=== PATIENT | female | born 1945 | race Caucasian/White ===

== ENCOUNTER 2017-07-21 20:58 | Emergency (ER) | payer MEDICARE, OTHER ==
[~2017-07-21] VITALS: Ht 172.7 cm; Wt 149.7 kg
[~2017-07-21 20:58] MED LIST: BACTRIM DS TAB1 EACH PO; BETAMETHASONE D15 G2 TOP; BUPROPION HCL150 M2 PO; CARBIDOPA-LEVO1 EACH PO; KEFLEX500 MG PO; LISINOPRIL5 MG PO; LOVASTATIN40 MG PO; METFORMIN HCL500 MG PO; NORCO 5-325 TA1 EACH PO; OXYBUTYNIN CHLOR5 MG PO; POTASSIUM CHLO20 ME1 PO
[2017-07-21] MEDS ORDERED: CLEOCIN HCL300 MG PO (21:19)
[2017-07-21] MEDS ORDERED: NORCO 5-325 TA1 EACH PO (23:01)
[2017-07-21] MEDS ORDERED: BACTRIM DS TAB1 EACH PO (23:01)
== END 2017-07-21 23:15 | disposition home or self-care (01) ==
LOC: ED 20:58
DX: L03.115 Cellulitis of right lower limb (principal); E11.9 Type 2 diabetes mellitus without complications; I10 Essential (primary) hypertension; J45.909 Unspecified asthma, uncomplicated; F17.200 Nicotine dependence, unspecified, uncomplicated; Z87.442 Personal history of urinary calculi; Z88.7 Allergy status to serum and vaccine; Z88.5 Allergy status to narcotic agent; Z79.84 Long term (current) use of oral hypoglycemic drugs; Z79.899 Other long term (current) drug therapy
CPT/HCPCS: 99282

== ENCOUNTER 2017-11-26 20:29 | Inpatient (IN) | payer MEDICARE, OTHER ==
[~2017-11-26] VITALS: Ht 172.7 cm; Wt 197.8 kg
--- NOTE | ~2017-11-26 | EKG ---
[facility] [address] [facility] [place], [place] [address] Draft EK completed, results pending confirmation PATIENT NAME: JUDYSAMANTHA SILVERMAN Electrocardiogram DATE OF : 43 PHYSICIAN: PRELIMINARY REPORT #: [id number] REPORT IS CONFIDENTIAL AND NOT TO BE RELEASED WITHOUT AUTHORIZATION
[~2017-11-26 20:29] MED LIST changes: +CLEOCIN HCL300 MG PO
--- NOTE | 2017-11-27 01:15 | NUR ---
ADMIT TO CCU 0030 PER STRETCHER FROM THE ED. PT IS ALERT AND ORIENTED. IS UNABLE TO HELP WITH MOVING FROM STRETCHER TO BED SO AIR LIFT USED. PT IS WEAK AND TACHYPNEAC. FOUND TO BE INC OF URINE AND STOOL. CLEANSED AND THEN POSITIONED UP IN BED. RR REAMINS 30'S 0N 02 4LNC..
--- NOTE | 2017-11-27 02:29 | NUR ---
IS RESTING. RR 28. HAD BEEN ASKING FOR WARM BLANKETS. ON ARRIVAL TO CCU TEMP PER MOORE WAS 100.5 BUT ELEVATED TO 100.7 WITHIN 30MIN. GIVEN 400MG MOTRIN PO AT 0110. WAS ABLE TO TAKE PO MEDS WELL. CONT TO MONITOR VS AND URINE OUTPUT.
--- NOTE | 2017-11-27 03:00 | NUR ---
LE 0115 LEGS ARE VERY EDEMATOUS. HAS CRUST LIKE SKIN IN SEVERAL AREAS ON BOTH LOWER LEGS AND FEET. LEFT LEG IS LARGER AND REDDER WITH SCATTERED OPEN ULCERATIONS. REDNESS GOES UP TO THIGH. HAS STRONG ODOR.
--- NOTE | 2017-11-27 03:23 | NUR ---
PT RESTING. DR MOREIRA CALLED RE URINE OUTPUT ORDERS RECIEVED FOR 500ML LR BOLUS AND WILL INC FLUIDS TO 250ML/HR.
--- NOTE | 2017-11-27 04:50 | NUR ---
PT SLEEPY, WILL AWAKEN BUT UNABLE TO STAY AWAKE AT THIS TIME. IS DIAPHORETIC NOW THAT TEMP IS DEC. EXTRA BLANKETS REMOVED.
--- NOTE | 2017-11-27 05:26 | NUR ---
DR MOREIRA CALLED AT 0505 RE DEC URINE OUTPUT BP'S AND LAB WORK. ORDER FOR 1L LR OVER 1 HR RECIEVED. LABS DRAWN PER SL AND NOSE SWAB DONE.
--- NOTE | 2017-11-27 07:10 | NUR ---
URINE OUTPUT BETTER SINCE LAST BOLUS. REPORT GIVEN TO DAY SHIFT.
--- NOTE | 2017-11-27 08:18 | NUR ---
PT SLEEPING WITH HOB ELEVATED, AWAKENS TO VOICE, DENIES C/O AT THIS TIME. VITAL SIGNS TAKEN AND URINE OUTPUT MEASURED. 110 MLS FOR THIS HOUR. ASSESSMENT COMPLETED, PT FALLS ASLEEP EASILY. SALINE LOCK X2 FLUSHED WITH 10 MLS NORMAL SALINE EACH, IVF LR RUNNING IN LEFT AC AT 250 MLS/HR. ACCU CHECK WNL, NO INSULIN REQUIRED AT THIS TIME.
--- NOTE | 2017-11-27 10:18 | NUR ---
PT ATE APPROX 25% OF BREAKFAST. LOWER EXTREMITIES CLEANED WITH SURGICAL SCRUB AND SHAVING CREAM, HAIR CLEANED WITH HEATED SHOWER CAP. HOB DINA. FAMILIA Colbert IN TO TALK WITH PT ABOUT NEEDS WHEN DISCHARGED.
--- NOTE | 2017-11-27 12:58 | NUR ---
PT EATING LUNCH - OCC COUGH. LOWER EXTREMITIES ELEVATED WITH SLING LIFT. BACK OF LEGS CLEANED WITH SURGICAL SCRUB BRUSH AND SHAVING CREAM. PT STATES FEELING BETTER. ASSESSMENT COMPLETED, PT WITH EXP WHEEZES BILAT. HOB ELEVATED AND LOWER EXTREMITIES ELEVATED ON PILLOWS. VITAL SIGNS COMPLETED.
--- NOTE | 2017-11-27 14:23 | NUR ---
CHECKED WITH ZARI TANNER REGARDING PT. FLORES REQUESTED I NOT VISIT PT IF SHE IS ASLEEP. PT ASLEEP, WILL FOLLOW UP AGAIN
--- NOTE | 2017-11-27 14:30 | NUR ---
I/O'S COMPLETED. HILL ROM HERE WITH [facility] BED. PT TRANSFERRED TO NEW BED WITH THE HELP OF THE CEILING LIFT. HOB ELEVATED. PT MIGUEL WELL. FRIENDS/FAMILY IN TO VISIT. P.T. IN TO WORK WITH PT.
[2017-11-27] MEDS ORDERED: REQUIP0.5 MG PO (15:48)
[2017-11-27] MEDS ORDERED: NORCO 5-325 TA1 EACH PO (15:49)
[2017-11-27] MEDS ORDERED: AMBIEN5 MG PO (15:50)
[2017-11-27] MEDS ORDERED: DICLOFENAC SODI75 MG PO (15:50)
[2017-11-27] MEDS ORDERED: ADIPEX-P37.5 M1 PO (15:51)
--- NOTE | 2017-11-27 16:26 | NUR ---
Medications reconciled using pharmacy fill records and patient interview. Patient appears to be reliable historian
--- NOTE | 2017-11-27 17:23 | NUR ---
DR. MOREIRA NOTIFIED OF DECREASE URINE OUTPUT. WILL WATCH HOURLY OUTPUT - NEED 55 MLS/HR. PT SLEEPING AT THIS TIME WITH SATS 93% ON 2L PER NC.
--- NOTE | 2017-11-27 18:14 | NUR ---
PT ATE 100% OF DINNER, PT VISITING WITH FRIEND IN ROOM.
--- NOTE | 2017-11-27 19:01 | NUR ---
URINE OUTPUT [address] MOREIRA NOTIFIED AND IVF INCREASED TO 200 MLS/HR.
--- NOTE | 2017-11-27 20:09 | NUR ---
IN TO SEE PT. PT STATES SHE IS VERY TIRED BUT OTHER OLMSTEAD COMFORTABLE. DENIES PAIN. DR MOREIRA CALLED RE URINE OUTPUT. WILL CONT TO MONITOR. WILL ENCOURAGE COUGH AND DEEP BREATHING.
--- NOTE | 2017-11-27 20:34 | EKG ---
[facility] [address] [facility] [place] [address] Signed Sinus rhythm with premature atrial complexes Otherwise normal ECG When compared with ECG of 26-NOV-2017 21:49, (Unconfirmed) premature atrial complexes are now present Confirmed by KIRIT MOREIRA MD ([id number]) on 11/27/2017 8:34:26 PM Electronically Signed By: KIRIT MOREIRA MD 11/27/17 2034 PATIENT NAME: SAMANTHA KIM HERRERA Electrocardiogram DATE OF : 43 PHYSICIAN: KIRIT MOREIRA MD REPORT #: [id number] REPORT IS CONFIDENTIAL AND NOT TO BE RELEASED WITHOUT AUTHORIZATION
--- NOTE | 2017-11-27 21:20 | NUR ---
USED OVERHEAD LIFT TO REPOSITION PT UP IN BED. NO OTHER C/O
--- NOTE | 2017-11-28 02:32 | NUR ---
LE 11/27/17 2340 AWAKENS EASILY, ASSESSMENT DONE. IS SLEEPING OFF AND ON. CONT TO MONITOR URINE OUTPUT.
--- NOTE | 2017-11-28 02:43 | NUR ---
CONT TO SLEEP OFF AND ON. NO CHANGE.
--- NOTE | 2017-11-28 03:41 | NUR ---
PT C/O BEING COLD AND REQUESTING BLANKETS. TEMP 99.9 PER MOORE TEMP PROBE. PT ALSO STATE ACHES ALL OVER FROM BEING IN BED. GIVEN 400MG MOTIN PO. EXPLAINED MOTRIN WAS AN NSAID, ANTI-INFLAMATORY THAT RELIEVED PAIN AND REDUCED FEVERS. SIDE EFFECT OF POSS KIDNEY INJURY AND INC BLEEDING. PT ALSO GIVEN BLANKETS. WILL CONT TO WATCH TEMP AN URINE OUTPUT. ALSO DISCUSSED POSS WAYS TO PREVENT CELLULITIS IN THE FUTURE. PT HAS TRIED COMPRESSION DEVICES IN THE PAST. ALSO DISCUSSED IMPORTANCE OF CLEANING LEGS AND THE CREVASSES ON THEM AND MAY NEED ASSISTANCE WHEN HOME.
--- NOTE | 2017-11-28 05:15 | NUR ---
SLEEPING, HAS THROWN COVERS OFF.
--- NOTE | 2017-11-28 06:23 | NUR ---
SLEEPING AT THIS TIME.
--- NOTE | 2017-11-28 07:45 | NUR ---
UPON INITIAL ASSESSMENT, PATIENT LAYING AWAKE IN BED, READY FOR BREAKFAST. PT STATES SHE HER BACK IS BOTHERING HER AND SHE WOULD LIKE TO GET OUT OF BED. DISCUSSED PLAN FOR THE DAY AND ORDERED BREAKFAST. CALL LIGHT WITHIN REACH, NO FURTHER REQUESTS AT THIS TIME.
--- NOTE | 2017-11-28 10:01 | NUR ---
MOORE CARE AND PARITAL BED BATH DONE, PT UP TO CHAIR, CALL LIGHT WITHIN REACH. RESPIRATORY THERAPY IN ROOM WITH PT. PT HAS NO FURTHER NEEDS AT THIS TIME.
--- NOTE | 2017-11-28 11:00 | NUR ---
PT RESTING IN CHAIR WATCHING TELEVISION. ELEVATED FOOT OF RECLINER AND PLACED PILLOWS UNDERNEATH LEGS. CALL LIGHT WITHIN REACH, NO FURTHER REQUESTS AT THIS TIME.
--- NOTE | 2017-11-28 11:00 | NUR ---
DR MOREIRA INTO SEE PT AT THIS TIME.
--- NOTE | 2017-11-28 12:24 | NUR ---
PT REPOSITIONED IN CHAIR FOR LUNCH. PT EATING AND WATCHING TELEVISION. NO FURTHER REQUESTS AT THIS TIME.
--- NOTE | 2017-11-28 12:35 | NUR ---
PT SITTISNG UP IN CHAIR-MUCH MORE ALERT AND ORIENTED TODAY. SHE ADMITTED THAT YESTERDAY WAS A "ROUGH" DAY. SHE MENTIONED SHE WAS EXPECTING A VISITOR. PT DID REQUEST A VISIT FROM FR RODRIGUEZ TODAY IF POSSIBLE. I LEFT A MSG FOR HIM TO STOP. PT THANKED ME FOR STOPPING, WILL CONTINUE TO FOLLOW NEEDED
--- NOTE | 2017-11-28 13:15 | NUR ---
IN PT ROOM. PT USED IS. STATES SHE WILL CALL WHEN READY TO LIE DOWN. NO FURTHER NEEDS AT THIS TIME.
--- NOTE | 2017-11-28 15:24 | NUR ---
SCRUBBED LOWER EXTREMITIES WITH HEPA CLEANSE, WELL TOLERATED. MOVED PT FROM CHAIR TO BED. CALL LIGHT WITHIN REACH, PT VISITING WITH FRIEND. NO FURTHER NEEDS AT THIS TIME.
--- NOTE | 2017-11-28 16:26 | NUR ---
PT RESPIRATORY RATE INCREASED TO 28-32. INCREASED SOB WITH EXERTION. DR MOREIRA NOTIFIED.
--- NOTE | 2017-11-28 18:31 | NUR ---
PT REQUESTED REMOVAL OF BLANKETS, STATES SHE IS FEELING LESS ACHY THAN BEFORE IBUPROFEN. RESTING IN BED WATCHING TELEVISION. CALL LIGHT WITHIN REACH.
--- NOTE | 2017-11-28 18:37 | NUR ---
PT HAS BEEN COOPERATIVE WITH HOSPITAL ROUTINE ALL DAY. SHE HAS ENJOYED WORKING WITH THE LADLE LINER AND HAS HAD MANY VISITORS THOUGHOUT THE DAY. WHEN PT WAS MOVED FROM BED TO CHAIR THE CEILING LIFT USED FOR SAFTEY OF PATIENT AND STAFF DUE TO PT'S SIZE AND UNABLE TO STAND AT THIS TIME. PT DID WORK WITH PT TODAY, BUT ONLY IN THE CHAIR. WHEN PT WAS WEIGHT WAS OBTAINED THE BED WAS ZEROED, BUT STILL RECEIVED A INCREASE IN WEIGHT. UNSURE HOW THE INTINALY WEIGTH WAS OBTAINED. THIS IT INFRASTRUCTURE PROJECT MANAGER AGREES WITH ALL OF THE STUDENTS CHARTING AND ASSESSMENTS.
--- NOTE | 2017-11-28 19:30 | NUR ---
PT SHIFT REPORT RECIVED FROM DAY SHIFT RN. ALL QUESTIONS ANSWERED. PT RESTING IN BED AT THIS TIME. WILL CONTINUE TO CLOSELY MONITOR.
--- NOTE | 2017-11-28 20:15 | NUR ---
PT SHIFT ASSESSMENT COMPLETED. PT IS VERY TALKATIVE AND OPEN TO EDUCATION. PT BREATH SOUNDS ARE COARSE AND WHEEZY. PT IS ON 2L NC WITH SPO2 93-95%. PT RR 24-30. ACTIVE BOWEL TONES. PT LEGS ARE SWOLLEN AND REDDENED AREAS NOTED. PT URINARY OUTPUT IS MAINTANING AT THIS TIME. WILL CONTINUE TO DO HOURLY URINE.
--- NOTE | 2017-11-28 22:00 | NUR ---
PT RESTING IN BED. PT HAS A VISITOR IN THE ROOM AT THIS TIME. WILL CONTINUE TO CLOSELY MONITOR.
--- NOTE | 2017-11-29 00:20 | NUR ---
PT RESTING WELL AT THIS TIME. MOORE CONTINUESS TO HAVE GOOD URINE OUTPUT PRESENT. PT BREATH SOUNDS REMAIN COARSE WITH OCCASIONAL COASE COUGH. WILL CONTINUE TO CLOSELY MONITOR. PT DENIES ANY NEEDS AT THIS TIME.
--- NOTE | 2017-11-29 02:00 | NUR ---
IN O CHECK UINAY OUTPUT. PT AWAKE AND IS REPORTING SHE IS UNCOMFOTABLE. WITH OTHER RN ASSIST. REPOSITIONED PT IN BED. PT TOLERATED WELL. GAVE PT PRN IBUPROFEN FOR GENERALIZED PAIN/DISCOMFORT. TURNED ON WHITE NOISE MACHINE AT BEDSIDE TO HELP WITH NOISE THE BED MAKES. WILL CONTINUE TO CLOSELY MONITOR.
--- NOTE | 2017-11-29 03:51 | NUR ---
PT RESTING WELL SINCE REPOSITIONING AND PLACING WHITE NOISE MACHINE IN ROOM. WILL CONTINUE TO ENCOURAGE REST AT THIS TIME. WILL CONTINUE TO CLOSELY MONITOR.
--- NOTE | 2017-11-29 06:44 | NUR ---
PT CALLED TO BE READJUSTED IN BED. PT WANTS TO SIT ON THE EDGE OF THE BED. PT DENIES WANTING TO GET UP TO THE CHAIR AT THIS TIME. SAT PATIENT UP IN CHAIR MODE IN BED. PATIENT IS MORE SATISFIED WITH THIS POSITION. WILL CONTINUE TO CLOSELY MONITOR.
--- NOTE | 2017-11-29 08:43 | NUR ---
STATES NOT VERY COMFORTABLE IN HER BED, ALWAYS THINKING ABOUT WHERE IT WILL INFLATE NEXT.
--- NOTE | 2017-11-29 09:32 | NUR ---
PT AWAKE THIS A.M. HOB ELEVATED AND PT EATING DIABETIC DIET, STATES GENERALIZED DISCOMFORT 01/04. MOTRIN GIVEN WITH A.M. MEDS.
--- NOTE | 2017-11-29 09:58 | NUR ---
ASSESSMENT COMPLETED, RESTING AFTER MOTRIN GIVEN. P.T. HERE AND WORKING WITH PT.
--- NOTE | 2017-11-29 10:27 | NUR ---
PT STOOD WITH P.T. USING GAIT BELT AND RN X2 ASSISTING. PT URING WALKER AND AMBULATED TO CHAIR. NOW RESTING IN CHAIR WITH LOWER EXTREMITIES ELEVATED.
--- NOTE | 2017-11-29 12:47 | NUR ---
PT SITTING IN CHAIR, ALERT AND ORIENTED. SHE DID SEEM SOMEWHAT MORE STRESSED TODAY THAN YESTERDAY. SHE MENTIONED THAT FR RODRIGUEZ CAME IN YESTERDAY, AND IS PLANNING ON VISITING TODAY FOLLOWING MASS. SHE SUGGESTED THAT THE MASS TIME BE POSTED AND THE CHANNEL ON TV FOR MASS BE PUBLISHED WELL. I WILL MENTION TO DANIEL Colbert HAD GOOD VISIT WITH PT, CLOSED WITH PRAYER. WILL FOLLOW NEEDED
--- NOTE | 2017-11-29 13:28 | NUR ---
ASSESSMENT COMPLETED, PT RESTING IN BERI CHAIR, VISITING WITH FRIENDS IN ROOM.
--- NOTE | 2017-11-29 14:06 | NUR ---
PT RETURNED TO BED WITH CEILING LIFT AND RN X2. PT RESTING WITH HOB DINA. Violet FARR IN TO PLACE MIDLINE IVS.
--- NOTE | 2017-11-29 14:56 | NUR ---
20 SHANEL MIDLINE IV INSERTED IN RIGHT UPPER ARM BY TRAVIS FARR RN. VANCOMYCIN STARTED - PT MIGUEL WELL AND DR. MOREIRA NOTIFIED.
--- NOTE | 2017-11-29 15:11 | NUR ---
MIDLINE INSERTION NOTE: ASKED BY DR. MOREIRA TO EVALUATE PATIENT FOR POTENTIAL MIDLINE PLACEMENT. PATIENT IS IN NEED OF CONTINUED IV ANTIBIOTIC THERAPY AND ALL PERIPHERAL LINES DISCONTINUED. AFTER REVIEWING THE CHART AND INTERVIEWING THE PATIENT, NO ABSOLUTE CONTRAINDICATIONS WERE IDENTIFIED. PATIENT'S RIGHT ARM WAS EVALUTED FIRST USING THE SITE RITE U/S MACHINE. PT'S BASILIC, BRACHIAL AND CEPHALIC VEINS WERE IDENTIFIED. THE BASILIC WAS ATTEMPTED AND ACCESSED AFTER THE SECOND TRY IT WAS A DEEP VEIN TO ACCESS. THE GUIDEWIRE, INTRODUCER, AND MIDLINE CATHETER ALL ADVANCED WITHOUT DIFFICULTY. A 4 FR PICC CATHETER WAS USED BUT TRIMMED DOWN TO 20 CM AFTER MEASURING TO THE AXILLA ON PATIENT'S ARM. PATIENT TOLERATED PROCEDURE WELL. CDC RECOMMENDED GUIDELINES FOR STERILE TECHNIQUE FOR PREP AND PROCEDURE WERE FOLLOWED. BLOOD EASIILY ASPIRATES BACK AND LINE FLUSHES WELL. DRESSING INTACT. REPORT GIVEN TO ZARI TANNER. PATIENT ENCOURAGED TO ASK QUESTIONS ABOUT HER MIDLINE CATHETER.
--- NOTE | 2017-11-29 16:20 | NUR ---
LUISA HAMEED HERE AND REPORT GIVEN.
--- NOTE | 2017-11-29 16:48 | NUR ---
moved over to room 110 from ccu. nurse to nurse report was given in room. patient was requesting that she have a regular ms bed. looked into wt limit and patient does not fit the wt requirements for regular bed. patient was c/o bed and stating that her current bed is uncomfortable. requesting more tylenol when available. assessment complete, rt in room to give breathing treatment.
--- NOTE | 2017-11-29 16:54 | NUR ---
PATIENT SITTING UP IN BED. RT IN ROOM FOR TREATMENT. CALL LIGHT WITHIN REACH. NO OTHER NEEDS AT THIS TIME.
--- NOTE | 2017-11-29 17:41 | NUR ---
THIS RN ASKED TO GIVEN 1700 MEDICATIONS. TO ROOM. PT REPORTS INPROVING PAIN, NOW 12/05, THAT IS "BETTER WITH THE DISTRACTION OF MY VISITIORS." MEDICATION GIVEN (SEE MAR). BEDRAILS UP. CALL LIGHT WITHIN REACH. BELONGINGS WITHIN REACH. PT VISTING WITH FRIENDS. NO ADDITIONAL REQUESTS OR COMPLAINTS AT THIS TIME.
--- NOTE | 2017-11-29 18:07 | NUR ---
DINNER BROUGHT TO ROOM. PATIENT HAS FRIENDS IN ROOM. CREATIVE ARTS THERAPIST CAME TO SEE PATIENT.
--- NOTE | 2017-11-29 18:12 | NUR ---
PATIENT TRANSFER THIS EVENING FROM CCU. PATIENT ADMITTED FOR CELLULITIES. CURRENTLY ON VANCO AND ROCEPHIN. ADA DIET. BS HAVE BEEN WELL CONTROLLED. DAILY CLEANING AND APPLYING OF CREAM TO LOWER EXTREMITIES. REDNESS ON L LOWER LEG IS IMPROVING. LEG REMAINS WARM TO TOUCH. REQUESTING TYLENOL FOR PAIN. DOES NOT LIKE OUR BEDS.
--- NOTE | 2017-11-29 20:05 | NUR ---
Charge nurse rounding note:, Pt awake, in bariatric bed, no c/o apin or discomfort, watching tv
--- NOTE | 2017-11-29 20:07 | NUR ---
RECIEVED BEDSIDE REPORT FROM DAY SHIFT RN. PT IS A/O IN BED. NOB ELEVATED. LE ELEVATED ON PILLOW. PT REPORTS 5/10 PAIN. REPORTS THIS TOLLERABLE. MOORE DRAINING YELLOW URINE. PT IS ON 2.5L O2 NC. PT SL IN RIGHT UPPER ARM. REPOSITIONED PILLOW UNDER HEAD. CALL LIGHT WITHIN REACH. REPORTS NO OTHER NEEDS AT THIS TIME.
--- NOTE | 2017-11-29 20:40 | NUR ---
CBG 158 AT THIS TIME. PT SITTING UP IN BED, GIVEN ICE WATER, COLD ICE PACK FOR LEG, PT C/O HEAT IN LEFT LEG. CALL LIGHT IN REACH. NO ADDL REQUESTS AT THIS TIME.
--- NOTE | 2017-11-29 21:00 | NUR ---
PT IN BED. FRESH ICE WATER. EMPTY MOORE. VITALS AND I AND O DONE.
--- NOTE | 2017-11-29 22:00 | NUR ---
EVENING ASSESSMENT COMPLETED. PT REPORTS PAIN /10. TYLENOL GIVEN. HEART RATE NORMAL. LUNGS SOUNDS WHEEZY THROUOUT. EDEMA IN BILAT LE. LEFT LEG WEEPING. CREAM APPLIED. CHUCKS PLACED UNDER LEGS. LEGS ELEVATED ON PILLOWS. URINE YELLOW. CALL LIGHT WITHIN REACH. REPORTS NO OTHER NEEDS AT THIS TIME.
--- NOTE | 2017-11-29 22:41 | NUR ---
PT HAS BEEN COMPLAINING OF LOWER BACK PAINN. MD MOREIRA WAS CALLED AND NORCO 1 TAB PRN Q 8HRS ORDER WAS RECEIVED.
--- NOTE | 2017-11-29 23:00 | NUR ---
PT IS SLEEPING IN BED. WILL CHECK BACK ON LATER
--- NOTE | 2017-11-30 00:12 | NUR ---
PT APPEARS TO BE SLEEPING. RR WNL. HOB ELEVATED. LEGS ELEVATED. CALL LIGHT WITHIN REACH. PT VISIBLE FROM NURSING STATION.
--- NOTE | 2017-11-30 01:00 | NUR ---
PT SLEEPING IN BED. EMPTY MOORE AND I AND O DONE. PT IS DOING WELL. HELPED PT GET COMFY IN BED.
--- NOTE | 2017-11-30 02:20 | NUR ---
PT AWAKEN TO SOUND. REQUESTED SONATA. PT BACK TO SLEEP. REPORTS NO OTHER NEEDS AT THIS TIME. CALL LIGHT WITHIN REACH.
--- NOTE | 2017-11-30 02:39 | NUR ---
PT REORTED ITCHING, BENADRYL 25MG IV GIVEN.
--- NOTE | 2017-11-30 03:14 | NUR ---
PT SLEEPING IN BED WILL CHECK BACK ON LATER
--- NOTE | 2017-11-30 04:39 | NUR ---
PT APPEARS TO BE SLEEPING. RR EQUAL. CALL LIGHT WITHIN REACH. O2 NC IN PLACE. HOB ELEVATED. BILAT LE ELEVATED.
--- NOTE | 2017-11-30 06:41 | NUR ---
PT SLEPT MOST OF THE NIGHT. VANCO HUNG AT 0630. TROUGH AT 1430. PT ON 2.5L NC. MOORE IN PLACE. STRICT I/O. ADA DIET. BS 158. 1 UNIT INSULIN GIVEN. WHEEPING EDEMA BILAT LE. VANICREAM Q SHIFT. SL MIDLINE IN R UPPER ARM. CHAIR FROM HOME TO ARRIVE TODAY. FACILITIES NEEDS TO APPROVE.
--- NOTE | 2017-11-30 07:00 | NUR ---
BEDSIDE HANDOFF REPORT RECEIVED FROM SCREEN EXAMINER RN. PT RESTING IN BED. VANCO INFUSING. PT ON 2L NC. PT REQUESTING TO HAVE BED PLACED IN CHAIR POSITION, ASSISTED. PT DENIES OTHER NEEDS AT THIS TIME.
--- NOTE | 2017-11-30 08:03 | NUR ---
PT ASSISTED WITH CNAS X2 AND RNS X2 AND DAYRON LIFT UP TO CHAIR. ORAL CARE PERFORMED FACIAL CARE PERFORMED BY PT. MOORE CATHETER EMPTIED OF 850ML AND SECURED ON SIDE OF CHAIR. PIV CONTINUES TO RUN. BLOOD SUGAR TAKEN (108). PT STATES SHE IS COMFORTABLE "ENOUGH FOR NOW." BED LINENS CHANGED. PT'S NURSE NOTIFIED OF STATUS. CALL LIGTH WITHIN REACH. PT STATES SHE HAS NO ADDITIONAL REQUESTS OR COMPLAINTS AT THIS TIME.
--- NOTE | 2017-11-30 08:45 | NUR ---
PT SITTING IN CHAIR. PT PAIN IMPROVING, RATING PAIN 4/10. PT ON 2L NC, DENIES SOB. PT TOLERATING ADA DIET, NO SS INSULIN REQUIRED. PT WITH EDEMA AND REDNESS TO BLE, LEFT LEG MORE SWOLLEN THAN RIGHT, VANICREAM APPLIED TO LEGS, LEGS ELEVATED. PT WITH MOORE CATH DRAINING YELLOR URINE. VANCO INFUSING TO RIGHT MIDLINE. BOWEL TONES ACTIVE, DISCUSSED STOOL SOFTENER OR LAXATIVE WITH PT, PT DECLINING AT THIS TIME. PT DENIES OTHER NEEDS.
--- NOTE | 2017-11-30 08:54 | NUR ---
PATIENT UP IN CHAIR. CHANGED LINENS.
--- NOTE | 2017-11-30 08:55 | NUR ---
TALKED WITH PT THIS AM REGARDING DR MOREIRA CONCERN THAT HE VOICED TO ME ABOUT THE PT GOING HOME SHE LIVES ALONE, SO HE ASKED ME TO TALK WITH THE PT ABOUT HER DISCHARGE. IN TALKING TO THE PT SHE STATED THAT SHE IS PERFECTLY FINE TO GO HOME SHE HAS FRIENDS THERE THAT WILL HELP HER AND ALL THE RIGHT EQUIPMENT AT HOME TO CARE FOR HERSELF. SHE SAYS THERE IS NO WAY SHE WILL GO TO A FACILITY OR ALF OR REHAB OR ANYWHERE BUT HOME. PT WAS VERY ADAMANT ABOUT THIS.
--- NOTE | 2017-11-30 11:45 | NUR ---
PT REPOSITIONED IN CHAIR. LEGS ELEVATED ON PILLOWS. LUNCH TRAY SET UP. DISCUSSED PLAN FOR BED BATH AT 1430. PT DENIES OTHER NEEDS AT THIS TIME.
--- NOTE | 2017-11-30 13:50 | NUR ---
PT HAS BEEN TRANSFERRED TO M/S FROM CCU. SHE STATED SHE FEELS BETTER THAN THE DAY BEFORE. PT MENTIONED THAT DR MOREIRA APPROVED HER LIFT CHAIR TO BE BROUGHT FROM HOME. SHE IS PLEASED AND HAS MADE ARRANGEMENTS FOR THIS TO HAPPEN THIS AFTERNOON. GOOD VISIT, FR RODRIGUEZ IN TO CARE FOR PT. WILL CONTINUE TO FOLLOW NEEDED
--- NOTE | 2017-11-30 15:00 | NUR ---
BILATERAL LOWER LEGS CLEANSED WITH HEBICLEANSE AND SURGICAL SPONGE. RINSED WELL WITH WARM WATER AND WASH CLOTHS. DRIED WITH CLEAN TOWELS. VANICREAM APPLIED. PERICARE PERFORMED PER PROTOCOL. PT RESTING IN CHAIR, LEGS ELEVATED ON PILLOWS. PT DENIES OTHER NEEDS AT THIS TIME.
--- NOTE | 2017-11-30 16:15 | NUR ---
IV VANCO INFUSING, VANCO TROUGH 17.2. PT SITTING IN CHAIR. PT DENIES OTHER NEEDS AT THIS TIME.
--- NOTE | 2017-11-30 16:45 | NUR ---
PT TRANSFERED TO CHAIR FROM HOME. CHAIR CHECKED BY FACILITIES DEPARTMENT TO ENSURE IT WAS IN GOOD WORKING CONDITION. STEP DAUGHTER AT BEDSIDE, GIVEN UPDATE ON PT CONDITION.
--- NOTE | 2017-11-30 17:01 | NUR ---
I AND TWO NURSES HOYERED PATIENT FROM OUR CHAIR TO HER CHAIR.
--- NOTE | 2017-11-30 17:31 | NUR ---
PT REQUESTING PAIN MEDICATION. PT RATIGN PAIN 4-01/04. PT GIVEN 1 TAB NORCO. PT DENIES OTHER NEEDS AT THIS TIME.
--- NOTE | 2017-11-30 17:53 | NUR ---
PT STA IN CHAIR FOR ENTIRE SHIFT, UNCOMFORTABLE IN HOSPITAL CHAIR, CHAIR FROM HOME DELIVERED, CHECKED BY FACILITIES, PT TRANSFERED WITH DAYRON LIFT. PT ON 2L NC, LUNG SOUNDS CLEAR. PT TOLERATING ADA DIET, ACCUCHECKS DISCONTINUED. PT PAIN WELL CONTROLLED WITH PRN NORCO. IV VANCO, TROUGH TODAY 17.2. MIDLINE HEP LOCKED, FLUSHING BUT MALHOTRA SNOT DRAW BACK BLOOD. PT 3PA DAYRON LIFT. MOORE CATH IN PLACE, IV LASIX GIVEN TODAY. LOWER LEGS WASHED AND VANICREAM APPLIED.
--- NOTE | 2017-11-30 18:32 | NUR ---
INFORMTAION FOLDER GIVEN TO PT. PT ACCEPTS FOLDER AND STATES SHE WOULD LIKE TO REVIEW INFORMATION TOMORROW WHEN HER STEP DAUGHTER COMES "ARROUND 9." PT RESTING IN CHAIR FROM HOME. O2 READJUSTED NC IS NOT SET PROPERLY IN NOSTRILS. CALL LIGHT WITHIN REACH.
--- NOTE | 2017-11-30 18:56 | NUR ---
CHECKED ON PATIENT ASKED HER IF SHE NEEDED ANYTHING AND SHE SAID NO. HER FAMILY IS VISTING HER.
--- NOTE | 2017-11-30 19:00 | NUR ---
SHIFT REPORT RECEIVED. PATIENT RESTING IN HER RECLINER. SHE REPORTS FEELING COMFORTABLE AND DENIES ANY NEEDS. CALL LIGHT IN REACH.
--- NOTE | 2017-11-30 20:35 | NUR ---
HELPED RN ALISE GET PT COMFORTABLE IN HER CHAIR. FIXED HER BLANKETS. BEDSIDE TABLE AND CALL LIGHT WITHIN REACH.
--- NOTE | 2017-11-30 20:45 | NUR ---
PATIENT REPORTS FEELING UNCOMFORTABLE IN THE CHIAR AND REQUEST THAT THE DAYRON SHEET BE REMOVED. DISCUSSED THE IMPORTANCE OF THE SHEET WITH THE PATIENT. POLITICAL THEORY PROFESSOR ASSISTED IN TURNING PATIENT IN THE CHAIR TO SMOOTH OUT DRAW SHEET AND DAYRON SHEET. PATIENT REPORTS THAT IS MORE COMFORTABLE. PATIENT ALSO REPORTING DISCOMFORT IN HER BLADDER THAT COMES AND GOES. FLUSHED CATHETER, WHICH IS DRAINING WELL. APPEARS WELL POSITIONED. FRESH ICE WATER PROVIDED. PATIENT DENIES ANY OTHER NEEDS.
--- NOTE | 2017-11-30 21:00 | NUR ---
PATIENT IS AAOX4. PAIN RATED 5/10, PATIENT STATES THAT IS ABOUT NORMAL FOR HER. PATIENT IS ON 3L NC, THIS IS BOTHERING HER AND SHE APPEARS SOB BUT SHE DENIES THAT. ASSISTED PATIENT IN SITTING FORWARD IN CHAIR. PURSED LIP BREATHING. SWITCHED TO OXI-MASK FOR COMFORT. CRACKLES HEARD IN LUNG BASES BILATERALLY. ENCOURAGE COUGH AND DEEP BREATH. RT CONTACTED FOR PRN NEB. PATIENT ABLE TO RELAX AFTER NEB TREATMENT. CREAM APPLIED TO LEGS PER ORDER, PATIENT DENIES ANY PAIN FROM THE KNEE DOWN. SKIN IS FLAKING OFF AND SKIN IS NONBLANCHABLE, THICK AND HARD. LEFT THIGH IS RED AND TENDER TO TOUCH, OUTLINE MARKED BY PREVIOUS SHIFT. MOORE IS DRAINING LARGE AMOUNTS OF YELLOW URINE WITH SOME SEDIMENT AND OCCATIONAL BLOOD CLOTS. MIDLINE IN RIGHT ARM WAS HEPARIN LOCKED. FLUSHED WITH 10ML NS, UNABLE TO PULL BACK BLOOD. FLUSHES EASILY. SITE HAS SOME DRIED BLOOD UNDER DRESSING. PATIENT IS RESTING IN HER CHIAR WATCHING TV, DENIES ANY NEEDS.
--- NOTE | 2017-11-30 21:12 | NUR ---
VITALS AND I&OS DONE AND CHARTED. BEDSIDE TABLE AND CALL LIGHT WITHIN REACH. PER PT REQUEST I TURNED UP HER HEAT AND GOT HER A WARM BLANKET.
--- NOTE | 2017-11-30 22:00 | NUR ---
PATIENT REQUESTED HER ASSISTENT/FRIEND BRING IN HER MEDICATIONS FROM HOME. PATIENT STATES SHE DOESN'T LIKE THE IDEA OF THEM BEING THERE WHEN NO ONE IS THERE. THE MEDS AND SOME PERSONAL ITEMS WERE BROUGHT TO THE NURSE'S STATION. MEDS PLACED IN PATIENT'S KITS LIST TO BE VERIFIED BY PHARMACY TOMORROW. PERSONAL ITEMS PLACED IN PATIENT'S ROOM.
--- NOTE | 2017-11-30 23:10 | NUR ---
IV VANCO ADMINISTERED PER ORDER. PATIENT CONTINUES TO REPORT DISCOMFORT WITH THE MOORE, STATES HER BLADDER IS SPASMING OCCATIONALLY. ATTEMPTED TO REPOSITION AND FLUSH THE CATHETER. APPEARS TO BE DRAINING WELL. PATIENT IS READY FOR BED. PM CARE PROVIDED. LIGHTS TURNED OFF. CALL LIGHT IN REACH.
--- NOTE | 2017-12-01 00:45 | NUR ---
PATIENT'S MOORE LEAKED AND SATURATED THE PATIENT'S CHUCKS AND DAYRON SLING. PATIENT STILL FEELS THAT SHE CANNOT ATTEMPT STANDING AT THIS TIME. BED IN ROOM IS NOT BARIATRIC. DISCUSSED NEED FOR APPROPRIATE SIZED BED WITH PATIENT. SHE STATED "I'M NOT GOING INTO THAT BED, IT'S SO UNCOMFORTABLE". DISCUSSED USING BARIATRIC BED WITH CONTRACTOR BUYER AND VOLUNTEER PATIENT REPRESENTATIVE, WHICH ARE BOTH IN AGREEMENT. REPLACED BED IN ROOM WITH BARIATRIC BED. HOYERED PATIENT ONTO BED, 3PA. ABLE TO ROLL PATIENT TO REMOVE SOILED LINEN AND PROVIDE GOKUL CARE. PATIENT AGREES TO STAY IN THE BED FOR THE NIGHT IN ATTEMPT THAT THE MOORE WILL DRAIN BETTER. POSITIONED PATIENT FOR COMFORT. SHE REPORTS CRAMPING IN HER LEFT LEG, REPOSITIONED AND APPLIED WARM BLANKET. PATIENT THINKS SHE NEEDS MORE POTASSIUM. PATIENT ON 3L NC, PURSED LIP LABORED BREATHING.
--- NOTE | 2017-12-01 02:41 | NUR ---
PATIENT APPEARS TO BE SLEEPING. RR 18. CALL LIGHT IN REACH.
--- NOTE | 2017-12-01 03:30 | NUR ---
PATIENT CONTINUES TO REPORT CRAMPING PAIN IN HER FEET. NORCO DID NOT PROVIDE ANY RELIEF. REPOSITIONING HAS NOT HELPED. PRN TYLENOL PROVIDED. PATIENT RATES PAIN 8/10 AND APPEARS UNCOMFORTABLE.
--- NOTE | 2017-12-01 04:02 | NUR ---
PATIENT CONTINUES TO BE RESTLESS AND IS UNABLE TO GET COMFORTABLE. HER LEFT LEG IS VERY PAINFUL AND PATIENT APPEARS ANXIOUS. I SPOKE WITH DR. MOREIRA. ONE TIME DOSE OF NORCO WAS ADDED TO PATIENT'S ORDERS. VERIFIED USING READ BACK METHOD.
--- NOTE | 2017-12-01 04:15 | NUR ---
PATIENT CONTINUES TO BE UNCOMFORTABLE. SHE IS REQUESTING TO SIT UP ON THE EDGE OF THE BED. DUE TO HER WEAKNESS AND STATUS A DAYRON LIFT, THIS IS UNSAFE. TRANSFERED PATIENT WITH DAYRON LIFT INTO RECLINER. PATIENT WAS ABLE TO RELAX SOME AND LEFT MORE CONTENT. ELEVATED HER FEET WITH CHAIR AND TWO PILLOWS. ONE TIME NORCO PROVIDED. PATIENT HAS BEEN REMOVING HER NC AND HAVING LABORED BREATHING. EDUCATED PATIENT AND ENCOURAGED HER TO LEAVE NC IN PLACE. NO OTHER NEEDS AT THIS TIME. CALL LIGHT IN REACH.
--- NOTE | 2017-12-01 05:00 | NUR ---
PATIENT APPEARS TO BE SLEEPING. RR 18. 2L NC IN PLACE. CALL LIGHT IN REACH.
--- NOTE | 2017-12-01 05:28 | NUR ---
PATIENT WAS UNABLE TO SLEEP MUCH LAST NIGHT DUE TO CRAMPING/PAIN IN BOTH FEET. THE MOORE WAS NOT DRAINING PROPERLY WHILE PATIENT WAS IN THE RECLINER, TRANSFERED TO BED AND PATIENT TOELRATED THAT FOR A FEW HOURS. 2-3L NC, PATIENT REMOVES FREQUENTLY WHEN EXPERIENCING SOB. PRN NEBS. IV ABX. MIDLINE IN RIGHT ARM. LOWER EXTREMITIES ELEVATED TOLERATED, CREAM APPLIED PER ORDERS. DAILY SCRUB & CLEANING. DAYRON LIFT W/2-3 PA. PRN NORCO FOR PAIN.
--- NOTE | 2017-12-01 06:52 | NUR ---
SPOKE TO RAMO HAMEED ABOUT CONDITION OF PATIENT'S MIDLINE, NOT DRAWING BLOOD. HE STATES THAT IT MAY BE UP AGAINST A VALVE AND IF IT IS FLUSHING WELL THEN IT DOES NOT REQUIRE THE [place] PROTOCOL. IF PATIENT IS HAVING FREQUENT LAB DRAWS THEN THE PROTOCOL WOULD BE APPROPRIATE. HE ALSO RECOMMENDS USING A TOURNIQUET IN THE AXILLARY FOR BLOOD DRAWS.
--- NOTE | 2017-12-01 06:52 | NUR ---
VITALS AND I&OS DONE AND CHARTED. BEDSIDE TABLE AND CALL LIGHT WITHIN REACH. PT NEEDS NOTHING ELSE AT THIS TIME.
--- NOTE | 2017-12-01 07:20 | NUR ---
REPORT REECEIVED FROM ALISE. PATIENT RESTING IN CHAIR, APPEARS TO BE SLEEPING. NO DISTRESS NOTED.
--- NOTE | 2017-12-01 07:30 | NUR ---
PATEINT IN CHAIR, LEGS ELEVATED. EATING BREAKFAST. CALL LIGHT IN REACH. NO NEEDS ATT
--- NOTE | 2017-12-01 08:50 | NUR ---
CARE CONFERENCE ATTENDEES: PATIENT, STEP DAUGHTER JOHNNY STAFF: DR MOREIRA, MYSELF CASE MANAGEMENT, [facility], [facility], SAVANNAH CHATMAN, PERI HAMEED. DR MOREIRA DISCUSSED PT PROGRESS AND THE CONCERNS HE HAS FOR HER SHE IS PLANNING TO RETURN TO HER HOME WHERE SHE LIVES ALONE. HE SAYS IT IS TAKING MORE CARE HERE THAN WHAT SHE SAYS SHE IS DOING AT HOME. PT STATES SHE USES A WALKER AND IS ABLE TO GET UP FROM HER CHAIR IT IS A LIFT CHAIR AND USES HER WALKER TO GO TO THE BATHROOM. STATES SHE SLEEPING IN HER CHAIR AND SHE HAS BEEN MANAGING FINE BEFORE SHE CAME INTO THE HOSPITAL. DR MOREIRA TALKED WITH HER ABOUT GOING TO A SNF, PT ADAMANTLY REFUSES TO DO THIS. SO HE TOLD HER SHE COULD BE MADE INTO A TRANSITIONAL SWING BED PT, THIS GIVING HER UP TO 20 + DAYS TO GET STRONG ENOUGH TO CARE FOR HERSELF AT HOME. PT STEP DAUGHTER AGREES AND WELL THE PT. DENIED FURTHER QUESTIONS AT THIS TIME. INFORMED THEM THAT WE ARE AVAIL IF NECESSARY.
--- NOTE | 2017-12-01 09:05 | NUR ---
MULTIDISCIPLINARY TEAM IN ROOM FOR CARE CONFERENCE [facility] PATIENT AND PATIENT FAMILY.
--- NOTE | 2017-12-01 09:51 | NUR ---
PT FAMILY ARRIVED "FOR EDUCATION." THIS RN TO ROOM TO REVIEW PAMPHLETS AND DIAGNOSIS WITH PT AND FAMILY. CELLULITIS, DIABETES, FOOT CARE, AND SEPSIS PAMPHETS GIVEN AND REVIEWED WITH PT AND FAMILY. PT AND FAMILY ACTIVELY ENGAGED WITH INSTRUCTION, ASKING QUESTIONS, AND VERBALIZING UNDERSTANDING. PT AND FAMILY STATE THE FOOT CARE AND SPESIS PAMPHELTES WERE PARTICULARILY HELPFUL. PT STATE THEIR QUESTIONS HAVE BEEN ANSWSERED AND THEY HAVE NO FURTHER QUESTIONS. CALL LIGHT WITHIN REACH.
--- NOTE | 2017-12-01 10:49 | NUR ---
PHYSICAL THERAPIST TANYA IS IN ROOM WITH PATIENT FOR EXERCISE.
--- NOTE | 2017-12-01 11:13 | NUR ---
PATIENT SITTING IN CHAIR. VITALS AND I/OS DONE. FRESH ICE WATER GIVEN. CALL LIGHT IN REACH.
--- NOTE | 2017-12-01 11:43 | NUR ---
PT IN CHAIR, WATCHING MASS. QUICKLY VISITED, EXTENDED A BLESSING. WILL FOLLOW A NEEDED
== END 2017-12-01 12:37 | disposition swing bed (61) | DRG 871 ==
LOC: ED 20:29 → CCU 23:46 → MS 11-29 16:45
PROVIDERS: ADMIT Internal Medicine
PROC: 05H533Z Insertion of Infusion Device into Right Subclavian Vein, Percutaneous Approach (ICD-10-PCS; principal; 2017-11-29 14:30)
DX: A41.02 Sepsis due to Methicillin resistant Staphylococcus aureus (principal); J96.01 Acute respiratory failure with hypoxia; L03.116 Cellulitis of left lower limb; E66.2 Morbid (severe) obesity with alveolar hypoventilation; Z68.43 Body mass index [BMI] 50.0-59.9, adult; E78.5 Hyperlipidemia, unspecified; F32.9 Major depressive disorder, single episode, unspecified; G25.81 Restless legs syndrome; I89.0 Lymphedema, not elsewhere classified; E11.9 Type 2 diabetes mellitus without complications; I10 Essential (primary) hypertension; F17.210 Nicotine dependence, cigarettes, uncomplicated; B95.62 Methicillin resistant Staphylococcus aureus infection as the cause of diseases classified elsewhere; Z79.84 Long term (current) use of oral hypoglycemic drugs
CPT/HCPCS: 36415; 36569; 71045; 71260; 80053; 80069; 80202; 82803; 83605; 83735; 83880; 84484; 85025; 85379; 85610; 85651; 85730; 86060; 87040; 93005; 93010; 94640; 94667; 94668; 97110; 97161; 97163; 97165; 97530; 99406; C1751; G8978; G8979; J0696; J1650; J3370; J3475; J7030; J7040; J7060; J7120; Q9967

== ENCOUNTER 2017-12-01 12:37 | Inpatient (IN) | payer MEDICARE, OTHER ==
[~2017-12-01] VITALS: Ht 172.7 cm; Wt 197.8 kg
[~2017-12-01 12:37] MED LIST changes: +ADIPEX-P37.5 M1 PO; +AMBIEN5 MG PO; +DICLOFENAC SODI75 MG PO; +REQUIP0.5 MG PO
--- NOTE | 2017-12-01 13:20 | NUR ---
PATIENT STATUS HAS CHANGED TO SWING BED. PATIENT WAS INFORMED BY DR MOREIRA AND DIRECTOR PLANS CONNIE ABOUT THE SWING BED PROGRAM. PATIENT WALKED WITH PHYSICAL THERAPIST TWICE TO DAY AND WAS ABLE TO STAND FOR A VERY SHORT PERIOD OF TIME (LESS THAN 5 SEC THE FIRST TIME AND LEST THAT 1MINUTE THE SECOND TIME). PATIENT WILLING TI PARTICIPATE IN THERAPY.
--- NOTE | 2017-12-01 14:55 | NUR ---
PATIENT LEGS WERE CLEANED WITH CHLOHEXIDINE SPONGE AND WATER. LEGS WERE SCRUBED AND DRIED, AND EMOLLIENT CREAM APPLIED. PATIENT TOLERATED IT WELL. GUAZE WAS APPLIED IN THE BETWEEN THE SKIN FOLDS.
--- NOTE | 2017-12-01 15:30 | NUR ---
PATIENT SITTING IN CHAIR. CALL LIGHT IN REACH, FRESH ICE WATER GIVEN. NO OTHER NEEDS
--- NOTE | 2017-12-01 17:15 | NUR ---
PATIENT WAS ADJUSTED TO THE CHAIR WITH DAYRON. PATIENT TOLERATED WELL. SITTING UP IN THE CHAIR AT THIS TIME EATING DINNER. NO COMPLAINTS OF PAIN AT THIS TIME
--- NOTE | 2017-12-01 18:01 | NUR ---
PATIENT SITTING UP IN CHAIR, VISITOR IN ROOM. VITALS AND I/OS DONE. RN TY IN ROOM TO INCREASE O2. PATIENT WAS DOWN TO 79 ON RM AIR. CALL LIGHT IN REACH.
--- NOTE | 2017-12-01 18:40 | NUR ---
PATIENT IS ADMITTED TO SWING BED TODAY. RESTING IN CHAIR ALL DAY. LOWER EXTREMITIES WERE CLEANED TODAY DRIED AND EMOLLIENT CREAM APPLIED. PATIENT HAD 2 MAG RIDERS TODAY, IV LASIX ONCE. PATIENT IS 2L OF 02 VIA PA. PAIN CONTROL WITH TYLENOL AND NORCO PRN.HAD PHYSICAL THERAPY TWICE AND WAS ABLE TO STAND UP TWICE.
--- NOTE | 2017-12-01 19:00 | NUR ---
SHIFT REPORT RECEIEVD. PATIENT RESTING IN RECLINER. REPORTS HAVING A BETTER DAY THAN SHE HAD PREVIOUSLY. DENIES ANY NEEDS AT THIS TIME.
--- NOTE | 2017-12-01 20:05 | NUR ---
VITALS AND I&OS DONE AND CHARTED. GAVE HER A SODA PER HER REQUEST. ASKED HER RN ALISE IF IT WAS OK. SHE SAID IT WAS FINE. BEDSIDE TABLE AND CALL LIGHT IN REACH. SHE NEEDS NOTHING ELSE AT THIS TIME.
--- NOTE | 2017-12-01 21:30 | NUR ---
EVENING MEDS GIVEN PER ORDER. PATIENT IS [id number]. REPORTS PAIN 6/10 IN HER FEET BILATERALLY. DENIES PRN PAIN MEDS AT THIS TIME. TOLERATING 1L NC, LUNGS ARE CLEAR IN UPPER LOBES WITH CRACKLES IN THE BASES. ENCOURAGED COUGH AND DEEP BREATHING. ABD IS ROUND, NONTENDER, AND BOWEL SOUNDS ARE ACTIVE. PATIENT HAS NOT HAD BM SINCE ADMISSION 5 DAYS AGO; EDUCATED PATIENT ON BOWEL CARE AND SHE AGREES TO HAVE MILK OF MAG WITH EVENING MEDS. PATIENT'S URINE OUTPUT IS QS, DILUTE YELLOW WITHOUT SEDIMENT. MOROE CARE PROVIDED. REDNESS ON LEFT LEG APPEARS LESS THAN IT WAS. LOTION APPLIED TO BOTH LOWER LEGS, DAY SHIFT PLACED GAUZE IN SKIN FOLDS TO ABSORB DRAINAGE. GAUZE APPEARS CLEAN, LEFT IN PLACE FOR NOW. MIDLINE IV IN RIGHT ARM IS SL; RETURNS BLOOD AND FLUSHES WELL.
--- NOTE | 2017-12-01 22:50 | NUR ---
IV VANCO STARTED PER ORDER. PATIENT APPEARED TO BE SLEEPING WHEN RN ENTERED THE ROOM. SHE AWOKE AFTER SEVERAL MINS AND REQUESTED SOME APPLE CIDER VINEGAR TO DRINK. NO OTHER NEEDS AT THIS TIME.
--- NOTE | 2017-12-02 01:14 | NUR ---
PATIENT APPEARS TO BE SLEEPING. RR 24. 2L NC.
--- NOTE | 2017-12-02 02:15 | NUR ---
PATIENT REQUESTED PRN PAIN MEDS, WHICH WERE PROVIDED BY THE PAVING RAMMER.
--- NOTE | 2017-12-02 04:00 | NUR ---
PATIENT APPEARS TO BE SLEEPING. RR 18. 1L NC.
--- NOTE | 2017-12-02 05:54 | NUR ---
PATIENT REPORTING PAIN. PRN TYLENOL PROVIDED BY RN TRAUMA.
--- NOTE | 2017-12-02 06:00 | NUR ---
I&OS DONE AND CHARTED. VITALS DID NOT HAVE TO BE DONE THIS AM DUE TO THE FACT THAT SHE IS A SWING BED. PT NEEDS NOTHING ELSE AT THIS TIME. EMPTIED GARBAGES AND CLEANED UP HER ROOM. BEDSIDE TABLE AND CALL LIGHT WITHIN REACH.
--- NOTE | 2017-12-02 06:11 | NUR ---
PATIENT SLEPT OFF AND ON THROUGHOUT THE NIGHT, MUCH MORE THAN PREVIOUS NIGHT. PAIN IN LEGS/FEET IS NOT WELL CONTROLLED. PATIENT CONSISTENTLY REPORTING 7/10 PAIN AND ASKING FOR INCREASE IN PRN NORCO. WOUND CARE & CREAM ON LOWER EXTREMITIES. MIDLINE IN RIGHT ARM; RETURNS BLOOD AND HEPA-LOCKED. PATIENT CHAIR BOUND; STOOD WITH PT YESTERDAY.
--- NOTE | 2017-12-02 07:41 | NUR ---
BEDSIDE REPORT RECIEVED FROM ALISE. PATIENT RESTING IN BED, APPEARS TO BE SLEEPING AT THIS TIME. NO APPARENT DISTRESS NOTED.
--- NOTE | 2017-12-02 09:30 | NUR ---
PATIENT RESTING IN THE CHAIR. PATIENT STATED THAT SHE IS UNABLE TO STAND UP WITH PHYSICAL THERAPIST. PATIENT WAS MEDICATED FOR PAIN. PATIENT WANTED TO TALK TO THE DR MOREIRA BEFORE SHE CAN DO PT. DR MOREIRA WAS NOTIFIED. SHIFT ASSESSMENT COMPLETED. LUNGS CLEAR, BUT DIM IN THE BASES. MOORE IN PLACE AND DRAINING WELL. BILATERAL LEGS ARE RED, EDEMATOUS. PATIENT IS 2L OF 02. NO DISTRESS. CALL LIGHT IN REACH.
--- NOTE | 2017-12-02 10:09 | NUR ---
PT IS SITTING UP IN CHAIR WITH FEET ELEVATED AND CALL LIGHT IN REACH. PT WOULD LIKE A BED BATH WILL RETURN TO DO SO ONCE I AM DONE WITH MORNING VITALS. PT'S BP WAS HIGH, WILL INFROM NURSE.
--- NOTE | 2017-12-02 11:25 | NUR ---
DR MOREIRA IN ROOM TO EVALUATE PATIENT AND DISCUSS PLAN OF CARE. PATIENT EXPRESSSED CONCERN ABOUT HER LEGS. PATIENT REPORT HEAVY FEELING IN THE LOWER EXTREMITIES. REQUESTED CONSULT WITH DR YEUNG PER MD ORDER. THIS RN NOTIFIED DR YEUNG VIA PHONE. DR YEUNG TO SEE PATIENT TOMORROW AFTERNOON.
--- NOTE | 2017-12-02 12:31 | NUR ---
PATIENT RESTING IN THE CHAIR EATING LUNCH.NO COMPLAINTS. CHAPIN, ADMIONISTERED. NO APPARENT DISTRESS. WILL CONTINUE TO MONITOR. CALL LIGHT IN REACH
--- NOTE | 2017-12-02 13:55 | NUR ---
PATIENT WAS ASSISTED TO BED WITH PHYSICAL THERAPIST IN ROOM. THEN BEDBATH WAS GIVEN, LEGS WERE SCRUBED AND DRY. EMOLLIENT CREAM APPLIED TO JAYLON LOWER EXTREMITIES. PATIENT REPORTED PAIN IN THE BACK OF LEFT THIGH. LEGS STILL EDEMATOUS, REDNESS IN MORE ON THE LEFT LEG. PATIENT WAS MEDICATED WITH NORCO EARLIER PRIOR TO TRANSFER HER TO BED. RESTING IN BED AT THIS TIME. CALL LIGHT IN REACH.
--- NOTE | 2017-12-02 14:55 | NUR ---
PATIENT RESTING IN THE BED AT THIS TIME.NO APPARENT DISTRESS NOTED. WILL CONTINUE TO MONITOR. CALL LIGHT IN REACH.
--- NOTE | 2017-12-02 15:07 | NUR ---
PT IS ASLEEP IN BED RESTING SAFELY, RESPERATIONS EVEN.
--- NOTE | 2017-12-02 15:25 | NUR ---
PATIENT RESTING IN BED, STILL REPORTED DISCOMFORT IN JAYLON LEGS. IV ABX STARTED. CALL LIGHT IN REACH.
--- NOTE | 2017-12-02 17:24 | NUR ---
PATIENT SITTING IN BED, EATING DINNER. STILL REPORT DISCOMFORT IN BILATERAL LEGS. IV ABX DONE INFUSING, MIDLINE FLUSHED. EVENING MED ADMINISTERED. PATIENT STILL ON 2L OF O2.
--- NOTE | 2017-12-02 18:16 | NUR ---
PATIENT HAD A FAIR DAY. WORKED WITH PHYSICAL THERAPIST ONCE. HAD BEEN IN BED MOST OF THE SHIFT. PATIENT HAD A BEDBATH TODAY AND LEGS WERE CLEANED AND EMOLLIENT CREAM APPLIED. PATIENT WAS MEDICATED FOR PAIN WITH NORCO ONCE TODAY. FLOWY STILL LI PLACE AND DRAINING WELL. PATIENT HAD LASIX ONCE TODAY. CONSULT WITH DR YEUNG.
--- NOTE | 2017-12-02 18:50 | NUR ---
PT IS SITTING UP IN CHAIR WITH FEET ELEVATED. PT ASKED FOR ASSISTANCE WITH FIXXING HER HAIR.
--- NOTE | 2017-12-02 19:05 | NUR ---
SHIFT REPORT RECEIVED. PATIENT RESTING IN RECLINER. SHE REPORTS HAVING A BETTER DAY TODAY BUT REPORTS CONTINUED PAIN IN HER FEET. SHE REQUESTED SOME OF HER PERSONAL BELONGINGS BE MOVED CLOSER, WHICH THEY WERE. NO OTHER NEEDS AT THIS TIME.
--- NOTE | 2017-12-02 21:15 | NUR ---
PATIENT APPEARS TO BE SLEEPING. SITTING UPRIGHT IN CHAIR. RR 18. 1L NC IN PLACE.
--- NOTE | 2017-12-02 22:00 | NUR ---
EVENING MEDS GIVEN PER ORDER. PATIENT RESTING IN RECLINER. MIDLINE FLUSHED AND RETURNS BLOOD EASILY. PATIENT TOLERATING 1L NC. LUNG SOUNDS ARE CLEAR IN THE UPPER LOBES, DIMINISHED AND CRACKLES IN THE BASES. OCCATIONAL COUGH. ABD IS ROUND AND SOFT, NONTENDER, BOWEL SOUNDS ACTIVE. NO BM SINCE ADMISSION; BOWEL CARE ORDERED BUT NO RESULTS YET. PATIENT DENIES FEELING CONSTIPATED. LEGS ARE BOTH RED AND SWOLLEN; WOUND CARE PROVIDED TODAY. GAUZE IN SKIN FOLDS TO PROMOTE HEALING. UNABLE TO APPLY CREAM DUE TO NEW CONTAINER BEING UNAVAILABLE. MD AWARE. PATIENT REPORTS 8/10 PAIN IN HER FEET, REQUESTING PRN NORCO. ENCOURAGED PATIENT TO ELEVATE HER LEGS. PATIENT DENIES OTHER NEEDS AT THIS TIME.
--- NOTE | 2017-12-02 22:22 | NUR ---
VITALS AND I&OS DONE AND CHARTED. FRESH WATER GIVEN. BEDSIDE TABLE AND CALL LIGHT WITHIN REACH.
--- NOTE | 2017-12-02 23:00 | NUR ---
IV VANCO ADMINISTERED PER ORDER. PRN NORCO PROVIDED. PATIENT REQUEST ANOTHER BLANKET AND TEMP IN HER ROOM TURNED UP, WHICH WAS DONE. NO OTHER NEEDS AT THIS TIME.
--- NOTE | 2017-12-03 00:30 | NUR ---
IV ABX FINISHED. PATIENT'S MIDLINE HEPA-LOCKED. PATIENT WAS SLEEPING, AWOKE SLIGHTLY AND DENIED NEEDS AT THIS TIME.
--- NOTE | 2017-12-03 06:26 | NUR ---
chargeback specialist unable to draw blood from midline for morning labs.
--- NOTE | 2017-12-03 06:26 | NUR ---
ATTEMPTED TO DRAW BLOOD FROM THE MIDLINE FOR LAB, IT FLUSHES WELL BUT NO BLOOD RETURN. PT REPORTS PAIN 3/10 AT THIS TIME, GAVE TYLENOL. PT DENIES FURTHER NEEDS. CALL LIGHT WITHIN REACH.
--- NOTE | 2017-12-03 06:27 | NUR ---
I&OS DONE AND CHARTED. GARBAGES EMPTIED AND ROOM CLEANED UP. BEDSIDE TABLE AND CALL LIGHT WITHIN REACH. PT NEEDS NOTHING AT THIS TIME.
--- NOTE | 2017-12-03 06:39 | NUR ---
PATIENT SLEPT MUCH BETTER LAST NIGHT. NORCO WAS INCREASED AND PROVIDED RELIEF FOR ACHING FEET. 2L NC. OCCATIONAL COUGH. CRACKLES IN LUNG BASES. REDNESS ON LEGS CONTINUES TO IMPROVE SLIGHTLY. UNABLE TO PUT CREAM ON LEGS LAST NIGHT DUE TO BEING UNAVAILBLE. MD AWARE. MIDLINE UNABLE TO DRAW BACK BLOOD THIS AM.
--- NOTE | 2017-12-03 08:15 | NUR ---
rounded with dr. gibbons in room. updated patient on plan of care. ordered breakfast. plan to switch rooms today. michael reynaga wnl.
--- NOTE | 2017-12-03 10:05 | NUR ---
PATIENT UPDATED WITH PLAN OF CARE FOR THE DAY. PLAN TO WORK WITH PT IN 15 MINUTES. PATIENT VERY NERVOUS/ ANXIOUS ABOUT IDEA OF ATTEMPTING TO STAND. 2 NORCOS GIVEN FOR PAIN. VANCO FINISHING UP INFUSING. NEW ROOM SET UP FOR PATIENT TO BE TRANSFERED TO.
--- NOTE | 2017-12-03 10:37 | NUR ---
VISITOR IN ROOM WITH PATIENTS DOG FOR VISIT.
--- NOTE | 2017-12-03 11:00 | NUR ---
physical therapy, 2 cnas, and nursing staff in room to assist with patients PT. patient was unable to stand with three attempts up from her lift chair to standing. patient stating her legs are slipping each time. patient was then lifted with robert lift to bed. when in the bed patient was asked to roll from side to side using arm and leg strength. patient tolerated that fairly well needing moderate assist. patients back side was washed. no reddness or open areas noted on coccyx or back. shirley then assisted with hob elevated. wheeled bed down to room 116 for new room for patient. when patient was lifted and linens were changed 6 tylenol pms ( from patient purse) fell out of the bed. patient states " i did not take any they fell out of my purse". educated patient about self medicating and updated dr. gibbons about findings. plan to go through patients purse and collect medications in new room.
--- NOTE | 2017-12-03 12:25 | NUR ---
patient sitting up in bed eating lunch. no pain at this time. went through patients purse. no other medication found in purse. educated about self medicating.
--- NOTE | 2017-12-03 13:34 | NUR ---
PATIENT WAS IN BED, FINISHED LUNCH, NEEDED NO OTHER ASSISTANCE, NURSE DOING LEG TREATMENT.
--- NOTE | 2017-12-03 14:25 | NUR ---
midline dressing changed. patient tolerated well. lower legs washed with soap and warm water. dried each leg. cream applied. reddness improving on l lower leg. inside of leg is still warm to touch and swollen. campbell care done.
--- NOTE | 2017-12-03 16:01 | NUR ---
abigailnatalia was sleeping. rr even and unlabored. woke for scheduled medication. patient asked for warm blanket. no other requests. patient awaiting for dr. gallegos.
--- NOTE | 2017-12-03 17:04 | NUR ---
DR. YEUNG IN ROOM TO DO WRAPS ON LOWER LEGS. GELOCAST ( UNIBOOTS) PLACED ON LOWER LEGS BILATERALLY FOLLOWED BY KERLEX GAUZE, AND THEN 6 INCH COBAND TO LOWER LEGS AND 4 IN TO FEET. PATIENT TOLERATED DRESSING CHANGE. DR. YEUNG TO BE BACK MONDAY EVENING TO CHANGE DRESSING.
--- NOTE | 2017-12-03 17:06 | NUR ---
PATIENT MOVED ROOM. WAS ABLE TO WORK WITH PT. UNABLE TO STAND BUT WAS ABLE TO ATTEMP X3 TO STANDING POSITION. MOVED TO BED THIS MORNING. MR YEUNG IN TO DO DRESSING ON BILARERAL LOWER LEGS AND FEET. DRESSING TO REMAIN IN PLACE. HE PLANS TO COME IN FOR DRESSING CHANGE ON MONDAY EVENING. PATEINT CONT TO BE ON 2 L PER NC. DAYRON LIFT TO PERSONAL CHAIR. SL ON MIDLINE ON R SIDE. MIDLINE DRESSING CHANGE DONE TODAY. PATIENT LOWER LEGS WASHED AND CREAM APPLIED.
--- NOTE | 2017-12-03 18:23 | NUR ---
PATIENT TOLERATED 100 PERCENT OF DINNER. SLEEPING WITH HOB ELEVATED. NO OTHER NEEDS AT THIS TIME.
--- NOTE | 2017-12-03 19:20 | NUR ---
SHIFT REPORT RECEIVED. PATIENT RESTING IN BED. APPEARS TO BE SLEEPING.
--- NOTE | 2017-12-03 21:10 | NUR ---
VITALS AND I&OS DONE AND CHARTED. STEVE LEON AND I HOYERED PT FROM THE BED TO HER CHAIR PER HER REQUEST. BEDSIDE TABLE AND CALL LIGHT WITHIN REACH. FRESH WATER GIVEN AND HEAT PACK FOR HER NECK. PT NEEDS NOTHING ELSE AT THIS TIME.
--- NOTE | 2017-12-03 21:45 | NUR ---
EVENING MEDS GIVEN PER ORDER. PATIENT WAS TRANSFERED BACK INTO RECLINER BY CNSETH VIA THE DAYRON LIFT. PATIENT REPORTS BETTER PAIN CONTROL IN HER LOWER EXTREMITIES BUT SHE IS HAVING PAIN 4/10 IN HER NECK/BACK. HEAT PACK WAS PROVIDED PER PATIENT REQUEST. PATIENT IS TOLERATING 2L NC. LUNG SOUNDS ARE DIMINISHED WITH SOME CRACKLES IN THE BASES JAYLON. PATIENT RECEIVING BOWEL CARE DUE TO NO BM FOR OVER 7 DAYS; SHE HAS NOT HAD RESULTS YET. ABD IS LARGE AND ROUND, PATIENT STATES NORMAL. NO TENDERNESS. BOWEL SOUNDS ARE HYPOACTIVE IN ALL QUADRANTS. MOORE CARE PROVIDED, DRAINING CLEAR YELLOW URINE. REDNESS PERSIST ON THE LEFT INNER THIGH AND IS SORE TO THE TOUCH. LOWER EXTREMITIES WERE COVERED TODAY WITH DRESSING FROM HOSTEL PARENT, CMS INTACT. PATIENT DENIES ANY OTHER NEEDS AT THIS TIME. MIDLINE FLUSHED WITH 10ML NS, UNABLE TO DRAW BACK BLOOD. HEPA-LOCKED PER ORDER.
--- NOTE | 2017-12-04 00:30 | NUR ---
PATIENT APPEARS TO BE SLEEPING. RR 18. 2L NC IN PLACE.
--- NOTE | 2017-12-04 02:30 | NUR ---
PATIENT REQUESTING PRN PAIN MEDS. 2 TAB NORCO PROVIDED PER ORDERS. FRESH ICE WATER PROVIDED. MOORE EMPTIED. NO OTHER NEEDS AT THIS TIME.
--- NOTE | 2017-12-04 06:24 | NUR ---
PATIENT SLEPT MOST OF THE NIGHT. PRN NORCO GIVEN X2 FOR BACK/NECK PAIN. LEG/FEET PAIN IMPROVED WITH DRESSING APPLIED YESTERDAY. MIDLINE IS HEPA-LOCKED. MOORE IN PLACE; URINE OUTPUT QS. PATIENT CONCERNED ABOUT LACK OF DIURETIC ORDERED FOR TODAY. PATIENT HOYERED TO BED FOR ELEVATION OF LOWER EXTREMITIES AND GOKUL CARE. WORKING WITH PT/OT. ADA DIET.
--- NOTE | 2017-12-04 08:26 | NUR ---
PT IN CHAIR AWAKE. SET UP FOR BRK. MACHINES TECHNICIAN ROOM. AM CARE.
--- NOTE | 2017-12-04 08:52 | NUR ---
PATIENT WORKING WITH PHYSICAL THERAPY. PATIENT UNABLE TO STAND FROM CHAIR WITH 2-3 ASSIST.
--- NOTE | 2017-12-04 09:18 | NUR ---
MORNING ASSESSMENT DONE, A.M. MEDICATIONS GIVEN. PATIENT RATES GENERAL PAIN 3/10 AND THAT IS HER USUAL COMFORTABLE LEVEL. PATIENT UP TO CHAIR, DENIES NAUSEA. MIRALAX AND MAG CITRATE GIVEN. NO BM SINCE 11/24/17, ACTIVE BOWEL TONES. LEGS HAVE WRAPS INTACT.
--- NOTE | 2017-12-04 11:09 | NUR ---
PATIENT UP TO CHAIR, VISITING WITH SHELL REPRINT OPERATOR, DENIES NEEDS AT THIS TIME.
--- NOTE | 2017-12-04 12:30 | NUR ---
HELPED PATIENT FROM RECLINER TO CHAIR WITH DAYRON LIFT AND OTHER OUTSOLE SPLICER. PT REPORTS HAVING GAS AND WANTED TO BE IN BED IN CASE SHE HAD A BOWEL MOVEMENT. cALL LIGHT AND PERSONAL BELONGINGS WITHIN REACH, NO FURTHER REQUESTS AT THIS TIME.
--- NOTE | 2017-12-04 12:33 | NUR ---
PT HAS TRANSITIONED TO SWING BED. DISCOURAGEMENT IS BEGINNING TO SET IN. TALKED WITH PT ABOUT COMPRESSION SLEEVE VS SOCKS. WILL ASK DR REGARDING THIS AN OPTION. PT IS ALERT, ORIENTED AND PLEASANT. HAD PRAYER, WILL FOLLOW NEEDED
--- NOTE | 2017-12-04 16:02 | NUR ---
PATIENT IS RESTING IN BED. GIVEN SCHEDULED GABAPENTIN AND PRN TYLENOL FOR 3-4/10 PAIN. PATIENT HAS NOT BEEN ABLE TO STAND WITH PHYSICAL THERAPY TODAY, HAS REPORTED BEING TOO WEAK. OXYGEN IS AT 3L. PATIENT DENIES OTHER NEEDS AT THIS TIME.
--- NOTE | 2017-12-04 17:41 | NUR ---
PT IN BED EATING DINNER, HELPED PT REMOVE BLANKETS AND CLEANED UP IN ROOM. PT WATCHING TELEVESION, CALL LIGHT WITHIN REACH, NO FURTHER REQUESTS AT THIS TIME.
--- NOTE | 2017-12-04 19:05 | NUR ---
IN ROOM FOR REPORT, PT IS AWAKE IN BED. SHE DENIES NEEDS AT THIS TIME BUT STATES SHE WOULD LIKE TO SLEEP IN HER CHAIR TONIGHT. CALL LIGHT IS WITHIN REACH.
--- NOTE | 2017-12-04 21:59 | NUR ---
ADMINISTERED MEDICATIONS AND ASSESSED PT. SHE HAS ACTIVE BOWEL TONES AND IS PASSING GAS BUT DENIES FEELING THE NEED TO HAVE A BOWEL MOVEMENT YET. SHE WOULD LIKE TO STAY IN BED UNTIL 11 OR 12 TONIGHT THEN GO TO HER CHAIR. SHE IS WAITING TO SEE IF SHE FEELS THE NEED TO GO FIRST. PT IS ALSO REQUESTING HOLDING HER SONATA UNTIL SHE IS MOVED TO THE CHAIR. PT DENIES FURTHER NEEDS AT THIS TIME.
--- NOTE | 2017-12-04 23:20 | NUR ---
PT REQUESTED DAYRON TO HER CHAIR STATING THAT SHE IS UNCOMFORTABLE AND SAYS IT TAKES 4 PEOPLE TO MOVE HER. ADVISED PT WE WOULD GET MANY STAFF TOGETHER WE COULD. UPON ENTERING THE PT'S ROOM SHE IS RESTING WITH EYES CLOSED, AND RESPIRATIONS ARE EVEN AND NONLABORED. WE WILL LET THE PT SLEEP UNTIL SHE WAKES AND CALLS.
--- NOTE | 2017-12-05 00:10 | NUR ---
PT WOKE UP AND ASKED TO BE MOVED BACK TO HER RECLINER. 3 STAFF MEMBERS USED THE DAYRON LIFT TO MOVE PT. SHE DENIES FURTHER NEEDS AT THIS TIME.
--- NOTE | 2017-12-05 00:41 | NUR ---
3 PA TRANSFERRING PATIENT FROM BED TO CHAIR USING DAYRON LIFT. CALL LIGHT IN REACH.
--- NOTE | 2017-12-05 02:43 | NUR ---
PT IS RESTING WITH EYES CLOSED, RESPIRATIONS EVEN AND NONLABORED ON 2 LNC. CALL LIGHT IS WITHIN REACH.
--- NOTE | 2017-12-05 03:41 | NUR ---
PT CALLED ASKING ANOTHER RN FOR SONATA. BY THE TIME THIS RN ENTERED THE ROOM SHE IS BACK ASLEEP. PT ALREADY HAD HER DOSE OF SONATA LAST NIGHT. CALL LIGHT IS WITHIN REACH.
--- NOTE | 2017-12-05 04:55 | NUR ---
PT IS RESTING WITH EYES CLOSED, RESPIRATIONS EVEN AND NONLABORED. CALL LIGHT IS WITHIN REACH.
--- NOTE | 2017-12-05 07:41 | NUR ---
BEDSIDE REPORT RECEIVED FROM DEBORAH HAMEED. PATIENT AWAKE SITTING IN RECLINER NOW. PATIENT REPORTS FLATULENCE AND PROBABLE NEED TO HAVE BM SOON. WILL DAYRON TO BED THIS MORNING. PATIENT ON 2L 02 VIA NC. MIDLINE MARÍA HEPARIN LOCKED. MOORE DRAINING APPROPRIATELY. PLAN FOR DR YEUNG TO CHANGE DRESSINGS ON LOWER EXTREMITIES TONIGHT AFTER BUSINESS HOURS.
--- NOTE | 2017-12-05 07:50 | NUR ---
THIS ENGRAVING PRESS OPERATOR AND ENGRAVING PRESS OPERATOR PAMELA ASSISTED GETTING PATIENT INTO BED. 2 PERSON DAYRON. PATIENT IS NOW SITTING UP IN BED, EATING BREAKFAST, AND WATCHING TV. ORAL CARE DONE. CALL LIGHT WITHIN REACH. NO OTHER NEEDS AT THIS TIME.
--- NOTE | 2017-12-05 10:30 | NUR ---
PATIENT SITTING UP IN BED. STUDENT NURSE IN ROOM. NO OTHER NEEDS AT THIS TIME.
--- NOTE | 2017-12-05 12:12 | NUR ---
PATIENT SITTING UP IN BED VISITING WITH A FRIEND. CALL LIGHT WITHIN REACH. NO OTHER NEEDS AT THIS TIME.
--- NOTE | 2017-12-05 12:45 | NUR ---
PT IN BED, SHAHEED HAD JUST FINISHED ASSISTING PT WITH PERSONAL HYGIENE. PT WELCOMED ME IN, AND I FOUND HER ALERT AND ORIENTED. PT REQUESTED I HELP HER TO UNDERSTAND ALITTLE MORE THE SWING BED PROG. I TRIED TO INFORM HER FROM MY PERSPECTIVE. PT STATED SHE FEELS LIKE SHE HAS BEEN "STUCK" DOWN IN THE CORNER AWAY FROM EVERYONE. SHE MADE IT CLEAR SHE DOESNOT FEEL NEGLECTED, JUST USED TO BEING WHERE THE ACTION IS. ASSISTED PT WITH ARRANGEMENTS FOR HER FULFILLING SOME OF HER NEEDS FOR HER JOB. I.T. TO TRY AND INSTALL NEW PHONE IN FOR CONFERENCE CALL TOMORROW. EXTENDED A BLESSING, WILL FOLLOW NEEDED
--- NOTE | 2017-12-05 13:35 | NUR ---
PEDRO LUIS HAMEED SPEAKING WITH PATIENT AT THIS TIME.
--- NOTE | 2017-12-05 14:00 | NUR ---
PATIENT SITTING UP RESTING IN BED. SUMMER IN ROOM WELL STUDENT NURSE AND A VISITOR FOR THE PATIENT. STUDENT NURSE STATES THAT WHEN SHE TOOK VITALS THAT THE PATIENTS O2 SATS WAS AT 87% AT 3L NASAL CANULA, AFTER THE STUDENT NURSE INSTRUCTED HER TO TAKE SOME DEEP BREATHS THE PATIENTS O2 CAME UP TO 92%. THIS TELEPHONE OPERATORS SUPERVISOR AND STUDENT RECHECKED PATIENTS O2 SATS FIVE MINUTES LATER AND IT WAS AT 88%. RN NOTIFIED. PATIENT HAS BEEN TALKING WITH SUMMER AND VISITOR. STUDENT NURSE STATES THAT SHE GOT HER FRESH ICE WATER AND PUT CALL LIGHT WITHIN REACH. NO OTHER NEEDS AT THIS TIME.
--- NOTE | 2017-12-05 17:31 | NUR ---
PT AWAKE IN CHAIR. FRESH ICE WATER. EMPTY GARBAGE.MILITARY ANALYST ROOM
--- NOTE | 2017-12-05 17:31 | NUR ---
DR YEUNG HERE TO ASSESS PATIENT. DRESSINGS ON LOWER EXTREMITIES LEFT ON. DR YEUNG REPORTS HE WILL BE BACK ON MONDAY TO CHANGE THE DRESSINGS.
--- NOTE | 2017-12-05 18:18 | NUR ---
PATIENT ABLE TO STAND AND TRANSFER TO CHAIR WITH AFTERNOON PHYSICAL THERAPY. 2-3L O2 VIA NC. ANJANA DID NOT CHANGE DRESSINGS ON LEGS TODAY. WILL CHANGE MONDAY. DAYRON LIFT FOR CARES. NO BOWEL MOVEMENT. MOORE DRAINING WELL. MIDLINE MARÍA HEP LOCKED. NORCO X2. ADA DIET. NO ACCU CHECKS.
--- NOTE | 2017-12-05 18:59 | NUR ---
IN ROOM FOR REPORT, PT IS SLEEPING IN THE CHAIR AND CALL LIGHT IS WITHIN REACH.
--- NOTE | 2017-12-05 20:21 | NUR ---
IN ROOM TO GIVE MEDICATIONS AND ASSIST PT TO GET READY FOR BED.
--- NOTE | 2017-12-05 20:40 | NUR ---
PT IS AWAKE IN HER RECLINER, SHE EXPRESSES FRUSTRATION ABOUT HER HEALTH PROBLEMS AND NEED FOR PCP TO OVERSEE ALL HER MEDICAL ISSUES AND DIFFERENT SPECIALISTS SHE SEES. DISCUSSED THE NEED TO WORK WITH P.T. AND FIGHT THE INFECTION WHILE HERE AND THEN SHE CAN FOLLOWUP WITH A NEW PCP UPON DC. PT ALSO CONTINUES TO TAKE MIRALAX, SENNA AND MAG CITRATE WITHOUT RESULTS. WILL CONTINUE TO MONITOR. PT IS RESTING IN CHAIR WITH CALL LIGHT IN REACH AND DENIES FURTHER NEEDS AT THIS TIME.
--- NOTE | 2017-12-05 23:14 | NUR ---
PT IS RESTING WITH EYES CLOSED, RESPIRATIONS ARE EVEN AND NONLABORED, AND CALL LIGHT IS WITHIN REACH.
--- NOTE | 2017-12-06 01:10 | NUR ---
PT IS RESTING WITH EYES CLOSED, RESPIRATIONS ARE EVEN AND NONLABORED. CALL LIGHT IS WITHIN REACH.
--- NOTE | 2017-12-06 03:06 | NUR ---
PT IS RESTING WITH EYES CLOSED, RESPIRATIONS ARE EVEN AND NONLABORED. CALL LIGHT IS WITHIN REACH.
--- NOTE | 2017-12-06 05:40 | NUR ---
HELPED PT GET REPOSITIONED IN HER RECLINER. FRESH WATER IS AT BEDSIDE, NEW WARM PACK BROUGHT FOR BACK. PT DENIES FURTHER NEEDS AT THIS TIME.
--- NOTE | 2017-12-06 06:12 | NUR ---
PT SLEPT IN HER RECLINER THROUGHT THE NIGHT. SHE REQUIRED NORCO TWICE DURING THE NIGHT FOR PAIN. SHE IS MOVED WITH THE DAYRON LIFT BUT WAS ABLE TO STAND YESTERDAY WITH PT. HER LAST BM WAS THE AND IS RECEIVING BOWEL CARE. SHE REQUIRED 2-3 LNC AT THIS TIME.
--- NOTE | 2017-12-06 07:24 | NUR ---
BEDSIDE REPORT RECEIVED FROM DEBORAH HAMEED. WHITE BOARD UPDATED. PATIENT SLEEPING IN BED AT THIS TIME. ALLOWING SLEEP NOW. STUDENT NURSE LISTENED TO REPORT. NO SLING UNDERNEATH PATIENT. WILL WAIT FOR PHYSICAL THERAPISTS TO HELP TRANSFER PATIENT TO BED TODAY. MOORE DRAINING YELLOW URINE. PATIENT ON 3L 02 VIA FL.
--- NOTE | 2017-12-06 09:43 | NUR ---
CLUSTERING CARE TODAY. VS, I&Os, AND 0900 ABX HUNG WHILE IN ROOM. THIS RN IS MANAGING VITALS/I&Os TODAY TO ASSIST CONTACT AGENT. PATIENT OFF ISOLATION PERCAUTIONS NOW. PATIENT APPEARS IN BETTER SPIRITS TODAY. WILL CONTINUE TO ALLOW PERIODS OF BEING UNINTERRUPTED THROUGHOUT DAY. UPDATED PATIENT ON NEXT CARE INTERVENTION SO SHE CAN EXPECT WHEN NEXT INTERRUPTION WILL BE.
--- NOTE | 2017-12-06 12:49 | NUR ---
PT SITTING IN CHAIR-SHE SLEPT FAIRLY WELL. PT STRUGGLING WITH HER CELL PHONE, SHAHEED STALEY CAME BY AND HELPED! PT SEEMS TO BE DOING WELL TODAY, WAITING FOR IT TO COME AND PUT NEW PHONE IN PLACE FOR PT'S MTG THIS EVENING. EXTENDED A BLESSING, WILL FOLLOW NEEDED
--- NOTE | 2017-12-06 17:43 | NUR ---
PATIENT WORKED WITH PHYSICAL THERAPY X2 TODAY. ABLE TO STAND, SHUFFLE AND TRANSFER BETWEEN BED AND CHAIR WELL WITH 2-3PA FWW AND GAIT BELT. 2-3L 02 VIA NC. DRESSINGS LE INTACT. DRESSING CHANGE PLANNED FOR MONDAY BY DR YEUNG. MOORE MAY BE LEAKING. INSERTED 10ML NS INTO BALLOON. UNSURE IF STILL LEAKING. NORCO GIVEN X1. MIDLINE MARÍA HEP LOCKED.
--- NOTE | 2017-12-06 20:00 | NUR ---
RECEIVED REPORT AT 1900, PT DID NOT WANT BEDSIDE REPORT DUE TO A CONFERENCE CALL.
--- NOTE | 2017-12-06 22:00 | NUR ---
V/S ARE WDL. ALL LEFT LOBES ARE CLEAR. ALL RIGHT LOBES HAVE WHEEZING PRESENT. PT DENIED SOB. ABD SOUNDS ARE PRESENT. PT IS STILL PASSING GAS. NO BM SINCE 11/24/16. BOTH FEET ARE LESS RED THAN LAST WEEK. BOTH LOWER LEGS ARE WRAPPED. THEREFORE I AM UNABLE TO INSPECT HER LEGS. EDEMA IS A LITTLE BETTER STATED BY PT. URINE OUTPUT IS VERY GOOD. PT IS RESPONDING WELL TO DIURETIC THERAPY. PAIN IS CONTROLLED WITH PRN PAIN MEDICATION. NO NEW CONCERNS AT THIS TIME. PT WANTS SONATA AT AROUND 2300.
--- NOTE | 2017-12-06 22:10 | NUR ---
VITALS AND I&OS DONE AND CHARTED. BEDSIDE TABLE AND CALL LIGHT IN REACH. PT NEEDS NOTHING ELSE AT THIS TIME.
--- NOTE | 2017-12-07 | NUR ---
PT IS SLEEPING AT THIS TIME. SONATA WAS GIVEN AROUND 2300. NO NEW CONCERNS.
--- NOTE | 2017-12-07 02:11 | NUR ---
PT IS STILL SLEEPING IN CHAIR AT THIS TIME.
--- NOTE | 2017-12-07 04:00 | NUR ---
PT IS AWAKE. PT HAD PAIN 7/10, 2 MORE NORCOS WERE GIVEN. PT ALSO NEEDED RE-POSITIONING. HER MOORE WAS ALSO KINKED. URINE OUTPUT IS VERY GOOD OVERALL.
--- NOTE | 2017-12-07 04:20 | NUR ---
I&OS DONE AND CHARTED. WITH THE DAYRON I HELPED RN DANNY AND GAYLA MOVE PT UP IN THE CHAIR. SHE SAID SHE FELT MORE COMFORTABLE. BEDSIDE TABLE AND CALL LIGHT WITHIN REACH.
--- NOTE | 2017-12-07 05:33 | NUR ---
PT WAS ABLE TO SLEEP SOME OF THIS SHIFT. PT HAD TO BE MOVED AT ONE POINT IN ORDER TO GET MORE COMFORTABLE AND TO GET HER MOORE IN PROPER DRAINING POSITION. SONATA 10MG WAS GIVEN AT ABOUT 2300 PER PT REQUEST. PT HAS RECEIVED 4 NORCOS THIS SHIFT FOR PAIN. LOBES ARE DIMINISHED, ABD SOUNDS ARE PRESENT AND PT IS PASSING GAS. REDNESS IN BOTH FEET IS SUBSIDING. TOES ARE WARM TO TOUCH. BOTH LOWER LEGS ARE WRAPPED. URINE OUTPUT IS MORE THAN ADEQUATE. NO NEW ISSUES NOTED THIS SHIFT.
--- NOTE | 2017-12-07 09:21 | NUR ---
MORNING ASSESSMENT DUE. PT UP TO CHAIR. PT COMPLAINTS OF ITCHING UNDER DRESSING. MD CONSULTED. ASSESSMENT DONE. MID LINE SHOWS NO BLOOD RETURN AT THIS TIME. MEDICATION GIVEN BY STUDENT RN WITH INSTRUCTOR. PT STATES SHE HAS NO ADDITIONAL REQUESTS OR COMPLAINTS AT THIS TIME. CALL LIGHT WITHIN RECH.
--- NOTE | 2017-12-07 09:30 | NUR ---
NYSTATIN POWDER NOTICED TO BE MISSED THIS AM. THIS RN SPOKE WITH FASHION EDITOR INSTRUCTOR AND INSTRUCTOR STATES PT IS UP WITH PHYSICAL THERAPY AND THE NYSTATIN WILL BE GIVEN AFTER PT IS FINISHED.
--- NOTE | 2017-12-07 10:24 | NUR ---
PT FINISHED WITH PT. PAIN MEDICATION, BENEDRYL, AND NYSTATIN GIVEN ORDERED AND PER REQUEST OF PT. AREA UNDER PANNUS CLEANED WITH BARIER WIPES, NYSTATIN APPLIED. PT RESTING IN CHAIR. CALL LIGHT WITHIN REACH. NO REQUESTS OR COMPLAINTS AT THIS TIME.
--- NOTE | 2017-12-07 10:34 | NUR ---
PT EXPRESSES CONCERNS THAT "ALL MY DOCTORS WILL KNOW WHAT CARE I HAD HERE." CASE MANAGEMENT CONSULTED. PT ADVISED OF CASE MANAGEMENT PLAN AND THAT SHE CAN HAVE RECORDS SENT TO ANY OF HER DOCTORS SHE WOULD LIKE UPON DISCHARGE. PT VERBALIZES UNDERSTANDING OF INSTRUCTIONS AND STATES SHE HAS NO ADDITIONAL REQUESTS OR COMPLAINTS AT THIS TIME.
--- NOTE | 2017-12-07 12:19 | NUR ---
put up with physical therapy. able to ambulate 12 feet.
--- NOTE | 2017-12-07 12:22 | NUR ---
FOCUSSED ASSESSEMENT DUE. THIS RN TO ROOM. PT REPORTS IMPROVED PAIN (NOW 3/10) AND ITCHING. PT EATING LUNCH. ASSESSMENT DONE. PT CHEERFUL AND ASKING QUESTIONS ABOUT "HOW HOSPITALS WORK." QUSTIONS ANSWERED. PT WATCHING TV. NO REQUESTS OR COMPLAINTS AT THIS TIME. CALL LIGHT WITHIN REACH.
--- NOTE | 2017-12-07 12:50 | NUR ---
At approxiametly 1240 myself and my instructor enter the patients room with the task of emptying her Workman and perfroming a more focused assesment on her integumentary, respiratory, urinary, and gastrointestinal systems. We also took this chance to adjust her in her chair using the robert lift to place her in a more comfortable position. Patient was comfortable in chair and call light was in reach and she had no further needs.
--- NOTE | 2017-12-07 12:50 | NUR ---
Patient was offered for her hair to be washed and for total bed bath to be given. Patient refused and said she was hoping to have a full bed bath tomorrow. Nystatin powder applied after washing and thoroughly drying the area. Teeth brushed and face washed. Patient denies additional needs at this time. Call light and t.v. remote in reach.
--- NOTE | 2017-12-07 13:28 | NUR ---
STOPPED BY TO CHECK WITH PT REGARDING HER CALL SHE NEEDED TO MAKE LAST EVENING AND SHE STATED IT WORKED PERFECTLY. PT EATING LUNCH, WILL CHECK BACK LATER. SHE THANKED ME.
--- NOTE | 2017-12-07 15:07 | NUR ---
Observed this is not a PICC line. This is a midline catheter.
--- NOTE | 2017-12-07 15:36 | NUR ---
THIS RN TO BEDSIDE TO CHECK ON PT. PHYSICAL THERAPY PRESENT. PHYSICAL THERAPY REQUESTS ASSISTANCE WORKING WITH PT AND GAIT BELT. EXTRA LARGE GAIT BELT DOES NOT FIT PT. PT UP WITH WALKER. WALKES 6 FEET AND THEN BACK TO COMODE. PT STATES SHE MIGTH BE ABLE TO GO BUT IS UNSURE AT THIS TIME. PT REQUESTS TIME TO SIT ON COMODE. PHYSICAL THERAPY REMAINS WITH PT WHILE SHE IS GIVEN TIME ON COMODE.
--- NOTE | 2017-12-07 15:45 | NUR ---
PT CALL LIGHT ON. PT STATES SHE IS FINISHED WITH [employer]. PHYSICAL THERAPY AND DIRECTOR OF GRANTS CALLED TO ASSIST. PT ASSESED UP FROM [employer]. PT WAS ABLE TO HAVE LARGE BM, SOFT AND BROWN. PT TAKES STEPS BACK TO CHAIR. ASSESSMENT DONE. MEDICATIONS GIVEN (SEE MAR), INCLUDING PAIN MEDICATION FOR 8/10 PAIN AFTER AMBULATION. MOORE CATHERTER EMPTIED. WATER REFILLED AND PRUNE JUICE PROVIDED "SO I CAN KEEP THINGS MOVING." PT STATES NO FURTHER REQUESTS OR COMPLAINTS AT THIS TIME. CALL LIGHT WITHIN REACH.
--- NOTE | 2017-12-07 17:22 | NUR ---
PT UP WITH PHYSICAL THERAPY X2 TODAY. ABLE TO TRANSFERE TO [facility] AND AMBULATE 6 FEET WITH 2-3 PERSON ASSIST. BM TODAY. PT REMAINS ON 2-3L O2 NC. MOORE DRAINING WELL. MIDLINE HEPARIN LOCKED. BENEDRYL GIVEN TODAY FOR TICHING. PAIN MEDICATION GIVEN Q6 FOR BACK PAIN. EXPECTED DRESSING CHANGED TOMORROW FOR LOWER EXTREMITIES BY DR. YEUNG.
--- NOTE | 2017-12-07 18:30 | NUR ---
THIS RN TO ROOM TO CHECK ON PT AND TAKE VITAL SIGNS. VITALS TAKEN. IC REFILLED IN ICE PACKS. DINNER CLEARED. PT REPORTING 3/10 PAIN THAT IS "JUST FINE." CALL LIGHT WITHIN REACH.
--- NOTE | 2017-12-07 19:15 | NUR ---
ROUNDED CHARGE. PATIENT IS RESTING IN RECLINER. NO NEEDS NOTED. CALL LIGHT IN REACH.
--- NOTE | 2017-12-07 20:58 | NUR ---
Up in chair, O2 3L NC, sats 94%. no resp distress, lungs dim at bases. RA midline hep lock patent. flushes well. Bruising over arms from previous iv sites present at different stages of healing, no topen. Nyastatis applied to abd folds. Lower extremities 4+ edema, covered with coban dressing. dressing applied by dr Hernandez, to be redone in am. Unable to assess pedal pulses due to dressing. inner left upper above knee and thigh slightly firmer than left, warm to touch, non tender. Coop with assessment. Legs elevated, watching tv, fresh iced water given on request. No c/o pain
--- NOTE | 2017-12-07 21:51 | NUR ---
AWAKE, IN CHAIR, LEGS ELEVATED, O2 IN PLACE, F./C PATENT, NO REQUESTS
--- NOTE | 2017-12-08 02:34 | NUR ---
RESTING, NO S/SX DISTRESS, O2 IN PLACE, F/C PATENT, LEGS ELEVATED
--- NOTE | 2017-12-08 04:23 | NUR ---
NO RESP DISTRESS, O2 ON 3L NC. UP IN CHAIR, EYES CLOSED, LEG ELEVATED, ULNA BOOT DRESSING IN PLACE. F/C PATENT
--- NOTE | 2017-12-08 05:36 | NUR ---
Pt has slept most of this shift in her recliner chair. no resp distress O2 3L NC in place. Midline R arm intact, bruising over arm from previous IV and line placement notd at different stages of healing, not open. F/C patent, light yellow urine. Legs elevated, dressing in place, edema of legs present, no changes. No c/o pain at this time
--- NOTE | 2017-12-08 07:00 | NUR ---
BEDSIDE HANDOFF REPORT RECEIVED FROM FIELD MACHINIST RN. PT RESTING IN RECLINER. PT ON 3L NC. PT DENIES NEEDS AT THIS TIME.
--- NOTE | 2017-12-08 07:45 | NUR ---
PATIENT IN CHAIR EATING BREAKFAST, PATIENT REPORTS SHE WOULD LIKE TO SHOWER TODAY AFTER DR YEUNG VISITS. ZARI NUÑEZ WAS NOTIFIED AND WILL CALL DRS OFFICE FOR CLEARANCE OF LEGS WRAPS AND SHOWER. TEERSA EMPTIED, CALL LIGHT IN REACH. STUDENT DORETHA IN .
--- NOTE | 2017-12-08 09:05 | NUR ---
DR. CHAUDHRY CALLED REGARDING DRESSING CHANGE FOR TODAY, DISCUSSED PT REQUEST TO SHOWER. ORDER TO REMOVE DRESSINGS FOR SHOWER AND HAVE DRESSING SUPPLIES AT BEDSIDE. EXPECTED TIME FOR DRESSING CHANGE 1400
--- NOTE | 2017-12-08 09:15 | NUR ---
PT RESTING IN CHAIR. PT COMPLETED PHYSICAL THERAPY. PT ON 3L NC, LUNG SOUNDS CLEAR WITH DIMINISHED BASES, DENIES SOB. PT WITH MIDLINE, DRESSING INTACT. PT WITH ACTIVE BOWEL TONES, DENIES NAUSEA, TOLERATING ADA DIET. PT WITH EDEMA TO BLE, UNNASBOOT WRAPS IN PLACE, PULSES PALPABLE, CAP REFIL <3 SECONDS. PT WITH MOORE CATH, ORDER TO DISCONTINUE CATH, PT REQUESTING TO HAVE CATH REMAIN UNTIL SHE IS MORE AMBULATORY, TO DISCUSS WITH MD. PT DENIES OTHER NEEDS AT THIS TIME.
--- NOTE | 2017-12-08 10:24 | NUR ---
PATIENT IN CHAIR [facility]. STUDENT DORETHA IN ROOM. PATIENT REPORTS SHE WOULD LIKE TO SHOWER @[address] COMES IN @1400. WOULD ALSO LIKE TO HAVE HER HAIR CURLED AND FIXED. CALL LIGHT IN REACH.
--- NOTE | 2017-12-08 11:00 | NUR ---
SPOKE WITH PATIENT IN ROOM. DISCUSSED HER PROGRESS SO FAR. PHYSICAL THERAPY IN ROOM. PATIENT HAD QUESTIONS ON HER PCP MOVING AND SHE IS ASSIGNED TO PA IN THE OFFICE. WE DISCUSSED THE PA WOULD BE ABLE TO COVER HER MEDICATIONS, ETC. SHE HAD QUESTIONS REGARDING HER NARCOTICS. WE DISCUSSED POSSIBLE PAIN CLINIC TO LOOK AT OTHER OPTIONS FOR PAIN CONTROL. SHE STATES SHE DIDN'T KNOW SOMETHING LIKE THAT WAS AVAILABLE. DISCUSSED THAT THE PCP OFFICE CAN REFER HER. SHE STATES SHE IS GOING TO ASK. NO OTHER QUESTIONS AT THIS TIME.
--- NOTE | 2017-12-08 12:30 | NUR ---
Checked Pt one last time. Pt was alert and orineted, and stated she wasn't experiencing any pain or any furhter needs. Pt didn't show any signs or symptom that would be alarming. This information was passed to the primary nurse.
--- NOTE | 2017-12-08 13:00 | NUR ---
2 PERSON ASSIST WITH ZARI NUÑEZ - PATIENT FROM CHAIR TO SHOWER CHAIR USING GAIT BELT. RN REMOVED LEG WRAPS. SHAHEED ZAPIEN IN TO SCRUB PATIENTS LEGS WITH EZ SCRUB/SPONGE. PATIENT HAD A VERY HARD TIME GETTING BACK UP FROM SHOWER CHAIR, CALLED ZARI GREENE FOR ADDITIONAL SUPPORT. BACK TO CHAIR. PATIENTS O2 WAS 87% WITH OUT NASAL CANULA DURING SHOWER--90% ONCE BACK TO CHAIR. SHAHEED ZAPIEN DRIED AND THIS OPERATING COST CLERK FIXED AND HAIRSPRAYED PATIENTS HAIR. DR YEUNG IN NOW.
--- NOTE | 2017-12-08 13:02 | NUR ---
PT SITTING IN CHAIR KNITTING. SHE MENTIONED SHE SLEPT WELL, HOPES TO GET HAIR WASHED AND STYLED LATER TODAY. THANKED ME FOR COMING IN, WILL FOLLOW NEEDED
--- NOTE | 2017-12-08 13:20 | NUR ---
PT ASSISTED WITH SHOWER. PER DR. YEUNG BLE WRAPS REMOVED PRIOR TO SHOWER. NURSE AIDES TO ASSIST PT WITH SHOWER.
--- NOTE | 2017-12-08 15:21 | NUR ---
PATIENT GETTING READY TO WORK WITH PHYSICAL THERAPY, PAIN LEVEL IN HER LEGS 04/06, PATIENT GIVEN 2 NORCO PO AND HER SCHEDULED NEURONTIN PO AT THIS TIME.
--- NOTE | 2017-12-08 16:32 | NUR ---
PT SITTING IN CHAIR. PT DENIES NEEDS AT THIS TIME.
--- NOTE | 2017-12-08 17:00 | NUR ---
PT SITTING IN CHAIR. PT RATING PAIN 3-4/10, STATES SHE RECEIVED GOOD PAIN MANAGEMENT FROM [facility]. PTWITH GOOD APPETITE, ATE 100% OF DINNER. BLE ASSESSED, CAP REFIL 2 SECONDS, SENSATION INTACT. SCHEDULED LIPITOR ADMINISTERED. PT DENIES OTHER NEEDS AT THIS TIME.
--- NOTE | 2017-12-08 17:35 | NUR ---
PATIENT SITTING IN CHAIR, THIS QUALITY ASSURANCE TECHNICIAN TIDIED ROOM AND ORGANIZED PATIENTS PERSONAL BELONINGS ON COUCH AND IN CLOSET. PATIENT REPORTS HELPFUL THE HOSPITAL STAFF HAS BEEN, SHE IS DETERMINED TO GO HOME SOON! FRESH ICE WATER GIVEN. NO OTHER NEEDS
--- NOTE | 2017-12-08 18:01 | NUR ---
PT WORKED WITH PHYSICAL THERAPY AND OCCUPATIONAL THERAPY, ABLE TO WALK WITH 2PA, USING LIFT FOR LONGER DISTANCES. DRESSING CHANGE TO BLE COMPLETED BY DR. YEUNG, NEXT CHANGE WILL BE ON WEDNESDAY 12/13. PAIN WELL CONTROLLED WITH PRN NORCO. MOORE CATH REMOVED, VOIDING WITHOUT DIFFICULTY. MIDLINE TOP RIGHT ARM HERPARIN LOCKED. PT TOLERATING ADA DIET. PT CONTINUES TO BE ON 3L NC, WEAN TOLERATED.
--- NOTE | 2017-12-08 20:34 | NUR ---
Awake, up in recliner chair, no c/o pain or discomfort. Coop with assessment
--- NOTE | 2017-12-08 21:56 | NUR ---
Awake, in recliner chair, legs elevated, watching tv. Declines Miralax and 2 senna tabs
--- NOTE | 2017-12-08 23:08 | NUR ---
Incontinent of urine, up to side of chair with 3 person assist, gait belt and fww. skin cleansed, clean linen to chair. Back to chair, tolerated well. Medicated with Sonata and Benadril 25mg po per c/o insomnia
--- NOTE | 2017-12-09 00:11 | NUR ---
EYES CLOSED, O2 3L NC IN PLACE, NO RESP DISTRESS. IN RECLINER CHAIR, LEG ELEVATED, UNNA BOOT BILAT IN PLACE. NO C/O PAIN , NO REQUESTS
--- NOTE | 2017-12-09 02:12 | NUR ---
Awake, c/o back pain, medicated with Blair 2 tabs 7/10 pain. Up to side of chair with 3 person assist, gait belt and fww. Incontinent of urine, skin cleansed, back to chair, legs elevated, Unna boot intact
--- NOTE | 2017-12-09 06:43 | NUR ---
awake, no furhter c/o back pain or sob. O2 3L NC in place. Up to side of bed 3x this shift, incontinent of urine, skin care done. pt requires 3 people assist, gait belt and fww, tolerated well, back to recliner chair. Unna boots bilat in place, decrease edema legs, redness of left thigh and upper leg w/o changes. Pt tolerating ADA diet well.
--- NOTE | 2017-12-09 07:33 | NUR ---
RECEIVED REPORT FROM ZARI TELLEZ. PT AWAKE AND SITTING UP IN CHAIR. DENIES NEEDS AT THIS TIME.
--- NOTE | 2017-12-09 08:05 | NUR ---
PATIENT IN CHAIR, EATING BREAKFAST. STUDENT [place] IN ROOM. PATIENT REPORTS STILL HAVING MOMENTS OF INCONT. DISCUSSED WITH [place] THAT SHE'D LIKE TO HAVE "SOMETHING" TO KEEP THE URINE IN FOR LONGER. CALL LIGHT IN REACH WILL BE BACK IN AFTER BREAKFAST TO CLEAN PATIENT UP AND CHANGE PAD.
--- NOTE | 2017-12-09 08:15 | NUR ---
AM MEDS ADMINISTERED. PT EATING BREAKFAST. PT STATED THEY WOULD LIKE TO TALK TO DR ABOUT MED FOR INCONTINENCE THAT THEY HAVE PREVIOUSLY RECEIVED FROM UROLIGIST. DR MOREIRA NOTIFIED. PT RATED BACK PAIN 4/10 TOLERABLE. SITTING UP IN CHAIR AND WOULD LIKE TO WAIT FOR PHYSICAL THERAPIST BEFORE TRYING TO GET UP. DENIES OTHER NEEDS AT THIS TIME. CALL LIGHT IN REACH.
--- NOTE | 2017-12-09 10:15 | NUR ---
PATIENT AWAKE IN CHAIR. VITALS AND I/OS DONE. CALL LIGHT IN REACH.
--- NOTE | 2017-12-09 11:20 | NUR ---
STAND BY ASSIST PT AMBULATED WITH PATIENT IN ROOM USING FWW AND GAIT BELT. SHAHEED HAYES ALSO IN ROOM. PAD ON CHAIR CHANGED. GOWN AND ATTEND ALSO RECENTLY CHANGED. PATIENT RECIEVED PAIN MED @20 MIN PRIOR. CALL LIGHT IN REACH
--- NOTE | 2017-12-09 12:55 | NUR ---
PATIENT AWAKE IN CHAIR, THIS TAX PROFESSIONAL PUT 2 BALLS OF YARN AND CROCHETING TOOLS ON BEDSIDE TABLE FOR PATIENT. PATIENT ASKED FOR ASSISTANCE IN ENLARGING A PHOTO ON HER PHONE SCREEN. ALSO WOULD LIKE A MUSCLE RELAXER FOR BACK PAIN, ZARI SHANKAR NOTIFIED.. THIS TAX PROFESSIONAL TOOK PATIENT A HEATING PAD FOR HER BACK. CALL LIGHT INREACH, NO THER NEEDS.
--- NOTE | 2017-12-09 13:00 | NUR ---
THIS RN ASSUMING CARE FOR PT. HAND OFF REPORT TAKEN FROM ZARI SHANKAR. PT STABLE AT THIS TIME. PT STATES SHE HAS NO REQUESTS OR COMPLAINTS. CALL LIGHT WITHIN REACH.
--- NOTE | 2017-12-09 13:38 | NUR ---
Patient requested plastic bag to hold yarn clippings, this system consultant attached it to bed in her reach. call light also in reach
--- NOTE | 2017-12-09 14:45 | NUR ---
THIS RN TO CHECK ON PT. PT UP IN CHAIR WORKING ON KNITTING. ASSESSMENT DONE. SEE MAR FOR MEDICAITON GIVEN. PT STATES SHE CONTINUES TO HAVE BACK PAIN THAT WORSENS WITH AMBULATION. PT WOULD LIKE TO TRY A MUSCLE SPASAM MEDICATION. MD CALLED. MD STATES NO ADDITIONAL MEDICATION AT THIS TIME. PT INFORMED AND VERBALIZES UNDERSTANDING OF PLAN OF CARE. PT CONTINUES WORKING ON PROJECTS AND WATCHING TV. NO ADDITIONAL REQUESTS OR COMPLAINTS AT THIS TIME. CALL LIGHT WITHIN REACH.
--- NOTE | 2017-12-09 16:08 | NUR ---
PATIENT IN CHAIR, NO NEEDS AT THIS TIME, REPORTS RN SUNNY WAS IN A FEW MINUTES AGO BUT PATIENT WAS ON PHONE.. THIS SIDEWALK REPAIRER RELAYED MESSAGE TO SUNNY.
--- NOTE | 2017-12-09 17:10 | NUR ---
PATIENT SITTING IN CHAIR EATING DINNER. FRESH ICE WATER GIVEN CALL LIGHT IN REACH
--- NOTE | 2017-12-09 17:41 | NUR ---
MEDICATIONS DUE. PT COMPLAINS OF 5/10 PAIN (SEE MAR FOR MEDICATION GIVEN). HEAT PACK REWARMED AND APPLIED TO PT BACK. PT VISITING WITH FRIEND. NO ADDITIONAL REQUESTS OR COMPLAINTS AT THIS TIME. CALL LIGHT WITHIN REACH.
--- NOTE | 2017-12-09 18:15 | NUR ---
PT CONTINUES TO BE 2-3 PERSON, FWW ASSIST FOR AMBULATION AND ADLS. ADA DIET. LAST BM 10/11/17. PT UP WITH PHYSICAL THERAPY TO AMBULATE TO EDGE OF ROOM AND BACK. PT CONTINUES TO REPORT BACK PAIN. PRN PAIN MEDICATION AND WARM PACK TO BACK. DRESSINGS CDI, CHANGED BY DR. MYRICK YESTERDAY (12/08), NEXT CHANGE DUE (12/13). MID LINE, WNL. PT AFEBRIAL TODAY. USING CALL LIGHT APPROPRIATLY.
--- NOTE | 2017-12-09 19:41 | NUR ---
PT C/O BACK PAIN, AND WANTING A WARM PAD TO BACK. DR MAHER NOTIFIED VIA PHONE. NEW ORDER FOR K PAD OBTAINED. KPAD APPLIED TO BACK. PRECAUTIONS EXPLAINED TO PT, STATED UNDERSTANDING
--- NOTE | 2017-12-09 20:09 | NUR ---
ROUNDED CHARGE. PATIENT IS RESTING IN RECLINER. NO NEEDS NOTED AT THIS TIME. CALL LIGHT IN REACH.
--- NOTE | 2017-12-09 23:02 | NUR ---
MEDICATED WITH SONATA PER INSOMNIA AND 2 NORCO TABS, C/O BACK PAIN 01/04. IN CHAIR, K PAD TO BACK. UNNA BOOT INTACT BILAT. ELEVATED. O2 IN PLACE
--- NOTE | 2017-12-10 00:34 | NUR ---
RESTING, EYES CLOSED, NO RESP DISTRESS, O2 3L NC INPLACE, LEGS ELEVATED
--- NOTE | 2017-12-10 03:09 | NUR ---
RESTING IN RECLAINER CHAIR, K PAD TO BACK, INCONTINENT OF URINE. CHANGED, SKIN CARED ONE. REQUIRES 2-3 PERSON ASSIST, GAIT BELT AND FWW, TOLERATED WELL. C/O MILD BACK DISCOMOFORT. MEDICATED WITH BENADRYL 25MG PO C/O ITCHING. MIDLINE IV SITE DRESSING CHANGED. PROCEDURE EXPLAINED, COOPERATIVE. LEFT LEGS INCREASED EDEMA PRESENT 3+, UNNA BOOTS ON BILAT. ELEVATED, NO OTHER REQUESTS
--- NOTE | 2017-12-10 06:25 | NUR ---
Currently resting, eyes closed, no resp distress. O2 3L NC. In recliner chair, legs elevated, Unna boot on bilat, left leg 3+ non pitting edema, R leg 2+ edema. K pad to back, Was medicated x1 with [place] per c/o back pain, effective. Was medicated with Benadryl 25mg per c/o itching. no further c/o. IV Midline dressing changed. site intact, no redness at insertion site. Pt Cooperative. Continues to require 2-3 person assist, gait belt and fww
--- NOTE | 2017-12-10 07:28 | NUR ---
CHECKED IN WITH PATIENT, UPDATED BOARS, AND LET THE PATIENT KNOW IF SHE NEEDED OR WANTED ANYTHING TO LET ME KNOW SHE DIDNT WANT TO DO ANY CARE SHE SAID SHE DID IT HER SELF, AND SHE ALREADY HAD HER LIPSTICK ON.
--- NOTE | 2017-12-10 07:50 | NUR ---
PT SITTING UP IN HOME RECLINER EATING BREAKFAST. ALERT AND ORIENTED. CALL LIGHT WITHIN REACH. DENIES NEEDS OR CONCERNS AT THIS TIME.
--- NOTE | 2017-12-10 09:05 | NUR ---
ASSESSMENT COMPLETED. MINIMAL REDNESS NOTED AT TOP OF LEFT LEG ABOVE DRESSING, SLIGHTLY WARM. FRANK BOOT DRESSINGS TO BILATERAL LOWER EXTREMITIES, MANAGED BY DR. YEUNG, CDI. MIDLINE TO RIGHT UPPER ARM, CDI, FLUSHES WELL. PT ALERT AND ORIENTED. SATTING 94% ON 3LNC. DENIES DIFFICULTY BREATHING OR SOB, OCC COUGH. RATING CHRONIC BACK PAIN 3/10 AT THIS TIME, MEDICATED WITH PRN NORCO. PT REFUSED TO GET UP AT THIS TIME STATES "I WANT TO GET UP WHEN PHYSICAL THERAPY GETS HERE SO I CAN JUST DO EVERYTHING AT ONCE." CALL LIGHT WITHIN REACH.
--- NOTE | 2017-12-10 11:21 | NUR ---
CHECKED IN WITH PATIENT, I TOLD HER THAT WE NEEDED TO HCNAGE HER, SHE SAID SHE WOULD RATHER WAIT FOR PHYSICAL THERAPY SO IT IS ALL DONE AT ONCE
--- NOTE | 2017-12-10 11:28 | NUR ---
PT SITTING UP IN RECLINER WATCHING TV. DENIES NEEDS OR CONCERNS AT THIS TIME. CALL LIGHT WITHIN REACH.
--- NOTE | 2017-12-10 12:05 | NUR ---
PT ABLE TO STAND WITH MINIMAL ASSIST, AMB IN ROOM WITH P.T. MIGUEL WELL. PT ATTENDS CHANGED, G[place] AREA CLEANED THOROUGHLY. PT ASSISTED BACK TO RECLINER. CALL LIGHT WITHIN REACH.
--- NOTE | 2017-12-10 14:15 | NUR ---
PT REQUESTED BENADRYL FOR LEGS ITCHING, MEDICATED AT THIS TIME. K-PACK REMOVED PER PT REQUEST AND GIVEN WARM PACK TO APPLY TO LOWER BACK. CALL LIGHT WITHIN REACH.
--- NOTE | 2017-12-10 14:19 | NUR ---
CHECKED IN WITH PATIENT SHE WAS WATACHING A SHOW AND TAKING A REST SHE SAID SHE DIDNT NEED ANYTHING AT THE TIME
--- NOTE | 2017-12-10 15:20 | NUR ---
PT RESTING IN CHAIR, EYES CLOSED, RESP EVEN AND UNLABORED.
--- NOTE | 2017-12-10 16:12 | NUR ---
CHECKED IN WITH PATIENT ASKED HER IF SHE WAS READY TO BE CHANGED, SHE SAID SHE WOULD PREFER TO BE CHANGED AFTER DINNER, I SAID OK, REPORTED TO NURSE WILL RE APPROACH IN AN HOUR INCASE SHE CHANGED HER MIND
--- NOTE | 2017-12-10 17:32 | NUR ---
PT EATING DINNER. DENIES NEEDS OR CONCERNS AT THIS TIME. CALL LIGHT WITHIN REACH.
--- NOTE | 2017-12-10 18:12 | NUR ---
MEL GOT UP FOR A CHANGE ABIGAIL ASSISTED ME, SHE DID GRET STANDING UP, SHE SAID SHE NEEDED NO OTHER ASSISTANCE OTHER THAN A HOTPACK AND SOME FRESH ICE WATER
--- NOTE | 2017-12-10 18:38 | NUR ---
PT MINIMAL ASSIST TO STAND TO CHANGE ATTENDS, MIGUEL WELL. BACK TO RECLINER. CALL LIGHT WITHIN REACH.
--- NOTE | 2017-12-10 19:25 | NUR ---
RECEIVED REPORT FROM DAY RNRANI. PT UP IN HER CHAIR. NO NEEDS AT THIS TIME
--- NOTE | 2017-12-10 20:40 | NUR ---
PT CALLED, HAD AN INCONT LARGE LOOSE-SOFT BM. PT ABLE TO STAND WITHOUT PHYSICAL ASSISTANCE OF STAFF. SHE ROCKED BACK AND FORTH 3 TIMES AND THEN STOOD, WITH HER WALKER, APPROX 5 MIN OF STANDING WHILE CLEANING OCCURRED. ONCE BACK IN BED, PT ABLE TO OPEN LEGS TO ALLOW ATTENDS TO BE ADJUSTED. PT WAS HAPPY SHE WAS ABLE TO DO THIS ON HER OWN, SAID "PLEASE DOCUMENT THAT I DIDN'T NEED ANY HELP STANDING UP" ASSURED HER I WOULD.
--- NOTE | 2017-12-10 22:00 | NUR ---
PT REFUSED HER MIRALAX, WELL THE SENNA. PT WANTING HER SLEEPING PILL AFTER 2300, WILL ADMINISTER WHEN SHE WANTS IT. CALL LIGHT WITHIN REACH. NO OTHER NEEDS AT THIS TIME.
--- NOTE | 2017-12-11 00:10 | NUR ---
WOKE PT FOR HER SLEEPING MED AND HEP FLUSH. PT STATED SHE HAD JUST GONE TO SLEEP, WANTS TO SLEEP TILL EARLY AM.
--- NOTE | 2017-12-11 01:28 | NUR ---
PT WITH EYES CLOSED, RESP EVEN UNLABORED. CALL LIGHT WITHIN REACH.
--- NOTE | 2017-12-11 03:16 | NUR ---
PT IN CHAIR W RESP EVEN UNLABORED, WITH 2L O2
--- NOTE | 2017-12-11 06:04 | NUR ---
PT UP IN CHAIR ALL NIGHT, RECEIVED INCONT CARE X 2 OF BOTH BOWEL AND URINE, WITH THE LAST CHANGE, LESS BM. STAFF, THIS SHIFT, DID NOT PHYSICALLY ASSIST PT UP TO WALKER, ALTHOUGH HER RIGHT WRIST IS BECOMING PAINFUL WITH WEIGHT BEARING ON IT, SHE WAS ABLE TO STAND BY SELF, FOR OVER 5 MIN BOTH TIMES. PT O2 TURNED TO 2L TO TRY TO WEAN HER OFF, HOWEVER, HER SATS DROPPED TO 87 WHEN WITHOUT OXYGEN FOR 5 MIN WHILE BEING CHANGED. BACK ON NC 2L. MED WITH 2 NORCO FOR BACK PAIN, HAD SPASM LIKE PAIN ONCE IN CHAIR. HEAT PACK APPLIED TO LOWER BACK WELL. PT HAS REQUESTED TO NOT BE WOKE UP FOR ROUNDING, IF SHE IS AWAKE, SHE IS OK WITH REPORT IN ROOM.
--- NOTE | 2017-12-11 07:45 | NUR ---
PATIENT SITTING STRAIGHT UP IN CHAIR EATING BREAKFAST. NO OTHER NEEDS AT THIS TIME.
--- NOTE | 2017-12-11 08:36 | NUR ---
MORNING ASSESSMENT DONE. PATIENT UP TO CHAIR. RT IN TO CHECK SATS 88% ON 2L VIA NC. PATIENT RATES HER BACK PAIN 3/10 AND IS COMFORTABLE. FRANK BOOTS INTACT. PATIENT HAD BM THIS MORNING, DENIES OTHER NEEDS.
--- NOTE | 2017-12-11 09:34 | NUR ---
PT AWAKE IN CHAIR. TOOK FRESH ICE WATER. PT STATED SHE IS DOING WELL AND DID NOT NEED ANYTHING AT THIS TIME.
--- NOTE | 2017-12-11 10:34 | NUR ---
PATIENT UP IN CHAIR. ORAL CARE DONE. HANDS AND FACE WASHED. PATIENT REFUSED SHOWER AND SPONGE BATH. CALL BUTTON IN REACH. ICE WATER GIVEN. NO OTHER NEEDS AT THIS TIME.
--- NOTE | 2017-12-11 10:58 | NUR ---
PATIENT UP TO CHAIR, NAPPING.
--- NOTE | 2017-12-11 11:45 | NUR ---
PATIENT WORKING WITH PHYSICAL THERAPY, WAS ABLE TO AMBULATE OUT OF ROOM AND INTO HALLWAY. PATIENT INCONTINENT OF URINE AND STOOL, ATTENDS AND PAD REPLACED. PATIENT SITTING IN CHAIR.
--- NOTE | 2017-12-11 12:21 | NUR ---
UPDATED BY PHYSICAL THERAPY THAT PATIENT HAS MET HER GOAL OF AMBULATING 60 FEET. PATIENT IS STILL USING OXYGEN, SO THIS AFTERNOON THEY WILL DO THEIR THERAPY ON ROOM AIR AND SEE HOW PATIENT TOLERATES THAT. OT IS STILL WORKING WITH PATIENT AND THEY BOTH FEEL SHE WILL BE ABLE TO CONTINUE THERAPY HOME HEALTH. UPDATED DR MOREIRA. DISCUSSED WITH PATIENT. SHE FEELS SHE IS READY. SHE STATES SHE WILL HAVE HER RIDE SECURED FOR EARLY TOMORROW AFTERNOON. WE DISCUSSED POSSIBLE HOME HEALTH, SHE STATES SHE HAS DONE THAT BEFORE AND HAS NO PROBLEMS WITH THAT. SHE UNDERSTANDS THIS ALL DEPENDS ON HOW SHE DOES TODAY AND THROUGHT THE NIGHT.
[2017-12-11] MEDS ORDERED: GABAPENTIN100 MG PO (13:19)
[2017-12-11] MEDS ORDERED: NYSTOP60 GM TOP (13:20)
--- NOTE | 2017-12-11 13:54 | NUR ---
PATIENT RESTING IN CHAIR WITH EYES CLOSED. CALL BUTTON IN REACH.
--- NOTE | 2017-12-11 14:01 | NUR ---
PT SITTING IN CHAIR, WATCHING TV. SEEMS TO BE HAVING A GOOD DAY, HAD A PLEASANT VISIT. PT HOPES TO BE DC'D TOMORROW. ONE THING SHE MENIONED ABOUT THE SWING BED PROGRAM IS SHE WOULD LIKE TO SEE THE DR MORE. SHE KNOWS THEY DON'T HAVE TO COME REGULARLY, BUT JUST SAY "HELLO" EVERY DAY OR TWO IS ALL SHE SAID SHE NEEDED-NOT TO FEEL FORGOTTON. DR MOREIRA IN JUST AFTER SHE MENTIONED THIS, EXTENDED A BLESSING, WILL FOLLOW NEEDED
--- NOTE | 2017-12-11 14:50 | NUR ---
ASSISTED PT AND PHYSICAL THERAPY WITH AMBULATION, PT BEGAN A BOWEL MOVEMENT WHEN MOVING. ASSISTED PT ONTO COMMODE. PT NOW IN CHAIR, CALL LIGHT WITHIN REACH, NO FURTHER REQUESTS AT THIS TIME.
--- NOTE | 2017-12-11 15:06 | NUR ---
PATIENT UP TO CHAIR, VISITING ON PHONE. PATIENT RATES BACK PAIN 4/10 AT THIS TIME.
--- NOTE | 2017-12-11 16:49 | NUR ---
PATIENT GIVEN EVENING MEDICATIONS. PATIENT HAS SCHEDULED FOLLOW UP APPOINTMENTS WITH DR. YEUNG AND DR. MCNALLY AND THESE ARE ADDED TO PATIENT DISCHARGE. PATIENT IS EXPECTED TO GO HOME TOMORROW WITH CAREGIVER.
--- NOTE | 2017-12-11 19:10 | NUR ---
BEDSIDE REPORT RECEIVED FROM ZARI HOUSTON. PT AWAKE, SITTING UP IN CHAIR. ON 2L OXYGEN BY NC. PT HAS NO REQUESTS AT THIS TIME, CALL LIGHT AND PERSONAL SUPPLIES IN REACH.
--- NOTE | 2017-12-11 22:31 | NUR ---
PT ASSESSMENT COMPLETE. PT C/O ITCHING IN LEGS, PRN BENADRYL ADMINISTERED. PT RATES PAIN IN LEGS/BACK 5-/10, 2 PRN NORCO PO TABLETS ADMINISTERED. LUNGS CLEAR THROUGHOUT ALL LOBES, DIMINIESHED IN BASES. BOWEL TONES ACTIVE X 4, PT DENIES NAUSEA. ATTENDS CHANGED, PT INCONTINENT OF STOOL, 2PA WITH FWW, PT ABLE TO STAND. BARRIER CREAM, NYSTATIN POWDER APPLIED. PT ON 2L OXYGEN BY NC. MIDLINE SALINE LOCKED. NO ADDL REQUESTS AT THIS TIME. FRIEND IN ROOM, CALL LIGHT IN REACH.
--- NOTE | 2017-12-11 23:20 | NUR ---
CALL LIGHT ANSWERED, SONATA ADMINISTERED AT THIS TIME. PT UP IN CHAIR, AWAKE. GIVEN CRACKERS, PEANUT BUTTER, JELLO FOR SNACK. NO ADDL REQUESTS AT THIS TIME, 2L OXYGEN BY NC ON. CALL LIGHT IN REACH. LIGHTS OFF IN ROOM.
--- NOTE | 2017-12-12 03:39 | NUR ---
CALL LIGHT ANSWERED, PT C/O ITCHING, DISCOMFORT. PRN NORCO, BENADRYL ADMINISTERED. PT IN CHAIR, REMOVED OXYGEN, ASSISTED PT TO REAPPLY 2L OXYGEN BY NC. HOT PACK AND ICE WATER GIVEN TO PT. NO ADDL REQUESTS. CALL LIGHT IN REACH.
--- NOTE | 2017-12-12 04:47 | NUR ---
CHECKED ON PT, PT APPEARS TO BE SLEEPING, EYES CLOSED, SNORING, VISIBLE CHEST RISE EQUALLY BILATERALLY. PT HAS 2L NC ON.
--- NOTE | 2017-12-12 05:20 | NUR ---
PT ON 2L NC THROUGHOUT SHIFT. INCONTIENT OF STOOL AND URINE X 1. SLEEPING IN CHAIR THROUGHOUT SHIFT. USING CALL LIGHT APPROPRIATELY FOR PRN NORCO X 2 BACK PAIN, PRN BENADRYL X [address] FRANK BO[address] PL[address] BLE.
--- NOTE | 2017-12-12 07:25 | NUR ---
PT SITTING UP IN RECLINER. NO COMPLIANTS AT THIS TIME. PT ALERT AND ORIENTED.
--- NOTE | 2017-12-12 08:37 | NUR ---
PATIENT SITTING UP IN CHAIR GETTING READY TO MAKE PHONE CALL. NO OTHER NEEDS AT THIS TIME. CALL BUTTON IN REACH.
--- NOTE | 2017-12-12 09:35 | NUR ---
PATIENT UP WITH 2 PERSON ASSIST AND FWW. DIAPER CARE DONE. SKIN CARE DONE BY STUDENT NURSE. PATIENT BACK TO CHAIR. PATIENT REFUSED SHOWER TODAY DUE TO GOING HOME AND SHE RATHER USE HER SHOWER. CALL BUTTON IN REACH. NO OTHER NEEDS AT THIS TIME.
--- NOTE | 2017-12-12 09:44 | NUR ---
AM MEDICATION PASS GIVEN BY CHARGE NURSE VONNIE AND STUDENT RN [place]
--- NOTE | 2017-12-12 09:45 | NUR ---
AM MEDS ADMINISTERED. PT CHANGED WITH SHAHEED BERGER. RT IN TO QUALIFY PT FOR HOME O2.
--- NOTE | 2017-12-12 10:04 | NUR ---
pt up standing with physical therapy and cylinder batcher at this time.
--- NOTE | 2017-12-12 10:10 | NUR ---
THIS AQUAT[employer] LIFEGUARD AND PT AMBULATED WITH PATIENT TO THE HALLWAY AND BACK. PATIENT NOW SITTING UP IN CHAIR WITH PT. RN IN ROOM.
--- NOTE | 2017-12-12 11:50 | NUR ---
PATIENT SITTING UP IN HER CHAIR. CALL BUTTON IN REACH. NO OTHER NEEDS AT THIS TIME.
[2017-12-12] MEDS ORDERED: OXYBUTYNIN CHLOR5 MG PO (13:24)
--- NOTE | 2017-12-12 14:10 | NUR ---
FAXED CHART NOTES TO [facility] INCLUDING FACESHEET, ORDER, RT HOME O2 QUALIFIER, H AND P X 2 (BOTH INPT CHART AND SWING BED CHART), PROG NOTES, DC SUMMARY. RECIEVED CONFIRMATION OF FAX. TALKED WITH ALETHA FROM IN HOME REGARDING THIS. PT WILL BE SENT HOME WITH PORTABLE O2 TANK WITH [facility] # [id number]. THIS # WAS RELAYED TO [facility]. ALSO FAXED CHART NOTES TO [facility] FOR CONT PT AT HOME. RECIEVED FAX CONFIRMATION ON THIS ALSO.
--- NOTE | 2017-12-12 14:13 | NUR ---
PT SITTING IN CHAIR-PREPPING FOR DC. SHE SEEMS READY, SLEPT FAIRLY WELL. PT CONCERNED ABOUT NEW DR-HER'S IS RETIRING. I GAVE HER INFO ON A NEW DR COMING TO [facility] THAT IS TAKING PT'S NOW, INSTRUCTED HER TO HAVE HER DR SEND MED RECORDS TO CLINIC HERE TO BE PUT ON A PT LIST. SHE SEEMED VERY PLEASED, EXTENDED A BLESSING, WILL FOLLOW NEEDED
--- NOTE | 2017-12-12 14:30 | NUR ---
DISCHARGE EDUCATION GIVEN ON MEDICATIONS LAST DOSE NEXT DOSE, SIDE EFFECTS. DISCUSSED SIGNS/SYMPTOMS TO SEEK MEDICAL ATTENTION RIGHT AWAY. FOLLOW UP APPOINTMENT MADE AND CARD GIVEN TO PT. DISCUSSED NEED TO CONTINUE PHYSICAL THERAPY EXCERSIES AT HOME. PT VERBALIZED ALL INSTRUCTION BACK. MIDLINE PICC REMOVED TIP INTACT WNL.
--- NOTE | 2017-12-12 15:12 | NUR ---
pt assisted to clean and bottoms and transfer to wheelchair to prepare for discharge
== END 2017-12-12 16:20 | disposition home health service (06) | DRG 555 ==
LOC: MS 12:37
PROVIDERS: ADMIT Internal Medicine
DX: M62.81 Muscle weakness (generalized) (principal); A41.9 Sepsis, unspecified organism; R65.20 Severe sepsis without septic shock; J96.21 Acute and chronic respiratory failure with hypoxia; Z68.44 Body mass index [BMI] 60.0-69.9, adult; L03.116 Cellulitis of left lower limb; L97.211 Non-pressure chronic ulcer of right calf limited to breakdown of skin; I87.313 Chronic venous hypertension (idiopathic) with ulcer of bilateral lower extremity; E66.01 Morbid (severe) obesity due to excess calories; Z79.84 Long term (current) use of oral hypoglycemic drugs; I89.0 Lymphedema, not elsewhere classified; I87.2 Venous insufficiency (chronic) (peripheral); E78.5 Hyperlipidemia, unspecified; F32.9 Major depressive disorder, single episode, unspecified; G25.81 Restless legs syndrome; F51.04 Psychophysiologic insomnia; R23.4 Changes in skin texture; E11.51 Type 2 diabetes mellitus with diabetic peripheral angiopathy without gangrene
CPT/HCPCS: 36415; 80048; 83880; 94640; 94668; 94761; 97110; 97116; 97530; 97535; J0696; J1650; J3370; J3475; J7040

== ENCOUNTER 2018-05-27 07:19 | Inpatient (IN) | payer MEDICARE, OTHER ==
[~2018-05-27] VITALS: Ht 172.7 cm; Wt 174.2 kg
[~2018-05-27 07:19] MED LIST changes: +GABAPENTIN100 MG PO; +NYSTOP60 GM TOP
[2018-05-28] MEDS ORDERED: TERBINAFINE HC250 MG PO (16:20)
[2018-05-28] MEDS ORDERED: HYDROCODON-ACE1 EAC8 PO (16:37)
[2018-05-28] MEDS ORDERED: ZOLPIDEM TARTRAT5 MG PO (16:41)
[2018-05-28] MEDS ORDERED: OXYBUTYNIN CHLOR5 MG PO (16:48)
[2018-06-03] MEDS ORDERED: DOXYCYCLINE HY100 MG PO (07:50)
[2018-06-03] MEDS ORDERED: OXYCODONE HCL5 MG PO (07:53)
[2018-06-03] MEDS ORDERED: MAPAP500 M1 PO (07:54)
[2018-06-03] MEDS ORDERED: FUROSEMIDE40 MG PO (07:55)
[2018-06-03] MEDS ORDERED: SENNA-TIME S T1 EACH PO (07:59)
[2018-06-03] MEDS ORDERED: MIRALAX17 GM PO (07:59)
== END 2018-06-03 13:30 | disposition home or self-care (01) | DRG 603 ==
LOC: ED 07:19 → CCU 13:02 → MS 05-28 14:22
PROVIDERS: ADMIT Internal Medicine
PROC: 02HV33Z Insertion of Infusion Device into Superior Vena Cava, Percutaneous Approach (ICD-10-PCS; principal; 2018-05-29 11:30)
DX: L03.115 Cellulitis of right lower limb (principal); J96.10 Chronic respiratory failure, unspecified whether with hypoxia or hypercapnia; E11.9 Type 2 diabetes mellitus without complications; I89.0 Lymphedema, not elsewhere classified; E66.9 Obesity, unspecified; B37.9 Candidiasis, unspecified; Z79.84 Long term (current) use of oral hypoglycemic drugs; Z99.81 Dependence on supplemental oxygen
CPT/HCPCS: 36415; 36569; 51702; 71045; 74177; 80048; 80053; 81001; 83605; 83690; 83735; 85025; 93971; 96374; 96523; 97110; 97116; 97163; 97530; 99285; 99406; C1751; J0692; J0696; J1650; J2997; J3475; J7030; Q9967

== ENCOUNTER 2018-09-18 07:45 | Day surgery (SDC) | payer MEDICARE, OTHER ==
[~2018-09-18] VITALS: Ht 172.7 cm; Wt 149.7 kg
[~2018-09-18 07:45] MED LIST changes: +CEPHALEXIN500 MG PO; +DOXYCYCLINE HY100 MG PO; +DOXYCYCLINE MO100 MG PO; +FUROSEMIDE40 MG PO; +HYDROCODON-ACE1 EAC8 PO; +LIDOCAINE HCL100 ML TOP; +MAPAP500 M1 PO; +MIRALAX17 GM PO; +NICORETTE4 M2 BUCCAL; +OXYCODONE HCL5 MG PO; +PHENTERMINE H37.5 MG PO; +SENNA-TIME S T1 EACH PO; +TERBINAFINE HC250 MG PO; +ZOLPIDEM TARTRAT5 MG PO
--- NOTE | 2018-09-18 11:19 | NUR ---
09/18/18 [facility]9 Asa Israelley 1110- PT ARRIVES TO PACU FROM OR ON 10 L VIA MASK WITH SATS 100%. PT HAD GENERAL WITH BLOCK. PT REACTIVE TO VERBAL STIMULUS AND RESPONDS APPROPRIATELY TO QUESTIONS. NO DRAINAGE ON SURGICAL DRESSING. SCDS ON. PT DENIES PAIN/NAUSEA. 1115- PT DENIES PAIN/NAUSEA. VSS. RESP EVEN AND UNLABORED. PT TITRATED TO RA. RA SATS >90%.
--- NOTE | 2018-09-18 11:54 | NUR ---
CONTINUOUS PULSE OXIMETER IN PLACE. OXYGEN TURNED OFF @ THIS TIME. COFFEE AND ICED WATER GIVEN.
[2018-09-18] MEDS ORDERED: ULTRAM50 MG PO (12:24)
--- NOTE | 2018-09-18 13:50 | NUR ---
MET WITH PT POST-OP. SHE IS ALERT, ORIENTED AND WAITING FOR HER RIDE. SHE IS READY FOR DC. FEELING WELL, EXTENDED A BLESSING, WILL FOLLOW NEEDED
--- NOTE | 2018-09-20 07:17 | OR ---
[facility] [address] [place], [place] [address] Signed DATE OF OPERATION: 09/18/2018 SURGEON: Henry Shipley MD PREOPERATIVE DIAGNOSIS: Ganglion cyst, volar aspect, left wrist, recurrent. POSTOPERATIVE DIAGNOSIS: Ganglion cyst, volar aspect, left wrist, recurrent. PROCEDURE PERFORMED: Ganglionectomy and removal of adjuvant lipoma. ANESTHESIA: Eladio block with sedation. SPECIMENS AND COMPLICATIONS: There were no specimens or complications. TOURNIQUET TIME: About 22 minutes. WHAT WAS DONE: The patient was taken to the operating room. After anesthesia was induced and the airway gently supported, left upper extremity was positioned, prepped, and draped in routine sterile fashion. Using her old scar as a guide, we made a transverse incision directly over the palpable mass. Skin was divided sharply. Subcutaneous tissue was bluntly spread. The vascular structures were identified and retracted in a radial direction. We then gently dissected the ganglion cyst out with a sharp and blunt dissection and removed it as a single piece. There was also a fairly large lipoma in the same area and this was gently dissected out and removed. The wound was gently irrigated. Hemostasis was achieved with bipolar electrocautery and the wound was closed in a standard fashion. A sterile dressing was applied. She was awakened and taken to the recovery room where she arrived in stable condition. Counts were correct and antibiotic protocols were followed. Henry Shipley MD Electronically Signed By: HENRY SHIPLEY MD 09/20/18 0717 PATIENT NAME: SAMANTHA KIM OPERATIVE REPORT DATE OF : 43 REPORT #: [id number] PHYSICIAN: HENRY SHIPLEY MD PCP: ALETHA ESTRADA REPORT IS CONFIDENTIAL AND NOT TO BE RELEASED WITHOUT AUTHORIZATION [facility] [address], [place] [address] Signed [facility] /[id number] Copies: ~ Electronically Signed By: HENRY SHIPLEY MD 09/20/18 0717 PATIENT NAME: SAMANTHA KIM OPERATIVE REPORT DATE OF : 43 REPORT #: [id number] PHYSICIAN: HENRY SHIPLEY MD PCP: ALETHA ESTRADA REPORT IS CONFIDENTIAL AND NOT TO BE RELEASED WITHOUT AUTHORIZATION
== END 2018-09-18 13:20 | disposition home or self-care (01) ==
LOC: DS 07:45 → OPS 07:45 → DS 08:15 → OPS 08:15
PROVIDERS: Orthopaedic Surgery
PROC: 0LB60ZZ Excision of Left Lower Arm and Wrist Tendon, Open Approach (ICD-10-PCS; principal; 2018-09-18 09:15)
DX: M67.432 Ganglion, left wrist (principal); E66.9 Obesity, unspecified; E11.9 Type 2 diabetes mellitus without complications; G89.29 Other chronic pain; F11.90 Opioid use, unspecified, uncomplicated; F17.210 Nicotine dependence, cigarettes, uncomplicated; J45.909 Unspecified asthma, uncomplicated; J18.9 Pneumonia, unspecified organism; J40 Bronchitis, not specified as acute or chronic; Z88.5 Allergy status to narcotic agent; Z79.899 Other long term (current) drug therapy; Z68.43 Body mass index [BMI] 50.0-59.9, adult
CPT/HCPCS: 01810; J0690; J1100; J1885; J2250; J2405; J2704; J2765; J3010; J7120

== ENCOUNTER 2018-12-08 18:41 | Inpatient (IN) | payer MEDICARE, OTHER ==
[~2018-12-08] VITALS: Ht 172.7 cm; Wt 157.0 kg
[~2018-12-08 18:41] MED LIST changes: +ULTRAM50 MG PO
--- OUTSIDE RECORDS SUMMARY | 2018-12-08 18:44 | XMS ---
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 Care History Medical/Surgical 07/18/2018 [facility] IF SEEN IN ED AND NEEDS INPATIENT ADMISSION:\T\nbsp; PATIENT NEEDS TO BE TRANSFERRED TO A FACILITY THAT HAS A BARIATRIC SPECIALTY UNIT .\T\nbsp; THIS PATIENTS WEIGHT IS NOW HIGHER THAN OUR EQUIPMENT CAN TOLERATE SAFELY. E.D. VISIT COUNT (12 MO.) 3 [facility] TOTAL 3 NOTE: Visits indicate total known visits. ED/UCC VISIT TRACKING (12 MO.) 12/08/2018 18:42 [facility] TYPE: Emergency COMPLAINT: - SOB 08/03/2018 15:25 [facility] TYPE: Emergency COMPLAINT: - SOB 05/27/2018 07:20 [facility] TYPE: Emergency COMPLAINT: - VOMITING/NAUSEA INPATIENT VISIT TRACKING (12 MO.) 08/03/2018 16:38 [facility] TYPE: Medical Surgical COMPLAINT: - CHF, UTI, CELLULITIS DIAGNOSES: - Hypomagnesemia - Lymphedema, not elsewhere classified - Chronic obstructive pulmonary disease, unspecified - Hypomagnesemia - Hypertensive heart disease with heart failure - Cellulitis of left lower limb - Chronic respiratory failure with hypoxia - Type 2 diabetes mellitus without complications - Hypokalemia - Nicotine dependence, cigarettes, uncomplicated - Unspecified Escherichia coli [E. coli] as the cause of diseases classified elsewhere - Acute on chronic diastolic (congestive) heart failure - Unspecified Escherichia coli [E. coli] as the cause of diseases classified elsewhere - Cellulitis of left lower limb - Restless legs syndrome - Hyperlipidemia, unspecified - Pseudomonas (aeruginosa) (mallei) (pseudomallei) as the cause of diseases classified elsewhere - Psychophysiologic insomnia - Chronic pain syndrome - Body mass index (BMI) 50-59.9 , adult - Hypertensive heart disease with heart failure - Type 2 diabetes mellitus without complications - Morbid (severe) obesity due to excess calories - Morbid (severe) obesity with alveolar hypoventilation - Pseudomonas (aeruginosa) (mallei) (pseudomallei) as the cause of diseases classified elsewhere - Psychophysiologic insomnia - Chronic obstructive pulmonary disease, unspecified - Restless legs syndrome - Nicotine dependence, cigarettes, uncomplicated - Hyperlipidemia, unspecified - Morbid (severe) obesity due to excess calories - Chronic pain syndrome - Lymphedema, not elsewhere classified - Morbid (severe) obesity with alveolar hypoventilation - Urinary tract infection, site not specified - Hypokalemia - Body mass index (BMI) 50-59.9 , adult - Chronic respiratory failure with hypoxia - Acute cystitis without hematuria - Acute cystitis without hematuria 05/27/2018 13:02 [facility] TYPE: Medical Surgical COMPLAINT: - WORSENING CELLULITIS DIAGNOSES: - Dependence on supplemental oxygen - Chronic respiratory failure, unspecified whether with hypoxia or hypercapnia - Encounter for immunization - Candidiasis, unspecified - Type 2 diabetes mellitus without complications - Cellulitis of right lower limb - Lymphedema, not elsewhere classified - MCC (current) use of oral hypoglycemic drugs - Obesity, unspecified [email or web address]
--- NOTE | 2018-12-08 23:12 | NUR ---
PT ADMITTED TO CCU FROM ED PER STRETCHER. MOVED FROM STRETCHER TO BED USING HOVER MAT. REPOSITIONED UP IN BED WITH SLING. PT IS SOB WITH MINIMAL EXERTION AND GRUNTING WITH EXPIRATION. HOB ELEVATED FOR PT COMFORT. GIVEN 650MG TYLENOL FOR TEMP 103.3. PT DENIES PAIN.
--- NOTE | 2018-12-09 00:18 | NUR ---
AT 2315 PT ASKING TO STAND OR PUT LEGS OVER BED, AFIRMED FEELING SOB, NOTED INC RR AND GRUNTING AGAIN. BED PUT INTO CHAIR POSITION. PT ALSO C/O FEELING TOO HOT. PT'S TEMP NOTED TO BE STARTING TO DECREASE. COVERS OFF. NEB TX GIVEN WHICH HELPED PT. SECOND IV STARTED AND LASIX INFUSION STARTED. URINE OUTPUT HAS BEEN VERY GOOD. PT DID C/O LEG PAIN WHICH WAS HELPED WITH POSITION CHANGE. PT DID DOZE BACK OFF.
--- NOTE | 2018-12-09 02:05 | NUR ---
PT APPEARS TO BE SLEEPING AT THIS TIME. V/S STABLE AT THIS TIME.
--- NOTE | 2018-12-09 03:05 | NUR ---
PT'S TEMP HAS GONE UP FROM 101.3 TO 102 IN PAST 30 MIN. PT STARTING TO CHILL AND ACHE. GIVEN 325MG OF PLAIN TYLENOL AND 1 NORCO 10/325 FOR FEVER AND DISCOMFORT. PT DOES STATE HER BREATHING IS BETTER THAN WHEN SHE CAME IN. REDNESS ON R LEG HAS GONE UP TO TOP OF THIGH SINCE ABX WERE GIVEN.
--- NOTE | 2018-12-09 04:26 | NUR ---
SLEEPING AT THIS TIME.
--- NOTE | 2018-12-09 06:11 | NUR ---
TEMP CONT TO BE ELEVATED. PT IS ABLE TO REST. LAB DRAWN.
--- NOTE | 2018-12-09 06:46 | NUR ---
DR RAMÍREZ GIVEN UPDATE ON PT'S TEMP. ORDER FOR PRN IBUPROPHEN RECIEVED.
--- NOTE | 2018-12-09 07:18 | EKG ---
[facility] [address] [place] [address] Signed Sinus tachycardia Otherwise normal ECG When compared with ECG of 17-SEP-2018 14:29, Vent. rate has increased BY 43 BPM Confirmed by DIEUDONNE RAMÍREZ MD ([id number]) on 12/09/2018 7:18:20 AM Electronically Signed By: DIEUDONNE RAMÍREZ MD 12/09/18 0718 PATIENT NAME: SAMANTHA KIM HERRERA Electrocardiogram DATE OF : 43 PHYSICIAN: DIEUDONNE RAMÍREZ MD REPORT #: [id number] REPORT IS CONFIDENTIAL AND NOT TO BE RELEASED WITHOUT AUTHORIZATION
--- NOTE | 2018-12-09 07:45 | NUR ---
PT ASLEEP IN HER BED; CHEST RISING AND FALLING AND HER NUMBERS ON CONTINUOUS MONITORING ARE WNL. NO SIGNS OF DISCOMFORT OR PAIN. CALL LIGHT WITHIN REACH. WILL CONTINUE TO MONITOR AND RETURN SOON FOR ASSESSMENT AND MEDICATIONS. LASIX GTT RUNNING INTO RIGHT ARM PIV WITHOUT ISSUE.
--- NOTE | 2018-12-09 08:25 | NUR ---
ASSESSMENT COMPLETED. PT IS A/O X4, CALM, COOPERATIVE AND SOMEWHAT FLAT AFFECT. SHE DENIES ANY PAIN, N/V OR SOB DEPSITE HER TACHYPNEA WITH RR AT 30. PT STATES SHE "FEELS BETTER" COMPARED TO LAST NIGHT. 4 L/MIN O2 VIA NC. LUNGS ARE CLEAR/DIM. HEART SOUNDS ARE DISTANT. LARGE, ROUNDED ABD WITH ACTIVE BS. LAST BM YESTERDAY. LASIX GTT RUNNING CONTINUOUSLY AT 10 MG/HR INTO RIGHT WRIST PIV. LEFT AC PIV SALINE LOCKED. MOORE CATH IN PLACE DRAINING CLEAR, YELLOW URINE. MOORE TEMP PROBE IN PLACE AND TEMP IS 102.3- PRN IBUPROFEN GIVEN. LEFT THIGH RED. BILATERAL BELOW THE KNEE SKIN THICKNESS WITH LARGE GROWTHS. CHUX PAD UNDERNEATH LEGS FOR SCANT WEEPING AND SCALING. PT REFUSES ANY BREAKFAST BUT REQUESTS SOME WATER AND COFFEE- PROVIDED THESE BUT PT REQUIRED REINFORCEMENT OF EDUCATION ON HER FLUID RESTRICTION. SHE DENIES ANY FURTHER NEEDS. SHE STATES SHE'S COMFORTABLE. HER CALL LIGHT IS WITHIN REACH. FALL PRECAUTIONS IN PLACE. WILL CONTINUE TO MONITOR, ENCOURAGE COUGH AND DEEP BREATHING AND REPOSITIONING IN BED.
--- NOTE | 2018-12-09 09:26 | NUR ---
PT NAPPING AT THIS TIME; VS REMAIN STABLE. HER TEMP IS TRENDING DOWNWARDS. CALL LIGHT WITHIN REACH. WILL CONTINUE TO MONITOR.
--- NOTE | 2018-12-09 10:12 | NUR ---
PT RESTING IN BED WITHOUT ANY NEEDS TO BE MET. SHE STATES SHE CONTINUES TO FEEL COMFORTABLE. LEFT AC PIV FLUSHED AND ACCESSED FOR VANCO ADMINISTRATION. EDUCATION ON MEDS GIVEN. SHE DENIES ANY FURTHER NEEDS. MOORE CONTINUES TO DRAIN APPROPRIATELY. WILL CONTINUE TO MONITOR.
--- NOTE | 2018-12-09 11:10 | NUR ---
PT ASSISTED WITH REPOSITIONING PER HER REQUEST. SHE STATES SHE DOES NOT WANT TO ORDER ANY LUNCH AT THIS TIME BUT I'LL FOLLOW UP IN A LITTLE WHILE TO SEE IF THIS CHANGES. SHE CONTINUES TO HAVE STABLE VS AND TEMP HAS DROPPED TO 100. CALL LIGHT WITHIN REACH. WILL CONTINUE TO MONITOR AND RETURN TO ADMINISTER ELECTROLYTE REPLACEMENTS ORDERED ONCE VANCO HAS COMPLETED.
[2018-12-09] MEDS ORDERED: DICLOFENAC SODI75 MG PO (11:24)
--- NOTE | 2018-12-09 11:38 | NUR ---
MED REC COMPLETE
--- NOTE | 2018-12-09 12:00 | NUR ---
ASSESSMENT COMPLETED- NO CHANGES FROM MORNING ASSESSMENT; SEE CHARTING. PT DENIES ANY PAIN, N/V OR SOB. SHE REMAINS TACHYPNEIC WITH RR AT 28. MAG SULFATE AND KCHLOR GIVEN. PT STATES SHE HAS NO APPETITE WITH HER CURRENT STATE AND REFUSES LUNCH ORDER. LASIX GTT CONTINUES TO RUN CONTINUOUSLY. TEMP 100.1. SHE REQUESTS FRESH CUP OF ICE WATER WHICH I PROVIDE SINCE PT WAS COMPLIANT WITH MONITORING HER PO INTAKE THIS MORNING. SHE DENIES ANY FURTHER NEEDS. CALL LIGHT WITHIN REACH. WILL CONTINUE TO MONITOR.
--- NOTE | 2018-12-09 13:09 | NUR ---
PT NAPPING IN BED WITH HER EYES CLOSED; APPEARS COMFORTABLE WITH NO SIGNS OF DISTRESS OR DISCOMFORT. VS STABLE ON CONTINUOUS TELE MONITORING. MAG SULFATE HAS COMPLETED INFUSING AND HER LEFT AC PIV IS SALINE LOCKED. CALL LIGHT WITHIN REACH. WILL CONTINUE TO MONITOR.
--- NOTE | 2018-12-09 14:20 | NUR ---
PT SITTING UP IN BED VISITING WITH A FRIEND AT THE BEDSIDE. PT STATES SHE'S COMFORTABLE WITHOUT PAIN AND HER RESPIRATORY RATE HAS IMPROVED- 24 BREATHES/MIN. SHE STATES SHE FEELS LIKE EATING- LUNCH ORDERED FOR HER. HALF A CUP OF ICE PROVIDED WELL PER HER REQUEST. SHE DENIES ANY FURTHER NEEDS. CALL LIGHT WITHIN REACH. WILL CONTINUE TO MONITOR.
--- NOTE | 2018-12-09 15:30 | NUR ---
PT ATE 100% OF HER SALMON AND STEAMED VEGGIES. I OFFERED AT THIS TIME TO ASSIST PT WITH HEAD TO TOE BED BATH BUT SHE REFUSED. FRESH TOP SHEET PROVIDED WELL BLANKET FROM WARMER. TERESA CONTINUES TO DRAIN ADEQUATE OUTPUT. SHE DENIES ANY FURTHER NEEDS RIGHT NOW. CALL LIGHT WITHIN REACH. WILL CONTINUE TO MONITOR.
--- NOTE | 2018-12-09 16:15 | NUR ---
ASSESSMENT COMPLETED AT THIS TIME. NO CHANGE IN PT'S ASSESSMENT. SHE REMAINS PLEASANT, CALM AND COOPERATIVE WITH NO C/O PAIN, N/V OR SOB. HER TACHYPNEA HAS IMPROVED. RR AT NBEGINNING OF SHIFT WAS 30 WITH GRUNTING, WHEREAS NOW HER RR IS 23 AND NO GRUNTING. VS ALL REMAIN STABLE AND TEMP 99.9. MOORE EMPTIED. WEANED PT DOWN TO 1.5 L/MIN O2 VIA NC. MAINTAING O2 SATS AT 94%. PT DENIES ANY NEEDS AT THIS TIME. CALL LIGHT WITHIN REACH. WILL CONTINUE TO MONITOR.
--- NOTE | 2018-12-09 17:37 | NUR ---
PT RESTING IN BED, DENIES ANY NEEDS. STATES SHE'S COMFORTABLE. OVERALL CONDITION HAS IMPROVED SINCE 0700- WORK OF BREATHING HAS DECREASED AND SHE NEEDS LESS OXYGEN SUPPLEMENTATION. LASIX GTT CONTINUES AT 10 MG/HR. DINNER ORDERED FOR THE PT. CALL LIGHT WITHIN REACH. WILL CONTINUE TO MONITOR.
--- NOTE | 2018-12-09 18:50 | NUR ---
PT'S DINNER HAS ARRIVED; ASSISTED PT TO SIT ON EDGE OF BED TO EAT HER DINNER. REQUIRED X1 ASSIST TO HELP LIFT AND MOVE HER LEGS. SHE CURRENTLY IS SITTING UP EATING HER DINNER. CALL LIGHT WITHIN REACH. WILL CONTINUE TO MONITOR.
--- NOTE | 2018-12-09 19:30 | NUR ---
PT IN AFIB RVR HR 130-150. WAS SITTING AT EDGE OF BED EATING WHEN THIS HAPPENED. PT DENIES DIZZINESS OR PALPITAIONS. NO SOB. DR RAMÍREZ NOTIFIED. ORDERS RECIEVED.
--- NOTE | 2018-12-09 19:50 | NUR ---
PT GIVEN 20MG CARDIZME IV SLOWLY PUSH. HR 130'S. C/O STINGING AT LAC IV SITE, FLUSHES WELL. WILL ATTEMPT ANOTHER IV SITE.
--- NOTE | 2018-12-09 20:29 | NUR ---
UNABLE TO START ANOTHER IV SITE AT THIS TIME. NO FURTHER DISCOMFORT AT LAC SITE. PT CONT TO TO HAVE STRONG SMELL OF YEAST ABOUT HER. LEGS ARE REDDENED AND LOWERS LEGS ARE WEEPING SEROUS FLUID. HAS VERY DEEP CREVICES EDGARD. POST LEGS. SATS 87% WILL INC 02 . CARDIZEM TO 10MG HR CONT 130'S NOW A FLUTTER.
--- NOTE | 2018-12-09 21:21 | NUR ---
PT STARTING TO C/O FEELING COLD. TEMP HAS INC TO 101.4. GIVEN 400MG IBUPROPHEN PO. DR RAMÍREZ IN DEPT. LASIX GTT DC'S. LABS ORDERED.
--- NOTE | 2018-12-09 22:05 | NUR ---
CURRENTLY SLEEPING AFTER LAB DRAW. HAVE TITRATED 02 UP TO 4 L NC SATS 88%.
--- NOTE | 2018-12-09 22:38 | NUR ---
DR RAMÍREZ CALLED WITH LAB RESULTS. ORDER FOR 2GM MAGNESIUM SULFATE RECIEVED. HR CONT 137, CARDIZEM TO 20MG/HR AND DR RAMÍREZ AWARE.
--- NOTE | 2018-12-10 00:38 | NUR ---
PT'S HR CONT TO 130'S. TEMP TO 99.4, PT DIAPHORETIC WITH FEVER BREAKING. BED BATH GIVEN, NYSTATIN POWDER TO FOLDS UNDER PANNIS. LEFT SIDE OF PANNIS IS RED AND WEEPY RIGHT SIDE IS PINK. CATH CARE DONE. GOKUL AREA IS NOT RED. LOWER LEGS CONT TO WEEP. PT BRUSHED TEETH AND COMBED HAIR. READY FOR SLEEP AFTER THIS.
--- NOTE | 2018-12-10 00:55 | NUR ---
DR RAMÍREZ GIVEN UPDATE ON PT HR. WILL CONT TO MONITOR.
--- NOTE | 2018-12-10 02:17 | NUR ---
SLEEPING. HAS OCC EPISODES OF SLEEP APNEA, SATS DEC TO 88%
--- NOTE | 2018-12-10 04:06 | NUR ---
HAS BEEN SLEEPING, PT AWAKENED BY COUGHING. NO C/O. HR REMAINS 133-135 SVT.CONT ON CARDIZEM AT 20MG/HR. SATS VARY WHEN SLEEPING AND PT NOTED TO HAVE SOFT SNORING AND APNEA.
--- NOTE | 2018-12-10 06:18 | NUR ---
YSLEEPING AT THIS TIME. CONT SVT HR 135. REMAINS ON CARDIZEM AT 20MG/HR.
--- NOTE | 2018-12-10 06:59 | NUR ---
DR RAMÍREZ INFORMED OF PT CONT HR 130'S.
--- NOTE | 2018-12-10 07:30 | NUR ---
PT SITTING UP IN BED WATCHING TV, WIDE AWAKE, BREAKFAST HAS BEEN ORDERED. SHE DENIES ANY NEEDS. MOORE IN PLACE DRAINING CLEAR, YELLOW URINE. DILT GTT RUNNING AT 20 MG/HR INTO LEFT PIV. PT DENIES ANY NEEDS. WILL RETURN SOON TO ASSESS AND GIVE MEDICATIONS.
--- NOTE | 2018-12-10 08:15 | NUR ---
ASSESSMENT COMPLETED. PT IS PLEASANT, CALM AND COOPERATIVE AND DENIES ANY PAIN, N/V OR SOB. SHE STATES HER BREATHING "IS FINE RIGHT NOW." HER UPPER LUNG LOBES ARE CLEAR BUT LOWER ARE VERY DIMINISHED. OF YESTERDAY EVENING, I HAD PT ON 0.5 L/MIN O2 VIA NC WITH O2 SATS MAINTAINING LOW TO MID 90'S. TODAY SHE IS BACK UP TO 4 L/MIN O2 AND MAINTAINING LOW 90'S; SHE'S REQUIRING MORE OXYGEN AGAIN. DEEP BREATHING EXERCISE COMPLETED AT THIS TIME. REMINDED PT SHE HAS PRN RT TREATMENTS IF NEEDED. PT'S BOWEL SOUNDS ARE ACTIVE, LAST BM 2 DAYS AGO. MOORE IN PLACE DRAINING CLEAR, YELLOW URINE. BLE REMAIN RED, CALLOUSED, HARD AND MALODOROUS. REDNESS ON RIGHT THIGH HAS IMPROVED. PT BLE ARE VERY WEAK, SHE'S BARELY ABLE TO LIFT EACH LEG ON HER OWN- NEEDS 1-2 PERSON ASSIST FOR MOVEMENT WITH LEGS. CHUX IN PLACE FOR MODERATE AMOUNT OF WEEPING. RIGHT WRIST PIV REMOVED AT THIS TIME BY THIS RN- FLUSHED AND PIV IS LEAKING WITH BENT CATHETER. LEFT AC PIV HAS DILT GTT CONTINUING AT 20 MG/HR. COMPATIBILITY CHECKED AND SCHEDULED ABX CAN RUN WITH DILT GTT UNTIL POSSIBLE PICC PLACEMENT IS VERIFIED. PT REMAINS IN SVT ON CONTINUOUS MONITORING - HR MAINTAINING IN MID 130'S; PT ASYMPTOMATIC. SHE DENIES ANY NEEDS AT THIS TIME. CALL LIGHT WITHIN REACH. WILL CONTINUE TO MONITOR.
--- NOTE | 2018-12-10 09:00 | NUR ---
PT'S TELE APPEARS TO BE AFIB/AFLUTTER. DR. RAMÍREZ IS AWARE OF THIS. PT CONTINUES TO BE ASYMPTOMATIC OTHER THAN HR IN 130'S.
--- NOTE | 2018-12-10 10:50 | NUR ---
SPOKE WITH PATIENT IN ROOM. PATIENT STATES SHE IS STILL IN HER OWN HOME. HAS A WALKER, POWER WHEELCHAIR, POWER SCOOTER, RAMP, WALK-IN TUB, LIFT CHAIR. PATIENT SLEEPS IN HER LIFT CHAIR. PATIENT HAS FRIENDS WHO COME HELP HER. PATIENTS DESIRE IS TO RETURN HOME AT DISCHARGE. DISCUSSED POSSIBLE F/U WITH [facility] AND HOME HEALTH. SHE STATES SHE IS FINE WITH EITHER. DISCUSSED FOR HER TO UNDERSTAND DIAGNOSIS, TEST RESULTS, FOLLOW UP PLAN, MEDICATIONS INCLUDING SIDE EFFECTS BEFORE GOING HOME. QUESTIONS ANSWERED. WILL CONTINUE TO FOLLOW.
--- NOTE | 2018-12-10 10:50 | NUR ---
22 G PIV PLACED IN LEFT WRIST PT'S LEFT AC PIV STARTED LEAKING; PLACED WNL AND DILT GTT WELL VANCO NOW RUNNING THROUGH LEFT WRIST. PT CONTINUES PLEASANT AND STATES SHE'S COMFORTABLE. CALL LIGHT WITHIN REACH. WILL CONTINUE TO MONITOR.
--- NOTE | 2018-12-10 11:15 | NUR ---
PT IS SITTING UP IN BED WATCHING TV; SHE STATES SHE'S COMFORTABLE AND ASKS FOR A CUP OF COFFEE. SHE REMAINS WELL UNDER ON HER FLUID RESTRICTION SO THIS IS OKAY. SHE DENIES ANY FURTHER NEEDS. CALL LIGHT WITHIN REACH. WILL CONTINUE TO MONITOR.
--- NOTE | 2018-12-10 12:11 | NUR ---
ASSESSMENT COMPLETED AGAIN AT THIS TIME. NO CHANGES TO MORNING ASSESSMENT- PT CONTINUES TO BE IN AFIB/SVT ON CONTINUOUS TELE; DR. RAMÍREZ IS AWARE. PT CONTINUES TO BE ASYMPTOMATIC. MOORE IN PLACE DRAINING ADEQUATE AMOUNT OF URINE. PT DENIES ANY PAIN, N/V, OR SOB. LUNGS STILL CLEAR/DIM. AWAITING PICC PLACEMENT. SHE'S CURRENTLY EATING LUNCH AND WATCHING TV. DENIES ANY NEEDS AT THIS TIME. CALL LIGHT WITHIN REACH. WILL CONTINUE TO MONITOR.
--- NOTE | 2018-12-10 12:46 | NUR ---
PICC RN AT THE BEDSIDE AT THIS TIME
--- NOTE | 2018-12-10 13:42 | NUR ---
PICC LINE RN TEAM IN AT THIS TIME. LET PT KNOW I WILL RETURN. WILL FOLLOW NEEDED
--- NOTE | 2018-12-10 13:53 | NUR ---
PICC TEAM HAS COMPLETED PLACEMENT; XRAY HAS BEEN TAKEN; AWAITING VERIFICATION FROM XRAY.
--- NOTE | 2018-12-10 14:09 | NUR ---
PICC PLACEMENT VERIFIED BY DR. GATES; OKAY TO USE HAS BEEN GIVEN. THIS RN HAS ASSESSED THE PICC; DOUBLE LUMENS FLUSH WELL WITH GOOD BLOOD RETURN. DILT GTT AND VANCO SWITCHED TO PICC. LEFT WRIST PIV HAS BEEN REMOVED AND BP CUFF PLACED ON LEFT ARM. PT CONDITION STABLE. TOLERATED WELL. SHE REQUESTS ICE WATER AND DENIES ANY OTHER NEEDS AT THIS TIME. CALL LIGHT WITHIN REACH. WILL CONTINUE TO MONITOR.
--- NOTE | 2018-12-10 14:24 | NUR ---
DR. RAMÍREZ NOTIFIED OF PT'S HR MAINTAINING IN 130'S AND 140'S DESPITE DILT GTT BEING ON THROUGHOUT THE SHIFT AND PO CARDIZEM HAVING BEEN GIVEN A FEW HOURS AGO. ALSO MENTIONED PT'S POTASSIUM LEVEL OF 3.3 THIS MORNING. UPDATED HER THAT PT HAS VERIFIED PICC PLACEMENT. PT CURRENTLY VISITING WITH A FRIEND AT THE BEDSIDE. PLEASAMT, CALM, COOPERATIVE, NO PAIN. VANCO HAS FINISHED. CALL LIGHT WITHIN REACH. WILL CONTINUE TO MONITOR.
--- NOTE | 2018-12-10 14:52 | NUR ---
Certified Heart Failure Nurse Notes: Diagnosis: CHF, Afib RVR Sap Portal Developer Rom Fleming DO [facility] PCP: Kristine Bear PA Admit BNP: 325 Social support system: not disclosed at this visit. Lives in own home in [place] Weight monitoring: Scale present in home. States she had not been weighing QD and photographer lithographic asked that she called if she gained 5 lb. Identifies how to weigh daily/ identifies when to notify PCP. Recommended patient if gain 3 or more lb in a day. Symptom management: Addressed monitoring and reporting changes in weight or symptoms utilizing Zones form Transportation mode: Patietn states not an issue Diet: Recent meals include fresh asparagus and steak. States she eats what she wants if she can get someone to go to grocery store for her. Dines out less often since local restaurant closed. Reinforced checking salt content of packaged foods. Medication routine: Denies missed meds or difficulyt obtaining Advanced directive: Not discussed at this visit Recommendations prior to discharge: Document ambulation oxygen saturations prior to discharge Absence of orthostatic hypotension. Discharge weight less than admit weight. Discharge BNP less than admit (as per [facility] Heart Failure DC Bundle) Reviewing Zones form with nursing staff Barriers to self-care include: Macular degeneration. Sedentary lifestyle Self-Management Goal: "to stay on this earth a while longer" Follow-up plans: Return prior to DC or schedule patient an OP visit to discuss activity and diet in detail Post DC follow up call [facility] contact information given
--- NOTE | 2018-12-10 16:24 | NUR ---
DR. GUILLERMO WITH THIS RN AT THE BEDSIDE. DILT GTT STOPPED AT THIS TIME AND PLACED ON STANDBY. METOPROLOL GIVEN; BOTH LUMENS OF PICC FLUSHED AND NOW SALINE LOCKED. 40 MEQ PO POTASSIUM GIVEN WELL. PT CONTINUES TO BE PLEASANT AND CALM. STATES SHE FEELS LIKE HER BREATHING IS "FINE" AND NO SOB.
--- NOTE | 2018-12-10 17:17 | NUR ---
PT SOMEWHAT ANXIOUS THAT HER HR ISN'T COMING DOWN. EMOTIONAL SUPPORT GIVEN. DINNER ORDERED. REMAINS SALINE LOCKED. CALL LIGHT WITHIN REACH. WILL CONTINUE TO MONITOR.
--- NOTE | 2018-12-10 18:08 | NUR ---
6 MG ADENOSIDE ADMINISTERED WITH DR. GUILLERMO AT BEDSIDE
--- NOTE | 2018-12-10 18:16 | NUR ---
12 MG ADENOSINE ADMINISTERED; DR. GUILLERMO AT THE BEDSIDE WELL RT WITH EKG
--- NOTE | 2018-12-10 20:00 | NUR ---
AWAKE AND ALERT. DR GUILLERMO IN WITH PT TO INFORM HER OF TRANSFER TO [facility] FOR AFLUTTER/SVT RATE 140. PT CALLING FRIEND/FAMILY TO INFORM THEM OF THIS.
--- NOTE | 2018-12-10 20:35 | NUR ---
ASSESSMENT DONE. PT GIVEN JELLO AND FRUIT/ LIGHT SNACK PENDING TRANSFER. PICC HAS GOOD BLOOD RETURN AND FLUSHES EASILY.
--- NOTE | 2018-12-10 22:08 | NUR ---
FACE WASHED AND TEETH BRUSHED. AREA UNDER PANNIS CLEANED WITH WATER AND DRIED, NYSTATIN POWDER APPLIED, IS LESS RED THAN LAST NIGHT. LEGS WIPED DOWN WITH WET WASH CLOTHS. CONT TO HAVE MOD AMTS OF EXUDATE, EDGARD POST L LEG BUT THEY ARE NOT WEEPING.
--- NOTE | 2018-12-10 22:57 | NUR ---
PT TRANSFERED TO [facility]. PT IS ALERT, ORIENTED. HR 139 AFLUTTER.
--- NOTE | 2018-12-10 23:14 | NUR ---
REPORT CALLED TO FELICITA HAMEED AT [facility] ED.
--- NOTE | 2018-12-11 16:54 | EKG ---
[facility] [address] [place], [place] [address] Signed Atrial flutter When compared with ECG of 08-DEC-2018 19:04, Nonspecific T wave abnormality now evident in Inferior leads Confirmed by NAVEEN GUILLERMO DO ([id number]) on 12/11/2018 4:54:23 PM Electronically Signed By: NAVEEN GUILLERMO DO 12/11/18 1654 PATIENT NAME: SAMANTHA KIM HERRERA Electrocardiogram DATE OF : 43 PHYSICIAN: NAVEEN GUILLERMO DO REPORT #: [id number] REPORT IS CONFIDENTIAL AND NOT TO BE RELEASED WITHOUT AUTHORIZATION
== END 2018-12-10 22:55 | disposition short-term general hospital (02) | DRG 292 ==
LOC: ED 18:41 → CCU 21:28
PROVIDERS: ADMIT Internal Medicine
PROC: 02HV33Z Insertion of Infusion Device into Superior Vena Cava, Percutaneous Approach (ICD-10-PCS; principal; 2018-12-10 13:30)
DX: I11.0 Hypertensive heart disease with heart failure (principal); I48.92 Unspecified atrial flutter; L03.116 Cellulitis of left lower limb; L03.115 Cellulitis of right lower limb; Z68.43 Body mass index [BMI] 50.0-59.9, adult; I50.33 Acute on chronic diastolic (congestive) heart failure; F17.200 Nicotine dependence, unspecified, uncomplicated; M54.9 Dorsalgia, unspecified; G89.29 Other chronic pain; G25.81 Restless legs syndrome; E11.9 Type 2 diabetes mellitus without complications; E66.01 Morbid (severe) obesity due to excess calories; I89.0 Lymphedema, not elsewhere classified; H35.30 Unspecified macular degeneration; Z79.84 Long term (current) use of oral hypoglycemic drugs; Z79.891 Long term (current) use of opiate analgesic; Z79.899 Other long term (current) drug therapy; Z88.5 Allergy status to narcotic agent; Z88.7 Allergy status to serum and vaccine
CPT/HCPCS: 36415; 36569; 51702; 71045; 80048; 80053; 80202; 81001; 83605; 83735; 83880; 84484; 85025; 93005; 93010; 94640; 99285-25; 99406; J0153; J0696; J1650; J2405; J3370; J3475; J7060

== ENCOUNTER 2019-01-08 00:18 | Inpatient (IN) | payer MEDICARE, OTHER ==
[~2019-01-08] VITALS: Ht 172.7 cm; Wt 151.1 kg
[~2019-01-08 00:18] MED LIST changes: -ZOLPIDEM TARTRAT5 MG PO
--- OUTSIDE RECORDS SUMMARY | 2019-01-08 00:20 | XMS ---
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 Care History Medical/Surgical 12/13/2018 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 - PATIENT IS NOW SET UP WITH [facility] IN[facility]IOUS DISEASE [facility]- DR TILLMAN- PR[place] SET UP AN APT FOR PATIENT FOLLOW UP ON December @ 1:15PM. - PATIENT HAS 10 DAYS OF DAILY ANTIBIOTIC TREATMENTS STARTING 12/13/18. 07/18/2018 [facility] IF SEEN IN ED AND NEEDS INPATIENT ADMISSION:\T\nbsp; PATIENT NEEDS TO BE TRANSFERRED TO A FACILITY THAT HAS A BARIATRIC SPECIALTY UNIT .\T\nbsp; THIS PATIENTS WEIGHT IS NOW HIGHER THAN OUR EQUIPMENT CAN TOLERATE SAFELY. E.DJolly VISIT COUNT (12 MO.) [address] [place] [address] [facility] TOTAL 5 NOTE: Visits indicate total known visits. ED/UCC VISIT TRACKING (12 MO.) 01/08/2019 00:18 [facility] TYPE: Emergency COMPLAINT: - SOB 12/11/2018 00:31 [facility] TYPE: Emergency DIAGNOSES: - Shortness of Breath - Cellulitis of right lower limb - Lymphedema, not elsewhere classified - Tachycardia, unspecified 12/08/2018 18:42 [facility] TYPE: Emergency COMPLAINT: - SOB 08/03/2018 15:25 [facility] TYPE: Emergency COMPLAINT: - SOB 05/27/2018 07:20 [facility] TYPE: Emergency COMPLAINT: - VOMITING/NAUSEA INPATIENT VISIT TRACKING (12 MO.) 12/11/2018 00:31 [facility] TYPE: General Medicine DIAGNOSES: - Cellulitis of right lower limb - Lymphedema, not elsewhere classified - Unspecified atrial flutter - Tachycardia, unspecified 12/08/2018 21:28 [facility] TYPE: Critical Care COMPLAINT: - CHF DIAGNOSES: - Unspecified atrial flutter - Unspecified macular degeneration - Type 2 diabetes mellitus without complications - Cellulitis of right lower limb - Other chronic pain - Allergy status to narcotic agent status - Cellulitis of left lower limb - Type 2 diabetes mellitus without complications - FPC (current) use of oral hypoglycemic drugs - Body mass index (BMI) 50-59.9 , adult - 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 - Dorsalgia, unspecified - Morbid (severe) obesity due to excess calories - Restless legs syndrome - Hypertensive heart disease with heart failure - Hypertensive heart disease with heart failure - Unspecified macular degeneration - Nicotine dependence, unspecified, uncomplicated - Body mass index (BMI) 50-59.9 , adult - Unspecified atrial flutter - Acute on chronic diastolic (congestive) heart failure - Allergy status to serum and vaccine status - FPC (current) use of oral hypoglycemic drugs - Lymphedema, not elsewhere classified - Other alf (current) drug therapy - Cellulitis of left lower limb - Allergy status to narcotic agent status - Other chronic pain - Nicotine dependence, unspecified, uncomplicated - Restless legs syndrome - Dorsalgia, unspecified - Lymphedema, not elsewhere classified - Other intermediate card tender (current) drug therapy - Allergy status to serum and vaccine status - Morbid (severe) obesity due to excess calories - Cellulitis of right lower limb - FPC (current) use of opiate analgesic 08/03/2018 16:[address] 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
[2019-01-08] MEDS ORDERED: ACETAMINOPHEN500 MG PO (01:02)
[2019-01-08] MEDS ORDERED: DITROPAN XL5 MG PO (01:04)
[2019-01-08] MEDS ORDERED: PHENTERMINE H37.5 M1 PO (01:05)
--- NOTE | 2019-01-08 03:30 | NUR ---
PT ARRIVED ON FLOOR AT 0300 FROM ED. PT HAS A FEVER AND SOB WITH RR IN THE 30'S. PT AT THIS TIME IS ON 4L O2 NC. O2 SATS ARE WDL SO FAR. ALL LOBES HAVE CRACKLES PRESENT. PT HOWEVER IS NOT REALLY ABLE TO TAKE DEEP BREATHS AT THIS TIME. BILATERAL LYMPHEDEMA IS PRESENT BUT LOOKS MUCH BETTER THAN IN PREVIOUS ADMISSIONS. ABD SOUNDS ARE PRESENT, ABD IS SOFT TO TOUCH AND NON-TNEDER.
--- NOTE | 2019-01-08 04:20 | NUR ---
TEMP AT THIS TIME INCREASED TO 103.3F. MD RAMÍREZ WAS CALLED FOR MOTRIN TO BE GIVEN SINCE PT CANNOT HAVE TYLENOL UNTIL 732. ODER WAS RECEIVED.
--- NOTE | 2019-01-08 04:35 | NUR ---
PT AT 0430 BECAME NAUSEATED AND 4MG IV ZOFRAN WAS GIVEN. WILL CONTINUE TO MONITOR. CURRENT IV SITE MAY NOT LAST FOR TOO MUCH LONGER. LOOKIN FOR A 2ND IV SITED AND A PICC CONSULT WAS ORDERED.
--- NOTE | 2019-01-08 05:00 | NUR ---
SECOND IV SITE WAS ESTABLISHED.. FEVER CONTINUES TO RISE.
--- NOTE | 2019-01-08 05:39 | NUR ---
AT 0525 650MG PO TYLENOL WAS GIVEN EARLY PER MD RAMÍREZ DUE TO A TEMP OF 104.1F. URINE OUTPUT AT 0500 WAS 350ML. WILL CONTINUE TO MONITOR.
--- NOTE | 2019-01-08 06:27 | NUR ---
UPPER LOBES AT THIS TIME ARE CLEAR IN THE UPPER LOBES. ALL OTHER LOBES STILL HAVE CRACKLES PRESENT. THERE WAS REDNESS NOTICED AND TRACED ON HER LEFT THIGH. WILL INFORM DAY-SHIFT OF FINDINGS.
--- NOTE | 2019-01-08 07:45 | NUR ---
PATIENT SLEEPING IN BED WHEN ENTERING THE ROOM. ABX INFUSING AT 25 MLS/HR. PATIENT STATES SHE HAS "BEEN BETTER." PATIENT ON 5LNC, SPO2 AT 96% WITH RESPIRATIONS OF 29. PATIENT TEMPERATURE OF 99.5 DEGREES. PATIENT TOLERATED AM MEDICATIONS, 10 MLS OF WATER GIVEN FOR PO MEDS. IV SITES FLUSHING WELL, SITE BENIGN.
--- NOTE | 2019-01-08 08:30 | NUR ---
DR. RAMÍREZ IN PATIENT ROOM PERFORMING ASSESSMENT.
--- NOTE | 2019-01-08 09:00 | NUR ---
PATIENT REQUESTS TO SIT AT EDGE OF BED AND THIS IS PERFORMED WITH A TWO PERSON ASSIST. PATIENT'S BED LINENS ARE CHANGED AT THIS TIME. A COLD CLOTH IS APPLIED TO THE PATIENTS NECK AND BACK DUE TO DIAPHORESIS. PATIENT GIVEN A BED BATH AND NEW GOWN. PATIENT ASSISTED BACK TO BED IN HIGH FOWLERS. DENIES ANY FURTHER NEEDS AT THIS TIME, CALL LIGHT WITHIN REACH.
--- NOTE | 2019-01-08 09:14 | NUR ---
PT IS SITTING UP IN BED, JUST FINISHED HER BREAKFAST AT 75% AND THEN GAVE HER 200cc OF COFFEE.
--- NOTE | 2019-01-08 11:00 | NUR ---
PATIENT TRANSFERRED TO BARIATRIC BED. PATIENT ABLE TO STAND WITH ONE PERSON ASSIST USING WALKER WHILE THE BEDS WERE SWITCHED. PATIENT STATES SHE IS COLD AND A WARM BLANKET IS PROVIDED. ORAL TEMPERATURE OF 98.9 DEGREES. OXYGEN TITRATED TO 3LNC, SPO2 OF 94%, RESPIRATIONS OF 28. PATIENT CONTINUES VOIDING WELL WITH MOORE CATHETHER IN PLACE. IV ABX INFUSING AT 25 MLS/HR. PATIENT REQUESTS ICE WATER AND 200 MLS PROVIDED BREAKFAST DOSE. PATIENT EDUCATED ON 1200 ML FLUID RESTRICTION AND STATES UNDERSTANDING. PATIENT DENIES ANY FURTHER NEEDS AT THIS TIME.
--- NOTE | 2019-01-08 11:33 | NUR ---
PATIENT OXYGEN TITRATED TO 2.5LNC, SPO2 AT 94%, RESPIRATIONS OF 30.
[2019-01-08] MEDS ORDERED: XARELTO20 MG PO (11:35)
[2019-01-08] MEDS ORDERED: METOPROLOL SUCC25 MG PO (11:35)
[2019-01-08] MEDS ORDERED: ZOLPIDEM TARTRAT5 MG PO (11:36)
--- NOTE | 2019-01-08 11:41 | NUR ---
MED REC COMPLETE
--- NOTE | 2019-01-08 14:16 | NUR ---
PT ALERT, ORIENTED AND SEEMS PLEASED WITH MY VISIT. HAD BRIEF VISIT, PT REQUESTED VISIT BY -I WILL ARRANGE. PT REQUESTED PRAYER, WILL FOLLOW NEEDED
--- NOTE | 2019-01-08 15:15 | NUR ---
PATIENTS OXYGEN TITRATED TO 2LNC, SPO2 OF 94%, RESPIRATIONS OF 26.
--- NOTE | 2019-01-08 16:02 | EKG ---
[facility] [address] [place] [address] Signed Normal sinus rhythm Marked ST abnormality, possible inferior subendocardial injury Abnormal ECG When compared with ECG of 10-DEC-2018 09:58, Sinus rhythm has replaced Atrial flutter ST more depressed in Inferior leads Confirmed by DIEUDONNE RAMÍREZ MD ([id number]) on 01/08/2019 4:02:16 PM Electronically Signed By: DIEUDONNE RAMÍREZ MD 01/08/19 1602 PATIENT NAME: SAMANTHA KIM HERRERA Electrocardiogram DATE OF : 43 PHYSICIAN: DIEUDONNE RAMÍREZ MD REPORT #: [id number] REPORT IS CONFIDENTIAL AND NOT TO BE RELEASED WITHOUT AUTHORIZATION
--- NOTE | 2019-01-08 16:40 | NUR ---
PATIENTS OXYGEN TITRATED TO 1.5LNC, SPO2 OF 94%, RESPIRATIONS OF 27.
--- NOTE | 2019-01-08 16:40 | NUR ---
PATIENT SITTING IN HIGH FOWLERS, ROCEPHIN INFUSING AT 200 MLS/HR. PATIENT STATES SHE HAS "RESTLESS LEG PAIN" AND IS GIVEN A PRN DOSE OF LEVODOPA/CARBIDOPA. PATIENT STATES THIS MEDICATION "WORKS WELL AT HOME." PATIENT DENIES ANY FURTHER NEEDS AT THIS TIME, CALL LIGHT WITHIN REACH.
--- NOTE | 2019-01-08 18:00 | NUR ---
PATIENT STATES SHE IS CONTINUING TO HAVE PAIN IN HER LEGS. PATIENT IS REPOSITIONED USING HER BARIATRIC BED INTO A SITTING POSITION. PRN NORCO ADMINISTERED. PATIENT DENIES ANY FURTHER NEEDS AT THIS TIME, CALL LIGHT IS WITHIN REACH.
--- NOTE | 2019-01-08 18:54 | NUR ---
PATIENT URINE OUTPUT 75 MLS IN LAST FOUR HOURS[address]. RAMÍREZ CALLED AND UPDATED. NO FURTHER ORDERS AT THIS TIME.
--- NOTE | 2019-01-08 19:00 | NUR ---
SHIFT REPORT RECEIVED. PATIENT APPEARS TO BE SLEEPING SOUNDLY. VS STABLE. CALL LIGHT IN REACH.
--- NOTE | 2019-01-08 20:30 | NUR ---
PATIENT HAD BEEN SLEEPING SOUNDLY. WOKE EASILY TO VOICE. PATIENT ORINETED X4. DENIES PAIN AT THIS TIME. LUNG SOUNDS ARE CLEAR IN UPPER LOBES, COARSE WITH MINIMAL EXPIRTORY WHEEZES IN THE BASES. ENOCURAGED IS AND COUGHING. PATIENT TOLERATING 1.5L NC. NO NAUSEA. MOORE IN PLACE. URINE OUTPUT 20MLS FOR LAST 2 HOURS. PARTIAL BED BATH PERFORMED WITH SPECIAL ATTENTION TO LOWER EXTREMITIES. MOORE CARE DONE. NYSTATIN APPLIED UNDER BOTH BREAST AND PANIS AREA, SKIN HAS MINIMAL REDNESS. LEFT THIGH NOTED TO HAVE DARKENING REDNESS WITHIN THE INITIAL OUTLINE. LOWER HALF OF BOTH EXTREMITIES ARE WEEPING A SMALL AMOUNT. REPOSITIONED PATIENT IN BED. NEW GOWN AND CHUCKS APPLIED. PATIENT DENIES ANY NEEDS AT THIS TIME.
--- NOTE | 2019-01-08 21:00 | NUR ---
SCHEDULED MEDS PROVIDED. PATIENT PROVIDED WITH 300ML ICE WATER, SHE IS WITHIN HER FLUID RESTRICTION. BP NOTED TO BE LOWER THAN PREVIOUS. REPOSIITONED CUFF WITH NO CHANGE. DISCUSSED WITH SECOND RN. ARM CUFF ATTEMPTED WITH SIMILAR FINDINGS.
--- NOTE | 2019-01-08 21:45 | NUR ---
PATIENT'S BP HAS BEEN BELOW PARAMETERS WITH LEFT WRIST CUFF. CHANGED TO LEFT UPPER ARM CUFF AND RECEIVED SIMILAR READING. NOTIFIED MD OF CURRENT VS AND LOW URINE OUTPUT. ORDERS FOR IV FLUIDS RECEIVED AND VERIFIED USING REPEAT BACK METHOD. PATIENT RESTING COMFORTABLY IN BED. APPEARS TO BE SLEEPING, WAKES EASILY TO VOICE. DENIES ANY NEEDS.
--- NOTE | 2019-01-08 22:30 | NUR ---
PATIENT RESTING IN BED. REQUESTING A BLANKET, WHICH WAS PROVIDED. LIGHTS TURNED OFF. NO OTHER NEEDS.
--- NOTE | 2019-01-08 23:14 | NUR ---
PATIENT REQUEST REPOSITIONING, WHICH WAS DONE. PATIENT WATCHING TV. DENIES ANY NEEDS. O2 SAT 88% ON 1.5L NC, TITRATED TO 2L NC.
--- NOTE | 2019-01-09 00:28 | NUR ---
PATIENT SLEEPING SOUNDLY. WOKE EASILY TO VOICE BUT CONTINUES TO BE DROWSEY. DENIES PAIN OR NAUSEA. REPOSITIONS FOR COMFORT. ORAL TEMP ASSESSED AND DOCUMENTED. PATIENT IS SLIGHTLY DIAPHORETIC BUT REPORTS FEELING NEITHER HOT OR COLD WITH 1 BLANKET ON. URINE OUTPUT SLIGHTLY IMPROVED TO 38ML FOR LAST 2 HOURS. TOLERATING 2L NC, 02 SAT 93%. LUNGS CLEAR, DIM IN THE BASES BILATERALLY. ALLOWED PATIENT TO REST. CALL LIGHT IN REACH.
--- NOTE | 2019-01-09 01:07 | NUR ---
PATIENT'S BP CUFF REPOSITIONED. READING 92/43, HR 60. PATIENT REPORTS FEELING FEVERISH AND IS DIAPHORETIC. PRN TYLENOL PROVIDED.
--- NOTE | 2019-01-09 04:17 | NUR ---
PATIENT SLEEPING SOUNDLY. WOKE EASILY TO VOICE. PATIENT DENIES PAIN OR NAUSEA. ORIENTED X4. LUNGS ARE CLEAR IN UPPER LOBES JAYLON. FINE CRACKLES IN MID AND LOWER LOBES, NOT CLEARED WITH COUGH. URINE OUTPUT CONTINUES TO BE <30ML/HR. IV FLUIDS PER ORDER, SITE WNL. REPOSITIONED PATIENT FOR COMFORT AND TO ELEVATE LOWER EXTREMITIES.
--- NOTE | 2019-01-09 05:00 | NUR ---
LAB IN ROOM FOR MORNING DRAW. PATIENT ALERT. REQUEST NEEDING TO BE REPOSITIONED. DAYRON LIFTED UP IN BED AND LEGS ELEVATED. PATIENT REPORTS PAIN IN BOTH LEGS, MORE SO ON THE LEFT. PRN NORCO PROVIDED. PATIENT DENIES ANY FURTHER NEEDS.
--- NOTE | 2019-01-09 06:02 | NUR ---
PATIENT HAS BEEN RESTING WELL THIS SHIFT. APPEARS FREQUENTLY DROWSEY, BUT ORIENTED. TOLERATING 1.5-2L NC. LUNGS HAVE BEEN CLEAR IN JAYLON UPPER LOBES AND FINE CRACKLES IN THE BASES. NO NAUSEA. MOORE; URINE OUTPUT CONSISTENTLY 10-15ML/HR. IV FLUIDS STARTED AT 75ML/HR. PATIENT CONSISTENTLY HYPOTENSIVE WITH HR IN THE 60'S. PATIENT AFEBRILE THIS MORNING. REDNESS TO LEFT THIGH SLIGHTLY INCREASED BUT WITHIN ORIGINAL OUTLINE. PRN NORCO FOR LEG PAIN X1. PATIENT NOT OUT OF BED, REPOSITIONED FREQUENTLY.
--- NOTE | 2019-01-09 08:25 | NUR ---
PATIENT IS SITTING UP IN BED EATING BREAKFAST. DISCUSSED PLAN OF CARE, SEPSIS PROCESS, CELLULITOUS PROCESS, REASON FOR FLUID RESTRICTIONS AND ENCOURAGED PATIENT TO DEEP BREATH AND COUGH. PATIENT STATED UNDERSTANDING. PATIENT REPORTS PAIN AT 2/10 WHICH IS IN THE ACCEPTABLE RANGE FOR THIS PATIENT. PATIENT DENIES SHORTNESS OF BREATH AND DOES NOT APPEAR TO BE IN ANY DISTRESS. MONITORING URINE OUTPUT HOURLY. PATIENT STATES SHE IS DISCOURAGED DUE TO POTENTIALLY HAVING STAPH PER CONVERSATION WITH DR. RAMÍREZ. DR. RAMÍREZ TO BE NOTIFIED OF LOW POTASSIUM, CONTINUED LOW BLOOD PRESSURES, AND FURTHER MEDICATIONS. PATIENT RECEIVING 500 ML BOLUS LACTATED RINGERS OVER 2 HOURS.
--- NOTE | 2019-01-09 08:54 | NUR ---
MANUAL BP AT 0800 WAS 78/36. PT RECEIVING 500 ML BOLUS OVER 1 HR. MOORE EMPTIED AND HOURLY URINES WILL BE MEASURED. BP AT 0830 NOTED TO BE 94/41 (53). PT SITTING UP IN BED EATING BREAKFAST. PT STATES SHE IS EXTREMELY THIRSTY. URINE OUTPUT AT 0800 WAS 45, AND AT 0900 WAS 26.
--- NOTE | 2019-01-09 09:34 | NUR ---
DR. RAMÍREZ CALLED AND UPDATED ON PT'S BPs AND URINE OUTPUT. ORDER REC'D TO GIVE 500 ML FLUID BOLUS OVER 2 HOURS AND ALSO GIVE PO POTASSIUM REPLACEMENT. LAST BP 92/41 (53). PT SITTING UP IN BED CONVERSING WITH RN AND SNs. CONTINUE TO MONITOR CLOSELY.
--- NOTE | 2019-01-09 11:15 | NUR ---
STANDING WEIGHT OBTAINED. PATIENT RECEIVED BED BATH AND LINEN CHANGE. PATIENT AMBLATED FROM BED TO SCALE, AND THEN TO CHAIR VIA FWW AND 2 PERSON STAND BY ASSIST. PATIENT TOLERATED WELL AND IS COMFORTABLE IN CHAIR. PATIENT IS HAVING LEGS SOAK TO CLEAN THOROUGHLY.
--- NOTE | 2019-01-09 12:22 | NUR ---
PATIENT MOVED TO BEDSIDE CHAIR WITH 2 PERSON STANDBY ASSIST. PT ABLE TO AMBULATE WITH WALKER. PATIENT GIVEN BED BATH PRIOR TO GETTING OUT OF BED. PATIENT SAT IN CHAIR FOR APPOX 20-30 MINS. PT THEN HELPED BACK TO BED AND LEGS SOAKED UP TO MID SUAZO LEVEL, CLEANED WITH CHLORAHEXADINE SOAP. PATIENT NOTED TO HAVE OPEN AREA ON BACK OF LEFT LEG. PICTURES TAKEN AND PLACED IN PAPER CHART. PATIENT STATES, "I THINK I DID THAT WHEN I WAS GETTING OUT OF THE CAR THE OTHER DAY. I FELT MY LEG SCRAPE ON THE EDGE OF THE CAR DOOR." SOME CLEAR SEROUS DRAINAGE NOTED TO THE AREA. BLOOD PRESSURES CONTINUE TO BE LOW, BUT IMPROVED FROM EARLIER AFTER THE FLUID BOLUS. MONITORING URINE OUTPUT HOURLY.
--- NOTE | 2019-01-09 12:31 | NUR ---
PATIENT SOAKED FEET AND ANKLES FOR APPROX 10 MINUTES AND THEN NURSES SCRUBBED FEET AND ANKLES TO CLEAN. PATIENT SAT ON BEDSIDE DURING THIS INTEVENTION. PATIENT DENIES ANY PAIN OR SOB. PATIENT AT 100% OF LUNCH AND STATES SHE WANTS TO STAY SITTING UP ON THE BESIDE FOR NOW. PATIENT HAS CALL LIGHT IN REACH WITH NO OTHER NEEDS OR REQUESTS AT THIS TIME.
--- NOTE | 2019-01-09 12:48 | NUR ---
PT IS SLEEPING RN TRAVIS ASKED IF I COULD CHECK BACK. WILL FOLLOW NEEDED
--- NOTE | 2019-01-09 14:28 | NUR ---
PATIENT IS SITTING UP IN BED. DENIES PAIN AND SOB. PATIENT REQUESTED NOT WEARING NASAL CANNULA FOR A WHILE. PATIENT'S O2 SATURATION IS 91% WITHOUT SUPPLEMENTAL OXYGEN. PATIENT IS RESTING IN BED WITH NO FURTHER REQUESTS OR NEEDS AT THIS TIME.
--- NOTE | 2019-01-09 14:39 | NUR ---
OXYGEN RE-APPLIED AFTER PATIENT DESATURATES INTO THE 83-85% RANGE WITHOUT IT. PT PLACED BACK ON 2 L. SP02 UP TO MID 90s NOW. CONTINUE TO MONITOR.
--- NOTE | 2019-01-09 16:13 | NUR ---
ATTEMPTED TO PLACE IV WITH U/S GUIDANCE - UNSUCCESSFUL. DISCUSSED PLAN OF CARE WITH DR. GUILLERMO. IVF TO BE D/C. BOLUS PRN FOR LOW URINE OUTPUT OR HYPOTENSION. PT CONTINES TO STATES SHE IS FEELING BETTER. DINNER ORDERED FOR PATIENT. CONTINUE TO MONITOR URINE OUTPUT CLOSELY.
--- NOTE | 2019-01-09 17:05 | NUR ---
Certified Heart Failure Nurse Notes: Social support system: Has friends and drivers that assist her in shopping and in appointments. Weight monitoring: Talking Scale present in home. Identifies how to weigh daily/ identifies when to notify PCP Symptom management: Addressed monitoring and reporting changes in weight or symptoms utilizing Zones form Diet: Patient asks questions about low salt diet. Resources and tips given today. Encouraged patient to return for outpatient discussion. Poor label reading abilities due to unable to read small label print even with magnifying glass. Usual physical activity:Limited Medication routine: Discussed importance of taking diuretic everyday and strategies to work with for meetings. Advanced directive: Given workbook and encouraged to read through and complete Recommendations prior to discharge: Document ambulation oxygen saturations prior to discharge Absence of orthostatic hypotension. Barriers to self-care include: Macular degeneration. Sedentary lifestyle. Follow-up plans: Patient is aware a follow up call will occur. Teaching materials given: [facility] Heart Failure bundle folder-[facility] My Action Plan Living Well with Heart Failure book, Daily weight and symptom monitoring log, Zones magnet Low Sodium Shopping list. cooking with spices. lower salt dining
--- NOTE | 2019-01-09 20:30 | NUR ---
PATIENT AWAKE AND ALERT. ORIENTED X4. DENIES PAIN AT THIS TIME, STATES "MY LEFT THIGH IS TENDER ALL THE WAY UP ONLY WHEN I TOUCH IT". PATIENT ASSISTED UP TO BEDSIDE WITH MINIMAL 1PA. PATIENT ABLE TO STAND AT BEDSIDE FOR 5MIN WHILE BED LINEN WAS CHANGED AND WOUNDS ON BACK OF THIGHS WERE ASSESSED. OPEN AREA NOTED ON LEFT CALF, SLOUGH NOTED IN WOUND BED. SKIN AROUND AREA FRAGILE, LEFT AREA OPEN TO AIR. SMALL AMOUNT OF DRAINAGE NOTED ON CHUCKS. PATIENT REQUEST TO SIT UP TO BEDSIDE FOR TIME BEING. LUNGS ARE CLEAR, DIM IN THE BASES. TOLERATING 2L NC. DISCUSSED TITRATION WITH RT, DOWN TO 1L NC. WILL CONTINUE TO MONITOR.
--- NOTE | 2019-01-09 22:15 | NUR ---
PATIENT ASSISTED INTO BED. LEGS ELEVATED ON PILLOWS. WOUND RIGGER USED ON JAYLON LOWER EXTREMITIES. FRESH LUBNA PLACED UNDER LEGS. VS STABLE. PATIENT REPORTS PAIN WITH UPPER ARM BP CUFF. AGREED TO LEAVE CUFF OFF AND CHECK Q2H. PATIENT TITRATED TO 2L NC DUE TO O2 SAT 87%. PATIENT REPORTS 6/10 PAIN IN JAYLON LOGS/KNEES. PRN NORCO PROVIDED.
--- NOTE | 2019-01-10 00:12 | NUR ---
PATIENT RESTING IN BED. DENIES ANY NEEDS. URINE OUTPUT CONTINUES TO BE ADEQUATE AT 75ML/HR. VS STABLE. ALLOWED PATIENT TO REST.
--- NOTE | 2019-01-10 02:05 | NUR ---
PATIENT RESTING IN BED. WOKE EASILY TO VOICE. DENIES ANY NEEDS. VS STABLE. URINE OUTPUT 100 ML/HR.
--- NOTE | 2019-01-10 04:15 | NUR ---
PATIENT WOKE EASILY WHEN RN ENTERED ROOM. REPORTS NO PAIN. VS STABLE. URINE OUTPUT CONTINUES TO BE ADEQUATE. LUNGS ARE CLEAR. TOLERATING 2L NC. REPOSITIONED FOR COMFORT.
--- NOTE | 2019-01-10 06:26 | NUR ---
PATIENT REQUEST LOTION ON HER LEGS, WHICH WAS PROVIDED BY MONET HAMEED. PATIENT'S VS STABLE. URINE OUTPUT CONTINUES TO BE ADEQUATE. PATIENT DENIES ANY NEEDS AT THIS TIME.
--- NOTE | 2019-01-10 06:44 | NUR ---
PATIENT WAS ABLE TO REST THROUGH MOST OF THE NIGHT. VS STABLE, BP IMPROVED FROM PREVIOUS SHIFT. URINE OUTPUT CONTINUES TO BE GREATER THAN 50ML/HR, NO PRN BOLUS REQUIRED. MOORE IN PLACE. IV SL. 1-2L NC. LUNGS ARE CLEAR. REDNESS ON LEFT THIGH OUTLINED, HAS STARTED TO RECEDE. LOWER EXTREMITIES CLEANED AND LOTIONED PER SHIFT AND PRN. OPEN AREA ON LEFT CALF NOTED WITH SMALL AMOUNT OF SEROSANGUENOUS DRAINAGE. PATIENT OUT OF BED X1, 1PA W/FWW.
--- NOTE | 2019-01-10 08:23 | NUR ---
Assessment completed see flowsheet. pt sitting up on edge of bed no needs or complaints voiced at this time. pt on RA O2 sat 90%. BLE lymphedema pt states looks better and red area on Left upper thigh is much improved. Workman draining adequate output at this time. Will continue to monitor.
--- NOTE | 2019-01-10 10:23 | NUR ---
Dr. Agustin in to see pt. Discussed plan of care. all questions from pt addressed.
--- NOTE | 2019-01-10 11:50 | NUR ---
PT ARRIVED TO FLOOR FROM CCU VIA BED. VITAL SIGNS TAKEN AND STABLE. ORIENTED TO ROOM. REPORTS CHRONIC BACK PAIN. PRN MEDICAITON TO BE GIVEN. 2L NC IN PLACE. PT SL. CALL LIGHT IN REACH. DENEIS NEEDS AT THIS TIME.
--- NOTE | 2019-01-10 14:29 | NUR ---
PT MOVED TO M/S116. PT COPING WITH THIS LATEST SETBACK IN HER HEALTH. HAD GOOD POSITIVE VISIT. PT DID EXPRESS ANXIETY OVER FOLLOW-UP IV TREATMENTS HERE WHERE SHE HAS TO GO THROUGH ADMITTING EACH TIME FOR 14 DAYS STRAIGHT. WILL PASS THIS ON TO ADMIN. HAD PRAYER WITH PT, WILL FOLLOW NEEDED
--- NOTE | 2019-01-10 14:30 | NUR ---
NURSE IN TO PLACE PICC LINE.
--- NOTE | 2019-01-10 16:53 | NUR ---
ORDER RECEIVED FOR PICC LINE PLACEMENT. EMR REVIEWED. PATIENT INTERVIEWED. INFORMED CONSENT OBTAINED. RIGHT ARM VENOUS ANATOMY VISUALIZED USING SITE RITE US. BASILIC VEIN NOTED TO BE LARGER THAN 8 [place]. 4 ATTEMPTS FOR VASCULAR ACCESS. PICC LINE INSERTED USING STERILE TECHNIQUE PER GUIDELINES. NO COMPLICATIONS ENCOUNTERED. BRISK RED BLOOD RETURN, NON-PULSATILE, OBTAINED. PATIENT TOLERATED PROCEDURE WELL. WARM BLANKET GIVEN FOR COMFORT. SMALL AMOUNT OF BRUISING NOTED TO RIGHT UPPER ARM. WAITING FOR RADIOLOGY CONFIRMATION. REPORT TO CELSO HAMEED. BED IN LOW POSITION. CALL LIGHT WITHIN REACH.
--- NOTE | 2019-01-10 17:27 | NUR ---
THIS RN TO ROOM TO CHECK ON PT. PT EATING DINNER AND WATCHING TV. NO REQUESTS OR COMPLAINTS AT THIS TIME. CALL LIGHT WITHIN REACH.
--- NOTE | 2019-01-10 17:58 | NUR ---
PATIENT SITTING UP IN BED WATCHING TV. FRESH WATER GIVEN. CALL LIGHT IN REACH. NO FURTHER NEEDS AT THIS TIME.
--- NOTE | 2019-01-10 19:24 | NUR ---
RECIEVED BEDSIDE REPORT FROM SYDNEE HAMEED. PATIENT LAYING AWAKE IN BED. WHITE BOARD UPDATED. CALL LIGHT WITHIN REACH. PT DENIES ANYMORE NEEDS AT THIS TIME.
--- NOTE | 2019-01-10 20:49 | NUR ---
VITALS DONE AND CHARTED.
--- NOTE | 2019-01-10 22:30 | NUR ---
ASSESSMENT COMPLETE. MEDICATIONS ADMINISTERED PER ORDER. PICC LINE ASSESSED, WNL, GOOD BLOOD RETURN, HEP LOCKED PER ORDER, NO SIGNS OF REDNESS/SWELLING/IRRITATION. PERIPHERAL IV REMOVED DUE TO IV LEAKING, CATHETER INTACT, WNL. WOUND CLEANSER APPLIED TO WOUND ON BACK OF LLE, NO SIGNS OF REDNESS OR IRRITATION. GENERALIZED SWELLING NOTED IN BLE, CAPILLARY REFILL LESS THAN 2 SEC. ENCOURAGED USE OF INCENTIVE SPIROMETER, PT EXPRESSED UNDERSTANDING OF DEVICE. PT DENIES CHEST PAIN, SHORTNESS OF BREATH, OR DIFFICULTY BREATHING. PT REPORTS "8/10" GENERALIZED PAIN, PRN PAIN MEDICATION ADMINISTERED PER ORDER. PT SITTING ON SIDE OF BED AT THIS TIME. REDNESS ON LEFT LEG APPEARS TO BE RECEDING FROM OUTLINED AREA, WARM TO TOUCH. CALL LIGHT WITHIN REACH. PT DENIES ANYMORE NEEDS AT THIS TIME. POSSESSION AT BEDSIDE.
--- NOTE | 2019-01-10 23:55 | NUR ---
GAVE 100 MM OF ICE
--- NOTE | 2019-01-10 23:55 | NUR ---
ROUNDED ON PATIENT SITTING ON SIDE OF BED. THIS RN AND UTILITY WORKER PRODUCTION DEBORAH ASSISTED PATIENT TO LAYING DOWN POSITION IN BED. PILLOWS PLACED UNDER BILATERAL LOWER EXTREMITIES. LOTION APPLIED TO BLE PER PATIENT REQUEST. POSSESSIONS AT BEDSIDE. CALL LIGHT WITHIN REACH. PT DENIES ANYMORE NEEDS AT THIS TIME.
--- NOTE | 2019-01-11 00:17 | NUR ---
PER PT REQUEST I BROUGHT HER TWO WARM BLANKETS. SHE NEEDS NOTHING ELSE AT THIS TIME.
--- NOTE | 2019-01-11 00:27 | NUR ---
ROUNDED ON PT RESTING IN BED WITH EYES CLOSED, RESPIRATORY RATE IS EVEN AND UNLABORED. CALL LIGHT WITHIN REACH. NO SIGN OF DISTRESS.
--- NOTE | 2019-01-11 03:24 | NUR ---
WITH THE HELP OF ZARI BANDA WE HELPED PT GET HER LEGS BACK INTO BED. REPOSITIONED PT IN BED. BEDSIDE TABLE AND CALL LIGHT IN REACH
--- NOTE | 2019-01-11 03:24 | NUR ---
THIS RN AND SUPERVISOR DEHYDROGENATION RAQUEL IN ROOM TO HELP PT REPOSITION IN BED. PT REPORTS 8/ GENERALIZED "DISCOMFORT". DISCUSSED OPTIONS WITH PT REGARDING PAIN MEDICATIONS. PRN TYLENOL GIVEN. PT DENIES ADDITIONAL NEEDS, CALL LIGHT IN REACH.
--- NOTE | 2019-01-11 04:35 | NUR ---
ASSESSMENT COMPLETE. PT SITTING UP ON SIDE OF BED. PT DENIES HAVING SHORTNESS OF BREATH, DIFFICULTY BREATHING, OR CHEST PAIN. PT REPORTS PAIN IN BLE "8/10", PT DENIES INTERVENTIONS FOR PAIN MANAGEMENT AT THIS TIME. LEFT UPPER LEG ASSESSED, WARM TO TOUCH, REDNESS ON UPPER LEFT LEG APPEARS TO BE RECEDING AWAY FROM OUTLINED AREA. PT REPORTS TINGLING IN LLE, DENIES NUMBNESS AND TINGLING IN ALL OTHER EXTREMITIES. GENERALIZED EDEMA IN BLE, CAPILLARY REFILL LESS THAN 2 SECONDS. PICC ASSESSED, WNL, NO SWELLING OR IRRITIATION NOTED. OFFERED PT INTERVENTION FOR DISTRACTION, PT DECLINED. CALL LIGHT WITHIN REACH. PT DENIES ANY MORE NEEDS AT THIS TIME.
--- NOTE | 2019-01-11 06:45 | NUR ---
ROUNDED ON PATIENT FOR SCHEDULED MEDICATION ADMINISTRATION. PT SITTING UP ON SIDE OF BED. GOOD BLOOD RETURN NOTED WITH PICC LINE, NEW CLAVE PLACED, HEP LOCKED PER ORDER. AM LABS DRAWN. PT REPORTS "7/10" "GENERALIZED PAIN, PRN PAIN MEDICATON ADMINISTERED. CALL LIGHT WITHIN REACH. PT DENIES ANYMORE NEEDS AT THIS TIME.
--- NOTE | 2019-01-11 07:49 | NUR ---
REPORT RECEIVED FROM VETERINARY TECHNOLOGIST RN. PT SITTING UP AT SIDE OF BED. ECHO BEING DONE AT THIS TIME. CALL LIGHT IN REACH. DENIES NEEDS.
--- NOTE | 2019-01-11 08:24 | NUR ---
PATIENT SITTING UP IN BED. STUDENT RN IN ROOM. ICE WATER GIVEN. CALL LIGHT WITHIN REACH. NO OTHER NEEDS AT THIS TIME
--- NOTE | 2019-01-11 10:39 | NUR ---
PT SITTING IN CHAIR, WAITING FOR DC INSTRUCTIONS. DID NOT SLEEP WELL, STATED AT LEAST AT HOME I CAN GET UP AND WALK AROUND SOME AND HELP WITH HER RESTLESS LEGS SYNDROME. HAD PLEASANT VISIT, INFORMED PT I HAD SPOKEN WITH CEO MARTINEZ REGARDING HER FRUSTRATION OF HAVING TO GO THRU ADMITTING EACH TIME SHE WILL RETURN FOR IV THERAPY FOLLOWING DC FOR 14 DAYS. GEETA SALGUERO INFORMED US THAT MEDICARE REQUIRES REG UPON EACH TREATMENT. PT UNDERSTOOD AND THANKED ME FOR FOLLOWING UP ON HER NEED. EXTENDED A BLESSING SN CAME IN TO DO VS. WILL CONTINUE TO FOLLOW NEEDED
--- NOTE | 2019-01-11 11:50 | NUR ---
ABX STARTED. DR GUILLERMO IN TO ROUND WITH PT. QUESTIONS AND CONCERNS ADRESSED. PLAN OF CARE DISCUSSED. CALL LIGHT IN REACH. PT SITTING AT SIDE OF BED. DENEIS NEEDS.
--- NOTE | 2019-01-11 13:11 | NUR ---
PATIENT SITTING UP IN BED. VITAL SIGNS AND I&O DONE. CALL LIGHT WITHIN REACH. NO OTHER NEEDS AT THIS TIME
--- NOTE | 2019-01-11 13:40 | NUR ---
PICC LINE WITH GOOD BLOOD RETURN. HEP LOCKED FOR DISCHARGE.
--- NOTE | 2019-01-15 14:00 | NUR ---
Post hospital follow up discharge call completed. Patient agrees to IV antibiotics as arranged at DC. She does not have any concerns about DC orders and sees Dr. Fleming this week. She is concerned about pain control since Diclofenac was DC'd and she agrees to discuss options with provider.
== END 2019-01-11 14:15 | disposition home or self-care (01) | DRG 872 ==
LOC: ED 00:18 → CCU 00:19 → ED 00:19 → CCU 02:41 → MS 01-10 11:12
PROVIDERS: ADMIT Internal Medicine
PROC: 02HV33Z Insertion of Infusion Device into Superior Vena Cava, Percutaneous Approach (ICD-10-PCS; principal; 2019-01-10 16:00)
DX: A40.8 Other streptococcal sepsis (principal); L03.116 Cellulitis of left lower limb; N17.9 Acute kidney failure, unspecified; T50.1X5A Adverse effect of loop [high-ceiling] diuretics, initial encounter; I48.91 Unspecified atrial fibrillation; E11.9 Type 2 diabetes mellitus without complications; I10 Essential (primary) hypertension; G25.81 Restless legs syndrome; Z79.01 Long term (current) use of anticoagulants; Z79.84 Long term (current) use of oral hypoglycemic drugs; Z79.1 Long term (current) use of non-steroidal anti-inflammatories (NSAID); Z79.891 Long term (current) use of opiate analgesic; Z79.899 Other long term (current) drug therapy; Z88.5 Allergy status to narcotic agent; Z88.7 Allergy status to serum and vaccine
CPT/HCPCS: 36415; 36569; 36600; 51702; 71045; 76882; 80048; 80053; 81001; 82803; 83605; 83735; 83880; 85025; 85651; 87040; 87077; 87186; 93005; 93010; 93308; 97162; 99285-25; 99406; C1751; J0690; J0692; J0696; J1720; J1815; J1940; J2405; J3370; J7030; J7040; J7060; J7120

== ENCOUNTER 2020-08-15 21:51 | Inpatient (IN) | payer MEDICARE, OTHER ==
[~2020-08-15] VITALS: Ht 172.7 cm; Wt 150.5 kg
[~2020-08-15 21:51] MED LIST changes: +ACETAMINOPHEN500 MG PO; +DITROPAN XL5 MG PO; +METOPROLOL SUCC25 MG PO; +PHENTERMINE H37.5 M1 PO; +XARELTO20 MG PO; +ZOLPIDEM TARTRAT5 MG PO
--- OUTSIDE RECORDS SUMMARY | 2020-08-15 21:54 | XMS ---
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 Crisis Manager Events No recent Security Events currently on file CRITERIA MET - History of Sepsis Dx - PDMP CARE PROVIDERS ALETHA SCHWARTZ Physician Portable Canteen Operator 05/28/2018-Current PHONE: [phone] Nimesh has no Care Guidelines for this patient. Care History Medical/Surgical 12/13/2018 [facility] - PATIENT HAS A BLANKET BINDER AT [facility]. - PATIENT IS NOW SET UP WITH [facility]- DR TILLMAN- [place] SET UP AN APT FOR PATIENT FOLLOW UP ON December @ 1:15PM. - PATIENT HAS 10 DAYS OF DAILY ANTIBIOTIC TREATMENTS STARTING 12/13/18. 07/18/2018 [facility] IF SEEN IN ED AND NEEDS INPATIENT ADMISSION:\T\nbsp; PATIENT NEEDS TO BE TRANSFERRED TO A FACILITY THAT HAS A BARIATRIC SPECIALTY UNIT .\T\nbsp; THIS PATIENTS WEIGHT IS NOW HIGHER THAN OUR EQUIPMENT CAN TOLERATE SAFELY. E.D. VISIT COUNT (12 MO.) 1 [facility] TOTAL 1 NOTE: Visits indicate total known visits. ED/UCC VISIT TRACKING (12 MO.) 08/15/2020 21:[address] [facility] TYPE: Emergency COMPLAINT: - MULT COMPLAINTS INPATIENT VISIT TRACKING (12 MO.) No inpatient visits to display in this time frame [email or web address]
--- NOTE | 2020-08-16 02:33 | NUR ---
PT TRANSFERED TO FLOOR VIA BED. PT DROWSY DURING ADMISSION QUESTIONS. PT WAKES BRIEFLY TO NAME AND NODS OR SHAKES HEAD IN RESPONSE TO QUESTIONS. DOES NOT VERBALIZE ANSWERS. PT FALLS BACK TO SLEEP QUICKLY BETWEEN QUESTIONS. SAO2 @ 83% ON 2LPM ON ARRIVAL TO FLOOR. OXYMASK PLACED VERSUS NC DUE TO MOUTH BREATHING. SAO2 INCREASES TO 85%. O2 INCREASED TO 4 LPM, SOA2 92%. PT HAS COUGH PRESENT DURING ADMISSION, NODS HEAD WHEN ASKED IF COUGH IS PRODUCTIVE. MOORE CATH PRESENT WITH CLEAR YELLOW URINE IN BAG. CALL LIGHT LEFT IN PT'S REACH. PT AGREES TO USE FOR NEEDS.
--- NOTE | 2020-08-16 02:35 | NUR ---
PATIENT ARRIVED TO [place], VITALS AND ASSESSMENT COMPLETE. INCREASED WOB NOTED, SPO2 DROPPING TO MID 80'S RANGE, 4L O2 VIA OXYMASK IN PLACE WITH SATS NOW READING IN 90'S. PT DROWSY, UNABLE TO COMMUNICATE AT LENGTH WITH THIS RN. PT CONTINOUSLY MOANING, STIFF WITH MOVEMENT, DIAPHORETIC. AFEBRILE. VSS. HOB ELEVATED, SALINE LOCKED, MOORE IN PLACE. CALL LIGHT IN REACH. WILL CONTINUE TO MONITOR
--- NOTE | 2020-08-16 03:25 | NUR ---
ROUNDED ON PATIENT, RESTING IN BED W OYXMASK IN PLACE AT 4L. SPO2 95%. EYES CLOSED, WORK OF BREATHING IMPROVED FROM TIME OF ADMISSION. CALL LIGHT IN REACH, WILL CONT TO MONITOR
--- NOTE | 2020-08-16 05:00 | NUR ---
SCHEDULED ABX INFUSING, PT SPO2 92% ON 4L OXYMASK. INTERMITTENT GRUNTING W BREATHS, EYES CLOSED, CALM AND COOPERATIVE WITH CARES. NO APPARENT NEEDS, WILL CONT TO MONITOR
--- NOTE | 2020-08-16 06:21 | NUR ---
FIELD SUPERVISOR IN ROOM, NOTED PT SPO2 AT 85% AT 4L OXYMASK. TITRATED TO 6L, RT AWARE AND AT BEDSIDE. PT SPO2 90-91%. PT SOMNOLENT, RIGID WITH MOVEMENTS. TEMP 101.0, BP115/53, HR 64, RR 22. DR RAMÍREZ NOTIFIED, NEW ORDERS FOR BLOOD CULTURES AND LACTIC ACID RECEIVED AND ENTERED, LAB NOTIFIED. WILL CONTINUE PLAN OF CARE.
--- NOTE | 2020-08-16 07:10 | NUR ---
THIS RN RECEIVED REPORT FROM JO HAMEED. PT ON 6L OXYMASK SATING AT 89-91%, PT ON CPOX
--- NOTE | 2020-08-16 07:45 | NUR ---
THIS RN IN PTS ROOM TO CHECK ON PT. THIS RN DID LIGHT SHOULDER SHAKE STIMULI TO WAKE PT. PT OPENED HER EYES TO VERBAL AND TOUCH STIMULI BUT UNABLE TO ANSWER QUESTIONS.
--- NOTE | 2020-08-16 07:47 | EKG ---
[facility] [address] [place] [address] Signed Sinus rhythm with premature atrial complexes Otherwise normal ECG When compared with ECG of 08-JAN-2019 00:47, premature atrial complexes are now present ST no longer depressed in Inferior leads ST no longer depressed in Anterolateral leads Nonspecific T wave abnormality no longer evident in Lateral leads Confirmed by DIEUDONNE RAMÍREZ MD ([id number]) on 08/16/2020 7:47:23 AM Electronically Signed By: DIEUDONNE RAMÍREZ MD 08/16/20 0747 PATIENT NAME: SAMANTHA KIM HERRERA Electrocardiogram DATE OF : 43 PHYSICIAN: DIEUDONNE RAMÍREZ MD REPORT #: [id number] REPORT IS CONFIDENTIAL AND NOT TO BE RELEASED WITHOUT AUTHORIZATION
--- NOTE | 2020-08-16 07:55 | NUR ---
RESPIRATORY THERAPY CALLED TO RE-EVALUATE AND ASKED TO COME TO AM ROUNDING MEETING WITH , TO DISCUSS CARE PLAN
--- NOTE | 2020-08-16 12:36 | NUR ---
THIS RN IN PTS ROOM WITH SHAHEED FLORENCE TO CLEAN PTS LEG- THIS RN SPRAYED BOTH LEGS DOWN WITH WOUND CLEANSOR AND THEN APPLIED SHAVING CREAM TO BOTH LEGS. PT STILL VERY DROWSY BUT WORK OF BREATHING APPEARS TO BE IMPROVED SINCE THE APPLICATION OF THE BIPAP MACHIENE
[2020-08-16] MEDS ORDERED: OXYCODONE-ACET1 EAC3 PO (12:37)
[2020-08-16] MEDS ORDERED: GABAPENTIN100 MG PO (12:38)
[2020-08-16] MEDS ORDERED: TORSEMIDE20 MG PO (12:40)
--- NOTE | 2020-08-16 15:34 | NUR ---
Dr. Luis notified of ABG results being handwritten and delivered due to technical issue. Dr Luis to unit to assess patient.
--- NOTE | 2020-08-16 16:40 | NUR ---
Patient removes bipap independently, oxygen saturations drop to 85% within 20 seconds. POC discussed with patient on importance of keeping bipap in place. Plan to keep bipap in place until dinner arrives and then resume bipap afterwards. Patient agreeable. Bipap in place, SpO2 of 96% now. Bipap settings of 15/8, FiO2 of 50%. Call light within reach.
--- NOTE | 2020-08-16 18:00 | NUR ---
Patient reports pain of 7/10 in left hip, 650 mg of tylenol given.
--- NOTE | 2020-08-16 20:48 | NUR ---
PT SITTING AT BEDSIDE CHAIR AWAKE AND ALERT. PT ON 6L OXY MASK, SPO2 AT 91%, RR AT 18-20. PT REPORTS NO PAIN WHEN ASKED OR SHORTNESS OF BREATHE. IV ABX INFUSING AT ORDERED RATE. NO INSULIN GIVEN PER SLIDING SCALE. RN RORY IN TO CLEAN PTS LEGS. BIPAP PUT ON PT. FIO2 AT 30%, SPO2 AT 91%. PT REPORTS NO FURTHER NEEDS AT THIS TIME. WILL CONTINUE PLAN OF CARE. CALL LIGHT WITHIN REACH. PT WATCHING TV AT BEDSIDE CHAIR.
--- NOTE | 2020-08-16 22:11 | NUR ---
PT SLEEPING IN BEDSIDE CHAIR WITH BIPAP ON AT 30% FIO2. SPO2 AT 96%. IV VANCOMYCIN COMPLETE AND IV FLAGYL STARTED. PT REPORTS NO FURTHER NEEDS AT THIS TIME. WILL CONTINUE PLAN OF CARE. CALL LIGHT ON PT WITHIN REACH. PT AT BEDSIDE CHAIR SLEEPING. IV ABX INFUSING ORDERED.
--- NOTE | 2020-08-16 23:38 | NUR ---
PT SITTING AT BEDSIDE CHAIR SLEEPING. THIS RN IN TO ASSESS PT. IV ABX COMPLETE, PT SALINE LOCKED. PT REPORTS NO PAIN WHEN ASKED. AT FIRST AFTER WAKING PT WAS ALERT TO ALL BUT LOCATION. PT WAS REORIENTED. ABOUT 10 MIN LATER PT WAS ASKED AGAIN, SHE WAS ABLE TO RECALL HER LOCATION CORRECTLY AND EXPAND UPON IT. PT PROVIDED WITH ICE WATER SHE WAS THIRSTY. PT REPORTS NO SHORTNESS OF BREATH OR DIFFICULTY BREATHING. PT GIVEN A BREAK FROM THE BIPAP DURING THIS TIME TO ASK QUESTIONS, TAKE TEMPERATURE AND PROVIDE HER WITH WATER. PT WAS ON OXYMASK AT 6L WITH AN SPO2 OF 97%. PT PUT BACK ON BIPAP AT PREVIOUS SETTINGS WITH A RR OF 24, FIO2 OF 30%. PT REPORTS NO FURTHER NEEDS. PT SITTING IN BEDSIDE CHAIR, CALL LIGHT ON PT WITHIN REACH. WILL CONTINUE PLAN OF CARE.
--- NOTE | 2020-08-17 00:43 | NUR ---
IN TO CHECK ON PT. PT WAS SITTING AT BEDSIDE CHAIR. PT ASKED FOR A WARM BLANKET AND A DRINK OF WATER. PT PROVIDED WITH BOTH. PT GIVEN A SHORT BREAK FROM THE BIPAP ON 6L O2 OXYMASK. PT SPO2 IN THE LOW 90'S DURING THIS TIME. PT REPORTS NO FURTHER NEEDS AT THIS TIME. PT PUT BACK ON BIPAP AT PREVIOUS SETTINGS. WILL CONTINUE PLAN OF CARE. CALL LIGHT ON PT. WITHIN REACH.
--- NOTE | 2020-08-17 02:36 | NUR ---
PT IN BEDSIDE CHAIR AWAKE WATCHING TV. PT WAS PUT ON OXYMASK AND PROVIDED WITH A SMALL DRINK OF WATER. PT REPORTS NO PAIN AT THIS TIME. WHILE ON 6L OXYMASK PT BEGAN TO DESAT TO 85%. PT WAS PUT ON BIPAP AT PREVIOUS SETTINGS (FIO2 OF 30%). PT CONTINUED TO MAINTAIN SATURATIONS IN THE 80%-85%. PT'S FIO2 WAS INCREASED AND RT WAS CALLED. PT SPO2 INCREASED BACK TO 94% AND WAS LOWERED DOWN TO 50% FIO2. PT WAS THEN LOWERED TO 40% FIO2 AND WAS LEFT THERE. PT SPO2 AT 94%. WHEN ASKED PT STATES SHE FELT FINE AND FELT NO LIGHTHEADEDNESS OR DIZZYNESS. BIPAP NOW IN PLACE AT 40% WITH A RR OF 24. PT TOLERATING IT WELL. SPO2 MAINTAINING AT 92-94%. PT REPOSITIONED ON BEDSIDE CHAIR INTO A MORE RECLINED POSITION PER HER REQUEST. CALL LIGHT WITHIN REACH, WILL CONTINUE PLAN OF CARE.
--- NOTE | 2020-08-17 03:41 | NUR ---
IN TO ASSESS PT DUE TO SPO2 IN THE 88%. MONITOR CHANGED AND SPO2 STILL SHOWED IN 85-88%. PT PLACED ON 50% FIO2 AND THEN MOVED UP TO 60% FIO2 DUE TO SATURATIONS MAINTING IN THE UPPER 80'S. PT NOW AT 60% FIO2, SPO2 INC AND MAINTAINING AT 93%. DR RAMÍREZ NOTIFIED OF PTS INCREASED REQUIREMENTS FOR OXYGENATION TO MAINTAIN SATURATIONS, LUNG SOUNDS, AND DECREASED URINE OUTPUT. ORDERS GIVEN VIA TELEPHONE FOR 20MG IV LASIX ONCE. WILL CONTINUE PLAN OF CARE. PT IN BEDSIDE CHAIR AWAKE WATCHING TV. CALL LIGHT WITHIN REACH.
--- NOTE | 2020-08-17 04:33 | NUR ---
0350 LASIX GIVEN IV ORDERED (SEE MAR). PT STILL ON 60% FIO2, SPO2 AT 96%. 0430 IV ABX STARTED. FIO2 ON BIPAP DECREASED TO 50% DUE TO SPO2 AT 97-99%. PT INFORMED ON MEDICATION AND RETURNED BACK TO SLEEP. WILL CONTINUE PLAN OF CARE. CALL LIGHT WITHIN REACH. PT ON BIPAP AT 50%, SPO2 MAINTAINING AT 94-96%.
--- NOTE | 2020-08-17 07:30 | NUR ---
Report received, orders acknowledged. Patient sitting up in chair with bipap in place, SpO2 in the mid-90's. Settings at 15/8, FiO2 of 40%. Call light within reach.
--- NOTE | 2020-08-17 07:42 | NUR ---
PT SITTING AT BEDSIDE CHAIR WITH BIPAP ON AT 40% FIO2. PT AWAKE AND ALERT WATCHING TV. IV ABX STARTER (SEE MAR). PT REPORTS NO FURTHER NEEDS AT THIS TIME. CALL LIGHT WITHIN REACH, WILL CONTINUE PLAN OF CARE.
--- NOTE | 2020-08-17 08:30 | NUR ---
Patient removes bipap mask from face, oxygen saturations begin to drop. O2 sats at high 70's by the time this RN in room. Bipap put back in place, sats climb to the high 90's. Settings at 15/8, FiO2 of 40%. Patient educated on importance of bipap therapy. Denies needs, call light within reach.
--- NOTE | 2020-08-17 09:30 | NUR ---
Patient sitting up in chair watching tv. Bipap in place, with an FiO2 of 40% and sats in the mid-90's. Vital signs taken, assessment complete. AM medications given, IV abx hung and infusing. Bipap removed for patient to take PO meds, 6L oxymask in place at this time, sats remain in the mid-90's. Patient tolerates PO meds, no coughing or choking noted with water. Patient appears confused with comments such as "What wedding is going on outside my room?" "Where's my ashtray?" "I'm looking for my coffee (while looking inside the bipap mask)." Patient is oriented to location, month, and year when asked. Dr. Luis updated on patient mentation, will continue to monitor. Patient reports baseline pain in her legs bilaterally. No further needs, call light within reach.
--- NOTE | 2020-08-17 10:28 | NUR ---
Heart Failure RN- Patient recieving care from RN and RT. Inappropiate for self management education at this time.
--- NOTE | 2020-08-17 11:57 | NUR ---
Patient removes bipap mask independently, saturations begin to drop to the mid-80's. This RN into the room, puts bipap mask and SpO2 rises to the high 90's. Patient educated on importance of wearing bipap mask. Call light within reach.
--- NOTE | 2020-08-17 12:15 | NUR ---
TRANSFERRED TO COMMODE USING OVERHEAD LIFT. C/O INCREASED PAIN WITH MOVEMENT WHILE ON COMMODE. HAD LARGE FORMED FIRM STOOL. THEN TO BED VIA LIFT. WHILE PATINET SITTING ON COMMODE, AM CARES DONE.
--- NOTE | 2020-08-17 13:10 | NUR ---
PICC RN HERE TO PLACE LINE. LASIX 40 MG IV GIVEN PER ORDERS.
--- NOTE | 2020-08-17 15:00 | NUR ---
PICC LINE INSERTION NOTE WAS ASKED TO PLACE A PICC LINE ON THIS PT DUE TO POOR IV ACCESS AND LIFE GUARD IV ABX NEEDS. DISCUSSED WITH THE PT THE RISKS AND BENEFITS OF A PICC LINE ALONG WITH THE PROCEDURE. THE PT REPORTS SHE HAS HAD A FEW OF THEM IN THE PAST AND IS COMFORTABLE WITH RECEIVING ANOTHER ONE. CONSENT SIGNED. PT'S RIGHT ARM WAS EVALUATED. THE PT'S RIGHT BASILIC AND BRACHIAL VEINS WERE IDENTIFIED ALONG WITH THE BRACHIAL ARTERY. THE PT'S BASILIC WAS CHOOSEN. THE VEIN WAS GREATER THAN A 7FR IN DIAMETER AND APPROXIMATELY 2 CM DOWN ACCORDING TO THE SITE RITE ULTRASOUND. THIS RN ATTEMPTED TO GAIN ACCESS INTO THE VEIN 3 TIMES. WAS ABLE TO OBTAIN BLOOD FLASH. UNABLE TO ADVANCE GUIDEWIRE. PT TOLERATED THIS WELL. IV CATHETER TIPS ALL INTACT. THE SITE WAS ABANDONED AND ANOTHER PICC LINE NURSE WAS CALLED IN. RAMO STEWART RN ABLE TO OBTAIN PICC LINE ACCESS ON FIRST ATTEMPT. PT TOLERATED THE PROCEDURE WELL. BRISK, DARK, NON-PULSITILE BLOOD WAS EASILY RETURNED.
--- NOTE | 2020-08-17 16:30 | NUR ---
Patient removes bipap independently, this RN in room to place 6LNC on patient. SpO2 of 93-95%. Patient requesting water, which is accomodated. Denies needs, call light within reach.
--- NOTE | 2020-08-17 16:45 | NUR ---
1605- DR. GATES CALLS AND NOTIFIES THIS RN THAT IN THE FIRST XRAY THE PICC LINE IS IN THE HIGH SVC BUT IN THE SECOND XRAY THE PICC LINE ENDS IN THE SUBCLAVIAN VEIN. 1614- DR. RAMÍREZ CALLED AND ASKED IF SHE WOULD LIKE A REPEAT XRAY TO CONFIRM PLACEMENT. DR. RAMÍREZ WOULD LIKE A REPEAT CHEST XRAY ORDERED. 1625- REPEAT CHEST XRAY COMPLETED. DR. RAMÍREZ LOOKS AT THE IMAGE AT THE BEDSIDE. 1635- DR. GATES CALLS AND STATES THE PICC LINE IS IN THE SVC AND CONFIRMS IT IS OKAY TO USE. 1640- GUIDEWIRE REMOVED FROM PT'S PICC LINE. BOTH LUMENS ASPIRATE BLOOD AND FLUSH EASILY. PT REPORTS NO PAIN OR OTHER COMPLICATIONS. ZHEN GO, RN NOTIFIED AND RECEIVED REPORT THAT THE PICC LINE IS GOOD TO USE.
--- NOTE | 2020-08-17 17:00 | NUR ---
Dinner delivered, patient diet pureed. Patient tolerates diet with no choking or coughing. 100% of meal eaten. Patient on 6LNC, SpO2 in the mid-90's. Patient denies any pain, no further needs. Call light within reach.
--- NOTE | 2020-08-17 18:30 | NUR ---
Patient noted to be somnolent, minimally responsive to painful stimuli. HR ranging from 40-50bpm, SpO2 of 95% on bipap. Called Dr. Luis to update on patient, no new orders at this time.
--- NOTE | 2020-08-17 21:32 | NUR ---
PT LAYING FOWLERS IN BED ASLEEP. PT HAD TO BE WOKEN WITH A LOUD CALL OF HER NAME. PT ALERT AND ORIENTED TO SELF BUT NOT TO LOCATION OR EVENT. PT REORIENTED TO LOCATION AND CURRENT SITUATION. PT REPORTS NO PAIN AND NO DIFFICULTY BREATHING. PT GIVEN IV ABX AND PO MEDS. AFTER TAKING PO MEDS PT TOOK AN EXTRA SIP OF WATER AND ASPIRATED SOME WATER. PT WAS ABLE TO COUGH IT BACK OUT. PT WAS PUT ON NC 6L TO TAKE HER PO MEDS BUT PUT BACK ON BIPAP AFTERWARDS HER SPO2 DROPPED TO 86%. PT SPO2 INCREASED BACK TO THE 91-92% WHEN PUT ON BIPAP AT 40% FIO2. PT LEGS WERE ALSO CLEANED WITH WOUND CLEANSER, AND A WARM WET WASHCLOTH WITH SOAP. PT LEGS DRIED AFTERWARDS. PT REMAINED ASLEEP DURING THE CLEANING. PT WAS ABLE TO BE WOKEN UP AGAIN TO HER NAME TO INFORM HER OF THE PLAN OF CARE. PT REPORTS NO FURTHER NEEDS AT THIS TIME AND HAS RETURNED BACK TO SLEEP. CALL LIGHT ON BED WITHIN REACH, BED IN LOWEST POSITION. IV ABX INFUSING AT ORDERED RATE. BIPAP ON PT AT 40% FIO2, RR OF 24, 15 IPAP, 8 EPAP. SPO2 AT 92%. WILL CONTINUE PLAN OF CARE.
--- NOTE | 2020-08-17 22:17 | NUR ---
IN TO PLACE SPO2 MONITOR BACK ON PT. PT WAS MOVING AROUND IN BED AND FIXING HER GOWN AND MOANING. PT ASKED IF SHE WAS IN PAIN, PT STATED SHE WAS NOT. PT ASKED IF SHE NEEDED ANYTHING AND THE PT REPORTED NO NEEDS. SPO2 MONITOR WAS PLACED BACK ON PT, SPO2 AT 92%. PT INFORMED THAT HER IV WOULD BE REMOVED. IV REMOVED AND WAS INTACT. PT TOLERATED REMOVAL WELL. IV ABX COMPLETE, PT SALINE LOCKED. PT REPORTS NO FURTHER NEEDS AT THIS TIME. PT ON BIPAP AT PREVIOUS SETTINGS, SLEEPING IN BED NOW. WILL CONTINUE PLAN OF CARE.
--- NOTE | 2020-08-17 22:28 | NUR ---
PT CHECKED ON. PT LAYING IN BED AWAKE WITH BIPAP ON. PT ASKED IF SHE WAS IN ANY PAIN, PT DENIES HAVING PAIN. PT ASKED WHERE SHE WAS, PT KNEW THE TOWN SHE WAS IN BUT NO THAT SHE WAS IN A HOSPITAL. PT AWARE OF THE YEAR AND SELF. PT REORIENTED TO UNIT, EVENT, AND DATE. PT REPORTS NO FURTHER NEEDS AT THIS TIME. CALL LIGHT IN REACH, BED IN LOWEST POSITION, WILL CONTINUE PLAN OF CARE.
--- NOTE | 2020-08-18 00:32 | NUR ---
PT LAYING IN BED SLEEPING ON BIPAP. PT TAKEN OFF BIPAP AND PROVIDED WITH A DRINK OF WATER. PT HAD NO TROUBLE DRINKING THE ATER WITHOUT A STRAW, PT DID NOT ASPIRATE ON WATER. SPO2 MAINTAINED AT 95% WHILE ON 6L NC DURING THIS TIME. PT MORE ALERT AND AWAKE THEN BEFORE AND ASKING QUESTIONS. PT KNEW LOCATION BUT WAS STILL ON AWARE OF EVENT. PT UPDATED ON EVENT AND PLAN OF CARE. PT REPORTS NO PAIN WHEN ASKED AND NO DIFFICULYT BREATHING OR SHORTNESS OF BREATH. PT REPORTS NO FURTHER NEEDS. PT PUT BACK ON BIPAP AT PREVIOUS SETTINGS. CALL LIGHT IN REACH, BED IN LOWEST POSTITION, WILL CONTINUE PLAN OF CARE.
--- NOTE | 2020-08-18 03:00 | NUR ---
THIS RN IN TO PT'S ROOM TO PLACE SPO2 MONITOR BACK ON THE PT. PT SLEEPING IN BED WITH BIPAP ON. SPO2 AT 95%, RR AT 24. PT IN NO APPARENT DISTRESS WITH VISIBLE RESPIRATIONS. PT AWOKE BRIEFLY WHILE PLACING OXIMETER BACK ON BUT WENT BACK TO SLEEP. WILL CONTINUE PLAN OF CARE. CALL LIGHT WITHIN REACH, BED IN LOWEST POSITION.
--- NOTE | 2020-08-18 04:43 | NUR ---
IN TO ASSESS PT AND PUT MONITORS BACK ON. WALKED IN TO PT TAKING CLOTHES OFF AND BIPAP OFF. PUT PT ON 6L NC AND PUT MONITORS AND CLOTHES BACK ON . PT WAS AT 89% SPO2 AND QUICKLY CAME UP TO 94%. PT STATED SHE DIDNT KNOW WHAT WAS HAPPENING AND WANTED TO LEAVE. PT WAS AGAIN REORIENTED TO LOCATION AND EVENT. PT DENIED PAIN, SHORTNESS OF BREATH, OR DIFFICULTY BREATHING. PICC LINE ASSESSED IT FLUSHED AND RETURNED BLOOD. PT WAS REPOSITIONED ON BED AND HAD PILLOWS PLACED UNDER HIPS. PT WAS ALSO PROVIDED WATER TO SIP ON SHE REQUESTED. PT WAS OFF THE BIPAP AND ON THE NC FOR ABOUT 30 MINUTES AND MAINTAINED SPO2 OF 94%. PT REPORTED NO FURTHER NEEDS AND WAS PLACED BACK ON BIPAP AT PREVIOUS SETTINGS, SPO2 40%, RR OF 24. CALL LIGHT ON PT WITHIN REACH, BED IN LOWEST POSITION, WILL CONTINUE PLAN OF CARE.
--- NOTE | 2020-08-18 05:41 | NUR ---
PT SLEEPING IN BED WITH BIPAP ON, SPO2 AT 94%. LABS DRAWN FROM PICC LINE AND PICC LINE SALINE LOCKED. IV ABX STARTED. PT WOKE UP MOMENTARILY BUT WENT BACK TO SLEEP. WILL CONTINUE PLAN OF CARE. CALL LIGHT WITHIN REACH, BED IN LOWEST POSITION.
--- NOTE | 2020-08-18 06:29 | NUR ---
IN TO ASSESS PT. PT DIFFICULT TO AROUSE RESPONDS TO LOUD VOICE AND PHYSICAL STIMULI. PT BRIEFLY WAKES UP AND SAYS ONE WORD ANSWER BUT RETURNS BACK TO SLEEP QUICKLY. DR RAMÍREZ NOTIFIED OF PT'S CONDITION, NO ORDERS. WILL CONTINUE PLAN OF CARE. PT ON BIPAP AT 40% FIO2, RR AT 24, SPO2 AT 94%. PT SALINE LOCKED, IV ABX COMPLETE.
--- NOTE | 2020-08-18 08:11 | NUR ---
IN PATIENT'S ROOM FOR ASSESMENT. PT IS ON BIPAP WITH SETTINGS OF 15/8 AND 40% FI02. PATIENT IS DROWSY. WITHA STERNAL RUB, PATIENT DOES SAY, "WHAT?" BACK, BUT DOES NOT OPEN EYES, DOES NOT COMMUNICATE. PT DOES WITHDRAW FROM PAINFUL STIMULI. PT TAKEN OFF BIPAP FOR A FEW MINUTES FOR ASSESSMENT AND PLACED ON 5 L NC. SP02 DROPS TO 90%, BUT DOES NOT FALL BELOW. LUNG SOUNDS ANTERIORLY ARE CLEAR BUT DIM IN BASES AND HARD TO AUSCULTATE LOWER LUNGS. PATIENT IS OVERALL PALE IN COLOR. RED LEGS AND VERY FOUL SMELLING SKIN ON LOWER LEGS. PT REMAINS SALINE LOCKED. PICC LINE ASSESSED AND BOTH LUMENS PULL BACK BLOOD AND FLUSH EASILY. RT CALLED AND DISCUSSED BIPAP SETTINGS WITH RT. NO CHANGES MADE AT THIS TIME.
--- NOTE | 2020-08-18 09:00 | NUR ---
MORNING IV MEDS GIVEN AND PO MEDS HELD DUE TO PT. BEING OBTUNDED. PT. AWOKE AND WAS ORIENTED TO SELF, BUT WAS MORE ALERT AND SPEAKING. REPORTS PAIN IN HER LOWER EXTREMITIES. PT. REPOSITIONED AND PERICARE PERFORMED BY RNS. PT. LEFT RESTING IN BED WITH CALL LIGHT IN REACH.
--- NOTE | 2020-08-18 09:27 | NUR ---
DR. RAMÍREZ CALLED AND NOTIFIED OF VBG RESULTS AND EXPRESSED CONCERNS WITH THESE VALUES, THEN ASKED WHEN MD WOULD BE OVER HERE TO ROUND ON THIS PATIENT. NO FURTHER ORDERS AT THIS TIME. WILL CONTINUE TO MONITOR. PT REMAINS ON BIPAP 11/04 AND 40%.
--- NOTE | 2020-08-18 10:00 | NUR ---
BIPAP TITRATED TO TO 30% FIO2. PT. LEFT RESTING IN BED WITH CURTAIN OPEN AND CALL LIGHT IN REACH.
--- NOTE | 2020-08-18 11:00 | NUR ---
PATIENT GIVEN SIPS OF WATER AND TOLERATED WELL. PO GABAPENTIN GIVEN. PT. BRUSHED HER TEETH.
--- NOTE | 2020-08-18 11:27 | NUR ---
SPOKE WITH DR. RAMÍREZ REGARDING PT. POTASIUM AND DIET. PER DR. RAMÍREZ, NO DIET ORDERED DUE TO PT. BEING UNSTABLE. IV POTASSIUM AND FLUID RESTRICTION ORDERED.
[2020-08-18] MEDS ORDERED: LASIX40 MG PO (11:35)
--- NOTE | 2020-08-18 11:36 | NUR ---
MED REC COMPLETE
--- NOTE | 2020-08-18 12:00 | NUR ---
SPOKE WITH PATIENT IN ROOM. PATIENT IS ORIENTED. SHE STATES SHE IS LIVING IN OWN HOME BUT SHE HAS A SECURITIES TELLER WHO MOVED IN. 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 DISCUSSED WITH HER THAT SHE SHOULD HAVE MORE CARE POSSIBLY. SHE STATES SHE WILL CALL FRIENDS. SHE ALSO STATES SHE KNOWS SOMEONE WHO DOES CARE AND SHE MIGHT HIRE HER. GAVE PATIENT BROCHURE FOR HELPING HANDS IN-HOME CARE. PATIENT STATES SHE HAS ELECTRIC SCOOTER SHE USES FOR DISTANCE, HAS 4WW SHE USES AT HOME. HAS HOSPITAL BED SHE DOESN'T USE, STATES SHE USES HER RECLINER CHAIR AND JUST ORDERED A NEW ONE. SHE STATES SHE HAS WALK-IN TUB WITH SEAT. SHE STATES SHE HAS NO FINANCIAL WORRY FOR MEDS/FOOD/UTILITIES. SHE HAS LIFE ALERT. SHE STATES SHE DOESN'T KNOW OF ANYTHING SHE WOULD NEED. PT HAS NO QUESTIONS AT THIS TIME. CM WILL CONTINUE TO FOLLOW.
--- NOTE | 2020-08-18 12:00 | NUR ---
PATIENT ASSESSMENT COMPLETED. PT. HAS A PRODUCTIVE COUGH. TOLERATING P.O. FLUIDS WELL WITH NO SIGNS OF ASPIRATING. LUNGS SOUND COARSE IN THE UPPER LOBES BILAT. AND DIM IN THE BASES. PICC LUMENS FLUSH WELL AND RETURN BLOOD. IV POTASSIUM STARTED. PT. PT. ON 4L OF O2 NC AND O2 SAT IS 91%. PT. LEFT RESTING IN BED WITH CALL LIGHT IN REACH.
--- NOTE | 2020-08-18 13:30 | NUR ---
PATIENT SWITCHED FROM BIPAP TO NC AT 4L. ASSISTED WITH REPOSITIONING BY RNS. LEFT RESTING IN BED WITH CALL LIGHT IN REACH.
--- NOTE | 2020-08-18 14:30 | NUR ---
PATIENT BED BATH COMPLETE. PT O2 SATS DROPPED INTO THE 80'S WITH EXERTION DURING BATH ON 4L OF O2 NC. BEDDING AND GOWN CHANGED. PT. LEGS ARE CRUSTED WITH HAIR AND POSSIBLY STOOL. LEGS SOAKED, THEN CLEANED AND DRESSED. UNABOOTS APPLIED, THEN KURLEX GAUZE AND COBAND. PT. LEFT RESTING IN BED WITH CALL LIGHT IN REACH.
--- NOTE | 2020-08-18 14:38 | NUR ---
BECAUSE OF AGP, UNABLE TO VISIT PT AT THIS TIME. WILL FOLLOW
--- NOTE | 2020-08-18 15:18 | NUR ---
assisted ZARI Salinas and ZARI Colbert in giving a bed bath, addressing and wrapping legs. Unna Boot applied, gauze wrapped then coban Bed linen changed, gown changed, room picked up. no other needs at this time. call light with in reach.
--- NOTE | 2020-08-18 16:18 | NUR ---
PATIENT ASSESSMENT COMPLETED. PT. REPORTS 8/10 BACK AND LEG PAIN. REPOSITIONED AND GIVEN ACETAMINOPHEN. TEMP. 97.6. LUNGS COARSE THROUGHOUT AND PT. HAS A PRODUCTIVE COUGH WITH THICK, VALADEZ SPUTUM.PICC SITE WNL. 525ML OF CLEAR YELLOW URINE EMPTIED FROM MOORE. PT. LEFT RESTING IN BED WITH CALL LIGHT IN REACH AND CURTAIN OPEN.
--- NOTE | 2020-08-18 17:00 | NUR ---
PATIENT INCREASINGLY CONFUSED. O2 SAT. DECREASED TO 86% ON 4L O2 NC. PATIENT PLACED ON BIPAP AT 15/8 AND 30% FIO2. PT.
--- NOTE | 2020-08-18 18:30 | NUR ---
PATIENT 02 SAT DROPPED TO 80%. PT. HAD DISCONNECTED BIPAP. PT. CONFUSED AND HALLUCINATING THAT SHE WAS HOLDING PILLS SHE NEEDED TO TAKE. PT. RESTLESS AND COMPLAINS OF CONTINUING PAIN IN BLE. REPOSITIONED LEGS WITH PILLOW BENEATH FEET. LEFT RESTING IN BED WITH CURTAIN OPEN.
--- NOTE | 2020-08-18 18:36 | NUR ---
PT. SLEEPING AND O2 SAT. DROPPED TO 86%. BIPAP TITRATED TO 35%FIO2.
--- NOTE | 2020-08-18 19:02 | NUR ---
PATIENT COMPLAINS OF FEELING HOT. TEMP. 100.4 AXILLARY. REMOVED 3 BLANKETS.
--- NOTE | 2020-08-18 20:58 | NUR ---
PT FREQ TAKES BIPAP OFF. ON NC WHILE ASSESSMENT DONE AND HS MEDS GIVEN. IS ORIENTED TO SELF ONLY, VERY CONFUSED, AND HAS DIFFICULTY TRACKING CONVERSATIONS. VERY POOR SHORT TERM MEMORY. CATH CARE DONE. NYSTATIN POWDER APPLIED TO FOLDS. URINE OUTPUT VERY GOOD, RESPONDING WELL TO BUMEX GTT. SWALLOWED HS PILLS WITHOUT DIFFICULTY. DOES HAVE OCC LOOSE COUGH.
--- NOTE | 2020-08-18 21:10 | NUR ---
THIS RN IN TO ASSESS PT. PT AWAKE IN BED WITH RN RORY IN ROOM. PT ON 6L O2 NC DURING THIS TIME. PT ORIENTED TO SELF BUT COULD NOT RECALL LOCATION OR EVENT FROM HER. PT STATED THE SHE HAD FORGOTTEN AND THE RN HAD TO REMIND HER WERE SHE WAS. PT REPORTS NO PAIN WHEN ASKED. PT REPORTS NO DIFFICULTY BREATHING OR SHORTNESS OF BREATH. PT PUT BACK ON BIPAP AFTER ASSESSMENT. IV BUMETADINE INFUSING AT ORDERED RATE INTO PICC. PT REPORTED THAT SHE WANTED SOMETHING TO EAT, WILL GET PT SOMETHING. CALL LIGHT WITHIN REACH, BED IN LOWEST POSITION. WILL CONTINUE PLAN OF CARE.
--- NOTE | 2020-08-18 21:37 | NUR ---
THIS RN CAME IN TO PT ROOM TO FIND HER TAKING OFF HER BIPAP. PT REPORTS SHE CANT WEAR IT AND NEEDS A BREAK. PT PROVIDED WITH BROTH TO EAT AND PUT ON 6L NC. PT REPORTS NO FURTHER NEEDS AT THIS TIME. PT PUT ON BIPAP AFTER FINISHING HER BROTH. PT ABLE TO MAINTAIN SPO2 AT 91% WHILE ON THE NC. PT NOW ON BIPAP WITH FIO2 AT 35%, RR AT 24. IV MEDICATION INFUSING ORDERED. WILL CONTINUE PLAN OF CARE. CALL LIGHT IN REACH , BED IN LOWEST POSITION.
--- NOTE | 2020-08-18 22:16 | NUR ---
THIS RN IN TO PT'S ROOM PT HAD TAKEN OFF BIPAP. PT STATED SHE NEEDED TO TAKE A BREAK FROM IT AND WAS PUT ON 6L O2 NC. PT PROVIDED WTIH ICE WATER SHE REQUESTED. SPO2 MAINTAINED AT 91% WHILE DRINKING WATER. PT STATES PAIN IN KNEES IS BETTER AFTER SHE HAD HER PRN TYLENOL. PT LEGS ELEVATED AND HEAD OF BED LOWERED PER HER REQUEST. PT REPORTS NO FURTHER NEEDS AT THIS TIME. BIPAP PLACED BACK ON PT AFTER EDUCATING HER ON ITS PURPOSE. WILL CONTINUE PLAN OF CARE. CALL LIGHT IN REACH, BED IN LOWEST POSITION.
--- NOTE | 2020-08-19 00:45 | NUR ---
THIS RN IN TO PT'S ROOM BECAUSE PT HAD TAKEN OF HER BIPAP. PT PUT ON 6L O2 NC. PT WAS NOT ORIENTED TO LOCATION OR EVENT. PT WAS REORIENTED. PT DENIES PAIN AT THIS TIME AND SHORTNESS OF BREATH. NEW BAG OF IV MEDICATIONS HUNG AND INFUSING AT ORDERED RATE. PT PLACED BACK ON BIPAP AFTER A SHORT BREAK. BIPAP ON AT 35% FIO2 WITH A RR OF 24. PT REPORTS NO FURTHER NEEDS. CALL LIGHT IN REACH, BED IN LOWEST POSITION, WILL CONTINUE PLAN OF CARE.
--- NOTE | 2020-08-19 02:00 | NUR ---
RESPONDED TO PT TAKING HER BIPAP OFF. WHEN ENTERING ROOM PT HAD TAKEN OFF GOWN AND BIPAP ALONG WITH HER SPO2 MONITOR. PT PLACED ON 6L O2 NC TO MAINTAIN SPO2 AND ALLOW HER TO HAVE A BREAK. PT WAS REORIENTED AGAIN TO LOCATION AND EVENT SHE HAD FORGOTTEN. IV LOPRESSOR ADMINISTERED. PT REPORTED NO PAIN OR SHORTNESS OF BREATH. PT PLACED BACK ON BIPAP AFTER HER BREAK AT PREVIOUS SETTINGS. PT REPORTS NO FURTHER NEEDS, WILL CONTINUE PLAN OF CARE.
--- NOTE | 2020-08-19 04:00 | NUR ---
RESPONDED TO PT TAKING OFF HER BIPAP. PT STATED SHE WAS THRISTY AND WANTED WATER. PT PUT ON 6L O2 NC DURING THIS TIME TO MAINTAIN SATURATIONS. PT HAD AN SPO2 OF 94%. PT PROVIDED WITH WATER AND GIVEN PRN TYLENOL FOR 7/10 BACK PAIN. PT. PT REPOSITIONED ON BED AND PILLOWS PLACED UNDER HIPPS. BIPAP PLACED BACK ON. FIO2 WAS CHANGED TO 40% PT HAD AN SPO2 OF 88-89% AFTER BEING PLACED ON IT. PT NOW HAS AN SPO2 OF 93% ON THE BIPAP. PT REPORTS NO FURTHER NEEDS AT THIS TIME, WILL CONTINUE PLAN OF CARE.
--- NOTE | 2020-08-19 04:50 | NUR ---
RESPONDED TO PT TAKING OFF BIPAP. PT GIVEN BREAK FROM BIPAP FOR A SHORT AMOUNT OF TIME AND PUT ON 6L O2 NC. PT PLACED BACK ON AFTER A FEW MINUTES. PT REPORTS NO FURTHER NEEDS AT THIS TIME. WILL CONTINUE PLAN OF CARE
--- NOTE | 2020-08-19 06:30 | NUR ---
RESPONDED TO PT CALLING OUT THIS RN'S NAME. PT HAD TAKEN OFF BIPAP. PT REQUESTED WATER AND A BREAK FROM THE BIPAP. PT WAS PROVIDED WITH ICE WATER AND PUT ON 6L O2 NC. PT SPO2 AT 91% ON THE NC. PT REPORTS NO FURTHER NEEDS AND WAS LEFT ON 6L O2 NC TO ALLOW FOR A BREAK FROM THE BIPAP. WILL CONTINUE PLAN OF CARE. CALL LIGHT IN REACH, BED IN LOWEST POSITION.
--- NOTE | 2020-08-19 07:53 | NUR ---
Took pt. vitals, picked up pt. room. no other needs at this time. call light with in reach.
--- NOTE | 2020-08-19 08:33 | NUR ---
RECEIVED REPORT FROM NIGHT RN AND PATIENT CARE RESUMED. PATIENT ASSESSMENT COMPLETED AND MORNING MEDS GIVEN. PT. CONFUSED AND INAPPROPRIATE WITH RESPONSES. PT. ASKED WHAT TIME HER FLIGHT WAS AT AND WHERE SHE LIVED. PICC LUMENS FLUSHED WELL AND HAD BLOOD RETURN. 800ML EMPTIED FROM CATH. PT. ABLE TO SWALLOW AND TOOK PO MEDS WELL. PT LEFT RESTING IN BED WITH CALL LIGHT IN REACH.
--- NOTE | 2020-08-19 08:56 | NUR ---
PATIENT LIFTED BY DAYRON TO THE CHAIR. GIVEN A BEDBATH AND LINENS CHANGED. PT. TOLERATED WELL. PT. STILL CONFUSED BUT ALERT.
--- NOTE | 2020-08-19 09:00 | NUR ---
PATIENT REFUSED TO WASH HAIR AND BRUSH TEETH. PLACED ON BIPAP AT 15/8 AND 40%FIO2. R.T. IN TO SEE THE PT.
--- NOTE | 2020-08-19 09:12 | NUR ---
Assisted ZARI Gonzalez . and ZARI Lion changed bed linens, wash pt. use robert to move pt. to chair. no other needs at this time.
--- NOTE | 2020-08-19 10:02 | NUR ---
PATIENT REFUSED BIPAP AND PULLED IT OFF SEVERAL TIMES. PLACED ON 02 NC AT 5L. PT. MEDS GIVEN AND VBG DRAWN. PT. REPORTS ACHING FINGERS AND PAIN IN LEGS. GIVEN ACETAMINOPHEN. ALSO REPORTS BEING COLD WITH BLANKETS ON. TEMP. IS 98.7. BROUGHT ADDITIONAL BLANKETS. PT. LEFT RESTING IN CHAIR WITH CURTAIN OPEN AND CALL LIGHT IN REACH.
--- NOTE | 2020-08-19 10:50 | NUR ---
DR. MOREIRA IN TO SEE THE PATIENT. PT. BUMEX TITRATED TO 0.25MG/HR. PT. PLACED ON OXYMASK AT 4L. PT. LEFT RESTING IN CHAIR.
--- NOTE | 2020-08-19 11:41 | NUR ---
PATIENT ASSESSMENT COMPLETED AND MEDS GIVEN. PT. STILL CONFUSED. LUNGS DIM IN BASES. TEMP. 98.5. MOORE EMPTIED OF 500ML CLEAR YELLOW URINE. PT. REPORTS THAT SHE IS NO LONGER HAVING SHARP PAIN IN TOES. PT. PT. PICC SITE WNL. PASTORAL CARE VISITED PT. PT. LEFT RESTING IN BED WITH CALL LIGHT IN REACH.
--- NOTE | 2020-08-19 12:46 | NUR ---
PATIENT MORE ORIENTED AND ALERT. FINISHED HER LUNCH. PT. WAS CONCERNED ABOUT HER DOG AND ASKED THAT I CALL A FRIEND, ABIGAIL. ABIGAIL CONTACTED AND STATED THAT THE DOG IS WITH A [employer] SOFTWARE MANAGER. PT. REASSURED AND LEFT RESTING IN CHAIR WITH CALL LIGHT IN REACH.
--- NOTE | 2020-08-19 12:50 | NUR ---
PATIENT SWITCHED TO OXYMASK AT 5L NC AFTER LUNCH. O2 SAT IS 91%.
--- NOTE | 2020-08-19 12:50 | NUR ---
1145- pt was eatting lunch off bipap will make some adjustments to possibly cpap when patient goes back on the machine
--- NOTE | 2020-08-19 13:02 | NUR ---
did vitals, washed pt. hair. did bed bath. helped pt. brush her teeth. no other needs at this time. call light with in reach.
--- NOTE | 2020-08-19 14:00 | NUR ---
PT ALERT, ORIENTED AND SITTING IN CHAIR USING O2 MASK. RN TRAVIS COMMENTED THAT SHE FEELS PT IS MORE ALERT TODAY. PT CARRIED ON CONVERSATION, ON POINT AND ABLE TO REQUEST A VISIT FROM THE [employer] TODAY. NOTIFIED FR CHAVEZ, HAD PRAYER WITH PT, LEFT G.POST AND WILL FOLLOW
--- NOTE | 2020-08-19 14:19 | NUR ---
Mey Lion, and I moved pt. via robert from chair to bed. pt. had large bowel movement. Lisa Lion and I cleaned pt. and bed. room picked up, garbages emptied. no other needs at this time. call light with in reach.
--- NOTE | 2020-08-19 14:41 | NUR ---
PATIENT HAD A LARGE INCONTINENT BM. STOOL IS FORMED AND BROWN. PT. MORE ORIENTED TO PLACE AND EVENT. GOKUL AND MOORE CARE PERFORMED. PATIENT TRANSFERRED TO BED VIA DAYRON AND LEFT RESTING WITH CALL LIGHT IN REACH.
--- NOTE | 2020-08-19 15:07 | NUR ---
ZARI Lion and I moved pt. and placed a pillow under the pt. left hip to help relieve some pressure
--- NOTE | 2020-08-19 16:00 | NUR ---
PATIENT ASSESSMENT COMPLETED. PT. APPEARS EXHAUSTED AND RR INCREASED INTO THE 30'S. PT. PLACED ON BIPAP. LUNGS SOUND DIM. IN LOWER BASES AND FINE CRACKLES IN THE LEFT BASE. TEMP. IS 98.0. PT. GIVEN TYLENOL AND REPORTS CONSTANT LEG PAIN. PT. LEFT RESTING IN BED WITH CALL LIGHT IN REACH.
--- NOTE | 2020-08-19 16:03 | NUR ---
PATIENT RR INCREASED TO 30'S AND PT. APPEARED EXHAUSTED. PLACED ON BIPAP AT 15/8 AND 40%FIO2. PT. TOLERATING WELL AND STILL ORIENTED.
--- NOTE | 2020-08-19 16:43 | NUR ---
PATIENT REFUSED BIPAP, SO PLACED BACK ON OXYMASK AT 5L. O2 SAT IS 90%
--- NOTE | 2020-08-19 17:14 | NUR ---
PATIENT O2 SAT. STAYING 88-89%. 02 TITRATED TO 6L OXYMASK. PT. INCREASINGLY CONFUSED AND FORGETFUL. PT. REPORTS BEING DIAPHORETIC AND HOT. TEMP. IS 99. BLANKETS REMOVED. DR. MOREIRA NOTIFIED. WILL CONTINUE TO MONITOR.
--- NOTE | 2020-08-19 18:24 | NUR ---
PATIENT CALLING FOR JOHNNY FROM ROOM. PT. HAD REMOVED O2 AND STATED THAT SHE DID NOT KNOW WHAT WAS GOING ON OR WHY SHE WAS HERE. PT. REORIENTED AND STATED SHE NEEDED TO HAVE A BOWEL MOVEMENT. ASSISTED BY RNS TO THE BEDPAN. SMALL SMEAR OF BROWN STOOL. PT. REORIENTED AND LEFT RESTING IN BED.
--- NOTE | 2020-08-19 20:30 | NUR ---
SHIFT REPORT RECEIVED FROM ZARI NUÑEZ. ASSESSMENT COMPLETED. PT IS ALERT, CONFUSED TO SURROUNDINGS/EVENT, BUT IS OTHERWISE ORIENTED; OCCASIONALLY MAKES BIZZARE STATEMENTS. REPORTS 4/10 PAIN IN LEGS, PRN TYLENOL GIVEN AND BLE ELEVATED ON PILLOWS. LUNGS DIM, 5L OXYMASK IN PLACE. HR REGULAR. BOWEL TONES ACTIVE, DENIES NAUSEA OR TENDERNESS. NYSTATIN APPLIED TO FOLDS. CATH CARE PROVIDED. MULTIPLE ALLEVYN DRESSINGS IN PLACE AND UNNA BOOTS PRESENT TO BLE. PICC HAS GOOD BLOOD RETURN AND FLUSHES WITHOUT RESISTANCE, DRESSING INTACT, LABS SENT. PT PROVIDED WITH SNACK OF PUDDING AND CRACKERS, DISCUSSED PLAN TO WEAR BIPAP AFTER SNACK, PT AGREEABLE.
--- NOTE | 2020-08-19 21:00 | NUR ---
PT PLACED ON BIPAP 10/6 @ 40%, ONLY TOLERATED FOR LESS THAN 5 MINUTES. PT REPORTS THAT IT MAKES HER FEEL ANXIOUS. PLACED BACK ONTO 5L OXYMASK. PT HAS CALLED MULTIPLE TIMES FOR SIMPLE THINGS: BED ADJUSTMENT, LIGHT ADJUSTMENT, ETC.
--- NOTE | 2020-08-19 21:44 | NUR ---
PT REPORTING 8/10 PAIN TO HER BOTTOM, PRN PERCOCET GIVEN AND BILATERAL HIPS FLOATED ON PILLOWS.
--- NOTE | 2020-08-19 23:01 | NUR ---
PT REQUESTS TO MOVE TO CHAIR STATING THAT SHE USUALLY SLEEPS IN A CHAIR. ATTEMPTED TO RAISE THE HEAD OF BED, BUT SHE DIDN'T FEEL THAT WAS ADEQUATE. PT TRANSFERRED TO CHAIR BY DAYRON, TOLERATED WELL. PT AGREEABLE TO TRYING BIPAP AT THIS TIME, SET TO 10/6 @40%. CALL LIGHT WITHIN REACH.
--- NOTE | 2020-08-19 23:19 | NUR ---
PT AGAIN ONLY WORE BIPAP ABOUT 5 MINUTES AND TOOK IT OFF, UNABLE TO TOLERATE. SHE IS VERY CONFUSED, CANNOT REMEMBER THAT WE ARE IN THE HOSPITAL. ASKING IF THERE IS AN GEOFFREY TRAY IN THE ROOM SO SHE CAN SMOKE A CIGARETTE; THINKS THE BATHROOM DOOR IS A BACK DOOR TO THE OUTSIDE. PT REMAINS ON 5L OXYMASK. CALL LIGHT WITHIN REACH.
--- NOTE | 2020-08-20 00:07 | NUR ---
PT CONTINUES TO SIT UP IN CHAIR. ORIENTED AT THIS TIME. DENIES PAIN. LUNGS SOUND MORE COARE, 5L NC IN PLACE WITH HUMIDITY. HR REGULAR RATE 55-60. BOWEL TONES ACTIVE, DENIES NAUSEA. SKIN APPEARANCE UNCHANGED. PICC DRESSING C/D/I, FLUIDS INFUSING WNL. MOORE PATENT. CALL LIGHT AND BELONGINGS WITHIN REACH.
--- NOTE | 2020-08-20 00:41 | NUR ---
PT CALLED TO REPORT 7/10 LEG PAIN. ASSISTED HER TO ELEVATE THE FOOTREST OF THE CHAIR AND ADMINISTERED PRN TYLENOL. NO OTHER REQUESTS OR COMPLAINTS AT THIS TIME.
--- NOTE | 2020-08-20 02:29 | NUR ---
PT WAS REPORTING DISCOMFORT IN HER RIGHT HIP, WAS NOT YET TIME FOR ANY PAIN MEDICATION, BUT PT WAS AGREEABLE TO MOVING BACK TO BED. TRANSFERRED TO BED VIA DAYRON AND POSITIONED ONTO LEFT SIDE WITH PILLOW SUPPORT. PT STATES SHE FEELS BETTER. INCREASED OXYGEN TO 6L FOR SATS CONSISTENTLY 88% ON 5L, NOW SHE IS 91%. WARM BLANKET PROVIDED PER REQUEST, CALL LIGHT WITHIN REACH.
--- NOTE | 2020-08-20 04:14 | NUR ---
ASSESSMENT COMPLETED. PT ORIENTED AT THIS TIME, REMAINS FORGETFUL AT TIMES. REPORTS 7/10 PAIN TO LEFT LEG, PRN TYLENOL GIVEN. PILLOW REMOVED FROM BEHIND RIGHT SIDE. LUNGS CLEAR/DIM, COUGH REMAINS CONGESTED SOUNDING. 6L NC IN PLACE. HR REGULAR, LESS PAC'S NOTED ON MILL BEAM FITTER. BOWEL TONES ACTIVE, DENIES NAUSEA, BREAKFAST ORDER RECEIVED. MOORE PATENT. PICC DRESSING C/D/I, BUMEX CONTINUES TO INFUSE WNL. UNNABOOTS REMAIN INTACT. ANASARCA AND EDEMA UNCHANGED. NO FURTHER REQUESTS AT THIS TIME, CALL LIGHT WITHIN REACH.
--- NOTE | 2020-08-20 05:08 | NUR ---
BLOOD DRAWN FROM PICC FOR MORNING LABS. CONTINUES TO HAVE GOOD BLOOD RETURN AND FLUSHES WITHOUT RESISTANCE, DRESSING C/D/I. PT FORGETUL, REPEATING QUESTIONS ABOUT BREAKFAST AND HER ROOM. NO OTHER REQUESTS OR COMPLAINTS AT THIS TIME. CALL LIGHT WITHIN REACH.
--- NOTE | 2020-08-20 06:33 | NUR ---
IN TO CHECK ON PT, STATES SHE IS HUNGRY AND WOULD LIKE ME TO GO GET HER A HAMBURGER. REMINDED HER THAT I ORDERED BREAKFAST FOR HER AND THAT IT SHOULD BE HERE IN ABOUT AN HOUR. PROVIDED HER WITH A CHOCOLATE ENSURE PER REQUEST.
--- NOTE | 2020-08-20 07:30 | NUR ---
PATIENT SHIFT REPORT RECIEVED FROM PATTERN CHAIN BUILDER RN. PATIENT RESTING IN BED. PER REPORT PATIENT ON 6L NC. PATIENT CALLS OUT STAFF MEMBERS NAME WHEN SHE IS IN NEED OF SOMETHING. WILL CONTINUE TO CLOSELY MONITOR.
--- NOTE | 2020-08-20 07:55 | NUR ---
Took pt. vitals. gave pt. breakfast, picked up room. no other needs at this time. call light with in reach
--- NOTE | 2020-08-20 08:00 | NUR ---
PATIENT SHIFT ASSESSMENT COMPLETED. PATIENT RESTING IN BED ON 6L NC. PATIENT BREATH SOUNDS CLEAR AND DIMINISHED. CONGESTED COUGH NOTED. PATIENT HAS ODORUS DRAINAGE FROM HER LEGS. LEGS ARE WRAPPED AND WILL BE CHANGED TOMORROW PER REPORT. BREAKFAST AT THE BEDSIDE. PATIENT DENIES ANY OTHER NEEDS AT THIS TIME. WILL CONTINUE TO CLOSELY MONITOR.
--- NOTE | 2020-08-20 08:05 | NUR ---
Mago and I used the Kassidy to move pt. further up in her bed.
--- NOTE | 2020-08-20 09:15 | NUR ---
PATIENT BED BATH COMPLETED. PATIENT TOELRATED WELL. HAD TO PLACE PATIENT ON 8L OXYMASK FOR BED CHANGE AND EXERTION. NEW LINEN PLACED. PATIENT HAD A LARGE BM. GOWN CHANGED. MEDICATIONS CHANGED. PATIENT BOOSTED UP IN BED WITH DAYRON AND TOELRATED WELL. PLACED BACK ON 6L NC. NO OTHER NEEDS AT THIS TIME. WILL CONTINUE TO CLOSELY MONITOR.
--- NOTE | 2020-08-20 09:15 | NUR ---
paul and I cleaned pt. after bowel movement. gave a bed bath, changed linens and gown. cleaned up room. no other needs at this time. call light with in reach.
--- NOTE | 2020-08-20 11:20 | NUR ---
RN IN TO GIVE MEDICATION AND ADJUST BUMEX GTT PER NEW ORDERES. PATIENT TOLERATED WELL. NO OTHER NEEDS AT THIS TIME. LUNCH ORDERED. PATIENTS DAUGHTER CALLED. TRANSFERED PHONE CALL TO PATIENT. WILL CONTINUE TO CLOSELY MONITOR.
--- NOTE | 2020-08-20 11:22 | NUR ---
PT APPEARS ALERT, ORIENTED AND RECOGNIZED ME UPON ENTRANCE. PT SEEMS ACCEPTING OF BEING HERE THROUGH THE HOLIDAY. GAVE ENCOURAGEMENT, INFORMED HER THAT FR CHAVEZ WILL BE IN TODAY TO VISIT FOLLOWING MASS. PT ACKOWLEDGES. LEFT NEW TUCKER AND CHRISTIN. WILL FOLLOW
--- NOTE | 2020-08-20 11:31 | NUR ---
NO CHANGES TO DISCHARGE PLAN. PATIENT STILL STATES SHE WILL RETURN HOME WITH HER FRIENDS TO CARE FOR HER.
--- NOTE | 2020-08-20 12:04 | NUR ---
PATIENT SHIFT ASSESSMENT COMPLETED. PATIENT SITTING UP IN THE BED. ASSESSMENT REMAINS UNACHANGED. PATIENT REMAINS MORE ALERT TODAY AND VISITING WITH STAFF. PATIENT UPDATED ON PLAN OF CARE. NO FURTHER QUESTIONS AT THSI TIME. LUNCH PROVIDED. WILL CONTINUE TO CLOSELY MONITOR.
--- NOTE | 2020-08-20 14:00 | NUR ---
THIS RN IN TO REORIENT PATIENT TO TIME AND SITUATION. PATIENT THOUGHT SOMEONE WAS IN HER ROOM AND REMEMBERS PARTS AND PIECES OF CONVERSATION FROM EARLIER ABOUT PLAN OF CARE. REORIENTED ON PLAN OF CARE. WILL CONTINUE TO CLSOELY MONITOR. NO OTHER NEEDS AT THIS TIME.
--- NOTE | 2020-08-20 15:40 | NUR ---
REPOSITIONED PATIENT WITH PILLOW SUPPORT. PATIENT FEELING BETTER NOW WITH REPOSITIONING. NO OTHER NEEDS AT THIS TIME. WILL CONTINUE TO CLOSELY MONTIOR.
--- NOTE | 2020-08-20 16:00 | NUR ---
THIS RN IN WITH PATIENT. PATIENT IS FRUSTRATED THAT SHE IS HAVING INTERMITENT CONFUSION. PATIENT REMAINS ORIENTED BUT IS FORGETDUL AND FEELS SCARED. SAT WITH PATIENT AND VISITED ABOUT OUR FAMILYIES AND PLANS. PATIENT IS DOING BETTER NOW AT THIS TIME. WILL CONTINEU TO CLOSELY MONITOR.
--- NOTE | 2020-08-20 17:37 | NUR ---
PATIENT REPOSITIONED IN BED SO SHE COULD EAT DINNER. PATIENT DENIES ANY OTHER NEEDS AT THIS TIME. WILL CONTINUE TO CLOSELY MONITOR. CURTAIN OPENED PER PATIENTS REQUEST. MOORE CATHETER EMPTIED. STEFAN GARCIA IN REACH.
--- NOTE | 2020-08-20 19:15 | NUR ---
REPORT RECIEVED FROM CCU RN, CARE OF PT ASSUMED AT THIS TIME. PT RESTING IN BED, ALERT AND ORIENTED TO LOCATION, SELF, AND SITUATION. DENIES NEEDS AT THIS TIME. BUMEX DRIP INFUSING AT 2 MLS/HR. BELONGINGS WITHIN REACH. NO FURTHER NEEDS AT THIS TIME.
--- NOTE | 2020-08-20 20:20 | NUR ---
IN ROOM FOR MEDICATION ADMINISTRATION AND TO COMPLETE ASSESSMENT. PT ALERT AND ORIENTED AT THIS TIME, PT VOICES SOME CONCERN ABOUT BEING CONFUSED INTERMITTENTLY. PT CONTINUES TO HAVE CONGESTED COUGH, AND DIMINISHED BREATH SOUNDS. SATURATIONS AT 90 PERCENT ON 5 L NC. RESPIRATIONS EVEN BUT LABORED RR= 24. LARGE AMOUNT OF DILUTE URINE IN MOORE BAG. BUMEX DRIP AND MAGNESIUM INFUSING. PLAN OF CARE ESTABLISHED FOR EVENING. PT DENIES FURTHER NEEDS AT THIS TIME.
--- NOTE | 2020-08-20 21:03 | NUR ---
SPIRITUAL CARE IN ROOM TO VISIT WITH PT AT THIS TIME.
--- NOTE | 2020-08-20 21:57 | NUR ---
PT STATES SHE FEELS WARM AND "NO COMFORTABLE" ORAL TEMPERATURE OF 99.1 PRN TYLENOL GIVEN AT THIS TIME (SEE EMAR). WILL CONTINUE TO MONITOR.
--- NOTE | 2020-08-20 22:35 | NUR ---
pt given prn medication for pain at this time. Pt seems disoriented to time, date, and situation. pt reports seeing her friend Jessie in the room with her. reoriented pt at this time. will continue to monitor.
--- NOTE | 2020-08-20 23:35 | NUR ---
pt disoriented. removed pulse oximetery and oxygen. reoriented pt. repositioned pt and placed on bipap at this time. assesment completed. this rn to remain in room with pt while she is on bipap for comfort.
--- NOTE | 2020-08-21 01:51 | NUR ---
pt remains awake in room. requires regular reorientation. place on oximask 7 L because nasal cannula was bother pateint. SPO2 = 95 percent. pt wore bipap twice for 15 mins. will continue to monitor.
--- NOTE | 2020-08-21 03:00 | NUR ---
pt resting with eyes closed. breathing even and unlabored. spo2 = 96 percent on oximask. call light within reach. no assessed needs at this time.
--- NOTE | 2020-08-21 05:13 | NUR ---
PT REMOVED OXIMASK. SPO2 DECREASED INTO THE LOW 80S. PT REORIENTED AT THIS TIME. OXIMASK BACK IN PLACE SPO2 =92 PERCENT ON 6 L OM. WILL CONTINUE TO MONITOR.
--- NOTE | 2020-08-21 06:09 | NUR ---
blood drawn from PICC line and sent to lab. picc line saline locked.
--- NOTE | 2020-08-21 06:43 | NUR ---
PT PLACED ON BIPAP AT THIS TIME. SPO2 =95 PERCENT
--- NOTE | 2020-08-21 08:01 | NUR ---
pt awake in bed w/ bipap on 40% FiO2. Pt alert but needs to be reoriented to place. C/O 5/10 in left heel that comes and goes. VSS. Breakfast ordered. Workman emptied of 1000 mls, clear yellow/dilute urine. Call light in reach.
--- NOTE | 2020-08-21 08:08 | NUR ---
Pt. vitals taken, room picked up. no other needs at this time. call light with in reach
--- NOTE | 2020-08-21 09:45 | NUR ---
MORNING ASSESSMENT COMPLETED AND MEDICATIONS GIVEN. CALLED @ 820 TO NOTIFY OF VBG, CO2 72.6 (TRENDING UP) HCO3 44.9. DR MOREIRA THINKS PT IS COMPENSATING RESPIRATORY ACIDOSIS, NO NEW ORDERS. WILL CONTINUE TO MONITOR PT. DR MOREIRA OK W/ TAKING PT OFF BIPAP SHE IS NOT TOLERATING WELL AND NOW ON 5 L OXYMASK SATING 94% RR IN 20'S, NO ACCESSORY MUSCLE USE NOTED. PT REMAINS ON BUMEX @ 2 MLS/HR (0.5 MG/HR), POLYURIA W/ CLEAR DILUTE YELLOW URINE. PICC LINE HEPARIN FLUSHED. DR MOREIRA REMOVED UNABOOTS AND ORDERED BLE TO BE SOAKED IN HIBICLENS AND WARM WATER, THEN CLEANED AND LEFT OPEN TO AIR. PT IS PLEASANTLY CONFUSED AND HAS BEEN EASY TO REORIENT TO CURRENT EVENTS RELATING TO HOSPITAL STAY. CALL LIGHT IN REACH, PT CALLS APPROPRIATELY.
--- NOTE | 2020-08-21 11:00 | NUR ---
PT UP TO CHAIR W/ DAYRON AND 3-PERSON ASSIST. BLE SOAKING IN HIBICLENS AND WARM WATER. LUNCH ORDERED. CALL LIGHT IN REACH.
--- NOTE | 2020-08-21 12:45 | NUR ---
BLE SOAKED AND CLEANSED W/ HIBICLENS, DRIED AND A&D APPLIED PER MD ORDER. INCREASED SKIN BREAKDOWN TO POSTERIOR LEFT ANKLE. INFORMED CONSENT SIGNED FOR PICTURES AND PICTURES NOW ON CHART. PT EATING AND DRINKING WELL. LARGE URINE OUTPUT, 2 L OF DILUTE URINE EMPTIED FROM MOORE. PT UP IN CHAIR TO EAT LUNCH. 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
--- NOTE | 2020-08-21 13:55 | NUR ---
assisted Patrice with soaking pt. lower legs. after I cleaned up pt. room. gave warm blankets. Pt. in chair. no other needs at this time.
--- NOTE | 2020-08-21 15:00 | NUR ---
PT BACK IN BED VIA DAYRON LIFT AND 3-PERSON ASSIST. BED BATH DONE W/ AIDE AND NYSTATIN APPLIED TO ALL FOLDS. PT DOES NOT TOLERATE TURNING WELL. REMAINS ON 5 L O2 VIA OXYMASK BUMPED UP TO 6 L W/ ACTIVITY. Q2H TURN W/ PILLOWS, CALL LIGHT IN REACH.
--- NOTE | 2020-08-21 18:30 | NUR ---
IN TO DRAW BMP AND MAGNESIUM LABS FROM PICC LINE. BUMEX DRIP PAUSED AND FLUSHED PICC W/ 20 MLS NS, WASTED 10 MLS AND OBTAINED 3 ML SAMPLE. PICC CONTINUES TO RETURN BLOOD AND FLUSH EASILY, POSI-FLOW CAP CHANGED. PT REPOSITIONED TO SUPINE POSITION, C/O LEFT ANKLE PAIN THROUGHOUT DAY. REPORTS IT'S 6-7/10 CRAMPING PAIN. PERCOCET GIVE X2, AND TYLENOL BETWEEN DOSES. PT SAYS PAIN IS MANAGEABLE W/ PAIN MEDS AT 4/10. DOES NOT TOLERATE TURNING WELL AND HAS NEED FOR BARIATRIC BED, DR MOREIRA NOTIFIED AND ORDERS PUT IN FOR BED FROM [facility]. PT HAS REMAINED AFEBRILE DURING SHIFT, VSS. ALLEVYN REMOVED FROM LEFT THIGH THERE IS NO SKIN BREAKDOWN NOTED. REDDENED PURPLE AREA REMAINS SURROUNDING COCCYX AND ALLEVYN IS INTACT. PT REFUSING TO OFFLOAD DESPITE ENCOURAGEMENT, TAKES PILLOWS OUT WHEN STAFF WALK OUT OF ROOM. CALL LIGHT REMAINS IN REACH AND PT CONTINUES TO CALL APPROPRIATELY
--- NOTE | 2020-08-21 19:30 | NUR ---
report recieved, care of patient assumed at this time. Bumex drip discontinued per MD order. pt in room watching television. denies needs at this time.
--- NOTE | 2020-08-21 20:45 | NUR ---
medication administration and assessment completed at this time. pt alert but disoriented. reassurance to patient that her family is aware of her hospitalization and that her dogs are being cared for. pt has to be reminded to keep oxygen mask in place. plan of care established for shift. assisted pt with repositioning. call light within reach. no further needs at this time.
--- NOTE | 2020-08-21 21:30 | NUR ---
PT REMOVED OXYGEN. SATURATIONS DROPPED INTO OTHE LOW 80S. REORIENTED PATIENT AT THIS TIME. SPO2 NOW AT 94% ON 6 L OXIMASK. WILL CONTINUE TO MONITOR.
--- NOTE | 2020-08-21 23:58 | NUR ---
PT REMAINS AWAKE IN ROOM. REQUESTING A TURKEY SANDWICH AT THIS TIME.
--- NOTE | 2020-08-22 | NUR ---
ASSESSMENT COMPLETED. PT REMAINS ALERT BUT IS DISORIENTED REQUIRING FREQUENT REORIENTATION. PT ASKING TO SMOKE, REMINDED PT THAT SHE IS IN THE HOSPITAL. EDEMA IN ARMS APPEARS TO BE DECREASED FROM EARLIER ASSESSMENT. ASSISTED WITH REPOSITIONING. MODERATE DRAINAGE NOTED FROM LEFT LOWER LEG. PLACED BOTH LOWER EXTREMITIES UNDER DISPOSIBLE PADS.
--- NOTE | 2020-08-22 00:30 | NUR ---
PT RESTING WITH EYES CLOSED. BREATHING EVEN AND UNLABORED. RR = 23. SPO2 = 92 ON 6 L OM. CALL LIGHT WITHIN REACH. WILL CONTINUE TO MONITOR.
--- NOTE | 2020-08-22 02:00 | NUR ---
PT resting with eyes closed. breathing even and unlabored. rr=20. sp02 = 98% on 6 l oxymask. Call light within reach. no needs at this time.
--- NOTE | 2020-08-22 05:00 | NUR ---
in room for blood draw and to complete assessment. pt alert but disoriented to date, time, location, and situation. reoriented at this time. left lower leg wound draining serousaginous fluid. Patient repositioned in bed and pads under pt's legs changed. pt tolerated activity poorly. spo2 dropped into the 80 with movement. but back up to 92 percent on 6 l OM with rest. pt denies pain. continues to have a productive, congested cough. lung sounds diminished in both bases. respirations even but labored at a rate of 22 breaths per minute. call light within reach. questions answered. no further needs at this time.
--- NOTE | 2020-08-22 05:29 | NUR ---
PATIENT PLACED ON BIPAP AT THIS TIME.
--- NOTE | 2020-08-22 06:08 | NUR ---
PT PULLED BIPAP OFF. STATES "ITS TOO TIGHT, I CANT BREATH" PLACE ON 6 L OM AT THIS TIME.
--- NOTE | 2020-08-22 09:00 | NUR ---
PATIENT ASSESSMENT COMPLETED AND MORNING MEDS GIVEN. PT. DENIES PAIN. PICC FLUSHES AND DRAWS BLOOD. AND HEP. LOCKED. TEMP. 99.2. LUNGS SOUND COARSE IN THE BASES WITH CRACKLES ON THE RLL. PT. ON 3L NC. ORIENTED AND SOMEWHAT DROWSY. PT. LEFT RESTING IN BED WITH CALL LIGHT IN REACH.
--- NOTE | 2020-08-22 10:15 | NUR ---
PATIENT 02 SAT DROPPED TO 82% ON 3L NC. ENCOURAGED DEEP BREATHING, REPOSITIONED AND 02 SAT REMAINED IN THE 80S. SWITCHED TO OXYMASK AT 5L. 02 SAT. AT 90%.
--- NOTE | 2020-08-22 11:26 | NUR ---
PHYS THERAPY IN ROOM WITH PATIENT AT THIS TIME. PT LIFTED INTO CHAIR WITH CEILING LIFT, GREEN SHEET, AND 2 PERSON ASSIST. PT TOLERATED WELL. PT REMAINS ON 6 L OXYMASK WITH SP02 HOVERING 88-90%. MOORE REMAINS IN PLACE DRAINING YELLOW URINE. PT IS MORE ORIENTED THAN SHE HAS BEEN OVER THE LAST COUPLE DAYS, BUT STILL FORGETFUL AT TIMES AND SOMETIMES SAYING THINGS THAT DON'T QUITE MAKE SENSE FOR THE SITUATION. WILL CONTINUE TO MONITOR CLOSELY.
--- NOTE | 2020-08-22 12:18 | NUR ---
PATIENT SITTING IN THE CHAIR WITH P.T. COULD NOT STAND WITH ASSISTANCE. PT. ASSESSMENT COMPLETED. DENIES PAIN. TEMP. 98.2. PICC SITE WNL AND HEP. LOCKED. PT. ORIENTED AND ASKS QUESTIONS ABOUT HER CARE. PLANNING A BED BATH AFTER LUNCH. PT. LEFT RESTING IN THE CHAIR WITH CALL LIGHT IN REACH.
--- NOTE | 2020-08-22 15:00 | NUR ---
PATIENT DAYRON LIFTED FROM THE CHAIR TO THE BED. PT. TOLERATED WELL. PT. GIVEN A BED BATH AND HAIR WASHED. AN OPEN AREA OF SKIN WAS NOTED ABOVE THE LEFT ANKLE. GOKUL AND MOORE CARE PERFORMED. PT. LEFT RESTING IN BED WITH CALL LIGHT IN REACH.
--- NOTE | 2020-08-22 15:18 | NUR ---
PATIENT RESTING IN THE CHAIR. ORDERED DINNER AND DENIES PAIN. ORIENTED AND PLEASANT. WILL BATH AFTER DINNER.
--- NOTE | 2020-08-22 16:30 | NUR ---
PATIENT ASSESSMENT COMPLETED. LUNGS SOUND DIM. AND SOMEWHAT COARSE IN THE BASES. PT. ON 5L O2 VIA OXYMASK AND O2 SAT. IS 92%. PICC SITE WNL AND DRESSING C.D.I. PT. IS ORIENTED AND ASKS APPROPRIATE QUESTIONS. PT. LEFT RESTING IN BED WITH CALL LIGHT IN REACH.
--- NOTE | 2020-08-22 18:33 | NUR ---
REPORT GIVEN TO JOSEFA ON MED/SURG REGARDING PATIENT TRANSFER TO ROOM 121 ON MEDICAL FLOOR. THERAPEUTIC SUPPORT STAFF TITO IN ROOM AND PLACES PRIZM DRESSING WITH ALLEVYN OVER ON LEFT OUTER LOWER LEG THAT IS OPEN TO AIR AND WEEPING SOME PURULENT DRAINAGE. ALSO NOTED DURING BATH TODAY THAT PATIENT HAS SMALL AREAS ON BUTTOCK/COCCYX AREA THAT ARE DARK PURPLEISH ABRASION LIKE AREAS, NEXT TO ALLEVYN DRESSING. THESE AREAS WERE NOTED TO BE BLANCHING. NYSTATIN POWDER APPLIED TO ALL SKIN FOLDS AFTER BED BATH WAS GIVEN. PT TO TRANSFER OFF TELE IN BARIATRIC BED.
--- NOTE | 2020-08-22 18:42 | NUR ---
BRIAN [id number] CONSULTED ON PT'S WOUND ON LLE. SEE WOUND ASSESSMENT. SPOKE WITH CCU NURSE ABOUT DRSG APPLIED TO PT.
--- NOTE | 2020-08-22 18:51 | NUR ---
New admit to medical floor. Patient alert and oriented x4, respirations non labored. Oxygen saturation level of 92% on 5l per nc. Patient denies sob and or chest pain. Vital signs are stable. Patient oriented to room and call light. No needs at this time.
--- NOTE | 2020-08-22 19:40 | NUR ---
IN TO ASST PT, STATES SHE NEEDS HELP, SHE SAID SHE DOESNT KNOW HOW TO USE THE BEDPAN, SHAHEED FELICIANO AND I TRYING TO HELP HER USE BEDPAN, PT REQUESTING BEDPAN TAKEN OUT, O2 STAT NOTED TO BE DIPPING TO 80s ON 5LNC, RT IN RM TO SWITCH PT TO OXYMASK, WILL BE IN ONCE PT COMPLETES BM, CALL LIGHT IN PLACE
--- NOTE | 2020-08-22 20:30 | NUR ---
ASSISTED PRIMARY RN NANCY AND WILTON HUMMEL TO CLEAN AND TURN PT AFTER SHE HAD A LARGE RUNNY BM. PT WAS NOT ABLE TO ASSIST MUCH AND WAS PAINFUL WITH TURNING. PT HAS A RED BLANCHABLE AREA AND DISCOLORIZATION ON HER COCCYX/BUTTOCKS. THERE ARE OLD ABRAISIONS HEALING AND OLD SCARING NOTED. WE TOOK PICTURES TO PLACE IN THE CHART AND THERE IS SIGNED CONSENT FOR PHOTOS.
--- NOTE | 2020-08-22 22:31 | NUR ---
PATIENT GIVEN 1 PERCOCET FOR 7/10 BILAT LEG PAIN. PATIENT MOVED UP IN BED WITH 3 PEOPLE, PATIENT HAD TO BE PLACED IN [place] BRIEFLY TO ACCOMPLISH THIS, BUT PATIENT FEELS BETTER POSITIONED NOW. WARM BLANKET GIVEN, FRUIT SNACK GIVEN WHICH PATIENT ATE, AND PATIENT GIVEN 200 MLS COFFEE. CALL LIGHT IS IN REACH.
--- NOTE | 2020-08-22 23:02 | NUR ---
GOT A MESSAGE THAT PATIENT'S DAUGHTER CALLED ASKING FOR AN UPDATE, PATIENT IS CURRENTLY SLEEPING AND I WENT IN THE ROOM AND SAID THE PATIENT'S NAME TWICE AND SHE DID NOT STIR. NOT GOING TO AWAKEN PATIENT AT THIS TIME. CONTACTS ARE BOTH LISTED FRIENDS NOT DAUGHTER, SO UNSURE WHO CALLED. WILL WAIT FOR A RETURN CALL. PATIENT'S O2 SATS ARE 91% ON 5L/OXYMASK AND PULSE IS 58, RESP 18. CALL LIGHT IN REACH. EYES CLOSED RESPIRATIONS REGULAR AND EVEN.
--- NOTE | 2020-08-23 00:30 | NUR ---
PATIENT WOKE UP, CONFUSED, THOUGHT SHE WAS AT A SCHOOL AND WAS WONDERING WHERE THE KIDS ARE AND WANTING ME TO TAKE HER TO HER HOUSE. REORIENTED PATIENT TO PLACE AND SITUATION, AND THEN SHE SEEMED TO REMEMBER WHAT WAS HAPPENING, PATIENT HAD PULLED OFF HER SAT PROBE SO A NEW ONE WAS PLACED. PATIENT COVERED UP AND IS GGOING TO TRY AND GO BACK TO SLEEP. CALL LIGHT IN REACH.
--- NOTE | 2020-08-23 03:00 | NUR ---
PATIENT RESTING QUIETLY, SATS 91% ON 5L/OXYMASK, HR=58 PER PULSE OX, PATIENT'S EYES CLOSED, RESPIRATIONS REGULAR AND EVEN, CALL LIGHT IN REACH.
--- NOTE | 2020-08-23 03:25 | NUR ---
CPOX ALARMING, PT HAS OXYMASK OFF, HONING MACHINE OPERATOR AND SELF IN RM TO BOOST PT UP PER REQUEST, O2 SAT BACK AT 91% WITH OXYMASK IN PLACE
--- NOTE | 2020-08-23 03:50 | NUR ---
IN PT RM TO ANSWER PT'S QUESTIONS, PT IS CONFUSED ABOUT LOCATION, TIME, NAME AND AGE, ASKING WHY SHE IS HERE AND WHAT THE DRESS CODE IS, PT STATE SHE NEED TO GOT OUT FOR A CIGERETTE, ASKING IF SHE IS FREE TO LEAVE THE BUILDING SHE PLEASES WHILE SHE WAITS FOR THE DOCTOR, PT STATES CONCERN IF THE DOCTOR WILL KNOW WHO SHE IS AND WHAT RM SHE IS IN, PT EXPRESSING NEED TO CALL [facility], PT CLAIMS [facility] HAS HER PERSONAL BELONGINGS, BRAND NEW PURSE, DRIVERS LICENSE ETC. MULTIPLE REDIRECTS MADE DURING CONVERSATION WITH PT, TOLD PT TO CONTINUE TO GET REST, PT CONTINUES QUESTIONING DIAGNOSIS AND WHY SHE NEEDS TO BE HERE, REASSURED PT WE ARE HELPING HER GET BETTER, NO FURTHER NEEDS
--- NOTE | 2020-08-23 04:12 | NUR ---
PATIENT SLEEPING AND SATS HAVE GONE UP TO 98% ON 5L/OXYMASK. O2 TURNED DOWN TO 3L/OXYMASK SATS NOW 92%. RT INFORMED.
--- NOTE | 2020-08-23 06:25 | NUR ---
PATIENT WAS A+O AT THE BEGINING OF THE SHIFT, SHE DID GET ONE PERCOCET FOR LEG PAIN WITH EVENING MEDS AND SHE WENT TO SLEEP AND WHEN SHE WOKE UP SHE HAS BEEN A LITTLE CONFUSED THE REST OF THE NIGHT. SHE KNOWS THE DATE, PRESIDENT, AND SELF. 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 SHE SEEMS TO REORIENT EASILY WHEN INFORMED OF HER CIRCUMSTANCES FOR BEING IN THE HOSPITAL AND WHAT STAFF MAY CURRENTLY BE DOING WHILE IN THE ROOM, BUT WILL FORGET AND ASK STRANGE THINGS OR TELL YOU THINGS WHEN YOU GO BACK IN THE ROOM. PATIENT HAD AN XX-LARGE SOFT SEMI-FORMED/SEMI-LIQUID STOOL IN THE BED AT THE BEGINING OF SHIFT. MOORE HAS BEEN DRAINING WELL. VS HAVE BEEN STABLE. PATIENT WEANED DOWN FROM 5L/OXY MASK AT BEGINING OF THE SHIFT TO 3L/OXYMASK AT THIS TIME. PATIENT RESTING QUIETLY AT THIS TIME. CALL LIGHT IN REACH. URINE QUANTITY SUFFICIENT AND PATIENT HAS MAINTAINED FLUID RESTRICTION.
--- NOTE | 2020-08-23 07:28 | NUR ---
PATIENT IS ON 5L/OXY MASK AT THIS TIME, SATS ARE 91%.
--- NOTE | 2020-08-23 08:18 | NUR ---
PATIENT RESTING IN BED. WHITE BOARD UPDATED. PATIENT ASSISTED TO WASH HER FACE AND HANDS. CALL LIGHT WITHIN REACH. NO OTHER NEEDS AT THIS TIME
--- NOTE | 2020-08-23 09:38 | NUR ---
PATIENT RESTING IN BED. RN IN ROOM. VITAL SIGNS AND I&O DONE. CALL LIGHT WITHIN REACH. NO OTHER NEEDS AT THIS TIME
--- NOTE | 2020-08-23 10:00 | NUR ---
IN ROOM TO GIVEN MORNING MEDICATIONS AND [id number] COMPLETED. 60 MG IV LASIX GIVEN WELL IV DIAMOX. FINE CRACKLES HEARD IN BILATERAL MID-LOWER LOBES. BED WEIGHT TODAY WAS 349 LBS DOWN FROM 352 YESTERDAY. VSS. PT OXYGEN NEEDS HAVE INCREASED, PT NOW ON 7 L O2 VIA OXYMASK. PT DENIES SOB, RR WNL, WORK OF BREATHING APPEARS NORMAL. PT COUGHING SMALL AMOUNT OF SPUTUM. CALL LIGHT IN REACH.
--- NOTE | 2020-08-23 12:00 | NUR ---
PT UP EATING LUNCH. SWITCHED TO 5 L NC WHILE EATING. URINE OUTPUT HAS BEEN INCREASED. REMAINS ON 1800 ML FLUID INTAKE RESTRICTION. DENIES PAIN OR NAUSEA OR SOB. CALL LIGHT IN REACH. NO OTHER NEEDS AT THIS TIME.
--- NOTE | 2020-08-23 13:21 | NUR ---
PATIENT RESTING IN BED. VITAL SIGNS AND I&O DONE. CALL LIGHT WITHIN REACH. NO OTHER NEEDS AT THIS TIME
--- NOTE | 2020-08-23 17:16 | NUR ---
PATIENT RESTING IN BED. RN IN ROOM. VITAL SIGNS AND I&O DONE. SETS UP TABLE FOR DINNER. CALL LIGHT WITHIN REACH. NO OTHER NEEDS AT THIS TIME
--- NOTE | 2020-08-23 18:00 | NUR ---
BED BATH GIVEN. NYSTATIN APPLIED TO ALL FOLDS. CATHETER CARE DONE. ALLEVYN REMOVED FROM COCCYX, SKIN IS RED/PURPLE AND BLANCHABLE. ALLEVYN TO LEFT CALF IS INTACT. PT REMAINS ON 5 L O2 OXYMASK. PERCOCET GIVE THIS AFTERNOON FOR RIGHT SHOULDER PAIN. PT DENIES PAIN AT THIS TIME. CALL LIGHT IN REACH. NO OTHER NEEDS.
--- NOTE | 2020-08-23 18:16 | NUR ---
PATIENT RESTING IN BED. RN AND RN IN CHARGE IN ROOM. BEDBATH DONE. CATHETER CARE DONE. ORAL CARE DONE. SKIN CARE DONE. THREE PERSON ASSISTING. GOWN CHANGED. CALL LIGHT WITHIN REACH. NO OTHER NEEDS AT THIS TIME
--- NOTE | 2020-08-23 19:43 | NUR ---
SHIFT REPORT FROM NURSE ANGUIANO. PT ASLEEP IN BED WITH EVEN, UNLABORED BREATHING. 5L PER NC, SPO2 92-93%. NO APPARENT SIGNS OF DISTRESS, CALL LIGHT WITHIN REACH.
--- NOTE | 2020-08-23 20:30 | NUR ---
CPOX ALARMING. PT HAS PULLED GOWN OFF AND REMOVED PULSE-OX FROM FINGER. PT IS CONFUSED AND DISORIENTED ASKING ABOUT "THE FIREMEN IN THE ROOM" AND "WHERE ARE WE GOING?" PT IS RELAXED AND ACCEPTS ANSWERS BUT REMAINS DISORIENTED. NEW PULSE-OX APPLIED TO FINGER, NC SWITCHED TO OXYMASK, GOWN REPLACED. PT IN VIEW OF NURSES STATION. CALL LIGHT WITHIN REACH
--- NOTE | 2020-08-23 21:10 | NUR ---
CPOX ALARMING, SPO2 NOT GETTING GOOD WAVEFORM. pt AWAKE, DISORIENTED TO LOCATION, EVENT. REORIENTED BY THIS RN. pt ASKS THIS RNS NAME, STATES "DID YOU HAVE A SON?" REMEMBERS MAKING THIS RN A BABY BLANKET. ASKING QUESTIONS REGARDING CARE. OXYMASK IN PLACE. CALL LIGHT IN REACH.
--- NOTE | 2020-08-23 21:55 | NUR ---
PHONE CALL FROM pt'S FRIEND SERINA SLAUGHTER. FRIEND WISHING CONVERSATION ABOUT pt KEPT PRIVATE. CONCERNED WITH pt'S SAFETY AT HOME. PER FRIEND SAMANTHA HAS HAD TWO CHAIRS COLLAPSE UNDER HER RECENTLY AND HAS A CAREGIVER THAT IS ONLY THERE CRAFT DEMONSTRATOR, GONE FOUR DAYS AND NIGHTS/WEEK. FRIEND STATES THAT SAMANTHA CALLS THE FIRE DEPARTMENT "A COUPLE TIMES A WEEK FOR THE LIFT CHAIR".
--- NOTE | 2020-08-23 22:30 | NUR ---
ASSESSMENT COMPLETE, EVENING MEDS ADMINISTERED. PT IS NOW ORIENTED X3 AND CAN ANSWER QUESTIONS APPROPRIATELY. VSS. PT CONTINUES ON OXYMASK AT 5L. WHEN OXYMASK IS REMOVED FOR MED ADMINISTRATION OR DRINKING, SPO2 DROPS QUICKLY AND DRASTICALLY TO LOW 80%. WHEN MASK IS REPLACED, PT REBOUNDS TO 91-93%. MOORE CARE PERFORMED. PT WAS ABLE TO ASSIST IN TURNING SIDE TO SIDE. BLE RED, WARM, EDEMATOUS; NO SEEPING. CALL LIGHT WITHIN REACH. PT IN VIEW OF NURSES STATION.
--- NOTE | 2020-08-23 23:03 | NUR ---
PT REPOSITIONED IN BED WITH DAYRON LIFT. PT REQUESTS EVENING SNACK. ONE PUDDING GIVEN TO PT. NO FURTHER REQUESTS AT THIS TIME. CALL LIGHT WITHIN REACH.
--- NOTE | 2020-08-24 01:00 | NUR ---
CALL LIGHT ANSWERED. PT REPORTS PAIN 7/10 IN BLE. PRN PERCOCET PROVIDED. NO FURTHER NEEDS AT THIS TIME. CALL LIGHT WITHIN REACH.
--- NOTE | 2020-08-24 02:27 | NUR ---
CPOX ALARMING. PT HAD REMOVED OXYMASK; SPO2 84% 5L OXYMASK REPLACED; SPO2 RETURNED TO 94%. CALL LIGHT WITHIN REACH. PT WITHIN VIEW OF NURSES STATION.
--- NOTE | 2020-08-24 03:28 | NUR ---
CALL LIGHT ANSWERED. PATIENT C/O ITCHING ON LOWER ABDOMENAL FOLDS. WIPED WITH WET WARM WASH CLOTH, DRIED, APPLIED POWDER AND PLACED PILLOW CASE AROUND THE FOLDS. STRAIGHT UP DRAW SHEET AND THE GREEN DAYRON SHEET.
--- NOTE | 2020-08-24 07:25 | NUR ---
PATIENT RESTING IN BED, EYES CLOSED. WHITE BOARD UPDATED. CALL LIGHT WITHIN REACH. NO OTHER NEEDS AT THIS TIME
--- NOTE | 2020-08-24 07:50 | NUR ---
PATIENT RESTING IN BED. PATIENT ASSITED TO WASH HER HANDS AND FACE. ONE PERSON ASSISTING. CALL LIGHT WITHIN REACH. NO OTHER NEEDS AT THIS TIME
--- NOTE | 2020-08-24 09:30 | NUR ---
In and spoke with Regine. She plans on returning home as soon as possible. She no longer has 02 in the home, she has a walker and scooter. Per PT notes pt was not able to stand yesterday. She does agree to a wc if needed. She states she has a cg she has contacted and they plan to stay with her for the next 1-2 months. She also has MOW. We discussed the plan will be determined by how she does with PT today. She insists she will go home.
--- NOTE | 2020-08-24 09:44 | NUR ---
PATIENT RESTING IN BED. RN IN ROOM. VITAL SIGNS AND I&O DONE. LOW OUTPUT. RN NOTIFIED. CALL LIGHT WITHIN REACH. NO OTHER NEEDS AT THIS TIME
--- NOTE | 2020-08-24 10:40 | NUR ---
Percocet 10/325mg po admin for reports of 6/10 left leg pain.
--- NOTE | 2020-08-24 10:40 | NUR ---
CALL LIGHT ANSWERED. PATIENT'S CATHETER IS LEAKING. BEDBATH DONE. CATHETER CARE DONE. PERICARE PERFORMED. SKIN CARE DONE. RN IN CHARGE PUT POWDER BETWEEN LEGS, BUTTOCKS AND UNDER STOCAMACH OF THE PATIENT. GOWN CHANGED. LINENS CHANGED. WARM BLANKET PROVIDED. CALL LIGHT WITHIN REACH. NO OTHER NEEDS AT THIS TIME
--- NOTE | 2020-08-24 12:15 | NUR ---
ASSISTED PHYSICAL THERAPIST TO HELP SITS THE PATIENT UP ON THE EDGE OF THE BED. PATIENT BACKS TO BED. FOUR PERSON ASSISTING WITH DAYRON. CALL LIGHT WITHIN REACH. NO OTHER NEEDS AT THIS TIME
--- NOTE | 2020-08-24 13:36 | NUR ---
PATIENT SITTING UP IN BED. VITAL SIGNS AND I&O DONE. LOW DYASTOLIC BLOOD PRESSURE. RN NOTIFIED. CALL LIGHT WITHIN REACH. NO OTHER NEEDS AT THIS TIME
--- NOTE | 2020-08-24 15:20 | NUR ---
Reviewed PT notes from today and pt was unable to stand with 3 person assist. Per PT notes: She is unable to stand from maximally elevated bed with 3 person max assist on repeated attempts. Bed mobility required 4 person assist and robert lift to adjust sheets. I will discuss this with pt. and offer SNF again.
--- NOTE | 2020-08-24 15:42 | NUR ---
Patient in bed resting, a&ox4, respirations even and non labored. Patient remains on 5l oxygen, currently on nc. Cpox intact, sat level of 93%. Patient has no distress. Workman catheter intact, patent with clear yellow urine. Call light within reach.
--- NOTE | 2020-08-24 17:07 | NUR ---
Admin tylenol 500mg po for reports of 7/10 left leg pain.
--- NOTE | 2020-08-24 17:39 | NUR ---
PATIENT SITTING UP IN BED. VITAL SIGNS AND I&O DONE. LOW BLOOD PRESSURE. RN NOTIFIED. CALL LIGHT WITHIN REACH. NO OTHER NEEDS AT THIS TIME
--- NOTE | 2020-08-24 19:33 | NUR ---
SHIFT REPORT FROM NURSE RIVERO. PT AWAKE AND ALERT IN BED. REQUESTS AN ENSURE WHICH IS PROVIDED FOR THE PT. 5L NC SPO2 90%. PT DENIES PAIN AT THIS TIME. NO FURTHER NEEDS, CALL LIGHT AND BEDSIDE TABLE WITHIN REACH.
--- NOTE | 2020-08-24 21:59 | NUR ---
V/S AND I&O TAKEN AND CHARTED. ASSISTED PRIMARY RN BARRY. GOKUL, MOORE AND ABDOMINAL FOLDS CARE DONE. ROOM TIDIED. BRIDGE MAINTAINER GARBAGES AND USED BLANKETS.
--- NOTE | 2020-08-24 23:43 | NUR ---
CPOX ALARMING. SPO2 5L NC 86-88%. PT SWITCHED BACK TO OXYMASK 5L. ON OXYMASK PT MAINTAINS SPO2 90-94%.
--- NOTE | 2020-08-25 01:30 | NUR ---
CALL LIGHT ANSWERED. PT REQUESTS TO BE REPOSITIONED. PT ALSO REQUESTS PAIN MEDS. PRN PERCOCET PROVIDED FOR 6/10 PAIN IN SHOULDERS/BACK. CALL LIGHT AND BEDSIDE TABLE PLACED WITHIN REACH.
--- NOTE | 2020-08-25 03:53 | NUR ---
CALL LIGHT ANSWERED. WENT INTO THE ROOM. PATIENT STATED "WHAT IS GOING ON THERE" POINTING TO HER LEFT UPPER SIDE, AND STATED DOWN UNDER". TOLD TO PATIENT THAT NOBODY THERE BUT COMPUTER AND SIDE TABLE AND THAT SHE IS IN BED. PATIENT WANTED HER BED TO BE PUSHED TO THE NURSES STATION. PATIENT REORIENTED. DRAPE OPEN TO WATCH CLOSE. DIRECTOR OF SOFTWARE ENGINEERING AND PRIMARY RN ARE AWARE.
--- NOTE | 2020-08-25 05:01 | NUR ---
CPOX ALARMING. PT HAD REMOVED OXYMASK. OXYMASK REPLACED. SPO2 WITH 5L OXYMASK AT 89-93%. PT AWAKE IN ROOM. PT WITHIN VIEW OF NURSES STATION.
--- NOTE | 2020-08-25 06:04 | NUR ---
PT REQUESTS "ASPIRIN" FOR PAIN. PRN TYLENOL PROVIDED FOR 6/10 SHOULDERS PAIN. NO FURTHER REQUESTS AT THIS TIME.
--- NOTE | 2020-08-25 07:35 | NUR ---
Pt awake in bed, a&ox4. Patient remains on 5L via oxymask, sat level 91% currently. Patient denies sob at this time. Pt reports she could not sleep well last night. No needs. Personal supplies and call light within reach.
--- NOTE | 2020-08-25 07:35 | NUR ---
PATIENT SITTING UP IN BED. WHITE BOARD UPDATED. PATIENT'S HANDS AND FACE WASHED. ONE PERSON ASSISTING. CALL LIGHT WITHIN REACH. NO OTHER NEEDS AT THIS TIME
--- NOTE | 2020-08-25 09:24 | NUR ---
PATIENT SITTING UP IN BED. RN IN ROOM. VITAL SIGNS AND I&O DONE. CALL LIGHT WITHIN REACH. NO OTHER NEEDS AT THIS TIME
--- NOTE | 2020-08-25 11:36 | NUR ---
PATIENT RESTING IN BED. RN IN ROOM. BEDBATH DONE. CATHETER CARE DONE. SKIN CARE DONE. RN PUT POWDER UNDER THE ABDOMINAL FOLDS AND GOKUL AREA. GOWN CHANGED. PATIENT REPOSITIONED SUPINE. TWO PERSON ASSISTING WITH DAYRON. WARM BLANKET PROVIDED. CALL LIGHT WITHIN REACH. NO OTHER NEEDS AT THIS TIME
--- NOTE | 2020-08-25 12:48 | NUR ---
Patient's oxygen saturation decreased to the 70's when patient removed her nc. Patient instructed to call staff if she needs assistance with her nc/mask rather than removing it. Patient stated she had "forgot" to call for help. NC back on patient, oxygen slowly improved and stayed at 90-92% on the 5L. Cpox remains intact. Pt close to RN station.
--- NOTE | 2020-08-25 14:14 | NUR ---
PATIENT SITIING UP IN BED. VITAL SIGNS AND I&O DONE. ICE WATER GIVEN. CALL LIGHT WITHIN REACH. NO OTHER NEEDS AT THIS TIME
--- NOTE | 2020-08-25 15:27 | NUR ---
PATIENT RESTING IN BED. PATIENT ASSISTED TO TRANSFER TO CHAIR. THREE PERSON ASSISTING WITH DAYRON. LINENS CHANGED. CALL LIGHT WITHIN REACH. NO OTHER NEEDS AT THIS TIME
--- NOTE | 2020-08-25 17:07 | NUR ---
PATIENT SITTING UP IN CHAIR. VITAL SIGNS AND I&O DONE. SETS UP TABLE FOR DINNER. CALL LIGHT WITHIN REACH. NO OTHER NEEDS AT THIS TIME
--- NOTE | 2020-08-25 18:45 | NUR ---
PATIENT SITTING UP IN CHAIR. RN IN CHARGE, RN AND THE SHAHEED FLORENCE IN ROOM. PATIENT ASSISTED TO TRANSFER BACK TO BED. FOUR PERSON ASSISTING. PATIENT COMPLAINS ABOUT ITCHING HER PERIAREA, CATHETER CARE DONE. RN FLUSHED THE CATHETER AND POWDER WAS PUT IN HER FOLDING AREA. TWO PERSON ASSISTING.WARM BLANKET PROVIDED. CALL LIGHT WITHIN REACH. NO OTHER NEEDS AT THIS TIME
--- NOTE | 2020-08-25 19:05 | NUR ---
IN ROOM FOR REPORT, PT DENIES NEEDS AT THIS TIME. CALL LIGHT IS CLOSE.
--- NOTE | 2020-08-25 20:46 | NUR ---
PATIENT IS IN BED AWAKE. HER DINNER FLUIDS WERE CHARTED AND 300 MORE ML WERE GIVEN. LEFT LEG READJUSTED PER PATIENT REQUEST. CALL LIGHT IN REACH. NO OTHER NEEDS AT THIS TIME.
--- NOTE | 2020-08-25 21:19 | NUR ---
IN pt ROOM FOR MEDICATION ADMINISTRATION. MOORE CARE COMPLETE BY CNAS AT THIS TIME, pt RATES PAIN 7/10 WITH MOVEMENT FROM LEGS. PRN PAIN MEDICATION ADMINISTERED. NO REDNESS NOTED IN GOKUL AREA. NYSTATIN APPLIED, pt C/O ITCHINESS. PILLOW CASES PLACED IN GOKUL AREA UNDER SKIN FOLDS. DISCUSSED WITH pt SAFE PLAN FOR DISCHARGE. pt UNDERSTANDING THAT SHE MUST AMBULATE INDEPENDENTLY TO RETURN HOME FOR SAFE DISCHARGE, STATES SHE MAY NEED TO GET A DAYRON LIFT "I HAVE HELP AT HOME". pt HAS CALL LIGHT IN REACH. NO ADDITIONAL REQUESTS AT THIS TIME.
--- NOTE | 2020-08-25 21:38 | NUR ---
SPO2 ALARMING. NC OUT OF pt NOSE, SPO2 87% ON RA. pt STATES "I KNOW MY OXYGEN IS OFF, I DID THAT ON PURPOSE SO YOU WOULD COME IN, I CAN'T FIND MY CALL LIGHT". CALL LIGHT GIVEN TO pt, WAS BY RIGHT SHOULDER. pt REQUESTING CHICKEN NOODLE SOUP, STATES "MY LEFT LEG IS STARTING TO CRAMP, THAT'S THE ONLY THING THAT FIXES IT."
--- NOTE | 2020-08-25 23:22 | NUR ---
CALL LIGHT ANSWERED. pt STATES "I NEED TO GET INTO THAT OTHER BED". REORIENTED THAT NO OTHER BED IN ROOM. CURTAIN OPEN FOR pt TO VIEW NURSES STATION. RESTING IN BED WITH CALL LIGHT IN REACH.
--- NOTE | 2020-08-26 00:37 | NUR ---
PT IS RESTING WITH EYES CLOSED, RR IS EVEN AND NONLABORED ON 5LNC ON CPOX AT 92%. CALL LIGHT IS CLOSE.
--- NOTE | 2020-08-26 02:42 | NUR ---
pt CALLED THE NURSES STATION USING HER CELLPHONE. "I NEED TO GO BACK TO MY ROOM 117 OR 127." THIS RN TO ROOM. SAT WITH pt FOR A WHILE AND TALKED. pt REPORTED FEELING "FOGGY" AND CONFUSED ABOUT SOME THINGS BUT DID KNOW BITS AND PIECES. PROVIDED A SNACK. LIGHTS ON. CURTAIN OPEN TO NURSES STATION. NO FURTHER REQUESTS AT THIS TIME. CALL LIGHT WITHIN REACH.
--- NOTE | 2020-08-26 04:05 | NUR ---
CALL LIGHT ON. pt REQUESTED PAIN MED FOR 12/05 HEADACHE. GIVEN (SEE MAR). NO FURTHER REQUESTS AT THIS TIME. CALL LIGHT WITHIN REACH.
--- NOTE | 2020-08-26 04:44 | NUR ---
PT IS RESTING WITH EYES CLOSED, RR IS EVEN AND NONLABORED WITH CPOX IN PLACE. CALL LIGHT IS CLOSE.
--- NOTE | 2020-08-26 05:51 | NUR ---
COMPLETED LAB DRAW VIA PICK AND SENT. PT DENIES NEEDS AT THIS TIME. CALL LIGHT IS CLOSE.
--- NOTE | 2020-08-26 07:22 | NUR ---
REPORT RECEIVED FROM ZARI CABRERA. PT RESTING IN BED, REPORTS "FEELING RESTLESS." PT STATES SHE WOULD LIKE TO GET UP TO THE CHAIR THIS MORNING, HOT PACKER'S NOTIFIED. BREAKFAST ORDER PLACED. PT REPORTS 12/05 "ANOYING" PAIN IN THE TOPS OF HER FEET AND RIGHT SHOULDER. PT DENIES NEED FOR PAIN MEDICATION AT THIS TIME. PT DENIES NAUSEA. BREAKFAST ORDER PLACED FOR PT. PT DENIES ADDITIONAL REQUESTS OR COMPLAINTS AT THIS TIME. CALL LIGHT WITHIN REACH.
--- NOTE | 2020-08-26 09:38 | NUR ---
MORNING ASSESSMENT AND MEDICAITONS DUE. PT RESTING IN BED AND FINISHED WITH BREAKFAST. PT REPORTS 4/10 SHOULDER PAIN AND "A LITTLE IN MY FEET IN SPOTS." PT DECLINES PAIN MEDICATION STATING "IT JUST MAKES ME MORE CONFUSED, I DON'T NEED IT YET." ASSESSEMENT DONE. LUNGS SOUNDS DEMINISHED IN BASES, DIFFICULT TO ASCULTATE RELATED TO OBESITY. PT ORIENTED TO ALL BUT STATES SHE FEELS "CONFUSED AND OFF." PT REPORTS FEELINGS OF "RESTLESSNESS." PT OFFERED ASSISTANCE UP TO CHAIR. DAYRON LIFT WITH 3 PERSON ASSIST UP TO CHAIR. LEGS PAINFUL IN PLACES WITH TOUCH AND TRANSFER. PT MAINTAINING O2 SATURATIONS FROM 89-94% ON ROOM AIR. NEW PULSE OXEMETRY STICKER IN PLACE. EDMA NOTED TO LOWER EXTREMITIES, SKIN MALFORMED WITH MULTIPLE BUBLES OF SKIN. LEGS RED, REDNESS WITHIN MARKED LINES. NYSTATIN APPLIED UNDER SKIN FOLDES. PT ASSISTED WITH MORNING CARES, ORAL CARE, AND WIG PLACEMENT PER PT PREFERENCE. I.S. USE DEMONSTRATED REACHING 750ML. CHAPALAN TO BEDSIDE TO VISIT WITH PT. PT DENIES ADDITIONAL REQUESTS OR COMPLAINTS. CALL LIGHT WITHIN REACH.
--- NOTE | 2020-08-26 10:47 | NUR ---
THIS RN TO ROOM TO CHECK ON PT. PT REMAINS UP TO CHAIR. PT ASSISSTED WITH POSITONING FEET ON A STOOL PER PTS REQUEST. HEEL PROTECTORS IN PLACE. PT CONTINUES TO REPORT 4/10 PAIN IN RIGHT SHOULDER AND FEET WITH MOVEMENT. PT STATES SHE WOULD LIKE TO HAVE A LIST OF HER MEDICATIONS INCLUDING "WHAT I TAKE IN THE MORNING, NOON AND NIGHT" BEFORE SHE IS DISCHARGED. VITALST AMILCAR. .PT DEMONSTRATES USE OF I.S. REACHING 750ML. CAN TO BEDSIDE. ASSISTING PT WITH WIG. NO ADDITIONAL REQUESTS OR COMPLAINTS. CALL LIGHT WITHIN REACH.
--- NOTE | 2020-08-26 10:53 | NUR ---
PT appeared alert and oriented. Recognized me as she has known me for many years. Asked appropriate and relevant questions. Responded appropriately to inquiries. Expressed desire to return home and concern for her dog. Expressed desire for increased social interactions upon her return home. Stated isolation has been "very hard" on both her and her dog.
--- NOTE | 2020-08-26 10:57 | NUR ---
CHF EDUCATION DONE WITH PT INCLUDING IMPORTANCE OF DAILY WEIGHT AND RED/YELLOW/GREEN ZONES OF HEART FAILURE. PT DEMONSTRATES UNDERSTANDING OF EDUCATION BY RECORDING WEIGHT AND STATING SHE FEELS SHE IS IN THE "GREEN" ZONE TODAY. FURTHER EDUCATION DONE WITH PT REGARDING HER CONFUSION AND NEED FOR OXYGEN. PT DEMONSTRATES UNDERSTANDING BY STATING SHE MUST BE IN THE "YELLOW" ZONE. PT ENCOURAGED TO CONTINUE RECORDING HER WEIGHT AND COLOR ZONE EVERY DAY. PT VERBALIZES UNDERSTANDING. PT STATES "I DON'T KNOW HOW TO DO ALL THIS AT HOME" BUT CONTINUES TO STATE "I WILL NEVER GO TO A LONGTERM, I'LL BE A PIT BULL IF THEY MAKE ME." PT DENIES ADDIITONAL REQUESTS OR COMPLAINTS. CALL LIGHT WITHIN REACH.
--- NOTE | 2020-08-26 11:20 | NUR ---
In to speak with Regine. Aids enter room, she is up in the chair and wanting to return to bed. She states she has to return to bed. Informed I can catch up with her later today or tomorrow.
--- NOTE | 2020-08-26 11:34 | NUR ---
PT CALL LIGHT ON. PT REQUESTS REPOSITIONING FOR FEET. FEET REMOVED FROM STOOL AND RECLINED SLIGHTLY. PT REPORTS FEELING COMFORTABLE. PTS FRIEND, JEWELL, HERE TO VISIT WITH PT. PT STATES SHE WILL STAY UP TO CHAIR UNTIL AFTER LUNCH AND THEN WOULD LIKE BACK TO BED. PT STATES SHE HAS NO ADDITIONAL REQUESTS OR COMPLAINTS AT THIS TIME. CALL LIGHT WITHIN REACH. PT VISITING WITH FRIEND.
--- NOTE | 2020-08-26 13:10 | NUR ---
PT CALL LIGHT ON. PT REQEUSTS ASSISTANCE BACK TO BED. DAYRON LIFT WITH 3 PERSON ASSIST BACK TO BED. BACK AND GLUTEAL AREA VISULAIZED. WITH NO CHANGES NOTED FROM PREVIOUS WOUNDS. AREA OF REDNESS NOTED. 1CM RAW AREA ON RIGHT GLUTEAL CLEFT UNCHANGED, PICTURES IN CHART. PT POSITIONED FOR COMFORT. BED RAILS UP. CALL LIGHT WITHIN REACH.
--- NOTE | 2020-08-26 14:40 | NUR ---
AFTERNOON ASSESSMENT DUE. PT RESTING IN BED WORKING WITH RESPIRATORY CARE PROGRAM DIRECTOR. PT REQUESTS ADDITIONAL NYSTATIN POWDER BE APPLIED UNDER PANNUS AND BREASTS, APPLIED REQUESTED. GOKUL AND CATHETER CARE DONE. ASSESSMENT DONE. LUNG SOUNDS CLEAR, BUT DEMINISHED IN THE BASES. O2 AT 93% ON 5L O2 BY NC. PT DEMONSTRATES USE OF I.S. REACHING 750ML. PT GENERALIZED REPORTS PAIN AT 5/10 ESPICIALLY IN HER LEGS. SEE MAR FOR MEDICATION GIVEN. PT REPORTS "FEELING BOARD AND RESTLESS." ACTIVITIES PROVIDED. PT ENCORUAGED TO USE EXERCISE BANDS AND STRENGTHING SQUEEZE BALL PROVIDED BY PHYSICAL THERAPY. NO ADDITIONAL REQUESTS OR COMPLAITNS. CALL LIGHT WITHIN REACH. BED RAILS UP.
--- NOTE | 2020-08-26 14:42 | NUR ---
PATIENT AWAKE IN BED. VITALS AND I&OS CHARTED. MOORE AND GARBAGE EMPTIED. CALL LIGHT IN REACH. POWDER APPLIED TO GOKUL AREA AND UNDER BREASTS.
--- NOTE | 2020-08-26 16:05 | NUR ---
THIS RN TO ROOM TO CHECK ON PT. PT WORKING WITH PHYSICAL THERAPY. PT UP TO SIT ON THE EDGE OF THE BED WITH 2 PERSON ASSIST. ZARI AVENDAÑO STATES SHE GAVE LASIX AND POTSSIUM BUT DID NOT HEPARIN LOCK PICC LINE. PICC LINE NOW HEPAIN LOCKED PE RPROTOCOL. PT REPORTS 4/10 PAIN THAT IS "JUST FINE." PT DENEIS NEED FOR PAIN MEDICAITON. PT CONTINUES WORKING WITH PHYSICAL THERAPY. CALL LIGHT WITHIN REACH. NO ADDITIONAL REQUESTS OR COMPLAINTS AT THIS TIME.
--- NOTE | 2020-08-26 17:21 | NUR ---
Called nurses station and spoke with RN, requested she notify Regine I will need to see her tomorrow. I have run out of hours for today.
--- NOTE | 2020-08-26 17:31 | NUR ---
Rounding on this pt. Pt in bed, sitting upright, having dinner. Pt alert and oriented and pleasant upon greeting. Pt denies pain and nausea at this time. Pt reports that she is enjoying dinner and has no further needs at this time. Pt in bed, table and call light within reach.
--- NOTE | 2020-08-26 18:30 | NUR ---
THIS RN TO ROOM TO CHECK ON PT. PT WORKING WITH ACTIVITIES OFFICER FOR BED BATH. SOCKS REMOVED FROM FEET PER PT PREFERENCE. PT REPORTS 3/10 GENERALIZED PAIN AT THIS TIME AND DENIES NEED FOR PAIN MEDICATION. PT DENIES NAUSEA. PT STATES SHE HAS NO ADDITONAL REQUESTS OR COMPLAITS AT THIS TIME. CALL LIGHT WITHIN REACH.
--- NOTE | 2020-08-26 19:00 | NUR ---
PT HERE FOR CHF EXACERBATION. DAYRON LIFT UP TO CHAIR. PT TOELRATING 2 GRAM SODIUM DIET AND 1800ML FLUID RESTICTION WITH GOOD APPITTIE. PT REMAINS DISORINETED AT TIMES, ANSWERING QUESTIONS APPROPRIATLY. PT REMAINS ON 5L O2 BY NC WITH CONTINOUS PULSE OX SHOWING O2 SATURATIONS 89-92%. REDNESS TO LOWER LEGS AND CELLULITIS REMAINS WITHIN MARKED LINES. PRN PERCOCET GIVEN X1 FOR GENERALIZED CHRONIC PAIN. PICC LINE IN PLACE, HEPARIN LOCKED. MOORE CATHETER IN PLACE, QUANTITY SUFFICIENT. PT USES CALL LIGHT APPROPRIATLY.
--- NOTE | 2020-08-26 19:02 | NUR ---
PATIENT AWAKE IN BED, USING THERAPY ARM BANDS. VITALS AND I&OS CHARTED. MOORE EMPTIED. HAIR SHAMPOOED AND RINSED WHILE IN BED, PER PATIENT REQUEST. LOW B/P NOTED AND REPORTED TO RN. CALL LIGHT IN REACH, NO OTHER NEEDS AT THIS TIME
--- NOTE | 2020-08-26 19:15 | NUR ---
BEDSIDE REPORT RECEIVED FROM ZARI CORREA. pt AWAKE, RESTING IN BED. REQUESTING FRESH WATER. ASKING QUESTIONS "WHAT WAS MY ADMITTING DIAGNOSIS". EDUCATION PROVIDED. pt HAS CALL LIGHT IN REACH.
--- NOTE | 2020-08-26 21:12 | NUR ---
pt ASSESSMENT COMPLETE. SCHEDULED MEDICATIONS ADMINISTERED. pt RATES PAIN 4-5/10, REQUESTING PRN PAIN MEDICATION. PRN AND SCHEDULED MEDICATIONS ADMINISTERED. MOORE CARE COMPLETE. VSS. MOORE EMPTIED. pt IS ORIENTED TO ALL AT THIS TIME, FORGETFUL. pt REORIENTS EASILY. ALLOTTED ICE WATER IN REACH. CALL LIGHT IN REACH.
--- NOTE | 2020-08-26 22:41 | NUR ---
CALL LIGHT ANSWERED. pt C/O 04/06 LEFT KNEE PAIN. "I'M GOING TO NEED THE STRONGER PAIN MEDICATION". PRN MEDICATION ADMINISTERED, ICE PACKS PLACED ON LEFT KNEE. LOW SODIUM CHICKEN NOODLE SOUP PROVIDED. MOORE DRAINING CLEAR YELLOW URINE. CALL LIGHT IN REACH.
--- NOTE | 2020-08-27 | NUR ---
CHECKED ON pt. RESTING IN BED WITH EYES CLOSED, BREATHING UNLABORED. SPO2 94% ON 5L OXYGEN BY NC. CALL LIGHT IN REACH.
--- NOTE | 2020-08-27 00:30 | NUR ---
pt AWAKE AND RESTING IN BED, NO DISTRESS NOTED AND pt APPEARS COMFORTABLE AT THIS TIME. NO NEEDS VERBALIZED. CALL LIGHT IN REACH.
--- NOTE | 2020-08-27 00:50 | NUR ---
pt CALLING OUT "HELP". pt CONFUSED STATES "WHERE AM I, WHAT'S GOING ON". "I NEED TO GET UP, BRING ME MY WALKER". REORIENTED TO SITUATION, LOCATION, PHYSICAL ABILITIES AT THIS TIME. OFFICE RECEPTIONIST NOW IN ROOM VISITING WITH pt.
--- NOTE | 2020-08-27 01:26 | NUR ---
PATIENT WAVED ME INTO HER ROOM AND SAID "SOMETING IS JUST NOT RIGHT IN HERE". I CHATTED WITH HER TO HELP HER CALM DOWN SHE SAID SHE FELT LIKE THERE WAS SOMETHING UNDER BED AND SHE WAS "PANICED". 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 AFTER ABOUT 5 MIN IN HER ROOM I WARMED HER SOUP AND PUT ICE CHIPS IN HER WATER. CALL LIGHT IN REACH. NO OTHER NEEDS AT THIS TIME.
--- NOTE | 2020-08-27 03:13 | NUR ---
CALL LIGHT ANSWERED. pt C/O 12/05 PAIN IN LEFT KNEE. PRN TYLENOL ADMINISTERED FOR PAIN. LEFT LEG REPOSITIONED, HEEL PROTECTOR IN PLACE, YELLOW DRAINAGE NOTED FROM LEFT LEG. ASSESSMENT COMPLETE. pt GIVEN ALLOTTED ICE WATER. CALL LIGHT IN REACH. pt STATES "I THINK I'LL TRY TO GET SOME SLEEP".
--- NOTE | 2020-08-27 03:58 | NUR ---
pt IS RESTING IN BED WITH EYES CLOSED. BREATHING EQUAL AND UNLABORED. 5L OXYGEN BY NC IN PLACE, SPO2 WNL. CALL LIGHT IN REACH.
--- NOTE | 2020-08-27 05:05 | NUR ---
CALL LIGHT ANSWERED. pt ASSISTED TO REPOSITION IN BED. DAILY WEIGHT 155.7 WITH BED. pt C/O 7-04/06 PAIN IN LEGS, "MOSTLY LEFT KNEE". PRN PAIN MEDICATION ADMINISTERED. ICE PACKS PLACED ON LEFT KNEE BY REQUEST. BED BACK IN TURN MODE. LABS DRAWN FROM PICC LINE WNL. VS COMPLETE, MOORE EMPTIED. pt IS ORIENTED AT THIS TIME TO ALL. SPO2 WNL ON 5L OXYGEN BY NC. CALL LIGHT IN REACH. BED TURNED FOR pt VIEW OF NURSES STATION.
--- NOTE | 2020-08-27 05:08 | NUR ---
pt RESTED OFF AND ON THIS SHIFT. PRN PAIN MEDICATION FOR PAIN IN LOWER LEGS, LEFT KNEE. PICC LINE WITH GOOD BLOOD RETURN RIGHT ARM. SCHEDULED LASIX ADMINISTERED X 1 ORDERED. QS URINE OUTPUT FROM MOORE, MOORE CARE COMPLETE THIS SHIFT. MOMENTS OF CONFUSION UPON AWAKENING, pt FORGETFUL AT TIMES. REORIENTATION PROVIDED. TOLERATING 1800 ML FLUID RESTRICTION.
--- NOTE | 2020-08-27 07:11 | NUR ---
PATIENT REQUESTED ICE PACKS FOR HER RIGHT LEG. ICE PACKS PROVIDED. LEGS READJUSTED IN BED. PATIENT STATED TO ME "THIS IS A TIME IN MY LIFE WHERE I'M FEELING VERY SCARED" AND "I'M WORRIED ABOUT MY HEALTH AND MY SAFETY IF I GO INTO A CARE FACILITY". I TOLD PATIENT TO "ADVOCATE FOR YOURSELF AND BE BRAVE". CALL LIGHT IN REACH. NO OTHER NEEDS AT THIS TIME.
--- NOTE | 2020-08-27 07:14 | NUR ---
REPORT RECEIVED FROM ZARI LOPEZ. PT RESTING IN BED, AWAKE AND OREINTED TO SELF PLACE AND EVENTS. PT REPORTS SOME CONFUSION AND RECALLS "FEELING CONFUSED" LAST NIGHT. PT REPORTS 5/10 PAIN THAT IS "TOLERABLE" AT THIS TIME. PT DENIES NAUEA. FRESH ICE PACKS PROVIDED FOR LEFT KNEE PER PT REQUEST. NO ADDITIONAL REQUSTS OR COMPLAINTS AT THIS TIME. CALL LIGHT WITHIN REACH.
--- NOTE | 2020-08-27 09:30 | NUR ---
Met with Regine with friend/family Colin and paid caregiver Jessie. Jessie was Regine's neighbor since childhood. FAmily/CG wanted to meet with patient as she is stating they will be able to care for her around the clock. They state this is not true they will both be gone 3-4 days per week and cannot stay with pt. Meeting was very emotional with Colin and Jessie stating Regine needs to go to a SNF until she can stand/walk again. They are no longer able to care for her at home. Luke and Marla from both discussed with Regine she is unable to stand or walk and this is documented by PT. She cont. to say she can walk and was walking at home. She does eventually acknowledge she is unable to stand at this time. She is very disappointed and diheartened as she feels if she goes to the SNF there will be covid and she will end of staying 3 years. 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 We also assured her, she is not a captive and can leave the SNF at any time. Pt does agree to SNF after visit. Chart faxed to [facility], all progress notes, all meds since admit, covid test, PT/OT eval and notes. I spoke with Dr. Agustin and pt can discharge tomorrow if [facility] accepts.
--- NOTE | 2020-08-27 09:35 | NUR ---
MORNING ASSESSMENT AND MEDICATION DUE. PT RESTING IN BED. PT CONTINUES TO REPORT PAIN IN LEFT KNEE. LET AND KNEE REPOSITIONED, BRACED WITH PILLOWS. PT OFFERED TIME UP TO THE CHAIR FOR REPOSITIONING, PT DECLINES. MEDICATIONS GIVEN (SEE MAR). ASSESSMENT DONE. PT REPORTS SHE TRIED THE BED ROSE AND WAS UNABLE TO HAVE BOWEL MOVMENT. BOWEL MEDICATIONS OFFERED. PT DECLINES STATING "I WON'T DO THOSE MEDICTIONS." LUNG SOUNDS CLEAR TO DEMINISHED. HYPOACTIVE BOWEL TONES NOTED. LEGS REMAIN EDEMETOUS, REDNESS REMAIN WITHIN MARKED LINES. UNABLE TO VISUALIZE GLUTEAL AREA OR BACK, PT DECLINES REPOSITIONING OR MOVEMENT AT THIS TIME. PT REMAINS ON 5 LITERS O2 BY [place]. O2 AT 95% ON ROOM AIR. CARE CONFERENCE STARTED WITH TRUST VAULT CLERK AND PTS FRIENDS/FAMILY FROM HOME. WILL ATTEMT TO WEAN O2 AFTER CARE CONFERENCE. PT STATES "I WILL NOT GO TO A USP." PT CONFUSED AT TIMES STATING "WHY WERE THEY TALKED TO BEFORE I WAS TALKED TO ABOUT ALL THIS." PT HAS TROUBLE RECALLING EVENTS AND CONVERSATIONS OF THE PAST FEW DAYS. PT STATES "I CAN STAND ON MY OWN." AND ALSO STATES "I KNOW, I CAN'T STAND ON MY OWN." CARE CONFERENCE ONGOING. CALL [facility] WITHIN REACH. BED RAILS UP.
--- NOTE | 2020-08-27 10:37 | NUR ---
ATTENDED CARE CONFERENCE WITH PATIENT, HER FAMILY MEMBERS AND TRAP SETTER. DISCUSSED WAS PLAN FOR DISCHARGE. WHEN ASKED BY PATIENT WHAT MY OPINION WAS I STATED THAT I FEEL SHE IS UNSAFE TO RETURN HOME WITH CAREGIVERS AT THIS TIME. PATIENT IS UNABLE TO GET SELF UPRIGHT, STAND OR TRANSFER AT THIS TIME. SHE IS BEDRIDDEN AND NEEDS DAYRON ASSIST BY TWO PEOPLE FOR ANY TRANSFERS OR CARE AND SO WOULD BE BETTER SERVED BY REHAB STAY TO CONTINUE THERAPY AND STRENTHENING WHILE SHE RECOVERS SLOWLY FROM ILLNESS. I STRESSED OF COURSE THIS IS HER DECISION BUT AT MINIMUM SHE WOULD NEED TWO CAREGIVERS OTC AT HOME AND IN [facility] ARE[facility] THIS IS COSTLY AND OFTEN HARD TO FIND. I STRESSED THAT A PROFESSIONAL I RECOMMEND SNF REHAB STAY AT DISCHARGE.
--- NOTE | 2020-08-27 11:02 | NUR ---
THIS RN TO ROOM TO CHECK ON PT. PT REPORTS FEELING "UNSETTLED" AFTER CARE CONFERENCE. PT STATES "i DIDN'T HAVE A CLUE WHO THOSE PEOPLE WERE. i MEAN I KNEW MY FRIENDS, BUT WHO WERE THE OTHER TWO?" EXPLAINED TO PT THAT CASE MANAGEMENT WORKERS WERE AT BEDSIDE DURING CARE CONFERENCE. PT STATES "THEY MAKE ME FEEL SO STUPID THAT THEY HAVE TO BRING PEOPLE IN AND DIDN'T JUST GIVE ME THE FACTS." THERAPUTIC COMMUNICATION DONE WITH PT. PT STATES SHE WILL BE GOING TO [place] FOR 2 WEEKS "FOR THERAPY." PT CONTINUES TO REOPRT 8/10 PAIN IN LEFT KNEE. PT REFUSES REPOSITIONING OR TIME UP TO CHAIR. ICE PACKS PROVIDED. PTS FRIEND ARRIVED. PT DENIES ADDITIONAL REQUESTS OR COMLAINTS AND STATES SHE WOULD LIKE TO VISIT WITH HER FRIEND. PULSE OXEMETRY STICKER NOT READING, NEW STICKER APPLIED. O2 AT 93% ON 5L O2 BY [place]. NO ADDITIONAL REQUESTS OR COMPLAINTS. CALL LIGHT WITHIN REACH. BED RAILS UP.
--- NOTE | 2020-08-27 11:21 | NUR ---
THIS RN TO ROOM TO CHECK ON PT. PT CONTINUES VISITING WITH FRIEND. PT STATES SHE HAS NO REQUESTS OR COMPLAINTS AT THIS TIME. CALL LIGHT WITHIN REACH. BED RAILS UP.
--- NOTE | 2020-08-27 11:44 | NUR ---
PATIENT ASKED OT, AFSANEH, IF SHE COULD HAVE A LIST OF FOODS TO EAT AND FOODS NOT TO EAT FOR CHF. AFSANEH ALERTED ME OF PATIENT'S WISHES SO I BROUGHT HER A LIST OF LOW-SODIUM SNACK IDEAS AND A PRINTOUT OUT HEART FAILURE NUTRITION THERAPY THAT INCLUDES A LIST OF RECOMMENDED FOODS AND NOT RECOMMENDED FOODS. PATIENT ASKED HOW MUCH SODIUM SHE IS ALLOWED PER DAY AND I SAID [id number] MG. SHE FIGURED OUT THAT WOULD BE 600 MG PER MEAL WITH 200 MG LEFT FOR SNACKS. I REMINDED HER THAT FRUITS AND VEGGIES DON'T CONTAIN SODIUM EXCEPT IF IT'S CANNED VEGGIES, THEN SOME HAVE QUITE A BIT. ALSO SOME FROZEN VEGGIES HAVE A SAUCE ON THEM WHICH CONTRIBUTES SOME SODIUM. 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 SHE APPRECIATED MY HELP. MY NAME AND OFFICE # ARE ON THE HANDOUT SO SHE CAN CALL ME IF SHE HAS MORE QUESTIONS.
--- NOTE | 2020-08-27 12:08 | NUR ---
PT CALL LIGHT ON. PT REQUESTS ASSISTANCE UP TO CHAIR. 4 PERSON ASSIST WITH DAYRON LIFT UP TO CHAIR. PT REPORTS 8/10 PAIN IN LEFT KNEE PRIOR TO MOVEMENT. PT POSITIONED FOR COMFORT IN CHAIR. AFTER REPOSITIONING PT REPORTS 5/10 PAIN IN LEFT KNEE THAT IS "MUCH BETTER." ICE PACKS PROVIDED. LINENS CHANGED BY FOAM CHARGER'S. PULSE OX AT 94% ON ROOM AIR. NO ADDITIONAL REQUSTS OR COMPLAINTS. CALL LIGHT WITHIN REACH. PT WATCHING TV.
--- NOTE | 2020-08-27 12:35 | NUR ---
H&P, progress notes, med list since arrival, covid test, PT/OT eval and notes all faxed to [facility].
--- NOTE | 2020-08-27 13:10 | NUR ---
AFTERNOON ASSESSMENT AND MEDICATION DUE. PT REMAINS UP TO CHAIR. PT REPORTS 6/10 ACHING PAIN IN LEFT LEG AND REQUESTS PAIN MEDICATION. SEE MAR FOR HEPARIN REMOVED FORM PURPLE LUMEN OF PICC LINE. MEDICATION GIVEN THROUGH PURPLE LUMEN OF PICC LINE. BRISK BLOOD RETURN NOTED. LINE FLUSHED AND HEPARIN LOCKED PER PROTOCOL. PT CONTINUES TO BE DISORIENTED TO EVENTS. PT REPEATS QUESTIONS THAT HAVE BEEN ANSKED AND EXPLAINED BEFORE SUCH "WHY AM I HERE?" AND "WHO DID I SEE OUT THERE IN THE SLAUGHTER, WERE THEY KIDS?" PT REORIETED TO EVENTS. PT REMAINS UP TO CHAIR. LEFT LEG REPOSITIONED PER PT REQUEST. PT REPORTS ITCHING TO BACK OF LEFT LEG THAT SHE STATES "IT'S NEW AND WORRIES ME." CHUX PLACED UNDER PTS LEFT LEG. BLANEKTS STRAIGHTENED. SMALL AMOUNT OF LEAKING NOTED FROM BACK OF LEFT LET. PT WEANED TO 4L O2 BY NC. PT MAINTAINING O2 SATURATIONS ABOVE 90% ON 4L O2 BY NC. I.S. USE DEMONSTRATED REACHING 650ML. PT REPORTS PASSING GAS. PT CONTINEUS TO REFUSE BOWEL MEDICATION. AREA UNDER PANNUS, GROIN AND BREASTS MOIST. ADDITIONAL NYSTATIN APPLIED. NO ADDITIONAL REQUESTS OR COMPLAINTS. CALL LIGHT WITHIN REACH.
--- NOTE | 2020-08-27 16:04 | NUR ---
THIS RN TO ROOM TO CHECK ON PT. PT UP TO CHAIR. PT REPORTS 4/10 ACHING PAIN IN LEFT LEG AND KNEE. PT STATES PAIN IS TOLERABLE AT THIS TIME AND DENIES NEED FOR PAIN MEDICATION. PT DENIES NAUSEA. PT DENIES ADDITIONAL REQUESTS OR COMPLAITNS AT THIS TIME. CALL LIGHT WITHIN REACH.
--- NOTE | 2020-08-27 17:00 | NUR ---
I spoke with Silva Marroquin from [facility]. She states they are unable to get auth at this time from [employer]. She will attempt to get auth tomorrow. We discussed it is not likely as tomorrow is New Years, followed by the weekend. Dr Agustin updated and he states he will cont. to diures this patient. [facility] can send on Monday, if no auth by tomorrow.
--- NOTE | 2020-08-27 17:46 | NUR ---
PT HERE FOR CHF EXACERBATION. PT CONTINUES TO BE UNABLE TO STAND. DAYRON LIFT UP TO CHAIR THIS SHFIT WITH GOOD RELIEF OF PAIN TO LEFT LEG AND KNEE. PT TOELRATING 2 GRAM SODIUM DIET, TABLE MACHINE OPERATOR CONSUTATION THIS SHIFT. PT INTERESTED IN LOW SODIUM SNACKS, ADDITIONAL EDUCATION DONE BY THIS RN. IV LASIX GIVEN X2 THIS SHIFT WITH GOOD EFFECT, PT TOELRATING 1800ML FLUID RESTRICTION. PT WEANED TO 4L O2 BY NC WITH O2 SATURATIONS REMAINING ABOVE 90%. SWELLING AND CELLULITIS CONTINUES TO BILATERAL LOWER EXTREMITIES WITHIN MARKED AREAS. PICC LINE IN PLACE WITH GOOD BLOOD RETUR, HEPARIN LOCKED. CARE CONFERENCE THIS SHIFT, PT AGREES TO GO TO [facility] FOR A FEW WEEKS OF REHAB. FOELY CATHETER IN PLACE, QUANTITY SUFFICENT. PT CONTINUES TO BE FORGETFUL BUT RESPONDS APPROPRITLY TO QUESITONS THROUGHOUT SHIFT. PT USES CALL LIGHT APPROPRIATLY.
--- NOTE | 2020-08-27 19:20 | NUR ---
SHIFT REPORT RECEIVED FROM JUDITH CORREA AT BEDSIDE. pt AWAKE AND RESTING IN BED, DENIES NEDS AT THIS TIME. CALL LIGHT IN REACH.
--- NOTE | 2020-08-27 21:15 | NUR ---
IN ROOM TO GET VITALS, GET PT READY TO 3PA DAYRON TO BED, RN IN TO PROVIDE MEDS, SEAL MIXER IN RM NOW TO ASST RN AND I, GOT PT IN THE BED NOW, CATH CARE AT THIS TIME, EMPTIED MOORE, NO FURTHER NEEDS AT THIS TIME
--- NOTE | 2020-08-27 21:17 | NUR ---
ASSESSMENT COMPLETE, SCHEDULED MEDS GIVEN (SEE EMAR). SCHEDULED LOPRESSOR HELD PER PARAMTERS, AWARE. pt AWARES ORINETED AT THIS TIME, BUT FORGETFUL. DAYRON LIFT TO BED WITH HELP FROM [employer] AND SHAHEED NÚÑEZ. ATTEMPTED TO ASSESS COCCYX, UNABLE D/T pt's WEIGHT, pt'S INABILITY TO ASSIST WITH TURN, AND LACK OF ADDITIONAL STAFF AT THIS TIME. rn ONLY GOT A PARTIAL VIEW, pt BOOSTED IN BED. GOKUL CARE COMPELTED BY SHAHEED, NYSTATIN APPLIED. 4LNC IN PLACE, CPOX ALSO IN PLACE. O2 SAT WNL. WILL MONITOR. CALL LIGHT IN REACH.
--- NOTE | 2020-08-27 21:30 | NUR ---
ASSISTED PRIMARY ZARI BANDA AND SHAHEED NÚÑEZ WITH MOVING THE PT FROM CHAIR TO BED VIA DAYRON. PT TOLERATED WELL.
--- NOTE | 2020-08-27 23:29 | NUR ---
adrian emptied, 100ccs out. 200ccs on I&O board, undocumented. 300ccs documented at this time.
--- NOTE | 2020-08-28 00:10 | NUR ---
PT'S CPOX WAS ALARMING AND WOKE HER UP. INCREASED O2 TO 5LNC FROM 4LNC. SHE IS NOW AT 90% O2 SAT. CALL LIGHT IS CLOSE.
--- NOTE | 2020-08-28 00:50 | NUR ---
PT IS NOW ON 5L OXYMASK HER SATS WERE DROPPING ON 5LNC TO 87%. SHE IS NOW ON 91% ON CPOX. SET TURN ASSIST TO HAVE PT GO TO RIGHT SIDE AT THIS TIME PER PT REQUEST. SHE DENIES FURTHER NEEDS AT THIS TIME. CALL LIGHT IS CLOSE.
--- NOTE | 2020-08-28 00:52 | NUR ---
IN TO ASST PT WITH TURNING, PT C/O NEEDING TO GET OFF LEFT SIDE, NO FURHTER NEEDS AT THIS TIME
--- NOTE | 2020-08-28 01:48 | NUR ---
pt RESTING QUIETLY IN BED WITH EYES CLOSED. RR WNL, 5LOXYMASK IN PLACE. O2 SAT MID 90'S, HR 50. NO DISTRESS NOTED, CALL LIGHT IN REACH.
--- NOTE | 2020-08-28 02:00 | NUR ---
O2 SAT MID 80'S, OXYMASK PULLED OFF BY pt, OXYMASK BACK IN PLACE AND O2 SATS QUICKLY RETURNED WNL. CALL LIGHT IN REACH.
--- NOTE | 2020-08-28 02:16 | NUR ---
IN ROOM, CPOX ALARMING, pt REMOVED MASK. O2 SAT 84%, pt ENCOURAGED TO PUT MASK BACK IN PLACE, pt STATES, "IT SMELLS, i'LL PUT IT BACK ON IN A MINUTE". WHEN EDUCATED ON IMPORTANCE TO LEAVE MASK IN PLACE, pt STATES, "MY OXYGEN IS FINE, IT'S NOT GOING ANYWHERE". 5LOXYMASK BACK IN PLACE, O2 SATS MAINTAINING AT LOW 90'S. CALL LIGHT IN REACH.
--- NOTE | 2020-08-28 02:37 | NUR ---
PT REMOVED O2, OXYMASK IS BACK IN PLACE. PT REPOSTIONED OFF R SIDE WITH BED CONTROLS AND IS ON REPOSITIONING Q30MIN. PT DENIES FURTHER NEEDS, CALL LIGHT IS CLOSE.
--- NOTE | 2020-08-28 02:57 | NUR ---
CAUGHT PT WITH OXYMASK OFF, CPOX ALARMING, INFORMING PT THAT IT IS IMPORTANT TO KEEP O2 LVL UP, NO FURTHER NEEDS AT THIS TIME
--- NOTE | 2020-08-28 05:16 | NUR ---
pt reposition with robert sling with assistance of SHAHEED Gentile, VS and I&Os complete. nothing further needed at this time.
--- NOTE | 2020-08-28 06:44 | NUR ---
MESSAGE SENT TO DR GUILLERMO REGARDING PT'S CONCERN OF CONSTIPATION.
--- NOTE | 2020-08-28 07:40 | NUR ---
0722: REPORT RECEIVED FROM SOLO HAMEED. PT SLEEPING, CALL LEPE WITHIN REACH, SAT 90%.
--- NOTE | 2020-08-28 09:46 | NUR ---
PT DENIES ANY PAIN OR SOB AT THIS TIME. PT NOW EATING HER BREAKFAST. PT STATES SHE FEELS THAT SHE IS "GETTING STRONGER" AND THE EDEMA AND REDNESS OF HER LOWER LEGS LYMPH EDEMA IS "IMPROVING". SEE ASSESSMENT.
--- NOTE | 2020-08-28 11:16 | NUR ---
Chidi was incont of stool and was cleaned up and repositioned in bed. Chidi states she had pain "everywhere" with turning. Regine states that the pain is almost all gone as soon as we were finished turning her. Her bed is on an automatic rotation at this time. Regine refused to be hoyered to her chair at this time.
--- NOTE | 2020-08-28 13:19 | NUR ---
PT RESTING IN HER BED WHICH IS REPOSITIONING HER FREQUENTLY. SHE STATES SHE HAS NO PAIN OR SOB AT THIS TIME, SAT ON 5L IS 91%. SEE ASSESSMENT.
--- NOTE | 2020-08-28 13:26 | NUR ---
SAMANTHA AND THIS RN HAD A DISCUSSION IN REGARDS TO PLACEMENT RELATED TO HER SAFETY AND NEEDS. PT STATES SHE UNDERSTANDS THE NEED FOR THIS BUT IS UNSURE OF HOW LONG SHE WILL STAY AT A [facility] AND IS TRYING TO FIGURE OUT TO GET HOME. PT STATES SHE HAS BEEN HAVING THIS DISCUSSION WITH THE DC MOCK UP BUILDER WELL.
--- NOTE | 2020-08-28 15:44 | NUR ---
Pt resting and watching tv and she denies any complaints or needs at this time. Call villarreal within reach.
--- NOTE | 2020-08-28 16:00 | NUR ---
Pt declined to be moved and repositioned at this time and she states she has not had another BM. Pt is being repositioned frequently by her bed however.
--- NOTE | 2020-08-28 21:55 | NUR ---
Awake, O2 5L NC/Oxymask, CPOX in place fluctuates between 87-92%, PICC line RAC patent. f/c patent, multiple red bruised areas arms healing, LE elevated L open area at ankle LE w yellow drainage elevated, skin issues LE w/o changes. was Incontinent of bowel earlier, very anxious, reassured. tolerating fluid limit 1800cc/24hr. medicated with Tylenol 500mg po c/o knee pain. hob elevated. call light at bedside, on bariatric bed
--- NOTE | 2020-08-29 00:45 | NUR ---
RESATING, O2 5L OXYMASK/CPOX IN PLACE, F/C PATENT. IN BARIATRIC BED. CALM, EYES CLOSED
--- NOTE | 2020-08-29 01:39 | NUR ---
OXYMADK 5l O2 IN PLACE, CPOX AT BEDSIDE 94%, C/O KNEES AND GENERALIZED BACK PAIN, MEDICATED WITH OXYCODONE/APAP 1 TAB. IN BARIATRIC BED, NO C/O N/V, F/C PATENT, TOLERATING LIQUIDS, NO N/V
--- NOTE | 2020-08-29 05:17 | NUR ---
PT HAS SLEPT OFF AND ON, ANXIOUS, EASILY REDIRECTABLE. ON 5L OXYMASK, TAKES OFF AND ON/ BACK IN FACE AT THIS TIME, CPOX AT BEDSIDE, SATS 94%, NO SOB. NYASTATIN TO REDNESS BETWEEN ABD FOLDS AND UNDER BREAST AND GOKUL AREAA. F/C PATENT. WAS INCONTINENT OF BOWELS AT BEGINING OF SHIFT, SKIN CARFE DONE, REDNESS GOKUL AREA PRESENT. BRUISING ND FRAGILE SKIN OF ARMS AND LEGS PRESENT. LYMPHEDEMA LE PRESENT, OPEN AREA L ANKLE DRAINING YELLOW DISCHARGE, NO ODOR. ELEVATED. HAS BEEN MEDICATED WITH TYLENOL AND OXYCODONE/APAP PER KNEES AND GENERALIZED PAIN, EFFECTIVE. TOLERATING FLUIDS RESTRICTION WELL.
--- NOTE | 2020-08-29 07:45 | NUR ---
this rn received report from shemar alfaro. pt resting with cpox in place and oxymask going at 5l.
--- NOTE | 2020-08-29 09:28 | NUR ---
THIS RN IN PTS ROOM TO GIVE PT HER MORING MEDS AND DO MORNING ASSESSMENT. PT STATES THAT SHE IS DOING GOOD TODAY AND ASKS WHAT THE PLAN IS, THIS RN DISCUSSED WITH PT ABOUT HER HANGING OUT IN THE HOSPITAL UNTIL MONDAY. PT AND RN DISCUSED AOBUT PT GOING TO [place] ON MONDAY. PT STATES UNDERSTANDING THE NEED TO KEEP HER OXYGEN ON
--- NOTE | 2020-08-29 13:05 | NUR ---
PATIENT CALLED AND ASKED TO HAVE BLOOD PRESSURE TAKEN BECASUE SHE FELT DROWSY, BLOOD PRESSURE TAKEN AND ALL VITALS ARE FINE. PATIENT ASKING FOR PAIN MEDS, RN NOTIFIED. FRESH WATER GIVEN. CALL LIGHT IN REACH. NO FURTHER NEEDS AT THIS TIME.
--- NOTE | 2020-08-29 18:31 | NUR ---
PATIENT IN BED WATCHING TV. FRESH WATER GIVEN. CALL LIGHT IN REACH. NO FURTHER NEEDS AT THIS TIME.
--- NOTE | 2020-08-29 21:28 | NUR ---
CUSHION ASSEMBLERZARI CHI NOTE. PT UTILIZES CALL LIGHT, REQUESTS TO GET BOOSTED IN BED. INFORMED PT THAT WE WILL USE THE DAYRON FOR BOOST. SHE ASKS IF WE CAN DO IT MANUALLY. INSTRUCTED PT THAT IT WOULD BE SAFEST WITH MECHANICAL LIFT. PT STATES UNDERSTANDNING, "I JUST HATE THAT THING." PT ROLLED SIDE TO SIDE AND SLING STRAIGHTENED. PT REQUESTS THAT BED BE TURNED INTO CHAIR AFTER BOOSTED UP, STATES THAT SHE IS COMFORTABLE IN THAT POSITION. PT REQUESTS HEAD SCARF BE REPLACED. COMPUTER ARCHITECT AT BEDSIDE FOR VS. PT DENIES FURTHER NEEDS FROM THIS PROMOTIONS ASSOCIATE. CALL LIGHT IN REACH. WHITE BOARD UPDATED.
--- NOTE | 2020-08-29 21:29 | NUR ---
IN RM TO 3PA DAYRON BOOST PT UP IN BED, GOT VITALS, NO FURTHER NEEDS AT THIS TIME
--- NOTE | 2020-08-29 22:34 | NUR ---
5L NC, CPOX in place, sats 89-91%, very anxious, has required reassured multiple times, semieffective, Repositoned via robert lift and bariatric bed. f/c patent,, edema and redness of LE w/o changes elevated, L heel area with yellow moderate amount of drainage.strong smell, red areas between abd folds Nystatin powder to areas. had a bm at begining of shift. skin care done. R AC PICC line patent. c/o generalized knees and back pain, medicated with Tylenol 500mg po. 1st dose of sinemet given as per new orders per restless leg. tolerting fluid restriction.
--- NOTE | 2020-08-29 23:35 | NUR ---
PT INCONTINENT OF BOWEL, SKIN CARE, BARRIER CREAM, F/C CARE, NYASTATIN REAPPLIED TO FOLDS. OPEN ATTENDS IN PLACE. SAFETY REASSURED, VERY ANXIOUS, ON BARIATRIC BED. EFFORTS PRAISED AFTERWARDS. CALMER, ON BARIATRIC BED, 5LNC
--- NOTE | 2020-08-30 02:50 | NUR ---
C/O PAIN, MEDICATED WITH 1 PERCOCET, O2 BACK ON CPOX IN PLACE. PT ON BARIATRIC BED.
--- NOTE | 2020-08-30 06:14 | NUR ---
PT CURRENTLY RESTING, O2 5LNC IN PLACE, CPOX IN PLACE, DESATS TO 86-88%, WHEN SLEEPING/NAPPING, MOUTH BREATHER. PICC LINE RAC INTACT, F/C PATENT, DRAINING QS. WAS INCONTINENT OF BOWELX2 THIS SHIFT, GOKUL CARE AND BARRIER CREAM APPLIED, REQUIRES 3-4 PEOPLE, REPOSIONED IN BED/BARIATRIC BED. LEGS CELLULITIS IMPROVING, LYMPHEDEMA OF LE W/O CHANGE. MEDICATED WITH TYLENOL AND PERCOCET X1 EACH C/O KNEES AND BACK PAIN. EFFECTIVE. VERY ANXIOUS, REQUIRES MULTIPLE REASSURANCES, PRAISED FOR EFFORTS. TOLERATING FLUID RESTRICTIONS. USES CALL LIGHT. NO EMESIS. DAYRON LIFT
--- NOTE | 2020-08-30 06:35 | NUR ---
IN TO GET VITALS, WEIGHT PT, NO FURTHER NEEDS AT THIS TIME, PT IS RESTING
--- NOTE | 2020-08-30 07:33 | NUR ---
this rn received report from shemar alfaro. pt appears to be resting with repirations noted and cpox in place
--- NOTE | 2020-08-30 08:25 | NUR ---
THIS RN IN PTS ROOM TO GIVE PT HER MORNING MEDS. PT STATES THAT SHE ISN'T HAVING ANY TROUBLE BREATHING TODAY. THIS RN FLUSHED PTS TWO LUMENS WITH 20ML OF NS AND THEN HEP LOCKED BOTH LUMENS.
--- NOTE | 2020-08-30 09:50 | NUR ---
THIS RN IN PTS ROOM TO GIVE PT HER 1 PERCOCET PER PT REQUEST SO SHE CAN FULLY PARTICIPATE IN PHYSCIAL THERAPY LATER
--- NOTE | 2020-08-30 10:34 | NUR ---
PATIENT IN BED RESTING. PATIENT REFUSED BED BATH AND JUST WANTS TO WASH HAIR. HAIR WASHED AND CATH CARE DONE. NEW GOWN PROVIDED. CALL LIGHT IN REACH. NO FURTHER NEEDS AT THIS TIME.
--- NOTE | 2020-08-30 14:31 | NUR ---
PATIENT IN BED WATCHING TV. CALL LIGHT IN REACH. NO FURTHER NEEDS AT THIS TIME.
--- NOTE | 2020-08-30 15:20 | NUR ---
THIS RN IN PTS ROOM WITH 3 OTHER STAFF MEMEBERS TO ROLL AND CLEAN PT UP. PT TOLERATED OKAY.
--- NOTE | 2020-08-30 18:27 | NUR ---
PATIENT IN BED WATCHING TV. PATIENT WANTED MORE EXPLANATION ABOUT FLUID RESTRICTION, WENT OVER FLUID RESTRICTION FLOW CHART THAT WAS IN ROOM. FRESH WATER GIVEN. CALL LIGHT IN REACH. NO FURTHER NEEDS AT THIS TIME.
--- NOTE | 2020-08-30 20:21 | NUR ---
pt awake, watching tv, o2 5l nc, cpox in place , coop with assessment, c/o restless leg, l knee poain, medicated with sinemet prn and percocet 1 tab. picc line LCA patent, legs with lymphedema/redness improved. currently in sitting position with legs dependents in bariatric bed/chair mode. very anxious, reassured. ice to L knee and warm pad to R shoulder, tolerating fluid restrictions, f/c patent. call light at hands reach
--- NOTE | 2020-08-30 21:30 | NUR ---
V/S AND I&O TAKEN AND RECORDED.
--- NOTE | 2020-08-30 22:20 | NUR ---
iN BED, BED IN NORMAL POSITION. PT ON 5L NC, CPOX IN PLACE 91% SATS. CALM, EYES CLOSED, NO DISTRESS. FLUIDS AT BEDSIDE, TOLERATING FLUID RESTRICTION. F/C PATENT, ULCER L ANKLE AREA LESS DISCHARGE., ELEVATED W PILLOWS
--- NOTE | 2020-08-31 00:52 | NUR ---
CONTINUES TO BE RESTING, EYES CLOSED, O2 4L NC, CPOX INPLACE, NO DISTRESS, F/C PATENT, LEGS ELEVATED IN PILLOWS, CALL LIGHT AT HANDS REACH
--- NOTE | 2020-08-31 03:09 | NUR ---
Medicated with 1 percocet per c/o l knee and back pain, O2 4LNC wearing oxymask, in bariatric bed. legs w/o changes
--- NOTE | 2020-08-31 04:15 | NUR ---
Pt on 4L Oxymask on at this time, CPOX in place, sats 94%, hob elevated to her comofrt, RAC PICC line patent, bruising over arms healing, f/c patent, lymphedema to LE improving, elevated with pillows, wound to L ankle very anxious, was medicated X2 with Percocet per c/o L knee, back and R shoulder pain. ice to knee, hot pad toshoulder. effective. Very anxious, many concerns, reassured. Kassidy lift, in bariatric bed. Pt is to be DC to [place] today, pt calmer at this time. tolerating fluid restriction. uses call light, efforts praised. semi receptive to teaching
--- NOTE | 2020-08-31 06:22 | NUR ---
resting, eyes closed, no distress. O2 4L oxymask, cpox in place, sats 93% joshua, f/c patent, bariatric bed
--- NOTE | 2020-08-31 07:24 | NUR ---
this rn received report from shemar alfaro. report given outside of pts room due to pt having anxiety about going to [place] today
--- NOTE | 2020-08-31 09:15 | NUR ---
THIS RN IN PTS ROOM TO GIVE PT HER MORNING MEDS. PT STATES THAT SHE WOULD LIKE A PERCOCET PRIOR TO WOKING WITH PHYSCIAL THERAPY THIS AM, THIS RN ABLE TO PROVIDE ONE EARLY TO PT. THIS RN ALSO PROVIDED PT WTIH HER FLUID COUNT FOR THE DAY AND A CUP OF WATER AT THIS TIME ALONG WITH EDUCATION. PT ANXIOUS ABOUT GOING TO [facility] AND ASKING THIS RN ABOUT IF THIS RN HAS EVER HAD A PT GET DENIED GOING THERE. THIS RN ALSO DISCUSSED WITH PT ABOUT PUTTING HER HEALTH FIRST, PT STATES THAT SHE HAS TO TAKE CARE OF CADDY/CADDIE SUPERVISOR [facility]
--- NOTE | 2020-08-31 09:34 | NUR ---
CALLED AND TEXTED MIRTA AT [facility] FOR CALLBACK FOR HOPEFUL DISCHARGE TODAY.
--- NOTE | 2020-08-31 09:50 | NUR ---
WAS TEXTED BY [facility] THAT THEY HAVE TO HAVE AUTH FROM INSURANCE FOR ADMIT. THIS WAS FROM [facility]TA IN ADMITTING. LOOKED AT INSURANCE I WAS UNDER IMPRESSION SHE HAS MEDICARE WHICH REQUIRES NO AUTH. CALLED OUR ADMITTING AND SPOKE WITH BEV WHO VERIFIED THIS. CALLED OUR CHW AFSANEH WHO HELPS WITH UR AND ASKED HER TO CALL INSURANCE TO VERIFY THEY DO NOT GIVE AUTH.
--- NOTE | 2020-08-31 10:40 | NUR ---
UPDATED CLINICALS FAXED TO [facility] PER THEIR REQUEST.
--- NOTE | 2020-08-31 12:30 | NUR ---
CONFIRMED WITH ADMITTING HERE AND THROUGH PHONE CALL WITH JULIANNA THAT PATIENT HAS TRADITIONAL MEDICARE A&B AND REQUIRES TO AUTH AFTER 3 MIDNIGHT INPATIENT QUALIFIYING STAY. COULD NOT REACH MIRTA AT [facility]. CALLED AND ASKED FOR CHARGE NURSE. THEY PUT ME THROUGH TO PIETER DIRECTOR. DISCUSSED WITH HIM. HE STATES HE WILL LOOK AT THIS AND GET BACK TO [place].
--- NOTE | 2020-08-31 13:30 | NUR ---
RECEIVED TEXT FROM MIRTA AT [facility] STATING THEY DO NOT KNOW WHAT HAPPENED WITH NEEDING AUTH. THEY CAN ACCEPT PATIENT TODAY. UPDATED DR RAMÍREZ WHO WILL DO ORDERS.
[2020-08-31] MEDS ORDERED: HEPARIN 5010 UNIT/1 IV (13:59)
[2020-08-31] MEDS ORDERED: METOPROLOL SUCC25 MG PO (13:59)
[2020-08-31] MEDS ORDERED: OXYCODONE-ACET1 EAC3 PO (14:01)
--- NOTE | 2020-08-31 14:30 | NUR ---
PT ALERT, ORIENTED AND ENGAGED ME IMMEDIATELY IN DISCUSSION REGARDING HER DC HOME. PT ACKNOWLEDGES IT IS NOT THE MOST PRUDENT DECISION, BUT FEELS SHE WILL BE LETTING PSYCH TECH [facility] DOWN IF SHE DOESN'T GO HOME. PT ACKNOWLEDGES THE RISK AND SEEMS WILLING TO CHANCE IT. GAVE ENCOURAGEMENT AND WILL LET SEWING MACHINE BOBBIN WINDER KNOW PT WOULD LIKE A VISIT. HAD PRAYER WITH PT, WILL FOLLOW
--- NOTE | 2020-08-31 14:36 | NUR ---
THIS RN CALLED REPORT TO AYAN AT [facility]. ALL QUESTIONS ASWERED TO THIS RN'S ABILITY AT THIS TIME
--- NOTE | 2020-08-31 14:50 | NUR ---
FAXED ORDERS AND PASSR TO [facility] WITH FAX CONFIRMATION AT [id number]. DISCUSSED WITH PATIENT. SHE IS "NERVOUS" BUT "DETERMINED TO GET HOME IN A COUPLE WEEKS". ENCOURAGED HER TO WORK HARD WITH THERAPIES AND HOPEFULLY THAT WILL HAPPEN. QUESTIONS ANSWERED. EXPLAINED SHE CANNOT GET UP SAFELY TO WHEELCHAIR FOR VAN TRANSFER SO NON-EMERGENT TRANSFER WILL BE NEEDED. STAFF UPDATED.
== END 2020-08-31 15:57 | DRG 291 ==
LOC: ED 21:51 → MS 08-16 01:41 → CCU 08-16 13:15 → MS 08-22 18:50
PROVIDERS: ADMIT Internal Medicine; ATTEND Internal Medicine
PROC: 5A09357 Assistance with Respiratory Ventilation, Less than 24 Consecutive Hours, Continuous Positive Airway Pressure (ICD-10-PCS; 2020-08-16)
PROC: 02HV33Z Insertion of Infusion Device into Superior Vena Cava, Percutaneous Approach (ICD-10-PCS; principal; 2020-08-17)
DX: I11.0 Hypertensive heart disease with heart failure (principal); J96.01 Acute respiratory failure with hypoxia; J96.02 Acute respiratory failure with hypercapnia; G93.41 Metabolic encephalopathy; L03.119 Cellulitis of unspecified part of limb; E87.2 Acidosis; I48.92 Unspecified atrial flutter; Z68.44 Body mass index [BMI] 60.0-69.9, adult; I50.23 Acute on chronic systolic (congestive) heart failure; Z20.828 Contact with and (suspected) exposure to other viral communicable diseases; G89.4 Chronic pain syndrome; G25.81 Restless legs syndrome; I48.0 Paroxysmal atrial fibrillation; E66.01 Morbid (severe) obesity due to excess calories; E11.9 Type 2 diabetes mellitus without complications; I87.2 Venous insufficiency (chronic) (peripheral); H35.30 Unspecified macular degeneration; F17.200 Nicotine dependence, unspecified, uncomplicated; D50.9 Iron deficiency anemia, unspecified; Z99.81 Dependence on supplemental oxygen; Z88.5 Allergy status to narcotic agent; Z88.7 Allergy status to serum and vaccine; Z79.899 Other long term (current) drug therapy; Z79.01 Long term (current) use of anticoagulants; Z79.84 Long term (current) use of oral hypoglycemic drugs; Z79.891 Long term (current) use of opiate analgesic
CPT/HCPCS: 36415; 36569; 36600; 51702; 71045; 73590; 80048; 80053; 80202; 81001; 82803; 83605; 83735; 83880; 84484; 85025; 85651; 87040; 93005; 93010; 93306; 94660; 94760; 94762; 97110; 97112; 97163; 97167; 97530; 99285-25; 99406; C9803; J0696; J1120; J1650; J1940; J3370; J3475; J3480; J3490; J7060; U0003

== ENCOUNTER 2020-09-03 11:46 | Emergency (ER) | payer MEDICARE, OTHER ==
[~2020-09-03] VITALS: Ht 172.7 cm; Wt 142.9 kg
[~2020-09-03 11:46] MED LIST changes: +HEPARIN 5010 UNIT/1 IV; +LASIX40 MG PO; +OXYCODONE-ACET1 EAC3 PO; +TORSEMIDE20 MG PO
--- OUTSIDE RECORDS SUMMARY | 2020-09-03 11:48 | XMS ---
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 Padded Box Sewer Events No recent Security Events currently on file CRITERIA MET - History of Sepsis Dx - [facility] - [facility] - 2 Visits in 30 Days CARE PROVIDERS ALETHA SCHWARTZ Physician Shift Nurse Manager 08/17/2020-Current PHONE: [phone] Nimesh has no Care Guidelines for this patient. Care History Medical/Surgical 12/13/2018 [facility] - PATIENT HAS A DONOR SERVICES TECHNICIAN AT [facility]. - PATIENT IS NOW SET UP WITH [facility] INFECTIOUS DISEASE CLINIC- DR TILLMAN- PRADEEP SET UP AN APT FOR PATIENT FOLLOW UP ON December @ 1:15PM. - PATIENT HAS 10 DAYS OF DAILY ANTIBIOTIC TREATMENTS STARTING 12/13/18. 07/18/2018 [facility] IF SEEN IN ED AND NEEDS INPATIENT ADMISSION:\T\nbsp; PATIENT NEEDS TO BE TRANSFERRED TO A FACILITY THAT HAS A BARIATRIC SPECIALTY UNIT .\T\nbsp; THIS PATIENTS WEIGHT IS NOW HIGHER THAN OUR EQUIPMENT CAN TOLERATE SAFELY. E.D. VISIT COUNT (12 MO.) 2 [facility] TOTAL 2 NOTE: Visits indicate total known visits. ED/UCC VISIT TRACKING (12 MO.) 09/03/2020 11:46 [facility] TYPE: Emergency COMPLAINT: - SOB 08/15/2020 21:52 [facility] TYPE: Emergency COMPLAINT: - MULT COMPLAINTS INPATIENT VISIT TRACKING (12 MO.) 08/16/2020 01:41 [facility] TYPE: Medical Surgical COMPLAINT: - CHF DIAGNOSES: - Acute respiratory failure with hypoxia - Body mass index [BMI] 60.0-69.9, adult - Chronic pain syndrome - Metabolic encephalopathy - Iron deficiency anemia, unspecified - half-way (current) use of opiate analgesic - Paroxysmal atrial fibrillation - Type 2 diabetes mellitus without complications - Hypertensive heart disease with heart failure - Nicotine dependence, unspecified, uncomplicated - Venous insufficiency (chronic) (peripheral) - Other truck terminal manager (current) drug therapy - Acute respiratory failure with hypercapnia - Acidosis - Restless legs syndrome - Morbid (severe) obesity due to excess calories - Contact with and (suspected) exposure to other viral communicable diseases - Allergy status to narcotic agent - Cellulitis of unspecified part of limb - Acute on chronic systolic (congestive) heart failure - Dependence on supplemental oxygen - half-way (current) use of oral hypoglycemic drugs - Unspecified atrial flutter - Allergy status to serum and vaccine - termite treater (current) use of anticoagulants - Unspecified macular degeneration [email or web address]
[2020-09-03] MEDS ORDERED: POLYETHYLENE MISC (12:20)
[2020-09-03] MEDS ORDERED: PERCOCET 10-321 EACH PO (12:22)
[2020-09-03] MEDS ORDERED: LASIX80 MG PO (15:03)
--- NOTE | 2020-09-03 17:35 | EKG ---
[facility] [address] [place] [address] Signed Sinus rhythm with frequent premature ventricular complexes Prolonged QT Abnormal ECG When compared with ECG of 15-AUG-2020 21:58, premature ventricular complexes are now present premature atrial complexes are no longer present Confirmed by KIRIT MOREIRA MD ([id number]) on 09/03/2020 5:35:34 PM Electronically Signed By: KIRIT MOREIRA MD 09/03/20 1735 PATIENT NAME: SAMANTHA KIM Electrocardiogram DATE OF : 43 PHYSICIAN: KIRIT MOREIRA MD REPORT #: [id number] REPORT IS CONFIDENTIAL AND NOT TO BE RELEASED WITHOUT AUTHORIZATION
== END 2020-09-03 15:57 | disposition home or self-care (01) ==
LOC: ED 11:46
DX: I11.0 Hypertensive heart disease with heart failure (principal); I50.9 Heart failure, unspecified; R09.02 Hypoxemia; E11.9 Type 2 diabetes mellitus without complications; J45.909 Unspecified asthma, uncomplicated; F17.200 Nicotine dependence, unspecified, uncomplicated; Z88.5 Allergy status to narcotic agent; Z88.7 Allergy status to serum and vaccine; Z79.899 Other long term (current) drug therapy
CPT/HCPCS: 51702; 71045; 80053; 83735; 83880; 84484; 85025; 93005; 93010; 99285-25; J1940

== ENCOUNTER 2021-01-02 10:49 | Inpatient (IN) | payer MEDICARE, OTHER ==
[~2021-01-02] VITALS: Ht 172.7 cm; Wt 124.0 kg
[~2021-01-02 10:49] MED LIST changes: +LASIX80 MG PO; +PERCOCET 10-321 EACH PO
--- OUTSIDE RECORDS SUMMARY | 2021-01-02 10:54 | XMS ---
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 Route Sales Manager Events No recent Security Events currently on file CRITERIA MET - History of Sepsis Dx CARE PROVIDERS ALETHA SCHWARTZ Physician Safety Engineer 08/17/2020-Current PHONE: [phone] Nimesh has no Care Guidelines for this patient. 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 - PATIENT IS NOW SET UP WITH [facility] INFECTIOUS DISEASE CLINIC- DR TILLMAN- PRADEEP SET UP AN APT FOR PATIENT FOLLOW UP ON December @ 1:15PM. - PATIENT HAS 10 DAYS OF DAILY ANTIBIOTIC TREATMENTS STARTING 12/13/18. 07/18/2018 [facility] IF SEEN IN ED AND NEEDS INPATIENT ADMISSION:\T\nbsp; PATIENT NEEDS TO BE TRANSFERRED TO A FACILITY THAT HAS A BARIATRIC SPECIALTY UNIT .\T\nbsp; THIS PATIENTS WEIGHT IS NOW HIGHER THAN OUR EQUIPMENT CAN TOLERATE SAFELY. E.D. VISIT COUNT (12 MO.) 3 [facility] TOTAL 3 NOTE: Visits indicate total known visits. ED/UCC VISIT TRACKING (12 MO.) 01/02/2021 10:[address] [facility] TYPE: Emergency COMPLAINT: - SHORTNESS OF BREATH 09/03/2020 11:[address] [facility] [place] TYPE: Emergency COMPLAINT: - SOB DIAGNOSES: - Allergy status to narcotic agent - Heart failure, unspecified - Other unit educator (current) drug therapy - Hypoxemia - Nicotine dependence, unspecified, uncomplicated - Unspecified asthma, uncomplicated - Shortness of breath - Type 2 diabetes mellitus without complications - Allergy status to serum and vaccine - Hypertensive heart disease with heart failure 08/15/2020 21:52 [facility] TYPE: Emergency COMPLAINT: - MULT COMPLAINTS INPATIENT VISIT TRACKING (12 MO.) 08/16/2020 01:41 [facility] TYPE: Medical Surgical COMPLAINT: - CHF DIAGNOSES: - Restless legs syndrome - Body mass index [BMI] 60.0-69.9, adult - Chronic pain syndrome - Metabolic encephalopathy - Iron deficiency anemia, unspecified - alarm mechanism adjuster (current) use of opiate analgesic - Paroxysmal atrial fibrillation - Type 2 diabetes mellitus without complications - Hypertensive heart disease with heart failure - Nicotine dependence, unspecified, uncomplicated - Venous insufficiency (chronic) (peripheral) - Other usp (current) drug therapy - Acute respiratory failure with hypercapnia - Acute respiratory failure with hypoxia - Allergy status to narcotic agent - Acidosis - Body mass index [BMI] 60.0-69.9, adult - Morbid (severe) obesity due to excess calories - Contact with and (suspected) exposure to other viral communicable diseases - Allergy status to narcotic agent - Cellulitis of unspecified part of limb - Allergy status to serum and vaccine - Acute on chronic systolic (congestive) heart failure - Dependence on supplemental oxygen - FDC (current) use of oral hypoglycemic drugs - Unspecified atrial flutter - Allergy status to serum and vaccine - alarm mechanism adjuster (current) use of anticoagulants - Unspecified macular degeneration [email or web address]
--- NOTE | 2021-01-02 14:00 | NUR ---
75 YEAR OLD FEMALE PATIENT ADMITTED TO CCU VIA STRETCHER UNDER DR. MOREIRA WITH DX OF EXERBATION CHF. HAS HX OF CHF,DM 2, CELLULITIS LEGS,MACULAR DENERGATION,HTN, BACK PAIN. UPON ADMIT TO CCU PATIENT IS ON BIPAP AT 45% 16/8. ALLEVYN APPLIED TO COCCYX. ADMISSION PROCESS STARTED.
--- NOTE | 2021-01-02 14:15 | NUR ---
ADMISSION INTAKE BEING DONE/CHARTED BY DAVID STUDENT NURSE. PATIENT WILL FOLLOW FEW COMMANDS SUCH SQUEEZING HANDS, WIGGLING TOES. NOT TALKING AT THIS TIME.
--- NOTE | 2021-01-02 14:21 | NUR ---
FIELD START IV IN LEFT AC, IS INTACT. FLUSHES EASILY, NO REDNESS OR SWELLING NOTED.
[2021-01-02] MEDS ORDERED: AMMONIUM LACTA385 GM TOP (14:44)
[2021-01-02] MEDS ORDERED: CARBIDOPA-LEVO1 EACH PO (14:50)
[2021-01-02] MEDS ORDERED: SPIRONOLACTONE25 MG PO (14:51)
[2021-01-02] MEDS ORDERED: STOOL SOFTENER1 EACH PO (14:52)
[2021-01-02] MEDS ORDERED: TORSEMIDE20 MG PO (14:53)
[2021-01-02] MEDS ORDERED: VENTOLIN HFA18 GM INH (14:54)
--- NOTE | 2021-01-02 15:00 | NUR ---
PATIENT REMAINS LETHARGIC. PATIENT IS NOT ABLE TO TAKE PO AT THIS TIME. DR. MOREIRA IS AWARE. NO FUTHER ORDERS AT THIS TIME.
--- NOTE | 2021-01-02 15:25 | NUR ---
VERY SOMULENT ON BIPAP AT 45% FIO2 12/04. MOORE CATH PATENT.
--- NOTE | 2021-01-02 16:00 | NUR ---
ASSESSMENT DONE. VBG DRAWN PER LAB. REMAINS NON VERBAL AT THIS TIME. UNABLE TO TAKE PO. BIPAP IN PLACE AT 45% FIO2, 12/04.
--- NOTE | 2021-01-02 18:15 | NUR ---
DR. MOREIRA UPDATED ON VBG RESULTS. RT INCREASED IPAP TO [address] MOREIRA AWARE OF TOTAL U/O SINCE ADMIT. PATIENT SCHECULED TO RECIEVE DAVID AT 1999 THIS PM. ABG ORDERED WELL. AWARE OF PATIENT MENTATION.
--- NOTE | 2021-01-02 18:20 | NUR ---
TOOK FEW SIPS OF WATER, KCL CONTINUE TO BE HELD POSSIBLE ASPIRATION RISK. MONITOR SHOWS SR WITH OCC PAC'S.
--- NOTE | 2021-01-02 18:25 | NUR ---
PULLING OFF BIPAP MASK NOW. OXYMASK APPLIED AT 6 L , O2 SATS DOWN TO 82, BIPAP REAPPLIED, PATIENT IS SAYING FEW WORDS. CONTINUE TO ATTEMPT TO TAKE MASK OFF. NEEDS MUCH ENCOURAGEMENT, RN REMAINS IN ROOM WITH PATIENT. AFTER REAPPLING BIPAP SATS BACK TO 94.
--- NOTE | 2021-01-02 18:33 | NUR ---
REPOSITIONED IN BED. ATTEMPTING TO TAKE OFF BIPAP MASK.
--- NOTE | 2021-01-02 18:49 | NUR ---
CALMER NOW. BIPAP 20/8, 45 % FIO2. HAS OCC HARSH MOIST COUGH.
--- NOTE | 2021-01-02 19:34 | NUR ---
REPORT RECEIVED FROM JUDITH RN, WILL CONTINUE PLAN OF CARE.
--- NOTE | 2021-01-02 19:50 | NUR ---
THIS RN IN TO ASSIST RT WITH ABG. ABG DRAWN FROM RIGHT RADIAL ARTERY. PT LAYING IN BED AT THIS TIME ON THE BIPAP. PT RESPONDS TO NAME BUT IS DROWSY. PRESSURE HELD AFTER DRAWING ABG. BANDAID PLACED OVER AREA, NO SIGNS OF BLEEDING PRESENT. PT REPORTS NO NEEDS AT THIS TIME, WILL CONTINUE PLAN OF CARE. CALL LIGHT IN REACH, BED IN LOWEST POSITION.
--- NOTE | 2021-01-02 20:45 | NUR ---
DR. MOREIRA INFORMED THIS RN ON PLANS FOR INTUBATION. RT AND PSYCHIATRIC TECHNICIAN ASSISTANT NOTIFIED AFTER CALL WAS RECEIVED. THIS RN WAS THEN IN TO ASSESS PT AND ADMINISTER ORDERED MEDICATIONS. MEDICATIONS ADMINISTERED ORDERED, PO MEDICATION HELD PT TOO DROWSY TO TAKE IT. WHEN ASSESSED LUNGS WERE DIMINISHED AND COARSE THROUGHOUT. PT ON BIPAP AT THIS TIME AND IS RESPONSIVE TO NAME AND NODDING WHEN BEING SPOKEN TO. PT IS STILL DROWSY. STUDENT RN PLACED 20G IV IN R HAND. PSYCHIATRIC TECHNICIAN ASSISTANT IN ROOM, RT IN ROOM SETTING UP VENTILATOR. DR. MOREIRA IN ROOM. WILL CONTINUE PLAN OF CARE.
--- NOTE | 2021-01-02 21:53 | NUR ---
DR. MOREIRA CALLED THIS RN TO INFORM THE PT. WAS GOING TO BE INTUBATED. WOOD POLE TREATER AND RT INFORMED. POLYSILICON PREPARATION WORKER IN TO INTUBATE PT. MEDICATIONS GIVEN BY POLYSILICON PREPARATION WORKER AT 2057, TUBE PLACED AT 2058 BY POLYSILICON PREPARATION WORKER AND IS 21CM AT THE TEETH. PROPOFOL STARTED AT 5MCG/KG/MIN PER ORDERS OF DR. MOREIRA FOR PT. PT IS AT 132 KG. OG TUBE PLACED BY THIS RN AT 2107. CXR CONFIRMED PLACEMENT OF ET TUBE AND OG TUBE AT 2108. PT RESTLESS WHILE INTUBATED AND PROPOFOL INCREASED TO 20 THEN 15, THEN 10 DUE TO LOW BLOOD PRESSURES PER ORDERS OF DR. MOREIRA. 100 MCG OF FENTANYL ADMINISTERED BY WOOD POLE TREATER AT [address] MOREIRA FOR PTS AGITATION/RESTLESSNESS. 2MG OF VERSED GIVEN AT 2129 FOR PTS ONGOING AGITATION/RESTLESSNESS BY THIS RN PER ORDERS OF DR. MOREIRA. PROPOFOL STOPPED AT [address] MOREIRA. AT 2139 4MG OF VERSED ADMINISTERED DUE TO AGITATION PER ORDERS OF DR. MOREIRA. PT NOW LAYING IN BED ON INTUBATOR. SP02 AT 98%, ETCO2 AT 69. FOR VENTILATOR SETTINGS, VT AT 500, FIO2 AT 100%, RR SET TO 24, PEEP AT 10. THIS RN, RT, AND DR. MOREIRA IN ROOM. DR BAL NOTIFIED BY DR. MOREIRA FOR A CENTRAL LINE PLACEMENT. WILL CONTINUE PLAN OF CARE.
--- NOTE | 2021-01-02 22:22 | NUR ---
4MG VERSED GIVEN AT 2205 FOR RESTLESSNESS/AGITATION. CHEY-SYNEPHRINE STARTED AT 2220 ORDERED AT 30MCG/HR TO MAINTAIN BP. DR. BAL IN ROOM AT THIS TIME TO ASSESS PT AND START CENTRAL LINE. WILL CONTINUE PLAN OF CARE.
--- NOTE | 2021-01-02 23:08 | NUR ---
DR. BAL IN ROOM AT THIS TIME SETTING UP FOR CENTRAL LINE PLACEMENT. AT 2229 8MG OF VERSED ADMINISTERED IV BY THIS RN PER ORDERS OF DR. MOREIRA DUE TO PT. BEING RESTLESS/AGITATED. PT STARTED BACK ON PROPOFOL AT 20MCG/KG/MIN WELL ORDERED BY DR. MOREIRA. AT 2236 PT CHEY-SYNEPHRINE INCREASED TO 50 MCG/MIN TO INCREASE BLOOD PRESSURES. DR. BAL FINISHED PLACING TRIPLE LUMEN RIGHT IJ CENTRAL LINE AT 2239. AT 2242 CHEY-SYNEPHRINE WAS INCREASED TO 60MCG/MIN TO MAINTAIN BP. ABG DRAWN BY RT COYNE AT 2247. CENTRAL LINE PLACEMENT CONFIRMED VIA X-RAY BY DR. BAL AT 2252. CHEY-SYNEPHRINE TITRATED UP TO 70MCG/MIN AT 2310 DUE TO SYSTOLIC BEING BELOW 100 MMHG AND MAP BEING UNDER 65. PT LAYING IN BED NOW ON VENTILATOR. VENTILATOR AT PREVIOUS SETTINGS ASIDE FROM RR WHICH IS NOW AT 20. SP02 AT 99%, ETCO2 AT 57. PROPOFOL AT 20MCG/KG/MIN, NEOSYNEPHRINE AT 70 MCG/MIN INTO DISTAL LUMEN ON CENTRAL LINE. . PT RASS SCORE IS AT -3 AT THIS TIME. OG TUBE DRAINING, SOFT RESTRAINTS IN PLACE. CMS ASSESSED AND IS INTACT. PULSES PRESENT, CAPILLARY REFILL BRISK. WILL CONTINUE PLAN OF CARE.
--- NOTE | 2021-01-03 00:25 | NUR ---
THIS RN IN TO ASSESS PT AT THIS TIME. PT LAYING IN BED ON VENTILATOR IN NO APPARENT DISTRESS. PT ASSESSMENT COMPLETE AT THIS TIME. RADIAL PULSES STRONG, REFILL BRISK, PEDAL PULSES THREADY, CAP REFILL BRISK. LUNGS ARE COARSE THROUGHOUT WITH WHEEZES IN THE UPPER RIGHT LOBE. PROPOFOL INFUSING STILL AT 20MCG/KG/MIN AND CHEY-SYNEPHRINE AT 70MCG/MIN. VENT SETTINGS CHANGED BY RT AT ABOUT 2350 AND ARE NOW AT 50% FIO2 AND 16RR. WILL CONTINUE PLAN OF CARE.
--- NOTE | 2021-01-03 01:35 | NUR ---
THIS RN IN TO TITRATE CHEY-SYNEPHRINE TO 80MCG/MIN DUE TO BP HAVING A SYSTOLIC BELOW 100 AND MAP BELOW 65. MEDICATION TITRATED UP TO 80MCG/MIN AT THIS TIME. PT IN NO APPARENT DISTRESS AT THIS TIME ON THE VENTILATOR. RASS IS -3. PROPOFOL STILL INFUSING AT 20MCG/KG/MIN. OG TUBE ON INTERMITTENT SUCTION. SPO2 AT 96%, RR AT 16, ETCO2 AT 60. VENT SETTINGS AT 50% FIO2, RR SET TO 16, PEEP AT 10, VT AT 500. MOORE DRAINED AT THIS TIME. PT IN NO APPARENT DISTRESS AT THIS TIME. WILL CONTINUE PLAN OF CARE.
--- NOTE | 2021-01-03 02:36 | NUR ---
THIS RN IN TO ADMINSITER PRN VERSED PT WAS BECOMING RESTLESS IN BED. PT RASS AT THIS TIME WAS -1. PRN VERSED ADMINSITERED AT THIS TIME FOR PT'S RESTLESSNESS/AGITATION. PT NOW LAYING IN BED ON VENTILATOR. RASS AT -3. PROPOFOL AND CHEY-SYNEPHRINE INFUSING AT PREVIOUS RATES. PT IN NO APPARENT DISTRESS AT THIS TIME, WILL CONTINUE PLAN OF CARE.
--- NOTE | 2021-01-03 03:37 | NUR ---
THIS RN IN TO CHECK ON PT. PT LAYING IN BED ON VENTILATOR IN NO APPARENT DISTRESS. NEW BOTTLE OF PROPOFOL STARTED. PT REPOSITIONED AT THIS TIME, PILLOW PLACED UNDER RIGHT HIP. ORAL SUCTIONING AND ORAL CARE DONE ON PT. AT THIS TIME. PT RASS AT THIS TIME AT -3. PT MOMENTARILY OPENED EYES BUT GOES BACK TO SLEEP. PT NOW LAYING IN BED AND IN NO APPARENT DISTRESS. PROPOFOL AND CHEY-SYNEPHRINE INFUSING AT PREVIOUS RATES, VENT SETTINGS UNCHANGED. RESTRAINTS RELEASED MOMENTARILY AND PLACED BACK ON. CMS INTACT, WILL CONTINUE PLAN OF CARE.
--- NOTE | 2021-01-03 04:14 | NUR ---
THIS RN IN TO ASSESS PT. RT IN ROOM AT THIS TIME. PT BECOMING RESTLESS IN BED. PROPOFOL TITRATED UP TO 25 MCG/KG/MIN. PT EYES OPEN AT THIS TIME AND PT GESTURING. PT NODDED YES WHEN ASKED IF SHE FELT PAIN. PT GIVEN PRN VERSED 4MG IV AT THIS TIME WELL. PT NOW LAYING IN BED AND IN NO APPARENT DISTRESS. PT ASSESSED AT THIS TIME. LUNGS COARSE THROUGHOUT. CMS INTACT, PULSES STRONG, CAPILLARY REFILL BRISK. SP202 AT 95% ON PREVIOUS VENT SETTINGS, ETCO2 AT 58. CHEY-SYNEPHRINE LEFT AT PREVIOUS RATE (80MCG/MIN). PT IN NO APPARENT DISTRESS AND IS ON THE VENTILATOR, MOORE DRAINING, OG SET TO INTERMITTENT SUCTION. WILL CONTINUE PLAN OF CARE.
--- NOTE | 2021-01-03 05:07 | NUR ---
THIS RN IN TO TITRATE CHEY-SYNEPHRINE UP TO 90MCG/MIN DUE TO A BP OF 82/37 (50). PT LAYING IN BED ON VENTILATOR IN NO APPARENT DISTRESS AT THIS TIME. MEDICATION TITRATED UP, PROPOFOL LEFT AT 25MCG/KG/MIN. VENT SETTINGS UNCHANGED. WILL CONTINUE PLAN OF CARE.
--- NOTE | 2021-01-03 05:38 | NUR ---
DR. MOREIRA CALLED AND UPDATED ON PT'S LOW BP AND TEMPERATURE OF 101.7. . INSTRUCTIONS GIVEN TO INCREASE CHEY-SYNEPHRINE, TO INFORM RT TO COLLECT SPUTUM SAMPLE, ABG. ORDERS GIVEN TO ALSO COLLECT CBC AND ADMINISTER PO TYLENOL VIA OG TUBE. WILL CONTINUE PLAN OF CARE.
--- NOTE | 2021-01-03 06:15 | NUR ---
SPUTUM SAMPLE COLLECTED AND SENT TO LAB
--- NOTE | 2021-01-03 06:15 | NUR ---
THIS RN IN TO ADMINISTER PRN TYLENOL VIA OG TUBE FOR FEVER OF 101.7. PT. LAYING IN BED ON VENTILATOR IN NO APPARENT DISTRESS. CHEY-SYNEPHRINE TITRATED UP TO 110 MCG/MIN. TYLENOL ADMINISTERED VIA OG TUBE AND FLUSHED WITH WATER. RT IN TO DRAW ABG AND COLLECT SPUTUM CULTURE. THIS RN DANISH ORDERED LABS AND A SET OF CULTURES OFF OF THE CENTRAL LINE WELL A U.A FROM THE MOORE. CMS ASSESSED AT THIS TIME AND IS INTACT. MOORE EMPTIED AT THIS TIME WELL. PT BECAME RESTLESS WHILE RT DANISH ABG'S BUT CALMED DOWN AFTERWARDS. PT NOW LAYING IN BED AND IN NO APPARENT DISTRESS. PROPOFOL AT 20MCG/KG/MIN, CHEY-SYNEPHRINE AT 110MCG/MIN, VENT SETTINGS UNCHANGED, RR AT 18, ETCO2 AT 53, SPO2 AT 96%. WILL CONTINUE PLAN OF CARE.
--- NOTE | 2021-01-03 07:34 | NUR ---
REPORT RECIEVED. REMAINS ON VENT, TV-500, FIO2-50, PEEP-10, RR-18 VIA AC MODE, PIP-30, ETCO2-54. ETT 21 AT TEETH. SIZE 7 CM EET. ORAL CARE GIVE PER RT AND SUCTIONED. MOORE CATH PATENT, WITH CLEAR YELLOW URINE NOTED.PROPROFOL GTT AT 20 MCG/KG/MIN, PHENYLEPHRINE GTT AT 110 MCG/MIN.BILAT WRIST RESTRAINTS IN PLACE..
--- NOTE | 2021-01-03 09:10 | NUR ---
DR. MOREIRA HERE TO SEE PATIENT. ORDERS RECIEVED. WILL DC CURRENT MOORE CATH AND REPLACE WITH ANOTHER. ANTIBOTICS TO BE GIVEN.
--- NOTE | 2021-01-03 09:15 | NUR ---
MOORE CATH DC'D AND EMPTIEND FOR 150 ML OF CLEAR YELLOW URINE. MOORE CATH 14 FR PLACED. WILL SEND URINE TO LAB.
--- NOTE | 2021-01-03 09:20 | NUR ---
STARTING TO TITRATE PROPOFOL OF FOR SEDATION VACATION. SEE EMAR FOR TITRATION.
--- NOTE | 2021-01-03 09:41 | NUR ---
FENTANYL 50 MCG GIVEN FOR COMFORT.
--- NOTE | 2021-01-03 10:25 | NUR ---
IS AWAKE. FOLLOWING COMMANDS. EXPLAINING TO PATIENT WHAT HAS BEEN GOING ON WITH HERE HEALTH CARE OVER THE PAST DAY. PATIENT INDICATES SHE DIDN'T KNOW WHAT HAS BEEN GOING ON OVER THE PAST FEW DAYS. EXPLAINED ABOUT CO2 RETENTION. REMAINS ON CPAP MODE ON VENT, RR TO 30-34. ETCO2-65-72.
--- NOTE | 2021-01-03 11:47 | CONS ---
[facility] [address], [place] [address] Signed DATE OF CONSULTATION: 01/02/2021 TIME SEEN: 10:40 p.m. REQUESTING PHYSICIAN: Dr. Moreira. PROBLEM: Need for central venous access for pressor agents. HISTORY: This morbidly obese 75-year-old white woman now resides at [facility]. She is known to have long-standing congestive heart failure and multiple other medical problems. She presented to the emergency room, has been found to have significant hypotension, for which she needs pressor support. She has been taken to the intensive care unit and a central venous catheter is requested by Dr. Moreira for central venous access for pressor agents as well as blood draws and so on. She has poor peripheral access due to her morbid obesity. PAST MEDICAL HISTORY: As described dominantly. She is marginally functional currently and currently intubated and sedated as well. PHYSICAL EXAMINATION: She has endotracheal intubation and maintains a pressure currently of 70 systolic. Her trachea is midline. She has no jugular venous distention. Chest shows respiratory excursion consistent with ventilator support. She has massive truncal obesity. She has no evidence of palpable mass in the neck and no abnormality of the clavicles. ASSESSMENT: Central venous catheterization has been requested for the aforementioned reasons and is quite reasonable. The right internal jugular approach will be attempted as a preference of access considering she is unrelated and pneumothorax would be problematic with the hazards of a subclavian approach. The risks of bleeding infection so forth were reviewed with her next of kin Mr. Nitish Starr (brother) by Dr. Moreira to allow for expedient placement of the catheter. Fiorella Bal MD Electronically Signed By: FIORELLA BAL MD 01/03/21 1147 PATIENT NAME: SAMANTHA KIM CONSULTATION DATE OF : 43 REPORT #: [id number] PHYSICIAN: FIORELLA BAL MD PCP: ALETHA SCHWARTZ PA-C REPORT IS CONFIDENTIAL AND NOT TO BE RELEASED WITHOUT AUTHORIZATION [address] [place], [place] [address] Signed /[facility] /[id number] cc: MD Aletha Brock PA Copies: KIRIT MOREIRA MD ~ Electronically Signed By: FIORELLA BAL MD 01/03/21 1147 PATIENT NAME: SAMANTHA KIM CONSULTATION DATE OF : 43 REPORT #: [id number] PHYSICIAN: FIORELLA BAL MD PCP: ALETHA SCHWARTZ PA-C REPORT IS CONFIDENTIAL AND NOT TO BE RELEASED WITHOUT AUTHORIZATION
--- NOTE | 2021-01-03 11:47 | OR ---
[facility] [address], [place] [address] Signed DATE OF OPERATION: 01/02/2021 SURGEON: Fiorella Bal MD TIME: 10:40 p.m. PREOPERATIVE DIAGNOSES: 1. Critical illness with need for central venous catheterization. 2. Morbid obesity and poor peripheral access. POSTOPERATIVE DIAGNOSES: 1. Critical illness with need for central venous catheterization. 2. Morbid obesity and poor peripheral access. PROCEDURE: Right internal jugular central venous catheterization (Arrow Blue Tip triple-lumen catheter) ANESTHESIA: 1% lidocaine with concurrent sedation for ventilator (Versed). INDICATION: A 75-year-old morbidly obese woman with congestive heart failure, requiring pressor support for hypotension. Central venous catheterization has been recommended and requested by Dr. Moreira. Pertinent risks have been reviewed by Dr. Moreira with her brother and consent was performed on that secondary basis. FINDINGS: Direct access to the right internal jugular vein was forthcoming showing dark nonpulsatile blood. The catheter was placed without problem. Aspiration on the distal port allowed for delivery of 10 mL of venous blood to allow for lab test and so forth. Catheter was placed without problem. A postprocedure chest x-ray is pending. DESCRIPTION OF PROCEDURE: The patient was placed in mild Trendelenburg position and the ventilator and nasogastric tube and so forth placed out of the way to the left. Her head was turned to the left and taped to support that exposure. Mild Trendelenburg position was maintained. The neck and upper torso were prepared with chlorhexidine solution and draped sterilely with enclosed draping device with the Arrow Blue Tip triple-lumen catheter kit. Sterile Electronically Signed By: FIORELLA BAL MD 01/03/21 1147 PATIENT NAME: SAMANTHA KIM OPERATIVE REPORT DATE OF : 43 REPORT #: [id number] PHYSICIAN: FIORELLA BAL MD PCP: ALETHA SCHWARTZ PA-C REPORT IS CONFIDENTIAL AND NOT TO BE RELEASED WITHOUT AUTHORIZATION [facility] [address], [place] [address] Signed gloves gown and mask were used during the course of the procedure. A 1% lidocaine was injected over the right sternocleidomastoid muscle. Using single pass Seldinger technique, the right internal jugular vein was easily accessed showing dark nonpulsatile blood. A flexible wire was passed down the needle and needle was removed. The site was incised with an #11 blade, dilated and a previously inspected and irrigated Arrow Blue Tip triple-lumen catheter passed over the wire, we proceeded without problem. The wire was removed. Aspiration on the distal port delivered dark nonpulsatile blood. A sample was saved for the labs that had been requested. The catheter was pulled back several centimeters device applied and secured to the skin with silk suture. An anti-infective disk was applied as was a SorbaView dressing. She tolerated the procedure well and all port had been flushed with heparinized saline solution. A postprocedure chest x-ray is pending. MD [facility] /[id number] cc: Kirit Moreira MD Copies: KIRIT MOREIRA MD ~ Electronically Signed By: FIORELLA BAL MD 01/03/21 1147 PATIENT NAME: SAMANTHA KIM OPERATIVE REPORT DATE OF : 43 REPORT #: [id number] PHYSICIAN: FIORELLA BAL MD PCP: ALETHA SCHWARTZ PA-C REPORT IS CONFIDENTIAL AND NOT TO BE RELEASED WITHOUT AUTHORIZATION
--- NOTE | 2021-01-03 12:05 | NUR ---
DR. MOREIRA AWARE OF CURRENT AMOUNT OF IVF PATIENT IS RECIEVING. IS AWARE OF CVP OF 12. ORDERS RECIEVED TO BOLUS WITH 500 ML LR OVER ONE HOUR.
--- NOTE | 2021-01-03 12:20 | NUR ---
TUBE FEEDING OF JEVITY 1.2 STEFAN HUNG AT 20 ML/HR. LIQUID KCL GIVNE VIA OG TUBE. TUBE GEEDING TO BE IRRIGATED WITH 150 ML OF WATER Q 4 HRS.
--- NOTE | 2021-01-03 13:09 | NUR ---
bolus complete. levaquin infused, mag infuses.
--- NOTE | 2021-01-03 13:14 | EKG ---
[facility] [address] [facility] [place] [address] Signed Sinus rhythm with premature atrial complexes Nonspecific T wave abnormality Prolonged QT Abnormal ECG When compared with ECG of 03-SEP-2020 11:58, premature ventricular complexes are no longer present premature atrial complexes are now present T wave inversion now evident in Anterior leads Confirmed by KIRIT MOREIRA MD ([id number]) on 01/03/2021 1:14:13 PM Electronically Signed By: KIRIT MOREIRA MD 01/03/21 1314 PATIENT NAME: SAMANTHA KIM Electrocardiogram DATE OF : 43 PHYSICIAN: KIRIT MOREIRA MD REPORT #: [id number] REPORT IS CONFIDENTIAL AND NOT TO BE RELEASED WITHOUT AUTHORIZATION
--- NOTE | 2021-01-03 13:15 | NUR ---
DR. MOREIRA UPDATED ON PATIENT CONDITION. HAVING DIFFICULTY GETTING AN ACCURATE BP AT THIS TIME. CONTINUE TO TITRATE PHENLEPHRINE ACCORDINGLY.
--- NOTE | 2021-01-03 14:00 | NUR ---
FREQUENT TITRATION OF PHENYLEPHRINE GTT.
--- NOTE | 2021-01-03 14:55 | NUR ---
PHENYLEPHRINE GTT AT 100 MCG/MIN. BP-73/31 (44). REMAINS ON VENT WITH SETTINGS, TV-500, FIO2-50, PEEP-10, RR-16, PIP-34, ETCO2-58. PROPOFOL GTT AT 10 MCG/KG/MIN. TUBE FEEDING AT 20 MG/HR. MOORE CATH PATENT, MONITORING U/O Q HR. CEFEPIME INFUSING AT 25 ML/HR. THIS HUNG AT 1400. PATIENT WILL OPEN EYES OCC, THEN BACK TO SLEEP. CONTINOUS CVP READING 13-14.
--- NOTE | 2021-01-03 15:40 | NUR ---
DRAW SHEET CHANGED, BACK WASHED. CONTINUES TO HAVE COPIOUS AMOUNTS OF SECRETIONS VIA ETT AND ORAL SECRETIONS.
--- NOTE | 2021-01-03 16:59 | NUR ---
phenylephrine dc'd PER ORDERS. LEVOPHED GTT HUNG PER ORDERS AT 10 MCG/MIN
--- NOTE | 2021-01-03 19:06 | NUR ---
REMANIS ON VENT SETTINGS TV-500, FIO2-50, RR-16, PEEP-10, ETCO2 63, PIP-36. 21 ETT AT TEETH, SIZE 7 ETT. MOORE CATH PATENT. CVP-10-12, PROPOFOL AT 30 MCG/MIN, LEVOPHED AT 15 MCG/MIN. SL X 2 BILAT PATENT. TUBE FEEDING AT 20 ML/HR, VIA ORAL GASTRIC TUBE. REMAINS IN BILAT WRIST RESTRAINTS.
--- NOTE | 2021-01-03 19:52 | NUR ---
REPORT RECEIVED FROM JUDITH HAMEED. PT LAYING IN BED ON VENTILATOR AND IN NO APPARENT DISTRESS AT THIS TIME. LEVOPHED AT 15MCG/MIN, PROPOFOL AT 30 MCG/KG/MIN. OG TUBE FEEDING ONGOING AT 20ML/HR. MOORE DRAINING. VENT SETTINGS AT VT 500, PEEP 10, RR 16, FIO2 50%. PT SPO2 AT THIS TIME IS 96%, ETCO2 AT 60. CVP ZEROED AT THIS TIME AND IS AT 10-12. WILL CONTINUE PLAN OF CARE.
--- NOTE | 2021-01-03 20:34 | NUR ---
THIS RN IN TO ASSESS PT AND ADMINISTER SCHEDULED MEDICATIONS. PT LAYING IN BED ON VENTILATOR WITH EYES CLOSED IN NO APPARENT DISTRESS. SCHEDULED MEDICATION ADMINISTERED AT THIS TIME, PROPOFOL AND LEVOPHED TITRATED AT PREVIOUS RATES. OG TUBE FLUSHED WITH SCHEDULED 150 MLS OF WATER, TUBE FEEDINGS CONTINUED AFTERWARDS. PT SUCTIONED AND ORAL CARE DONE AT THIS TIME. CMS IS INTACT, PULSES ARE STRONG, CAP REFILL IS BRISK, SOFT RESTRAINTS ON PT WRISTS. PT ASSESSED AT THIS TIME, LUNGS COARSE THROUGHOUT, BOWEL TONES HEARD BUT HYPOACTIVE. LEGS STILL EDEMATOUS. RASS IS -2 PT AWAKES AT TIMES AND HOLDS EYE CONTACT BUT RETURNS BACK TO SLEEP EASILY. PT NOW LAYING IN BED ON VENTILATOR IN NO APPARENT DISTRESS. IVF INFUSING, OG FEEDING ONGOING, MOORE DRAINING, WILL CONTINUE PLAN OF CARE.
--- NOTE | 2021-01-03 21:02 | NUR ---
THIS RN INTO ROOM TO CHECK ON PT DUE TO VENTILATOR ALARMING. PT WAS SHIFTING IN BED AT THAT TIME BUT STOPPED WHEN THIS RN ENTERED THE ROOM. THE VENT. ALARM STOPPED AT THIS TIME AND THE PT RETURNED BACK TO RESTING. ORAL SUCTION PROVIDED FOR SECRETIONS AT THIS TIME. PT NOW RESTING IN BED ON VENTILATOR AND IN NO APPARENT DISTRESS. IVF INFUSING AT PREVIOUS RATES, OG TUBE FEED ONGOING, MOORE EMPTIED AND DRAINING AT THIS TIME, VENT SETTINGS UNCHANGED, SPO2 AT 96%, ETCO2 AT 60. WILL CONTINUE PLAN OF CARE.
--- NOTE | 2021-01-03 21:38 | NUR ---
THIS RN IN TO START NEW BAG OF LEVOPHED AND ADMINISTER IV ABX. PT LAYING IN BED ON VENTILATOR AT THIS TIME IN NO APPARENT DISTRESS. NEW BAG OF LEVOPHED NOW INFUSING AT PREVIOUS RATE 15MCG/MIN. IV ABX STARTED AT THIS TIME AND IS NOW INFUSING. PT IN NO APPARENT DISTRESS AT THIS TIME, VENT SETTINGS UNCHANGED, MOORE DRAINING, OG TUBE FEEDS ONGOING, PROPFOL INFUSING AT PREVIOUS RATE, WILL CONTINUE PLAN OF CARE.
--- NOTE | 2021-01-03 22:07 | NUR ---
PATIENT'S STEP-DAUGHTER AT BEDSIDE. UPDATE PROVIDED.
--- NOTE | 2021-01-03 22:19 | NUR ---
THIS RN IN TO CHECK ON PT. PT LAYING IN BED ON VENTILATOR, STEPDAUGHTER IN ROOM WITH PT AT BEDSIDE. PT LAYING IN BED IN NO APPARENT DISTRESS AT THIS TIME, STEPDAUGHTERS QUESTIONS ANSWERED. MOORE EMPTIED AT THIS TIME, PROPOFOL AND LEVOPHED INFUSING AT PREVIOUS RATES, VENT SETTINGS UNCHANGED, SPO2 AT 97%, ETCO2 AT 60%, RR AT 16. OG TUBE FEED ONGOING, WILL CONTINUE PLAN OF CARE.
--- NOTE | 2021-01-03 23:33 | NUR ---
THIS RN IN TO ASSESS PT AND ADMINISTER ORDERED IV ABX. PT RESTING IN BED ON VENTILATOR INITTIALY. VITALS TAKEN, AXILLARY TEMP WAS 100.5 AND PRN TYLENOL WAS GIVEN VIA OG TUBE. OG TUBE FLUSHED WITH WATER. IV VANCOMYCIN ALSO STARTED AT THIS TIME. PT BEGAN TO OPEN EYES MORE, MAKE EYE CONTACT AND NOD TO QUESTIONS. PT ASKED IF SHE WAS HAVING PAIN TO WHICH SHE NODDED YES, PT GIVEN PRN FENTANYL AND PROPOFOL INC TO 35MCG/MIN. PT WAS THEN REPOSITIONED IN BED WITH THE HELP OF ZARI CARRERO AND HER ET TUBE WAS SUCTIONED. PT WAS THEN ASSESSED AT THIS TIME. WHILE ASSESSING PT BEGAN TO OPEN HER EYES AGAIN AND SHOOK HER HAND WHILE MAKING EYE CONTACT WITH THIS RN. PT ASKED IF SHE WAS IN PAIN, PT NODDED "NO" PT ASKED IF SHE FELT ANXIOUS/UNCOMFORTABLE AND PT NODDED YES. 4MG PRN VERSED WAS THEN ADMINISTERED AT THIS TIME. ASSESSMENT THEN COMPLETE. PT STEPDAUGHTER NOW IN ROOM WITH PT. PT LAYING IN BED ON VENTILATOR IN NO APPARENT DISTRESS, VENT SETTINGS UNCHANGED, LEVOPHED RATE STILL AT 15MCG/MIN, IV ABX INFUSING, OG TUBE FEED ONGOING, MOORE DRAINING. WILL CONTINUE PLAN OF CARE.
--- NOTE | 2021-01-03 23:50 | NUR ---
THIS RN IN TO CHECK ON PT. VENTILATOR WAS ALARMING AND PT WAS ATTEMPTING TO COUGH WHILE INTUBATED. PT ORAL SUCTIONED AT THIS TIME AND ETT TUBE SUCTIONING WAS DONE. PT NOW LAYING IN BED ON VENTILATOR AND IS IN NO APPARENT DISTRESS. SPO2 AT 96%, RR AT 16, ETCO2 AT 60. VENT SETTINGS UNCHANGED. STEPDAUGHTER AT BEDSIDE WITH PT AT THIS TIME, WILL CONTINUE PLAN OF CARE.
--- NOTE | 2021-01-04 01:00 | NUR ---
THIS RN IN TO ASSESS PT AND ADMINISTER SCHEDULED WATER FLUSH. PT LAYING IN BED AT THIS TIME ON VENTILATOR IN NO APPARENT DISTRESS. STEPDAUGHTER IN ROOM AT BEDSIDE. PT OG TUBE FLUSHED WITH WATER AT THIS TIME AND NEW BOTTLE OF NUTRITION AND A NEW BAG PLACED FOR FEEDING. PT OG TUBE FEEDING NOW ONOGING AT 20ML/HR. IV VANCOMYCINE COMPLETED AT THIS TIME. PT IN NO APPARENT DISTRESS AT THIS TIME, ORAL SUCTIONING PROVIDED. NOREPNINEPHRINE INCREASED FROM 15 TO 17MCG/MIN DUE TO SYSTOLIC PRESSURES BELOW 100 AND MAP BELOW 65. PT NOW LAYING IN BED IN NO APPARENT DISTRESS. IV PROPOFOL STILL INFUSING AT 35 MCG/KG/MIN, IV CEFEPIME STILL INFUSING. VENT SETTINGS UNCHANGED, SPO2 AT 96%, ETCO2 AT 60, RR AT 16, WILL CONTINUE PLAN OF CARE.
--- NOTE | 2021-01-04 02:29 | NUR ---
THIS RN IN TO ASSESS PT. PT LAYING IN BED ON VENTILATOR IN NO APPARENT DISTRESS. CMS ASSESSED AT THIS TIME, RADIAL PULSES STRONG, CAPILLARY REFILL BRISK. ORAL CARE AND ORAL SUCTIONING DONE AT THIS TIME. PT. INLINE SUCTIONED AT THIS TIME WELL. PT THEN REPOSITIONED IN BED. RT CALLED DUE TO VENTILATOR ALARMING LOW VT. RT IN TO ASSESS PT AND USE IN-LINE SUCTION TO CLEAR SECRETIONS. VENTILATOR ALARM STOPPED ALARMING LOW VT AFTERWARDS. PT LAYING IN BED, PROPOFOL AND LEVOPHED INFUSING AT PREVIOUS RATES. VENT SETTINGS UNCHANGED, OG TUBE FEEDINGS ONGOING, MOORE DRAINING, SPO2 97, ETCO2 60, RR AT 16, CVP 11. WILL CONTINUE PLAN OF CARE.
--- NOTE | 2021-01-04 04:14 | NUR ---
RN IN TO ASSESS PT AND ADMINISTER SCHEDULED WATER FLUSH. PT LAYING IN BED ON VENTILATOR AT THIS TIME AND IN NO APPARENT DISTRESS. RT IN ROOM TO ASSESS PT AT THIS TIME WELL. ASSESSMENT COMPLETED ON PT. LUNGS COARSE THROUGHOUT. SCHEDULED WATER FLUSH ADMINISTERED AT THIS TIME. PROPOFOL AND LEVOPHED STILL INFUSING AT PREVIOUS RATES. OG TUBE FEEDING ONGOING AT 20ML/HR, MOORE DRAINING, VENT SETTINGS UNCHANGED, SPO2 AT 97%, RR AT 16, ETCO2 AT 60. PT IN NO APPARENT DISTRESS, WILL CONTINUE PLAN OF CARE.
--- NOTE | 2021-01-04 06:19 | NUR ---
THIS RN IN TO ADMINISTER PT'S IV ABX. PT LAYING IN BED ON VENTILATOR AND IN NO APPARENT DISTRESS, STEPDAUGHTER AT BEDSIDE. IV ABX STARTED ALONG WITH A NEW BOTTLE OF PROPOFOL AND LEVOPHED. LABS ALSO DRAWN AT THIS TIME. STEPDAUGHTER AT BEDSIDE AT THIS TIME WHEN PT BEGAN TO OPEN EYES TO HER VOICE. AT THIS TIME THIS RN ASKED PT IF SHE WAS IN PAIN. PT NODDED YES. PRN FENTANYL ADMINISTERED AT THIS TIME. PT NOW LAYING IN BED ON VENTILATOR, VENT SETTINGS AT PREVIOUS SETTINGS, DRIPS AT PREVIOUS SETTINGS, MOORE DRAINING, OG TUBE FEEDINGS ONGOING. PT IN NO APPARENT DISTRESS WILL CONTINUE PLAN OF CARE.
--- NOTE | 2021-01-04 06:46 | NUR ---
THIS RN IN TO ASSESS PT. PT LAYING IN BED ON VENTILATOR ATTEMPTING TO COUGH, STEPDAUGHTER AT BEDSIDE. DAUGHTER STATED PT WAS RESTLESS IN THE BED BEFORE COUGHING. PT LAYING IN BED AND WAS TENSE/RESTLESS. PROPOFOL INC FROM 35 TO 40 MCG/KG/MIN. PT NOW LAYING IN AND IN NO APPARENT DISTRESS, STEPDAUGHTER AT BEDSIDE. VENT SETTINGS UNCHANGED, LEVOPHED STILL AT 17MCG/MIN, IV ABX INFUSING, OG TUBE FEEDING ONGOING AT 20ML/HR, MOORE DRAINING. SPO2 AT 96%, ETCO2 AT 59, RR AT 16. WILL CONTINUE PLAN OF CARE.
--- NOTE | 2021-01-04 07:30 | NUR ---
REPORT RECIEVED. PATIENT DAUGHTER IN ROOM. PATIENT REMAINS ON VENT, SETTING TV-500, PEEP DECREASED TO 8 PER RT, FIO2-50, RR-16, PIP-35,ETCO2-60. HOB ELEVATED. TUBE FEEDING INFUSING AT 20 ML/HR. 150 ML OF FREE WATER INSTILLED VIA OG TUBE. ASSESSMENT DONE. MOORE CATH PATENT WITH CLEAR YELLOW URINE NOTED. UPPER LUNG OSHEA CLEAR AFTER SUCTIONING. RIJ DRESSING INTACT. WITH PROPOFOL INFUSING AT 40 MCG/KG/MIN, LEVOPHED AT 17 MCG/MIN, CVP-12, CEFEPIME INFUSING.
--- NOTE | 2021-01-04 08:30 | NUR ---
AM CARES DONE, BED LINEN CHANGED WITH ASSIST OF 4 STAFF. FREQUENT SUCTIONING DONE FOR LARGE AMOUNT OF THICK WHITE SPUTUM.
--- NOTE | 2021-01-04 09:10 | NUR ---
PROPOFOL TO 10 MCG/KG/MIN. PREP FOR POSSIBLE EXTABATION TODAY.
--- NOTE | 2021-01-04 09:15 | NUR ---
PROPOFOL TO OFF. RT HERE TO WORK WITH PATIENT INATTEMPT TO EXTABE. DR. MOREIRA IN ROOM. HOB ELEVATED.
[2021-01-04] MEDS ORDERED: OXYCODONE-ACET1 EAC3 PO (09:50)
--- NOTE | 2021-01-04 10:00 | NUR ---
RONEN DC'D PER DR. MOREIRA ORDERS.
--- NOTE | 2021-01-04 10:27 | NUR ---
pt. gown and bed linens changed.
--- NOTE | 2021-01-04 12:55 | NUR ---
VBG RESULTS, PH-7.39, PCO-58.2, PCO2 58.2. NO CHANGES IN PT CONDITION.
--- NOTE | 2021-01-04 14:11 | NUR ---
PT WAS EXTEBTED EARLIER TODAY. DIFFICULT FOR HER TO SPEAK, RECOGNOZED ME, GAVE ME A SMILE. HAD BRIEF VISIT, PT REQUESTED PRAYER. GAVE A G.POST AND CHRISTIN. WILL CONTINUE TO FOLLOW
--- NOTE | 2021-01-04 15:06 | NUR ---
HAS FREQUENT PRODUCTIVE COUGH OF THICK WHITE SPUTUM. HOB ELEVATED. PATIENT WATCHING TV.
--- NOTE | 2021-01-04 16:00 | NUR ---
ASSESSMENT UNCHANGED. TITRATING LEVOPED AT TOLERATED.
--- NOTE | 2021-01-04 16:58 | NUR ---
TOOK MEDICATIONS WELL.
--- NOTE | 2021-01-04 20:30 | NUR ---
SHIFT REPORT RECEIVED FROM ZARI LANDIN. PT IS A LITTLE DROWSY, BUT WAKES UP EASILY AND IS ORIENTED. DENIES PAIN. LUNGS COARSE, 3L O2 VIA NC IN PLACE, DENIES SOB. HR REGULAR, RATE 60'S. BOWEL TONES HYPOACTIVE, DENIES NAUSEA. EDEMA PRESENT IN BLE, PERIPHERAL PULSES STRONG. CENTRAL LINE DRESSING CHANGED. MOORE PATENT, CATH CARE PROVIDED. PT TOLERATING CLEAR LIQUID DIET WELL, TOOK EVENING MEDICATIONS WITHOUT ISSUE. LEVOPHED CURRENTLY INFUSING AT 6MCG/MIN. PT DENIES FURTHER REQUESTS, CALL LIGHT WITHIN REACH.
--- NOTE | 2021-01-04 20:55 | NUR ---
LEVOPHED TITRATED TO 4MCG/MIN FOR BP:142/63(87).
--- NOTE | 2021-01-04 21:35 | NUR ---
LEVOPHED TITRATED TO 2MCG/MIN FOR BP:122/62(80).
--- NOTE | 2021-01-04 22:21 | NUR ---
IN TO START CEFEPIME INFUSION. PT AWAKE AND WATCHING TV, DENIES DISCOMFORT AND/OR NEEDS AT THIS TIME.
--- NOTE | 2021-01-04 23:15 | NUR ---
IN TO START VANCO INFUSION. PT AGREEABLE TO WEARING BIPAP AT THIS TIME. BIPAP SETTINGS:15/4, RATE:16, FIO2:45%. PT SHOWN HOW TO REMOVE MASK. DENIES FURTHER NEEDS AT THIS TIME. LEVOPHED TURNED OFF AT THIS TIME, BP: 115/54(72).
--- NOTE | 2021-01-04 23:50 | NUR ---
PT REMOVED BIPAP AT AFTER WEARING FOR ABOUT 30 MINUTES, STATING SHE NEEDS BREAK. 3L O2 VIA NC IN PLACE NOW. LUNGS REMAIN COARSE AND DIM WITH CONGESTED COUGH PRESENT. BOWEL TONES ACTIVE NOW. PT CONTINUES TO DENY PAIN, SOB, AND NAUSEA. REMAINDER OF ASSESSMENT UNCHANGED. LEVOPHED REMAINS OFF. PT REPOSITIONED ONTO RIGHT SIDE WITH PILLOW SUPPORT. CALL LIGHT WITHIN REACH. FRESH ICE WATER PROVIDED.
--- NOTE | 2021-01-05 00:01 | NUR ---
OXYGEN TITRATED TO 5L PER NC FOR SPO2 86-88%.
--- NOTE | 2021-01-05 01:56 | NUR ---
PT REPORTS 7/10 RIGHT KNEE PAIN, 1 TAB PERCOCET GIVEN. PT AGREEABLE TO TRYING BIPAP AGAIN, SETTINGS UNCHANGED. PILLOWS REMOVED FROM UNDER LEFT SIDE, PT NOW SUPINE. PT DENIES FURTHER REQUESTS AT THIS TIME, CALL LIGHT WITHIN REACH.
--- NOTE | 2021-01-05 03:09 | NUR ---
PT REMOVED BIPAP. 6L O2 VIA NC PLACED ON PT. SPO2:90%. FRESH ICE WATER PROVIDED. PT REPORTS PAIN TO RIGHT KNEE HAS IMPROVED SINCE PRN PAIN MEDICATION. PT DENIES FURTHER REQUESTS AT THIS TIME.
--- NOTE | 2021-01-05 03:28 | NUR ---
PT DESATURATED WHILE SLEEPING, SUSPECT PT BREATHES THROUGH MOUTH. SWITCHED 6L O2 TO OXYMASK. PT REPORTS HER RIGHT KNEE IS BOTHERING HER AGAIN, ICE PACK PROVIDED.
--- NOTE | 2021-01-05 05:15 | NUR ---
ASSESSMENT COMPLETED. PT REMAINS ORIENTED, SOMEWHAT DROWSY. DENIES PAIN. LUNGS DIM, 6L VIA OXYMASK IN PLACE. REMAINDER OF ASSESSMENT UNCHANGED. REPOSITIONED TO LEFT SIDE WITH PILLOW SUPPORT. DENIES REQUESTS AT THIS TIME.
--- NOTE | 2021-01-05 06:48 | NUR ---
DECREASED OXYGEN TO 4L FOR SPO2:100%.
--- NOTE | 2021-01-05 07:30 | NUR ---
REPORT RECIEVED. O2 VIA OXYMASK CHANGED TO NC AT 4 L. TALKED WITH PATIENT ABOUT POC FOR DAY. IS UNDERSTANDING. IV ABX INFUSING. UNABLE TO ASPIRAT BLOOD FROM BROWN OR WHITE PORT. WILL TALK TO DR. MOREIRA ABOUT THIS. PATIENT DENIES PAIN OR SHORTNESS OF BREATH.
--- NOTE | 2021-01-05 08:00 | NUR ---
ASSESSMENT DONE. ROUTINE MEDICATIONS GIVEN.
--- NOTE | 2021-01-05 08:15 | NUR ---
AM CARES GIVEN, TO CHIAR VIA LIFT. TOLERATED WELL.
--- NOTE | 2021-01-05 08:30 | NUR ---
EATING BREAKFAST. NO DISTRESS NOTED.
--- NOTE | 2021-01-05 08:53 | NUR ---
switchman supervisor and rn gave bed bath, changed gown, bed linens and moved pt to chair. pt up in chair eating breakfast
--- NOTE | 2021-01-05 09:30 | NUR ---
Notified by Dr. Bravo pt will need Bipap or Trilogy unit for dc to home. Called and spokew [facility] and notified they are no longer providing [facility] service. Called and spoke with [facility] and they faxed order sheet. Face Sheet completed by Dr. Bravo and Order, H&P, and ER note faxed to [facility]. Received call from [facility]. They have Regine on their service. She was seen by PT, OT, and SN. She requested PT and SN not come back as they discussedd assisted living with her. OT remains. Informed I will update Dr. Bravo and I faxed H&P as they were told by family, pt was admitted for a UTI.
--- NOTE | 2021-01-05 10:00 | NUR ---
DR. MOREIRA HERE TO SEE PATIENT. ORDERS RECIEVED. HILARIO BLUM. PATIENT REMAINS IN CHAIR. LEGS ELEVATED. PHYS THERAPY HERE TO WORK WITH PATIENT.
--- NOTE | 2021-01-05 10:30 | NUR ---
LABS DRAWN. C/O COULTER.
--- NOTE | 2021-01-05 10:40 | NUR ---
VBG RESULTS. PH-7.34, PCO2-66.1.
--- NOTE | 2021-01-05 10:50 | NUR ---
CATH FLOW GIVEN TO BROWN AND WHITE PORT PER ORDERS. OT HERE TO WORK WITH PATIENT. PATIENT IS W/O C/O PAIN OR SHORTNESS OF BREATH AT THIS TIME. MOORE CATH PATENT. FLUID RESTRICTION OF 1800 ML NOW.
--- NOTE | 2021-01-05 11:22 | NUR ---
PERCOCET GIVEN FOR C/O COULTER.
--- NOTE | 2021-01-05 11:40 | NUR ---
back to bed via lift. ABLE TO ASPIRATE BLOOD FROM BROWN AND BLUE PORT ON RIJ, WHITE PORT REMAINS OCCULDED.
--- NOTE | 2021-01-05 12:35 | NUR ---
AWAKE, BIPAP OFF.
--- NOTE | 2021-01-05 13:00 | NUR ---
refusing lunch. NO CHANGES. RIJ DRESSING INTACT. ALL PORTS CAPPED.
--- NOTE | 2021-01-05 14:09 | NUR ---
THIS RN INTO ROOM TO SPEAK WITH PATIENT, PATIENT AWAKE LAYING IN BED. CASE MANAGEMENT ASSESSMENT COMPLETE, PLEASE SEE OTHER CHARTING. PATIENT STATES SHE HAS RECENTLY RETURNED HOME AFTER STAYING 81 DAYS IN A LOCAL SNF. PATIENT STATES SHE WAS BEDBOUND DURING THOSE 81 DAYS AT THE SNF. SHE STATES THAT SHE NOW HAS "A TEAM OF CAREGIVERS STAYING WITH HER 24 HR A DAY WHILE AT HOME. PATIENT STATES SHE IS WORRIED THAT FINANCIALLY SHE WILL BE UNABLE TO PAY HER CAREGIVERS AT SOME TIME. PATIENT REQUEST FINANCIAL INFORMATION REGARDING THE PAYMENT OF CAREGIVER. PATIENT STATES SHE HAS MULTIPLE PIECES OF DME AT HOME WELL A RAMP LEADING INTO HER HOME. THIS RN SPOKE WITH PATIENT IT WAS NOTED THAT THE PATIENT BECOMES SHOB WHILE TALKING EVEN WITH [address]. I ADVISED THE PATIENT THAT I WILL NEED LET HER REST FOR NOW AND I WILL CONTINUE TO FOLLOW UP WITH HER DURING HER HOSPITAL STAY.
--- NOTE | 2021-01-05 19:20 | NUR ---
BACK TO BED AFTER USING [facility] TO HAVE LARGE BM. REPORT TO NEXT SHIFT.
--- NOTE | 2021-01-05 20:55 | NUR ---
SHIFT REPORT RECEIVED FROM ZARI LANDIN. PT IN BED, DENIES PAIN AT THIS TIME. A/OX4. LUNGS CLEAR/DIM, 3L O2 VIA NC IN PLACE, DENIES SOB. HR REGULAR. BOWEL TONES ACTIVE. MOORE PATENT, CATH CARE PROVIDED. DESENEX APPLIED TO SKIN FOLDS. RIGHT IJ DRESSING CHANGED (LEAKING UNDER DRESSING NOTED AFTER MOVEMENT FROM CHAIR TO BED). ALL 3 LUMENS FLUSH EASILY AND HAVE BRISK BLOOD RETURN, HEPARIN LOCKED. PERIPHERAL PULSES STRONG, EDEMA PRESENT IN BLE. PT PROVIDED WITH SNACK AND FRESH WATER PER REQUEST. DENIES FURTHER NEEDS AT THIS TIME, CALL LIGHT AND BELONGINGS WITHIN REACH.
--- NOTE | 2021-01-05 21:43 | NUR ---
PT FINISHED WITH SNACK. REPOSITIONED TO LEFT SIDE WITH PILLOW SUPPORT AND BOOSTED UP IN BED (DAYRON USED.) PT REPORTS FEELING COMFORTABLE, DENIES FURTHER REQUESTS AT THIS TIME.
--- NOTE | 2021-01-05 21:52 | NUR ---
OXYGEN TITRATED TO 5L FOR DESAT TO MID 80'S%.
--- NOTE | 2021-01-05 23:17 | NUR ---
PT SLEEPING, WOKE HER TO PLACE CPAP. 5L BLED INTO MACHINE. PT STATES IT DOESN'T FEEL QUITE RIGHT. MASK APPEARS TO FIT WELL AND MACHINE APPEARS TO BE WORKING. SPO2:95%. R.T. CALLED AND ASKED TO COME CHECK MACHINE.
--- NOTE | 2021-01-05 23:22 | NUR ---
R.T. IN TO CHECK CPAP. TIDAL VOLUME 350-400, PRESSURES ~5. SPO2:95%, VISIBLE RISE/FALL OF CHEST NOTED. PT SLEEPING AT THIS TIME, CPAP APPEARS TO BE WORKING NORMALLY. PT MOST LIKELY FEELS THE DIFFERENCE IN PRESSURE ON SMALLER CPAP MACHINE.
--- NOTE | 2021-01-05 23:48 | NUR ---
PT WOKE UP AND REMOVED CPAP MASK (ONLY WORE ~30 MINUTES TOTAL) PLACED BACK ON 5L OXYMASK. ASSESSMENT COMPLETED AND UNCHANGED. OFFERED TO REPOSITION PT, BUT SHE DECLINED AT THIS TIME. PT DENIES COMPLAINTS OR REQUESTS. CALL LIGHT AND BELONGINGS WITHIN REACH.
--- NOTE | 2021-01-06 02:15 | NUR ---
PT WOKE UP CONFUSED TO SURROUNDINGS AND EVENT. RE-ORIENTED EASILY. PT AGREEABLE TO WEARING CPAP AT THIS TIME, 5L O2 BLED IN. PT REPOSITIONED TO RIGHT SIDE WITH PILLOW SUPPORT.
--- NOTE | 2021-01-06 04:30 | NUR ---
PT WOKE UP AND REMOVED CPAP, 5L O2 VIA OXYMASK IN PLACE. ORIENTED X4 AT THIS TIME. ASSESSMENT COMPLETED AND UNCHANGED. OFFERED TO REPOSITION, BUT PT DECLINED AT THIS TIME.
--- NOTE | 2021-01-06 06:00 | NUR ---
PT CALLED AND STATED SHE WAS READY TO "GET UP AND FACE THE DAY." ASKED HER IF SHE WANTED TO SIT UP IN CHAIR AND SHE STATED "NOT RIGHT NOW." OPENED CURTAINS AND FRESH COFFEE PROVIDED. ANSWERS ORIENTATION QUESTIONS APPROPRIATELY.
--- NOTE | 2021-01-06 08:02 | NUR ---
Calls for assist. States she is ready to get up this morning. Warm rag given, washes face. Assessment completed. 2 person assist with Kassidy lift to recliner for breakfast. Denies pain at this time. Repositioned in chair for comfort. Feet elevated on stool per patient request. She does not want foot of chair elevated at this time. Call light in reach, bed rails up X2.
--- NOTE | 2021-01-06 09:44 | NUR ---
transformer coil winder and rn used robert to transfer pt. from the bed to sit in the chair. pt. ate breakfast washed up and brushed her teeth. no other needs at this time. call light with in reach
--- NOTE | 2021-01-06 09:47 | NUR ---
Remains alert and oriented, up in recliner. AM medications administered as prescribed. Takes without difficulty. Call light in reach.
--- NOTE | 2021-01-06 10:13 | NUR ---
PT IN ROOM, WORKING WITH PATIENT AT THIS TIME.
--- NOTE | 2021-01-06 10:45 | NUR ---
Visited with Regine. She again is insisting on going home. She states she is unable to walk, but now has robert, lift chair, hospital bed. She also states she has cg coverage during the day and a friend who lives in the home and is available to assist at night. Pt is unable to walk at this time. Pt received a phone call during our conversation and begs me to return. Pt informed I will return this afternoon.
--- NOTE | 2021-01-06 11:12 | NUR ---
OXYGEN DECREASED FROM 5L/MIN TO 3L/MIN PER NASAL CANULA. IV ANTIBIOTICS COMPLETED. CONVERTED TO HEP-LOCK, FLUSHED ALL 3 LUMENS WITH NS AND HEPARIN. CALL LIGHT IN REACH.
--- NOTE | 2021-01-06 11:45 | NUR ---
RECVD CALL FROM PATIENT STEP DAUGHTER NICHOLE LOPES REGARDING DISCHARGE PLAN. NICHOLE STATES THAT HER AND HER SISTER VONNIE MET WITH THE PATIENT LAST NIGHT TO LET THE PATIENT KNOW THEY FEEL THAT THEY ARE UNABLE TO CARE FOR HER AT HOME. NICHOLE STATES THAT THE PATIENT BECAME UPSET AND DID NOT WANT TO DISCUSS FURTHER PLACEMENT. NICHOLE STATES THAT SHE WILL BE RETURNING TODAY AT 1500 TO SPEAK WITH THE PATIENT AGAIN AND REQUESTS INPUT FROM CASE MANAGEMENT. I ADVISED NICHOLE THAT WANDA OR I WOULD BE HAPPY TO MEET WITH HER WHEN SHE ARRIVES. PLAN TO SPEAK WITH PATIENT AFTER SPEAKING WITH NICHOLE. WANDA AND DR. GUILLERMO NOTIFIED OF MEETING.
--- NOTE | 2021-01-06 12:40 | NUR ---
Assist from chair to bed with 2 person assist and robert lift. Tolerated with some complaints of discomfort while in sling, in her back. Allevyn to coccyx removed, previous was rolled. New allevyn to site placed. Repositioned onto right side using pillows for support. Blood pulled from central line, 5 mL wasted. 4 mL of blood sent to lab for venous blood gas. Flushed with 10 mL saline followed by 5 mL heparin. Denies other needs at this time. Maintaining oxygen sats in low to mid 90's on 4L/min per nasal canula O2. Call light in reach, bed rails up.
--- NOTE | 2021-01-06 13:09 | NUR ---
PT SITTING IN CHAIR, HAD JUST FINISHED P.T. WITH TANYA. PT WAS TIRED, SAID P.TJolly WORKED ME OVER-BUT THT IS WHAT I NEED. PT COMPLIMENTED TANYA ON HER SKILL. GAVE ENCOURAGEMENT, WILL LET PT REST. WILL CONTINUE TO FOLLOW
--- NOTE | 2021-01-06 14:38 | NUR ---
business planning director and rn repositioned pt
--- NOTE | 2021-01-06 14:41 | NUR ---
Repositioned to left side in bed, pillows used for support. Denies other needs at this time. Call light in reach, bed rails elevated.
--- NOTE | 2021-01-06 15:13 | NUR ---
Remains in bed. Scheduled medications provided. O2 remains on 4L/min per nasal canula with O2 sats 98-99%. Denies shortness of breath. Call light in reach, bed rails up.
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
--- NOTE | 2021-01-06 16:41 | NUR ---
Repositioned to right side using pillows for support. Requesting her lotion used on her legs at home be used here, in facility. States lotion is called aluminus lactate 12. Instructed to have family bring lotion in so it may be ordered. Call light in reach. Bed rails elevated.
--- NOTE | 2021-01-06 17:25 | NUR ---
Patient up in recliner this morning for breakfast until early afternoon. Attempt to wean down O2 from 5L/min to 3L/min per nasal canula. Desaturated to mid to high 80's on 3L/min. Oxygen increase 4L/min per nasal canula. 3 open areas to coccyx, healing. Allevyn changed today. Repositioned every 2 hours to relieve pressure to coccyx. IV lasix given X1 today, with increase in urine output per campbell. Continues on IV levaquin but otherwise HL to central line. Remains alert and oriented X4.
--- NOTE | 2021-01-06 17:58 | NUR ---
HEAD OF BED ELEVATED. MOORE BAG EMPTIED. DENIES OTHER NEEDS AT THIS TIME. CALL LIGHT IN REACH, BED RAILS ELEVATED.
--- NOTE | 2021-01-06 19:38 | NUR ---
SHIFT REPORT RECEIVED FROM ZARI LOWE. PT IS CURRENTLY SITTING UP IN BED ON THE PHONE. 4L O2 VIA NC IN PLACE. HR:67, RR:27, SPO2:91%. ATE 100% OF DINNER.
--- NOTE | 2021-01-06 20:36 | NUR ---
ASSESSMENT COMPLETED. PT ALERT/ORIENTED, DENIES PAIN. LUNGS CLEAR, DIM IN BASES, 4L O2 VIA NC IN PLACE, DENIES SOB. HR REGULAR, DENIES CHEST PAIN. BOWEL TONES ACTIVE, DENIES NAUSEA. SKIN/EDEMA UNCHANGED FROM YESTERDAY. CENTRAL LINE DRESSING INTACT, ALL 3 LUMENS HAVE BRISK BLOOD RETURN AND FLUSH EASILY, HEPARIN LOCKED. DRY SHAMPOO COMBED THROUGH HAIR AND PT PROVIDED OWN ORAL CARE. CATH CARE COMPLETED, MOORE PATENT. PT REPOSITIONED TO RIGHT SIDE WITH PILLOW SUPPORT. PT DENIES FURTHER REQUESTS AT THIS TIME, CALL LIGHT AND BELONGINGS WITHIN REACH.
--- NOTE | 2021-01-06 21:50 | NUR ---
PT CALLED TO REPORT 6/10 RIGHT KNEE PAIN AND REQUESTED TO BE REPOSITIONED. PRN PERCOCET GIVEN AND ICE PACK PLACED TO RIGHT KNEE. PT BOOSTED UP IN BED AND REPOSITIONED TO LEFT SIDE WITH PILLOW SUPPORT-DAYRON UTILIZED. PT DENIES FURTHER NEEDS AT THIS TIME.
--- NOTE | 2021-01-06 22:35 | NUR ---
PT DESATURATED TO 85%, PT AGREEABLE TO WEARING CPAP AT THIS TIME, 5L O2 BLED IN.
--- NOTE | 2021-01-07 00:10 | NUR ---
IN FOR ASSESSMENT, PT REQUESTS TO TAKE OFF CPAP, WORE FOR ABOUT 90 MINUTES. PLACED ON 5L OXYMASK. REPORTS RIGHT KNEE PAIN HAS RESOLVED SINCE PRN PAIN MED. REMAINDER OF ASSESSMENT UNCHANGED. PT DID NOT WANT REPOSITIONED AT THIS TIME. CALL LIGHT WITHIN REACH.
--- NOTE | 2021-01-07 01:59 | NUR ---
PT SLEEPING AT THIS TIME, NO APPARENT DISTRESS. RESPIRATIONS EVEN AND UNLABORED, 5L OXYMASK REMAINS IN PLACE. MOORE PATENT AND DRAINING FREELY, UO QS. VITAL SIGNS STABLE.
--- NOTE | 2021-01-07 04:00 | NUR ---
PT CONTINUES TO SLEEP AT THIS TIME, NO APPARENT DISTRESS. RESPIRATIONS EVEN AND UNLABORED, O2 REMAINS AT 5L OXYMASK. WILL DEFFER ASSESSMENT TO ALLOW FOR SLEEP.
--- NOTE | 2021-01-07 05:15 | NUR ---
PT AWAKE, ASSESSMENT COMPLETED AND UNCHANGED. BLOOD DRAWN FROM FROM [place] FOR MORNING LABS AND THEN HEP-LOCKED, OTHER 2 LUMENS REMAIN HEP-LOCKED, DRESSING C/D/I. UO QS. PT REPOSITIONED TO RIGHT SIDE WITH PILLOW SUPPORT, RIGHT KNEE ELEVATED/SUPPORTED WITH PILLOW. BREAKFAST ORDER RECEIVED. PT DENIES COMPLAINTS OR FURTHER REQUESTS AT THIS TIME. CALL LIGHT AND BELONGINGS WITHIN REACH.
--- NOTE | 2021-01-07 07:59 | NUR ---
Patient calls to be repositioned in bed, states buttocks and back are painful. Kassidy lift used to repostion in bed. Tolerated well. Assessment completed. Set up to eat breakfast. Informed staff will assist her to recliner this AM.
--- NOTE | 2021-01-07 09:16 | NUR ---
AM medications administered as prescribed. Takes without difficulty. Denies other needs at this time. Call light in reach, bed rails up.
--- NOTE | 2021-01-07 10:10 | NUR ---
Cleansed abdominal fold, under breasts, rebekah-area and campbell care. Desenx applied to folds. Tolerated well. Repositioned off coccyx to left side using pillows for support. Denies other needs at this time. Call light in reach. Bed rails elevated.
--- NOTE | 2021-01-07 10:10 | NUR ---
In and spoke with pt and her daughter Mary. Pt had requested to complete POA yesterday. Met with Mary Weiner, and Silva Mcgee. Daughter and pt completed POA form and witnessed and notorized per Silva Barcenas. Pt FULL code POLST was completed yesterday and reviewed Advanced directive with pt and daughter. POLST was signed by Dr. Agustin and faxed to [facility]. Copy placed on the chart for medical records.
--- NOTE | 2021-01-07 12:55 | NUR ---
States she feels Allevyn has rolled. Previous allevyn removed and changed. Redness to coccyx remains blanchable, wounds under allevyn healing. Repositioned onto left side, pillows used for support.
--- NOTE | 2021-01-07 13:05 | NUR ---
PT WAS REMINDED TO BREATH IN THROUGH HER NOSE AND OUT OF HER MOUTH. PT O2 SATS DROP WHEN AND IF PT IS BREATHING THROUGH HER MOUTH. PT DENIES SOB AND DIFFICULTY BREATHING.
--- NOTE | 2021-01-07 14:26 | NUR ---
RN CHRISSY SHARED THAT SHE WAS PLEASED WITH PROGRESS PT HAS MADE. I FOUND PT ALERT, ORIENTED AND MENTALLY SHARP TODAY. HAD GOOD VISIT, PT DID STATE SHE WAS NOT GOING BACK TO A SNF, AND MENTIONED ALSO RESERVATIONS ABOUT ASSISTED LIVING WELL. GAVE ENOCURAGEMENT WILL FOLLOW
--- NOTE | 2021-01-07 14:46 | NUR ---
LOBES ARE CLEAR BUT DIMINISHED, PT DENIES SOB, O2 SATS AT TIMES STILL DIP INTO THE MID 80'S. PT NEEDS REMEINDED TO BREATH IN HER NOSE AND OUT OF HER MOUTH. BP SOFT BUT OK, OTHER V/S WDL SO FAR. RIGHT PEDIS PULSE +2, LEFT PEDIS PULSE +1, FEET ARE WARM TO TOUCH. EDEMA IN BOTH FEET AND LOWER LEGS PRESENT. PT ALSO STATED THAT HER HANDS FEEL PUFFY ALSO. PT REMAINS ON 3.5-4L O2 NC.
--- NOTE | 2021-01-07 15:05 | NUR ---
PT WAS TURNED WITH HIPS NOW FLOATING. PT SEEMS TO BE DOING BETTER ON OXYMASK OVERALL WITH O2 SATS.
--- NOTE | 2021-01-07 15:50 | NUR ---
I DID NAIL CARE FOR PATIENT.
--- NOTE | 2021-01-07 17:05 | NUR ---
PT WAS TURNED AGAIN. V/S WDL OVERALL, PT ON 3L O2 ON OXYMASK AND DOING WELL. NO NEW CONCERNS NOTED AT THIS TIME.
--- NOTE | 2021-01-07 18:19 | NUR ---
SINCE ARRIVAL ON MS, NO NEW ISSUES WERE NOTED. PT DOES BETTER ON OXYMASK VS. NC. PT AT THIS TIME ON 3L O2 WITH O2 SATS >90%. V/S OVERALL WDL, LOBES CLEAR BUT DIMINISHED. URINE OUTPUT IS WDL ALSO.
--- NOTE | 2021-01-07 19:46 | NUR ---
RECEIVED REPORT FROM DAY SHIFT RN. PATIENT IS RESTING IN BED. OXYMASK IN PLACE ON 3L. NO NEEDS NOTED. BELONGINGS WITH IN REACH.
--- NOTE | 2021-01-07 21:15 | NUR ---
PT CALLED REQUESTED A SNACK BOX OF CHEESE AND CRAKERS. PT DENIES FURTHER NEEDS AT THIS TIME.
--- NOTE | 2021-01-07 21:25 | NUR ---
PROVIDED PT WITH SNACK, SHE REQUESTED MORE WATER. PROVIDED PT WITH 100MLS OF WATER IN HER CUP AND EXPLAINED THAT SHE ONLY HAS 200MLS LEFT ON FLUID RESTRICTION FOR THE NIGHT. PT DENIES FURTHER NEEDS AT THIS TIME. CALL LIGHT IS CLOSE.
--- NOTE | 2021-01-07 21:56 | NUR ---
IN TO ASSIST RN WITH PT POSITIONING, VITALS DONE, NO FURTHER NEEDS
--- NOTE | 2021-01-07 22:24 | NUR ---
ASSESMENT COMPLTED. BOOSTED PATIENT. FLOATED HIPS ON PILLOWS. EVENING MEDICATIONS GIVEN PER ORDER. PATIENT DENIES ANY PAIN. MOORE EMPTIED AND CATH CARE COMPLETED. POWDER PUT UNDER PANUS AND BREAST PER ORDER. NO REDENSS NOTED. PATIENT REMAINS ON 3L VIA OXYMASK. VITALS TAKEN AND RECORDED. NO FURTHER NEEDS NOTED. CALL LIGHT AND BELONGINGS WITHIN REACH.
--- NOTE | 2021-01-07 23:27 | NUR ---
RT IN ROOM AND PLACED PATIENT ON CPAP. NO NEEDS NOTED. CALL LIGHT IN REACH.
--- NOTE | 2021-01-08 00:51 | NUR ---
PATIENT REMOVED OFF OF BIPAP. PATIENT PLACED ON 5L VIA NC. PATIENT PROVIDED WITH 50 ML OF WATER. PATIENT GIVEN PRN PAIN MEDICATION FOR 6/10 PAIN IN HER BILAT LOW EXT. PATIENT PROVIDED WITH SNACK PER REQUEST. PATIENT WILL CALL WHEN DONE WITH SNACK TO BE PLACED BACK IN BIPAP. CALL LIGHT IN REACH.
--- NOTE | 2021-01-08 01:25 | NUR ---
PATIENT PLACED BACK IN BIPAP. NO FURTHER NEEDS NOTED. OXYGEN SATURATION WNL. CALL LIGHT IN REACH.
--- NOTE | 2021-01-08 03:10 | NUR ---
PATIENTS BIPAP MASKED ADJUSTED PER REQUEST. PATIENT DENIES ANY FURTHER NEEDS. CALL LIGHT IN [facility].
--- NOTE | 2021-01-08 04:49 | NUR ---
PATIENTS VITALS TAKEN BY CUSTOMER CARE TEAM COACH AND RECORDED. PATIENT IS RESTING IN BED WEARING BIPAP WITH 3L VIA NC BLED IN. PATIENT DENIES ANY NEEDS. CALL LIGHT IN REACH.
--- NOTE | 2021-01-08 05:42 | NUR ---
PATIENT NOW ON 4L BLED INTO BIPAP. PATIENTS BLOOD DRAWN FROM IJ AND SENT TO LAB. PATIENTS OUPUT RECORDED. NO NEEDS NOTED. CALL LIGHT IN REACH.
--- NOTE | 2021-01-08 06:50 | NUR ---
IN TO ASSIST PT WITH SWITCH TO OXYMASK FROM BIPAP, NO FURTHER NEEDS AT THIS TIME
--- NOTE | 2021-01-08 09:30 | NUR ---
IN TO COMPLETE ASSESSMENT. PT GIVEN MORNING MEDICATIONS. PT REMAINS ON 3-5 L O2 ON OXYMASK. LUNG SOUNDS ARE CLEAR BUL AND DIMINISHED BLL, OCCASIONAL PRODUCTIVE COUGH. BOWEL TONES ARE ACTIVE LAST BM 01/05, STARTED ON SENNA LAST NIGHT, THOUGH PT STATES AT HOME SHE GOES 5-7 DAYS W/OUT HAVING BM. PT HAS HAD GOOD APPETITE, ON 2 G SODIUM DIET AND 1800 ML FLUID RESTRICTION. PT HAS BEEN COMPLIANT W/ FLUID RESTRICTION. NO REDNESS NOTED TO FOLDS, DESENEX POWDER UTILIZED FOR PREVENTION. REPORTS NUMBNESS AND TINGLING AT BASELINE IN BLE. URINE OUTPUT SUFFICIENT, MOORE REMAINS IN PLACE. DAYRON SHEET BENEATH PT, REFUSING TO GET UP TO CHAIR FOR BREAKFAST. STATES SHE WILL TRY LATER. REQUESTING HAIRCUT THIS MORNING, NO OTHER REQUESTS AT THIS TIME.
--- NOTE | 2021-01-08 10:19 | NUR ---
PROGRESS NOTE FAXED TO DINA AT [facility] FOR FURTHER AUTHORIZATION OF TRILOGY VENT. JAXON BEASLEY AT [facility] CHART NOTES RECVD AND GIVEN TO DINA FOR REVIEW.
--- NOTE | 2021-01-08 11:30 | NUR ---
PT GIVEN PERCOCET FOR GENERALIZED 8/10 PAIN BY CELSO HA RN.
--- NOTE | 2021-01-08 12:23 | NUR ---
PT RESTING IN BED, USING O2 WITH TV ON. PT FEELING MUCH BETTER, SAID SHE IS "READY TO TAKE ON THE WORLD IF THEY WILL JUST LET ME"! FEELING MUCH BETTER. HAD ENGAGING VISIT, GAVE BLESSING. REQUESTED ICE AND IF SHE COULD GET A HAIRCUT. PASSED ON TO ZARI ANGUIANO. WILL FOLLOW NEEDED
--- NOTE | 2021-01-08 14:18 | NUR ---
Spoke with Regine and her daughter, Mary. Notified by Mary, pts friends next door who assist her, now have covid. Pt has several caregivers who are now unable to provide care. Discussed with pt need to go to an assisted living or hire care givers. Pt refuses assisted living and states she will not return to a SNF. (She is near to exhausting her SNF days). We then discussed hiring caregivers and [facility]. Pt will require at least 2 caregivers as she is heavy and 1 person is unable to turn her to change depends. Daughter will check for a bariatric wc at [facility]. Pt does not qualify as medicare has provided an electric scooter. Pt is also in need of a robert as she is unable to stand or pivot. Will request an order fromfei Agustin.
--- NOTE | 2021-01-08 14:30 | NUR ---
AFTERNOON ASSESSMENT COMPLETED, NO ACUTE CHANGES TO ASSESSMENT. SWITCHED FROM 5 L OXYMASK TO 4 L NC SATING 91-93%. PT CONTINUES TO HAVE PRODUCTIVE COUGH BUT STATES SHE "CAN'T SEEM TO GET IT ALL UP." GIVEN AFTERNOON MEDICATIONS. PAIN IS WELL MANAGED AT THIS TIME. NO FURTHER NEEDS, CALL LIGHT IN REACH.
--- NOTE | 2021-01-08 16:15 | NUR ---
IN TO GIVE PT FULL BED BATH W/ ASSISTANCE OF ABIGAIL HUMMEL. PT TOLERATED WELL. CHANGED ALLEVYN TO COCCYX AND PLACED LARGE SACRAL ALLEVYN. PT REMAINS ON 4 L NC O2 SATING 90-95%. FOLDS BENEATH BREASTS, PANNUS, AND GROIN CLEANED. NO REDNESS NOTED ANY FOLDS. CATHETER CARE DONE.
--- NOTE | 2021-01-08 18:05 | NUR ---
IN TO GIVE PT EVENING MEDICATION. PT TOLERATED DINNER WELL. DENIES FURTHER NEEDS. CALL LIGHT IN REACH.
--- NOTE | 2021-01-08 19:26 | NUR ---
I WASHED PATIENT'S HAIR WITH HER OWN SHAMPOO. THAN I RINSED IT OUT. THAN COMBED IT.
--- NOTE | 2021-01-08 19:54 | NUR ---
SHIFT REPORT RECEIVED FROM ANNMARIE HAMEED. PT RESTING IN BED, REPOSITIONED. NO OTHER NEEDS. CALL LIGHT IN REACH.
--- NOTE | 2021-01-08 21:50 | NUR ---
IN TO GET PT VITALS, MOORE EMPTIED, PT BOOSTED IN BED, PROVIDED PT A PROTIEN PACK, NO FURTHER NEEDS AT THIS TIME
--- NOTE | 2021-01-08 21:52 | NUR ---
ASSESSMENT, VS AND I&O COMPLETED. GCS 15, A&O X4. NC @ 4L, SPO2 92%. LUNGS CLEAR, HEART TONES REGULAR. ABD SOFT, NONTENDER, OBESE, BOWEL TONES ACTIVE. PULSE AND MOTOR INTACT IN ALL EXTREMITIES. SENSORY DECREASED IN ALL EXTREMITIES. RLE 2+ EDEMA, RLE 3+ EDEMA. IJ VIGORIOUSLY, GOOD BLOOD RETURN. BLE HAVE DISCOLORATION AND RAISED AREAS, CHRONIC. NO OTHER NEEDS AT THIS TIME. CALL LIGHT IN REACH.
--- NOTE | 2021-01-08 22:46 | NUR ---
READ NEWSPAPER ARTICAL FOR PT, NO FURTHER NEEDS
--- NOTE | 2021-01-09 00:22 | NUR ---
PT RESTING IN BED, EYES CLOSED. RR EVEN, UNLABORED ON CPAP. CALL LIGHT IN REACH.
--- NOTE | 2021-01-09 02:10 | NUR ---
PT CALLED REQUESTING WARM BLANKET. SHE HAS TRILOGY MASK OFF AND STATES SHE NEEDS A BREAK FROM IT. SHE IS BACK ON OM AT 4L. PILLOW PLACED UNDER R ARM FOR COMFORT. PT REQUESTS PAIN MEDS. PRIMARY RN DORYS NOTIFIED. CALL LIGHT IS CLOSE.
--- NOTE | 2021-01-09 02:29 | NUR ---
PT ON 4L OXYMASK AT THIS TIME. PT HAS 5/10 RIGHT ARM PAIN, PRN PAIN MED PROVIDED. IJ WNL, CDI. NUMBNESS AND INTINGLE IN BLE. LLE 3+, RLE 2+ EDEMA. LUNGS CLEAR IN UPPER LOBES, DIMINISHED IN LOWER LOBES. HEART TONES REGULAR. CMS INTACT IN BUE. PULSE AND MOTOR INTACT IN BLE. GCS 15, A&O X4. MOORE WNL. PT HAS AN OCCASSIONAL, LOOSE, MOIST COUGH. NO OTHER NEEDS AT THIS TIME. CALL LIGHT IN REACH.
--- NOTE | 2021-01-09 04:00 | NUR ---
PT RESTING IN BED, EYES CLOSED. RR EVEN, UNLABORED ON 4L OXYMASK. CALL LIGHT IN REACH.
--- NOTE | 2021-01-09 06:05 | NUR ---
IN TO ASSIST RN WITH BOOSTING PT IN BED, MOORE CARE DONE AND EMPTIED
--- NOTE | 2021-01-09 06:05 | NUR ---
PT FOUND TO HAVE REMOVED OXYMASK WHILE SLEEPING. MASK AT 4L REPLACED. SPO2 60%. OXYMASK UP TO 10L, PT MOVED UP IN BED, HOB UP, PT ENCOURAGED TO COUGH. DEBORAH HA RN AND RT CALLED. PT PLACED OM CPOX AND TRILOGY AT 4L. SPO2 AT 88%. JOAQUÍN RT ADJUSTS EAR SPO2 AND PLACES PT BACK ON WALL SPO2. SPO2 92%. PT PLACED BACK ON NC @ 4L. PT DENIES SOB THE ENTIRE TIME AND IS A&O TO ALL DURING EVENT. JOAQUÍN RT EXPLAINED THAT PT HAS POOR PERFUSION NOTED ON WALL MONITOR AND TO TAKE READINGS ON THE NARES WITH ATTACHED DEVICE. PT EDUCATION PROVIDED. VS COMPLETED. LUNGS CLEAR IN ALL LOBES. NO OTHER NEEDS AT THIS TIME. CALL LIGHT IN REACH.
--- NOTE | 2021-01-09 06:29 | NUR ---
IN TO GET BED WEIGHT, I&Os PUT IN, NO FURTHER NEEDS AT THIS TIME
--- NOTE | 2021-01-09 07:35 | NUR ---
REPORT RECEIVED FROM DORYS BODY MASKER RN. PT AWAKE AND ALERT THIS MORNING. ON 4 L NC SATING 92%. BREAKFAST HAS BEEN ORDERED. PT REMAINS ON 1800 ML FLUID RESTRICTION. NO FURTHER NEEDS AT THIS TIME.
--- NOTE | 2021-01-09 10:13 | NUR ---
VITALS AND I&OS CHARTED, MOORE EMPTIED. CALL LIGHT IN REACH, NO OTHER NEEDS AT THIS TIME
--- NOTE | 2021-01-09 16:00 | NUR ---
PT IN CHAIR. USED DAYRON LIFT TO LIFT HER UP IN HER CHAIR. PT STATED THAT SHE FEELS BETTER OVERALL. NO NEW CONCERNS NOTED AT THIS TIME.
--- NOTE | 2021-01-09 19:00 | NUR ---
PATIENT TO BED FROM CHAIR, 2PA DAYRON. PATIENT REPOSITIONED ONTO RIGHT SIDE WITH PILLOW UNDER LEFT. CALL LIGHT IN REACH. NO FURTHER NEEDS AT THIS TIME.
--- NOTE | 2021-01-09 19:18 | NUR ---
PATIENT RESTING QUIETLY IN SEMI-FOWLERS POSITION, EYES CLOSED, RESPIRATIONS REGULAR AND EVEN, CALL LIGHT IS IN REACH.
--- NOTE | 2021-01-09 21:10 | NUR ---
IN WITH RN TO GET VITALS, MOORE OUTPUT MESURED AT THIS TIME, ASSISTED RN WITH MEDICADED LOTION FOR PTs LEGS, PILLOW PULLED FROM PTs RT HIP, NO FURTHER NEEDS AT THIS TIME
--- NOTE | 2021-01-09 21:37 | NUR ---
PATIENT REMAINS ON 2L/NC WITH SATS BETWEEN 88-92%. PATIENT TURNED TO HER BACK FROM RIGHT SIDE. THIS RN AND SHAHEED NÚÑEZ APPLIED MEDICATED LOTION TO BOTH LEGS AND INTIFUNGAL POWDER UNDER BREAST AND ABD AND GROIN CREASES. PATIENT GIVEN NEW ICE CHIPS. PATIENT ASSESSMENT COMPLETE AND PM MEDS GIVEN. CALL LIGHT IS IN REACH.
--- NOTE | 2021-01-09 21:51 | NUR ---
PATIENT REFUSED PM SENNA.
--- NOTE | 2021-01-09 22:12 | NUR ---
PT CALLED, ASKED FOR EXTRA BLANKET, NO FURTHER NEEDS AT THIS TIME
--- NOTE | 2021-01-09 23:00 | NUR ---
PATIENT PLACED ON HER TRILOGY BREATHING MACHINE. NO OTHER CARE NEEDS AT THIS TIME. CALL LIGHT IN REACH.
--- NOTE | 2021-01-09 23:55 | NUR ---
IN WITH RN TO TURN PT, NO FURTHER NEEDS
--- NOTE | 2021-01-09 23:55 | NUR ---
THIS RN AND SHAHEED NÚÑEZ TURNED PATIENT TO HER LEFT SIDE. ALLEVYN DRESSING STILL IN PLACE ON THE COCCYX. PATIENT INFORMED SHE IS DUE FOR A REPEAT COVID TEST AND SHE VERBALIZED UNDERSTANDING. CALL LIGHT IS IN REACH.
--- NOTE | 2021-01-10 02:30 | NUR ---
in with rn to reposition pt with pillow to the left side, pt interested in getting back on trilogy mechine, rt called
--- NOTE | 2021-01-10 02:30 | NUR ---
PATIENT TURNED TO THE RIGHT SIDE WITH PILLOW UNDER BUTTOCK ON THE LEFT SIDE. PATIENT HAVING TROUBLE KEEPING HER BIPAP MASK ON AND RT WAS CALLED. PATIENT BACK ON 2L/NC FOR THE TIME BEING. CALL LIGHT IS IN REACH.
--- NOTE | 2021-01-10 02:40 | NUR ---
THIS RN BACK IN THE ROOM WITH GARCIA FROM RT AND PATIENT'S BIPAP MASK WAS PLACED BACK ON AND ADJUSTED WITH THE CONTINUATION OF 4L O2 BLEED IN. PATIENT HAD NO OTHER NEEDS AT THIS TIME. CALL LIGHT IS IN REACH.
--- NOTE | 2021-01-10 04:51 | NUR ---
PATIENT RESTING QUIETLY ON HER BIPAP, EYES CLOSED, RESPIRATIONS REGULAR AND EVEN, CALL LIGHT IS IN REACH.
--- NOTE | 2021-01-10 06:20 | NUR ---
IN TO GET PT VITALS, MOORE CARE DONE AND EMPTIED AT THIS TIME, ICE WATER REFILLED, NO FURTHER NEEDS AT THIS TIME
--- NOTE | 2021-01-10 07:22 | NUR ---
PT RESTING EYES CLOSED TRILOGY IN PLACE AT TIME OF SHIFT EXCHANGE. REPORT RECEIVED PT LEFT UNDISTURBED
--- NOTE | 2021-01-10 07:29 | NUR ---
PATIENT OFF BIPAP NOW AND BACK ON 2L/NC AT 88% SATURATION. PATIENT HAD NO NEW CARE NEEDS AT THIS TIME.
--- NOTE | 2021-01-10 08:43 | NUR ---
breakfast well tolerated pt sitting up in bed watching tv. denies discomforts or needs of at this time
--- NOTE | 2021-01-10 09:33 | NUR ---
PT RESTING EYES CLOSED
--- NOTE | 2021-01-10 12:08 | NUR ---
2 PA PATIENT TO CHAIR WITH DAYRON. GOKUL/CATH CARE. NEW GOWN, LINENS CHANGED. VITALS AND I&OS CHARTED. BROTHER IN ROOM. LUNCH DELIVERED, CALL LIGHT WITHIN EASY REACH.
--- NOTE | 2021-01-10 12:29 | NUR ---
PT UP TO THE CHAIR VIA DAYRON. EATING LUNCH NOW, FAMILY PRESENT IN THE ROOM
--- NOTE | 2021-01-10 15:13 | NUR ---
PT CONTINUES UP IN THE CHAIR STAFF ASSISTING WITH HER HAIR AT THIS TIME
--- NOTE | 2021-01-10 16:23 | NUR ---
PT ASSISTED BACK TO BED VIA DAYRON AGREES SHE IS COMFORTABLE CALL LIGHT IN HAND.
--- NOTE | 2021-01-10 16:29 | NUR ---
2PA PATIENT BACK TO BED USING DAYRON., CALL LIGHT AND PERSONAL ITEMS WITHIN REACH
--- NOTE | 2021-01-10 18:25 | NUR ---
VITALS AND I&OS CHARTED. CALL LIGHT AND PERSONAL ITEMS WITHIN IN REACH, NOOTHER NEEDS AT THIS YIME
--- NOTE | 2021-01-10 19:28 | NUR ---
PATIENT RESTING QUIETLY IN BED ON 2L/NC WATCHING TV. PATIENT HAS NO CARE NEEDS AT THIS TIME. CALL LIGHT IS IN REACH.
--- NOTE | 2021-01-10 22:50 | NUR ---
PATIENT GIVEN PO MEDICATION FOR 5/10 PAIN OF THE RIGHT ELBOW. PATIENT RECIEVED THE LAST OF HER FLUID RESTRICTION FLUIDS. PATIENT TOOK ALL PO MEDS WITHOUT DIFFICULTY. PATIENT TURNED TO THE LEFT SIDE. ALLEVYN TO COCCYX INTACT. MOORE EMPTIED. MEDICATED POWDER APPLIED UNDER BREASTS AND IN ABD AND GROIN CEASES AND FOLDES. MEDICATED LOTION APPLIED TO BOTH LEGS AND FEET. PATIENT HAS NO OTHER CARE NEEDS AT THIS TIME. CALL LIGHT IS IN REACH.
--- NOTE | 2021-01-11 00:04 | NUR ---
PATIENT PLACED ON HER TRILOGY BI-PAP. BLEED IN 02 TITRATED FROM 4L DOWN TO 1.5L AND O2 SATS HANGING STEADY AT 90%. PATIENT HAD NO OTHER CARE NEEDS. CALL LIGHT IS IN REACH.
--- NOTE | 2021-01-11 00:58 | NUR ---
PATIENT TURNED TO HER BACK. REMAINS ON BI-PAP. NO OTHER CARE NEEDS AT THIS TIME. CALL LIGHT IS IN REACH.
--- NOTE | 2021-01-11 01:33 | NUR ---
DOING ROUNDS AND PATIENT HAD HER BIPAP MASK UP ON HER FOREHEAD. REPOSITIONED MASK BACK OVER PATIENT'S MOUTH AND NOSE. PATIENT HAD NO OTHER CARE NEEDS AT THIS TIME. CALL LIGHT IN REACH.
--- NOTE | 2021-01-11 02:15 | NUR ---
PATIENT HAD HER BIPAP MASK PULLED OFF AGAIN. REPLACED MASK OVER FACE AND NOSE. PATIENT TURNED TO HER RIGHT SIDE. NO OTHER CARE NEEDS AT THIS TIME. CALL LIGHT IN REACH.
--- NOTE | 2021-01-11 03:07 | NUR ---
ASSISTED PT TO GET TRILOGY MASK BACK IN PLACE, NO FURTHER NEEDS
--- NOTE | 2021-01-11 03:30 | NUR ---
PATIENT RESTING QUIETLY WITH HER EYES CLOSED, BIPAP IN PLACE, RESPIRATIONS ARE REGULAR AND EVEN, CALL LIGHT IS IN REACH.
--- NOTE | 2021-01-11 03:55 | NUR ---
IN TO PROVIDE PT WITH AN EXTRA BLANKET AND ASSIST PT WITH MASK SO SHE COULD HAVE A SIP OF WATER
--- NOTE | 2021-01-11 05:15 | NUR ---
IN TO GET VITALS, MOORE EMPTIED, PT BACK TO RESTING, NO FURTHER NEEDS AT THIS TIME
--- NOTE | 2021-01-11 05:18 | NUR ---
PATIENT TURNED BACK TO HER BACK. LABS DRAWN FROM [facility] AND SENT TO LAB. [facility] HAS NEW POSI-FLOW CAP AND LINE FLUSHED WITH 20MLS NS AND HEP-LOCKED. PATIENTS MASK OFF AGAIN WHEN ENTERING THE ROOM AND PATIENT WANTED TO GO BACK TO 2L/NC WHICH WAS DONE AND SATS 88-90%. PATIENT HAS PULLED HER MASK OFF THIS SHIFT ALMOST ONCE AN HOUR. ALLEVYN TO COCCYX REMAINS DRY AND IN PLACE. PATIENT'S CALL LIGHT IS IN PLACE. PATIENT'S LUNG SOUNDS REMAIN DEMINISHED WITH FINE CRACKLES IN THE BASES. PATIENT HAD PAIN MEDICATION ONCE FOR PAINFUL RIGHT ELBOW AT EVENING MED PASS AND HAS NOT HAD AN VERBALIZATION OF PAIN SINCE THAT TIME.
--- NOTE | 2021-01-11 06:30 | NUR ---
IN TO REMOVE EXTRA BLANKETS, PT WONDERING WHERE HE LAST NIGHTS WATER WENT, 300 ICE WATER REFILLED PER RESTRICTON SHEET, NO FURTHER NEEDS
--- NOTE | 2021-01-11 07:36 | NUR ---
PT RESTING IN BED ASSISTED TO REPOSITION FOR MORNING MEAL. WARM CLOTH PROVIDED SATS 88% ON 2L NC. FRESH H20 AT BEDSIDE, RESTRICTION DISCUSSED. PT AREES SHE IS COMFORTABLE OTHER NEEDS DENIED
--- NOTE | 2021-01-11 08:20 | NUR ---
Spoke with Kathryn, she cont. to work on finding caregiver coverage and a wc. Pt. cont. to plan for dc to home. Will cont. to work with pt and family for dc plan.
--- NOTE | 2021-01-11 09:30 | NUR ---
PATIENT IN BED RESTING WITH EYES CLOSED. VITALS AND I&O'S CHARTED. AM CARE DONE. CALL LIGHT IN REACH. NO FURTHER NEEDS AT THIS TIME.
--- NOTE | 2021-01-11 11:15 | NUR ---
PT WORKS WITH P/T. REPOSTIONED AND ROLLED IN BED FOR COMFORT. DENIES PAIN OR DISCOMFORTS.
--- NOTE | 2021-01-11 13:51 | NUR ---
PT ALERT, ORIENTED AND SITTING UP IN BED WATCHING TV. PT EXPRESSED DELIGHT- SHE WAS ABLE TO GET HER HAIR CUT! PT PAYS CLOSE ATTENTION TO THE WORKD AROUNG HER-[employer] [place] AND WORLD WIDE. ENGAGING VISIT, PT REQUESTED VISIT FROM FR CARREON TODAY. WILL INFORM HIM. GAVE BLESSING, PT THANKED ME FOR COMING BY. WILL CONTINUE TO FOLLOW
--- NOTE | 2021-01-11 14:15 | NUR ---
PATIENT IN BED WATCHING TV. PATIENT REPOSITIONED ONTO LEFT SIDE. VITALS AND I&O'S CHARTED. CALL LIGHT IN REACH. NO FURTHER NEEDS AT THIS TIME.
--- NOTE | 2021-01-11 15:32 | NUR ---
pt up to the chair via robert lift. needed items and call light in reach
--- NOTE | 2021-01-11 17:55 | NUR ---
PATIENT SITTING UP IN CHAIR EATING. VITALS AND I&O'S CHARTED. CALL LIGHT IN REACH. NO FURTHER NEEDS AT THIS TIME. CATH CARE DONE.
--- NOTE | 2021-01-11 19:34 | NUR ---
REPORT RECEIVED FROM DAY SHIFT RN. PT LYING IN BED ALERT AND ORIENTED. DENIES NEEDS AT THIS TIME. WHITE BOARD UPDATED. CALL LIGHT IN REACH.
--- NOTE | 2021-01-11 20:19 | NUR ---
PT WITH MEDIUM FORMED BM. GOKUL AND MOORE CARE DONE. ALLEVYN TO COCCYX CHANGED DUE TO SOILING. REPOSITIONED PT IN BED WITH DAYRON. FRESH WATER AND SNACK PROIVDED.
--- NOTE | 2021-01-11 22:30 | NUR ---
EVENING ASSESSMENT COMPLETE. SCHEDULED MEDS ADMINISTERED PER EMAR. PRN ADMINISTERED FOR C/O RIGHT ELBOW PAIN. PT DENIES CP OR SOB. O2 2L/NC IN PLACE. RESPIRATIONS EVEN. PANNUS AREA CLEANED, DRIED, AND FRESH POWDER APPLIED. SKIN INTACT. EDEMA NOTED IN UPPER AND LOWER EXTREMITIES. BLE ELEVATED IN BED. PILLOW UNDER RUE FOR SWELLING AND SORENESS. ASSISTED PT TO REPOSITION IN BED. DENIES QUESTIONS OR CONCERNS. CALL LIGHT IN REACH.
--- NOTE | 2021-01-11 23:27 | NUR ---
CALL LIGHT ANSWERED. PT REQUESTING ASSISTANCE WITH TRILOGY PLACEMENT. MASK PLACED WITH 1.5L OXYGEN BLEED IN. SpO2 90%. HR 60'S.
--- NOTE | 2021-01-12 00:36 | NUR ---
CALL LIGHT ANSWERED. PT REMOVED TRILOGY MASK TO TAKE A DRINK OF WATER AND WAS UNABLE TO PUT BACK ON. IN TO ASSIST, MASK IN PLACE.
--- NOTE | 2021-01-12 02:11 | NUR ---
IN TO ASSIST PT WITH TRILOGY MASK. PT HAVING DIFFICULTY WITH PUTTING MASK ON PROPERLY AFTER REMOVING IT TO DRINK WATER, SUGGESTS WRITING DIRECTIONS ON MASK. COLE DISCUSS WITH RT.
--- NOTE | 2021-01-12 04:09 | NUR ---
PT REQUESTING TO HAVE HER "BACK SCRATCHED". BACK RUB WITH LOTION PROVIDED. REPOSITIONED PT TO LEFT SIDE WITH PILLOWS. PT REQUESTING A BREAK FROM TRILOGY. 2L/NC IN PLACE. SpO2 88%. HR 60'S. MOORE PATENT WITH CLEAR YELLOW URINE. PT SNACK PROVIDED. PT REMAINS WITHIN 1800 ML FLUID RESTRICTION.
--- NOTE | 2021-01-12 06:29 | NUR ---
MORNING LABS DRAWN PER PROTOCOL. ASSISTED PT TO REPOSITION IN BED. TRILOGY MASK PUT BACK ON PER PT REQUEST. BATTERIES REPLACED IN FAN. NO FURTHER NEEDS. CALL LIGHT IN REACH.
--- NOTE | 2021-01-12 07:25 | NUR ---
this rn received report from phillip alfaro. pt appears to be resting with the triology on and respirations noted.
--- NOTE | 2021-01-12 08:46 | NUR ---
THIS RN IN PTS ROOM WITH GABBY [facility] LUMBER INSPECTOR. PT STATES THAT SHE IS FEELING GOOD THIS AM, A BIT DROWSY DUE TO JUST WAKING UP. GABBY TO DO MEDICATION EDUCATION WITH PT, PT STATED UNDERSTANDING. PT NOTED TO HAVE A PRODUCTIVE COUGH THIS AM.
--- NOTE | 2021-01-12 11:30 | NUR ---
PATIENT IN BED, BED BATH GIVEN BY THIS SURFACER AND SN. GOKUL CARE, CATH CARE, SKIN CARE, SHAMPOO DONE. NEW GOWN GIVEN. LINENS CHANGED. CALL LIGHT IN REACH. NO FURTHER NEEDS AT THIS TIME.
--- NOTE | 2021-01-12 14:30 | NUR ---
THIS RN IN PTS ROOM WITH GABBY [facility] HAND SPRING REPAIRER AND NAMAN HUMMEL TO ASSIST PT AFTER HAVING A CONTINENT/INCONTIENT BM.
--- NOTE | 2021-01-12 14:33 | NUR ---
STAFF IN WITH PT, DID NOT DISTURB. WILL CHECK BACK AGAIN
--- NOTE | 2021-01-12 17:23 | NUR ---
Spoke with Lizbeth regarding cg as daughter called and was concerned she does not have a cg or a wc for dc. [place] states she has called people and has a high school age person to stay the nights for the summer, she has hired a cg for the day time and friends will assist when needed. A friend picked up a bariatric wc from [facility] today and a friend called and will lease their wheel chair van to her.
--- NOTE | 2021-01-12 17:45 | NUR ---
THIS RN IN PTS ROOM TO GIVE PT HER EVENING MEDS. PT SITTING UP IN BED AND IS READY TO DO TOWN SLAUGHTER MEETING FROM ROOM. PT STATES THAT SHE NEEDS NOTHING ELSE AT THIS TIME. THIS RN PLACED SIGN ON DOOR TO NOTIFY STAFF TO NOT ENTER PER PT REQUEST
--- NOTE | 2021-01-12 19:44 | NUR ---
REPORT RECEIVED FROM DAY SHIFT RN. PT LYING IN BED ALERT AND ORIENTED. DENIES NEEDS AT THIS TIME. WHITE BOARD UPDATED. CALL LIGHT IN REACH.
--- NOTE | 2021-01-12 19:45 | NUR ---
IN TO TAKE PT HER DINNER TRAY, NO FURTHER NEEDS AT THIS TIME
--- NOTE | 2021-01-12 20:00 | NUR ---
IN TO CHECK ON PT INTAKE, PT ALSO FINISHED DINNER AT THIS TIME,
--- NOTE | 2021-01-12 22:30 | NUR ---
EVENING ASSESSMENT COMPLETE. SCHEDULED MEDS ADMINISTERED PER EMAR. PRN ADMINISTERED FOR C/O RIGHT SHOULDER/ELBOW PAIN. PT INCONTINENT OF MED SOFT BM. 2PA WITH GOKUL CARE AND REPOSITIONING IN BED. DAYRON USED. BLE ELEVATED. MOORE CARE DONE. PATENT WITH YELLOW URINE. RIGHT IJ FLUSHED AND HEP LOCKED PER PROTOCOL. ALL THREE LUMENS WITH BRISK BLOOD RETURN. O2 3L/NC IN PLACE. RESPIRATIONS EVEN. SOB WITH ACTIVITY NOTED. PT DENIES QUESTIONS OR CONCERNS. CALL LIGHT IN REACH.
--- NOTE | 2021-01-12 23:48 | NUR ---
IN TO ASSIST PT WITH PUTTING TRILOGY MASK ON. ASSISTED TO REPOSITION. FRESH WATER PROVIDED. PT REMAINS WITHIN 1800 ML FLUID RESTRICTION. NO FURTHER NEEDS.
--- NOTE | 2021-01-13 01:42 | NUR ---
PT RESTING IN BED WITH EYES CLOSED. TRILOGY IN PLACE. RESPIRATIONS EVEN.
--- NOTE | 2021-01-13 02:34 | NUR ---
PT RESTING IN BED WITH EYES CLOSED, NAD.
--- NOTE | 2021-01-13 03:52 | NUR ---
CALL LIGHT ANSWERED. PT REQUESTING PO TYLENOL FOR RESTLESS LEGS, ADMINISTERED PER EMAR. UPON ENTERING ROOM PT DID NOT HAVE TRILOGY MASK OR NASAL CANNULA IN PLACE. RA SATS 80%. HR 60'S. EDUCATION PROVIDED. ASSISTED TO PUT MASK BACK ON. NO FURTHER NEEDS.
--- NOTE | 2021-01-13 06:10 | NUR ---
PT APPEARS TO BE SLEEPING. TRILOGY OFF. SATS 80% ON RA. 3L/NC PLACED PT CONTINUES TO TAKE MASK OFF. SpO2 UP TO 89%. VS AND I&O COMPLETE. ASSISTED TO REPOSITION IN BED WITH PILLOWS. MOORE PATENT WITH YELLOW URINE. NO FURTHER NEEDS AT THIS TIME.
--- NOTE | 2021-01-13 07:31 | NUR ---
this rn received report from phillip alfaro. pt appears to be resting at this time with respirations noted and nasal cannula on.
--- NOTE | 2021-01-13 10:00 | NUR ---
THIS RN IN PTS ROOM TO CHECK ON PT. PT STATES THAT SHE NEEDS HELPING REACHING HER PHONE FROM THE SHOP SUPERINTENDENT. PT ALSO REPORTS AT THIS TIME THAT SHE FEELS LIKE SHE WILL NEED TO BE CLEANED UP AFTER HAVING A BM.
--- NOTE | 2021-01-13 10:30 | NUR ---
THIS RN IN PTS ROOM WITH ARJUN HUMMEL TO GET PT CLEANED UP FROM HAVING A BM. PT ABLE TO ASSIST STAFF AND PARTIALLY TURN IN THE BED. PT HAD A LOULOU BM THIS AM
--- NOTE | 2021-01-13 10:40 | NUR ---
Spoke with Lizbeth and updated per am report with Dr. Luis plan is to dc to home on Monday. Pt cont. to not have cgs in place, but states they are in the works. Her friend did find a bariatric wc for her yesterday. I again discussed with pt, she is unable to walk and will need cgs. I have spoken with Jessica [facility] and there is a Respite Bed there she can use for a minimum of 15 days, if she does not find cg. Pt again declines. Pt also states she will never return to a SNF and if she fails at home, she fails. I will call about Kassidy as I have not received a resonse from [facility]. Pt would like PT, OT, and SN.
--- NOTE | 2021-01-13 10:47 | NUR ---
2 PA - PATIENT INCONT OF STOOL. MOORE CAR AND LUBNA REPLACED. P/T IN NOW. PATGIENT AGREES TO GET INTO CHAIR WHEN FINISHED.
--- NOTE | 2021-01-13 11:18 | NUR ---
Called to confirm Kassidy as I have not received response from [facility] [place]. They state they did not receive order. RX and note refaxed from 01/07/21/
--- NOTE | 2021-01-13 15:15 | NUR ---
this rn in pts room with charge nurse nilam alfaro to remove pts ij at this time. pt tolerated well and it came out wnl. this rn applied pressure for 5+mins. this rn applied bacitracin, xeroform, gauze and opsite. pt to lay flat for 45mins. pt education provided and pt stated understanding.
--- NOTE | 2021-01-13 16:57 | NUR ---
2PA PATIENT HAD BM IN BED. PATIENT STATES SHE IS UNSURE IF IT'S GAS OR STOOL WHEN SHE FEELS "THAT URGE." ZARI MCFADDEN IN TO VISIT WITH PATIENT, SUGGESTED WE DAYRON PATIENT TO BSC THE NEXT TIME SHE NEEDS TO HAVE A BM, PATIENT AGREES.
--- NOTE | 2021-01-13 18:37 | NUR ---
PATIETN AWAKE IN BED, VITALS AND I&OS CHARTED. MOORE EMPTIED. CALL LIGHT AND PERSONAL ITEMS WITHIN EASY REACH. NO OTHER NEEDS AT THIS TIME
--- NOTE | 2021-01-13 21:25 | NUR ---
PT PROVIDED WITH HER FRUIT SNACK PLATE
--- NOTE | 2021-01-13 22:15 | NUR ---
IN TO GET VITALS, 2PA CHANGE CHUX FROM BM, ICE WATER FILLED, MOORE EMPTIED, GRAPE SNACK BOX PROVIDED NO FURTHER NEEDS
--- NOTE | 2021-01-13 22:18 | NUR ---
SCHEDULED MEDS PROVIDED. PT PERICARE PROVIDED AND REPOSITIONED. NO OTHER NEEDS AT THIS TIME. CALL LIGHT IN REACH.
--- NOTE | 2021-01-13 23:19 | NUR ---
eating a snack, no c/o pain. O2 2LNC, coop with assessment, lungs dim at bases, abd large soft. had a bm earlier this shift. edematous LE. L 4+ pitting, abnormal skin folds ankles to toes. abnormal skin folds R leg heel area. much improved, bruised areas arms, healing. dressing over R IJ site. No c/o pain
--- NOTE | 2021-01-14 00:22 | NUR ---
USING CPAP, C/O 02/04 PAIN, MEDICATED WITH 1 PERCOCET.
--- NOTE | 2021-01-14 03:05 | NUR ---
RESTING, HOB ELEVATED, USING CPAP, NO DISTRESS, CALL LIGHT AT BEDSIDE. LEGS ELEVATED
--- NOTE | 2021-01-14 05:10 | NUR ---
Has slept well this shift, On 2LNC at begining of shift. used CPAP from 0 to now. tolerated well. on Aerosol precautions. Was medicated with Percodan per pain with good pain relief, Had a bm this shift. f/c patent. bruising arms healing, lymphedema to LE improved, Left leg calf area to ankles 4+ pitting edema, 3+ non pitting R leg, Skin much improved except heel area R foot and L foot to toes . Allevyn to coccyx area. Tolerating fluid restrictions well. IJ removed yesterday site intact. Alert and oriented,
--- NOTE | 2021-01-14 09:30 | NUR ---
Discussed dc tomorrow with Lizbeth. She states she has cg in place for 24 our coverage. Friend delivered a bariatric wc. 02 will be delivered tomorrow and there is a robert in the home. Daughter Mary is in the room and is in agreement. Friend will bring pts wc to hospital with robert givens for transport home tomorrow. I will schedule wc van for discharge tomorrow at 1 pm.
--- NOTE | 2021-01-14 09:52 | NUR ---
REPORT RECEIVED FROM NIGHT RN AND PT. CARE RESUMED. PT. IS ALERT AND ORIENTED. DISCUSSED POC AND HER GOALS. SHE DENIES PAIN. MOORE PATENT AND DRAINING CLEAR YELLOW URINE. IJ IS REMOVED AND GAUZE DRESSING CDI. PT. HAD A SMALL BM AND CLEANED, THEN BARRIER CREAM APPLIED. FOAM DRESSING ON COCYX AREA CHANGED. AREA HAS 2 SMALL OPEN AREAS OF SKIN THAT ARE STAGE 1 PRESSURE INJURY. LUNGS DIM. IN BASES AND MOIST UNPRODUCTIVE COUGH. PT. IS UNABLE TO LIFT HER LEGS WITHOUT ASSISTANCE. PT. ASSISTED WITH REPOSITIONING AND LEFT RESTING IN BED WITH CALL LIGHT IN REACH.
--- NOTE | 2021-01-14 11:45 | NUR ---
DID GOKUL CARE AND CATH CARE. WASHED UNDER HER ARMS AND BREASTS. CHANGED HER GOWN. PUT A PILLOW UNDER HER LEFT ARM.
--- NOTE | 2021-01-14 12:28 | NUR ---
PATIENT IS EATING HER LUNCH.
--- NOTE | 2021-01-14 13:54 | NUR ---
PT. IS ALERT AND ORIENTED. VISITOR IN THE ROOM. HER LUNGS ARE DIM. IN THE BASES AND BREATHING IS UNLABORED. PT. 02 SAT IS 92% AND TITRATED DOWN TO 1L NC. EDEMA UNCHANGED BLE FROM THIS MORNING. PT. IS EATING WELL AND FOLLOWING ORDERED FLUID RESTRICTION LEFT RESTING IN BED WITH CALL LIGHT IN REACH.
--- NOTE | 2021-01-14 13:56 | NUR ---
Transport scheduled wc van for ride home at 1300 tomorrow. Friends will bring ella and robert tosha into hospital tonight.
--- NOTE | 2021-01-14 14:07 | NUR ---
Notified JIMMIE at [facility], pt will discharge to home tomorrow.
--- NOTE | 2021-01-14 15:10 | NUR ---
02 SAT. CHECKED AND STILL 92% ON 1L NC. P.T. IN THE ROOM TO WORK WITH PT.
--- NOTE | 2021-01-14 15:41 | NUR ---
Face sheet, 02 qualifier, order for 02,progress note faxed to [facility] for home 02.
--- NOTE | 2021-01-14 17:38 | NUR ---
PT. IS ON 1L NC AND MAINTAINING O2 SAT. WITHIN PARAMETERS. DAYRON LIFT AND BEDBOUND. PRESSURE INJURY ON COCYX AND ALLEVYN IN PLACE. ALERT AND ORIENTED. SHE IS COMPLIANT WITH FLUID RESTRICTION. DISCHARGE PLANNED FOR TOMORROW TO HOME WITH [facility].
--- NOTE | 2021-01-14 19:22 | NUR ---
I SHAVED PATIENT'S CHIN.
--- NOTE | 2021-01-14 19:43 | NUR ---
Watching tv, no c/o pain, on room air. no distress. uses call light, tolerating fluid restriction well, 400cc left to count for this shift. pt aware
--- NOTE | 2021-01-14 21:20 | NUR ---
IN PATIENT ROOM FOR VITALS AND I&O. PATIENT HAD BELOW PERAMITERS BLOOD PRESSURE. RN NOTIFIED. PATIENT REQUESTED A SNACK BOX AND PROVIDED. DENIES ANY FUTHER NEEDS. CALL LIGHT IN HAND
--- NOTE | 2021-01-14 22:57 | NUR ---
was on 3L nc, sats 95-96%, weaned off to 2L, sats 92-94%, weaned down to 1L, sasts down to 84-83%, no increase in resp noted. O2 back at 2LNC at this time, sats 92%. lungs clear but dim at bases, no sobnoted with exertion. Pt was turned and repositioned using robert lift. Coop. c/o shoulders pain, was medicated with Percocet 1tab. No IV site. Bruised arms healing. no redness between panus area, powder applied, f/c patent, draining yellow urine, cath care done. Allevyn to buttocks area intaact. Lymphedema to legs with raised skin L leg 3+ pitting mid calf to toes, elephantitis skin present from ankle to oes. Left more edematous than Right. Right leg 2+ non pitting edema, raised skin below heels improving, legs elevated. tolerating fluid restriction. Coop and pleasant. helped with turning and repositioning
--- NOTE | 2021-01-15 00:11 | NUR ---
call light answered. patient requested ice pack for right sholder. no futher needs at this time.
--- NOTE | 2021-01-15 00:39 | NUR ---
rESTING, HOB ELEVATED, USING TRILOGY CPAP. NO DISTRES, CALL LIGHT AT HANDS REACH
--- NOTE | 2021-01-15 03:55 | NUR ---
pt awake, c/o 6/10 abd pain, medicated with Toradol IV. Up to br independent had a bm, hard, pt states. voiding QS. ivf infusign w/o problems. no emesis
--- NOTE | 2021-01-15 03:58 | NUR ---
Resting, took CPAP off, no O2, resp even,unlabored, no distress, calm, eyes closed. call light at hands reach
--- NOTE | 2021-01-15 05:36 | NUR ---
Has slept, O2 weaned off to 2L used CPAP. took off for a while then back on. no ditress, lungs dim at bases, moist cough present. no IV, f/c patent. allevyn to buttocks . lymphedema to LE. left pitting edema greater than right, right no pitting edema, Kassidy used, helped with repositioning. Was medicated with Percocet shoulder pain, effective. Has tolerating fluid restrictions
--- NOTE | 2021-01-15 09:20 | NUR ---
SPOKE WITH DINA FROM [facility]. SHE STATES THEY HAVE ORDERS AND WILL DELIVER OXYGEN WHEN PATIENT RETURNS HOME. DISCUSSED WE HAVE A 1PM PLAN FOR DISCHARGE AND THAT SHE WILL NEED TO GO HOME IN W/C VAN TO [place] SO IT WILL BE PROBABLY AN HOUR THAT SHE WILL BE HOME. SHE STATES SHE IS FAXING ONE MORE THING FOR TO FILL OUT.
--- NOTE | 2021-01-15 09:37 | NUR ---
PT WAS SITTING UP IN BED WATCHING TV. MORNING ASSESSMENT COMPLETED. PT LUNG SOUNDS WERE CLEAR BUT DEMINISHED IN THE LOWER LOBES. PT WAS ON ROOM AIR SATTING IN THE LOW 80S. PT WAS PUT ON 2L NC AND WAS THEN SATTING IN THE LOW 90S. BOWEL TONES WERE ACTIVE. PT STATED NO ACUTE PAIN AT THIS TIME. PT HAD PITTING EDEMA IN EXTREMITIES. PEDAL PULSES WERE WEAK BUT FEET WERE WARM. CAP REFILL LESS THAN 3 SECONDS. MORNING MEDICATIONS PASSED. SEE EMAR. PT DENIED THE SENNIOSIDE. STATED BOWEL MOVEMENT YESTERDAY WAS SOFT. PT UPDATED ON PLAN FOR THE DAY. PT WILL HAVE A BED BATH AND BE TRANSFERED TO THE WHEELCHAIR VIA DAYRON LIFT AND BE READY FOR THE TRANSER VAN AT 1245. PT WAS OK WITH THIS PLAN. NO FURTHER NEEDS AT THIS TIME.
--- NOTE | 2021-01-15 09:45 | NUR ---
SPOKE WITH PATIENT IN ROOM. SHE IS STILL PLANNING DISCHARGE HOME. DISCUSSED THAT VANDANA WILL COME AFTER SHE IS HOME TO DELIVER AND SET UP HOME OXYGEN. SHE IS AWARE THAT THE W/C VAN IS PLANNED TO BE HERE AT 1PM. SHE HAS EQUIPMENT IN ROOM FOR TRANSFER HOME. SHE HAS NO QUESTIONS. DISCUSSED THAT HOME HEALTH ORDERS WILL BE SENT AFTER DISCHARGE. SHE IS AWARE OF THIS. SHE DENIES ANY QUESTIONS AT THIS TIME. STATES "YOU ALL DID A VERY GOOD JOB GETTING ME BETTER". PT DENIES QUESTIONS.
[2021-01-15] MEDS ORDERED: SULFAMETHOXAZO1 EAC1 PO (10:01)
--- NOTE | 2021-01-15 11:48 | NUR ---
ABUND[facility] OF STAFF BUSY GETTING PT READY FOR DC. UNABLE TO VISIT AT THIS TIME. WILL FOLLOW NEEDED
--- NOTE | 2021-01-15 13:03 | NUR ---
RETURNED MEDICAL NECESSITY PAPERWORK THAT WAS SIGNED BY DR RAMÍREZ TO [facility] FAX ON FORM. CONFIRMATION RECEIVED.
--- NOTE | 2021-01-15 14:20 | NUR ---
FAXED HOME HEALTH ORDERS/CLINICALS TO [facility]. CALLED THEM AND THEY CONFIRMED THEY RECEIVED. THEY HAVE SEEN THIS PATIENT BEFORE SO ARE FAMILIAR WITH HER NEEDS. DISCUSSED THAT SHE WAS DISCHARGED TODAY.
--- NOTE | 2021-01-15 14:36 | NUR ---
PT MOORE CATHETER CHANGED BEFORE DISCHARGED. A 16 AMHARIC CATHETER WAS USED. THREE ATTEMPS WERE MADE TO PUT THE CATHETER IN. CLEAR YELLOW URINE WAS OBSERVED ON INSERTION. PT TOLERATED IT WELL. LOCAL LIDOCAINE WAS GIVEN TO THE PT. BELONGINGS WERE GATHERED AND GIVEN TO THE WHEELCHAIR VAN. PT WAS HOYERED TO HER WHEELCHAIR. DISCHARGE VITAL SIGNS WERE WNL. PT WAS WHEELED OUT TO THE VAN.
--- NOTE | 2021-01-15 15:52 | NUR ---
PATIENT GOT A BED BATH THIS MORNING. WE GOT HER DRESSED PACKED UP ALL OF HER STUFF.
== END 2021-01-15 13:20 | disposition home or self-care (01) | DRG 698 ==
LOC: ED 10:49 → CCU 13:25 → MS 01-07 14:00
PROVIDERS: ADMIT Internal Medicine; ATTEND Internal Medicine
PROC: 5A09357 Assistance with Respiratory Ventilation, Less than 24 Consecutive Hours, Continuous Positive Airway Pressure (ICD-10-PCS; principal; 2021-01-02)
PROC: 02HV33Z Insertion of Infusion Device into Superior Vena Cava, Percutaneous Approach (ICD-10-PCS; 2021-01-02)
PROC: 3E043XZ Introduction of Vasopressor into Central Vein, Percutaneous Approach (ICD-10-PCS; 2021-01-02)
PROC: 0BH17EZ Insertion of Endotracheal Airway into Trachea, Via Natural or Artificial Opening (ICD-10-PCS; 2021-01-02)
PROC: 5A1945Z Respiratory Ventilation, 24-96 Consecutive Hours (ICD-10-PCS; 2021-01-02)
DX: T83.511A Infection and inflammatory reaction due to indwelling urethral catheter, initial encounter (principal); A41.59 Other Gram-negative sepsis; R65.21 Severe sepsis with septic shock; J96.22 Acute and chronic respiratory failure with hypercapnia; J96.21 Acute and chronic respiratory failure with hypoxia; G93.41 Metabolic encephalopathy; J15.6 Pneumonia due to other Gram-negative bacteria; I50.33 Acute on chronic diastolic (congestive) heart failure; A41.51 Sepsis due to Escherichia coli [E. coli]; E66.2 Morbid (severe) obesity with alveolar hypoventilation; Z68.41 Body mass index [BMI] 40.0-44.9, adult; I48.92 Unspecified atrial flutter; N39.0 Urinary tract infection, site not specified; Z20.822 Contact with and (suspected) exposure to COVID-19; E78.5 Hyperlipidemia, unspecified; G25.81 Restless legs syndrome; G89.4 Chronic pain syndrome; F39 Unspecified mood [affective] disorder; I48.0 Paroxysmal atrial fibrillation; Z88.5 Allergy status to narcotic agent; Z88.7 Allergy status to serum and vaccine; Z91.14 Patient's other noncompliance with medication regimen; Z78.1 Physical restraint status; Z79.899 Other long term (current) drug therapy; Z79.891 Long term (current) use of opiate analgesic
CPT/HCPCS: 31500; 31720; 36415; 36556; 36600; 71045; 80048; 80053; 81001; 82803; 83036; 83605; 83735; 83880; 84484; 85025; 87040; 87070; 87077; 87088; 87186; 87205; 93005; 93010; 94002; 94003; 94640; 94660; 94667; 94668; 94760; 94761; 96374; 97110; 97162; 97165; 97530; 99285-25; 99406; C9113; C9803; J0692; J0696; J1650; J1940; J1956; J2250; J2370; J2704; J2997; J3010; J3370; J3475; J3480; J7060; J7121; U0003

== ENCOUNTER 2021-08-29 07:02 | Inpatient (IN) | payer MEDICARE, OTHER ==
[~2021-08-29] VITALS: Ht 172.7 cm; Wt 186.0 kg
[~2021-08-29 07:02] MED LIST changes: +AMMONIUM LACTA385 GM TOP; +SPIRONOLACTONE25 MG PO; +STOOL SOFTENER1 EACH PO; +SULFAMETHOXAZO1 EAC1 PO; +VENTOLIN HFA18 GM INH
--- OUTSIDE RECORDS SUMMARY | 2021-08-29 07:04 | XMS ---
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 Science Intern Events No recent Security Events currently on file CRITERIA MET - PDMP CARE PROVIDERS EFRENALETHA Physician Stave Machine Tender 08/17/2020-Current PHONE: [phone] SHRUTHI MARTINEZ Environmental Sampler Kari Wallace PHONE: [phone] FABIENNE HINTON Internal Medicine Current PHONE: Unknown QUANG RODGERS Nurse Practitioner Current PHONE: [phone] PAYAL GARCIA Nurse Practitioner: Family Current PHONE: Unknown JOVANI Nurse Practitioner Current [facility] PHONE: [phone] SARAH [facility] Current PHONE: [phone] Nimesh has no Care Guidelines for this patient. Care History Medical/Surgical 12/13/2018 [facility] - PATIENT HAS A UNDERBASTER AT [facility]ARD[facility]. - PATIENT IS NOW SET UP WITH [facility] INFECTIOUS DISEASE [facility]INIC- DR TILLMAN- [place] SET UP AN APT FOR PATIENT FOLLOW UP ON December @ 1:15PM. - PATIENT HAS 10 DAYS OF DAILY ANTIBIOTIC TREATMENTS STARTING 12/13/18. 07/18/2018 [facility] IF SEEN IN ED AND NEEDS INPATIENT ADMISSION:\T\nbsp; PATIENT NEEDS TO BE TRANSFERRED TO A FACILITY THAT HAS A BARIATRIC SPECIALTY UNIT .\T\nbsp; THIS PATIENTS WEIGHT IS NOW HIGHER THAN OUR EQUIPMENT CAN TOLERATE SAFELY. E.D. VISIT COUNT (12 MO.) 3 [facility] TOTAL 3 NOTE: Visits indicate total known visits. 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 - Hypoxemia - Nicotine dependence, unspecified, uncomplicated - Unspecified asthma, uncomplicated - Shortness of breath - Type 2 diabetes mellitus without complications - Allergy status to serum and vaccine - Hypertensive heart disease with heart failure INPATIENT VISIT TRACKING (12 MO.) 01/02/2021 13:25 [facility] TYPE: Medical Surgical COMPLAINT: - RESPIRATORY FAILURE DIAGNOSES: - Severe sepsis with septic shock - Unspecified mood [affective] disorder - Hyperlipidemia, unspecified - Other Gram-negative sepsis - Other Gram-negative sepsis - Other fci (current) drug therapy - Chronic pain syndrome - Acute on chronic diastolic (congestive) heart failure - Morbid (severe) obesity with alveolar hypoventilation - Morbid (severe) obesity with alveolar hypoventilation - Body mass index [BMI]40.0-44.9, adult - Allergy status to narcotic agent - Chronic pain syndrome - Unspecified atrial flutter - Severe sepsis with septic shock - 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 coli] - Body mass index [BMI]40.0-44.9, adult - Acute and chronic respiratory failure with hypercapnia - Physical restraint status - Acute and chronic respiratory failure with hypoxia - Acute and chronic respiratory failure with hypoxia - Unspecified atrial flutter - Infection and inflammatory reaction due to indwelling urethral catheter, initial encounter [email or web address]
--- NOTE | 2021-08-29 11:00 | NUR ---
PT ARRIVES TO CCU ROOM 130 FROM SURGERY WHERE SHE JUST HAD AN UPPER ENDOSCOPY, AFTER HAVING ONE LARGE CLAUDIA RED EMESIS AT HOME. PT IS JUST WAKING UP FROM PROCEDURE, ON O2 AT 3L, MOSTLY DROWSY. HAS 1 UNIT OF PRBCS INFUSING, PLAN OF CARE DISCUSSED WITH DR ENRIQUEZ. ORDERS GIVEN TO TRANSFUSE A TOTAL OF 4 UNITS OF PRBC'S AND 2 UNITS OF PLATELETS.
--- NOTE | 2021-08-29 11:30 | NUR ---
SECOND UNIT OF PRBC'S COMPLETED.
--- NOTE | 2021-08-29 11:39 | NUR ---
08/29/21 1139 Sheets,Ashlyn 1057 PT TO CCU ROOM AND REPORT TO CCU RN FROM SALES REP. VSS. PT AWAKE AND TALKING TO RNS. PT TRANSFERED TO BED WITH THREE OTHER RNS AT BEDSIDE AND PT ON 6L VIA MASK.
--- NOTE | 2021-08-29 13:05 | NUR ---
REPORT RECEIVED, CARE OF PATIENT ASSUMED AT THIS TIME. THIS RN IN ROOM WIL THIRD UNIT OF BLOOD IS STARTING TO INFUSE. PT IS ALERT AND ORIENTED BUT DROWSY. ROUSABLE TO VOICE. ANSWERING ALL QUESTIONS APPROPRAITELY. LUNGS SOUND DIM THROUGHOUT. PT IS NOT COMPLAINING OF PAIN OR NAUSEA AT THIS TIME. PT SPO2 = 100 PERCENT ON 6 L OM. SWITCHED OVER TO 2 L NC AT THIS TIME. THIS RN REMAINS AT BEDSIDE.
--- NOTE | 2021-08-29 13:21 | NUR ---
PT IN LEFT SIDE LAYING POSITION AT THIS TIME ATTEMPTING TO HAVE A BOWEL MOVEMENT.
--- NOTE | 2021-08-29 13:50 | NUR ---
PT HAD A LARGE FORMED BROWN BM AT THIS TIME. BLOOD STILL INFUSING. PT DENIES PAIN OR DISCOMFORT. CALL LIGHT WITHIN REACH. WILL CONTINUE TO MONITOR.
[2021-08-29] MEDS ORDERED: MELOXICAM15 MG PO (14:48)
[2021-08-29] MEDS ORDERED: NYAMYC15 GM TOP (14:49)
[2021-08-29] MEDS ORDERED: AMMONIUM LACTA226 GM TOP (14:50)
[2021-08-29] MEDS ORDERED: GABAPENTIN300 MG PO (14:51)
[2021-08-29] MEDS ORDERED: [UNRECOGNIZED DRUG - OTHER] TOP (14:53)
--- NOTE | 2021-08-29 14:55 | NUR ---
3RD UNIT OF BLOOD DONE INFUSING, FORTH UNIT OF BLOOD STARTED. PT DENIES PAIN, SHORTNESS OF BREATH, OR DISCOMFORT AT THIS TIME. THIS RN REMAINS AT BEDSIDE.
[2021-08-29] MEDS ORDERED: ZOLPIDEM TARTRAT5 MG PO (14:59)
--- NOTE | 2021-08-29 15:29 | NUR ---
IV LASIX ADMINISTERED. RT IN ROOM. PT AGREES TO WEAR BIPAP WHILE BLOOD IS INFUSING. WILL CONTINUE TO MONITOR.
--- NOTE | 2021-08-29 16:02 | NUR ---
PT TOOK OFF BIPAP AFTER WEARING FOR 15 MINUTES. BACK ON 4 L NC. PT STATES THE MASK IS TOO UNCOMFORTABLE. FORTH UNIT OF BLOOD CONTINUE TO INFUSE. CALL LIGHT WITHIN REACH. WILL CONTINUE TO MONITOR.
[2021-08-29] MEDS ORDERED: ASPIR-TRIN325 MG PO (16:23)
--- NOTE | 2021-08-29 16:26 | NUR ---
MED REC COMPLETE
--- NOTE | 2021-08-29 16:49 | NUR ---
FOURTH UNIT OF BLOOD FINISHED INFUSING. STOCKBROKER IN ROOM AT THIS TIME FOR BLOOD DRAW.
--- NOTE | 2021-08-29 17:37 | NUR ---
PT COMPLAINING OF RIGHT SHOULDER PAIN, SHE REPORTS THIS PAIN CHRONIC. ASSISTED WITH REPOSITIONING. CALL LIGHT AND PERSONAL BELONINGS WITHIN REACH. WILL CONTINUE TO MONITOR.
--- NOTE | 2021-08-29 17:51 | NUR ---
DR ENRIQUEZ UPDATED ON PTS LAB VALUES. PT COMPLAINS OF ANXIETY PRN MEDICATION GIVEN (SEE EMAR).
--- NOTE | 2021-08-29 19:25 | NUR ---
PATIENT REPORT RECIEVED FROM ZARI BRITO. PATIENT IS RESTING IN BED. OXYGEN IS AT 4 LITER NASAL CANULUA. OXYGEN SATURATIONS ARE WNL. BREATHING IS EQUAL AND UNLABORED. CALL LIGHT WITHIN REACH NO FUTHER NEEDS.
--- NOTE | 2021-08-29 20:00 | NUR ---
PATIENT ASSESSMENT COMPLETE. MEDICATIONS GIVEN ORDERED. PATIENT IS ALERT AND ORIENTED X4. LUNG SOUNDS ARE IN THE UPPER LOBES AND DIMINISHED IN THE BASES. PATIENT IS ON 4 LITERS OF OXYGEN VIA NASAL CANULUA. OXYGEN SATURATIONS AND RR ARE WNL. HEART RATE IS 80-90'S BPM. URINE IS CLEAR AND YELLOW. 1 LARGE BM. BROWN AND FORMED. PATIENT HAS NUMBNESS AND TINGLING IN LOWER EXTERMITIES CHRONIC. PATIENT HAS ACHES IN THE LEGS. REPOSTIONED FOR COMFORT. NO QUESTIONS AT THIS TIME. CALL LIGHT WITHIN REACH NO FUTHER NEEDS.
--- NOTE | 2021-08-29 20:25 | EKG ---
[facility] [address] [place] [address] Signed Sinus rhythm with occasional premature ventricular complexes Otherwise normal ECG When compared with ECG of 02-JAN-2021 11:53, premature ventricular complexes are now present premature atrial complexes are no longer present T wave inversion no longer evident in Anterior leads Confirmed by DIEUDONNE RAMÍREZ MD ([id number]) on 08/29/2021 8:25:29 PM Electronically Signed By: DIEUDONNE RAMÍREZ MD 08/29/212024 PATIENT NAME: SAMANTHA KIM HERRERA Electrocardiogram DATE OF : 43 PHYSICIAN: DIEUDONNE RAMÍREZ MD REPORT #: [id number] REPORT IS CONFIDENTIAL AND NOT TO BE RELEASED WITHOUT AUTHORIZATION
--- NOTE | 2021-08-29 21:30 | NUR ---
PATIENT HAD TWO LARGE BOWEL MOVEMENT. BM SEMI FORMED WITH LIQUID. PATIENT CLEAN WITH NEW ATTENED. LINENS CHANGED. PRN ATIVAN GIVEN. OXYGEN AT 4 LITERS. BREATHING EQUAL AND UNLABORED. CALL LIGHT WITHIN REACH NO FUTHER NEEDS.
--- NOTE | 2021-08-29 23:58 | NUR ---
PATIENT ASSESSMENT COMPLETE. PATIENT ASLEEP. AFEBRILE. PATIENT IS ALERT. DENIES SHORTNESS OF BREATH AND COMPLAINS OF 4/10 PAIN IN LOWER EXTERMITIES CHRONIC PAIN, NUMBNESS AND TINGLING. PATIENT LUNG SOUNDS ARE CLEAR IN THE UPPER LOBES AND DIM IN THE BASES. RR AND OXYGEN SATURATIONS ARE WNL ON 4 LITERS VIA NASAL CANULUA. BREATHING EQUAL AND UNLABORED. HEART RATE IS BETWEEN 70-90'S BPM. SINUS RHYTHM. URINE OUTPUT IS CLEAR AND YELLOW. PATIENT HAS HAD 3 BM THIS SHIFT. BOWEL TONES ACTIVE. NO BLOOD IN STOOL. NO QUESTIONS AT THIS TIME. CALL LIGHT WITHIN REACH NO FUTHER NEEDS.
--- NOTE | 2021-08-30 00:45 | NUR ---
PATIENT REPOSITIONED. BM. LINENS CHANGED. ATTENED CHANGED. CALL LIGHT WITHIN REACH NO FUTHER NEEDS.
--- NOTE | 2021-08-30 02:30 | NUR ---
CALLED LAB FOR UPDATE ON PLATELETS. LAB HAS NOT HEARD ANYTHING.
--- NOTE | 2021-08-30 04:00 | NUR ---
PATIENT ASSESSMENT COMPLETE. PATIENT WAS REPOSITIONED. BM AND LINENS CHANGED. PATIENT IS ALERT. DENIES FEELING SHORT OF BREATH OR ANY PAIN. PATIENT IS ON 4 LITERS NASAL CANULUA. OXYGEN SATURATIONS AND RR WNL. AFEBRILE. HR 80-90 BPM SINUS RHYTHM. URINE IS CLEAR AND YELLOW. BM WAS MEDIUM LIQUID. NO BLOOD IN STOOL. NO QUESTIONS CALL LIGHT WITHIN REACH NO FUTHER NEEDS.
--- NOTE | 2021-08-30 05:12 | NUR ---
PLATELETS STARTED. PATIENT IS RESTING IN BED. BREATHING IS EQUAL AND UNLABORED. THIS RN IN ROOM WITH PATIENT.
--- NOTE | 2021-08-30 06:35 | CONS ---
[facility] [address] [place], [place] [address] Signed DATE OF CONSULTATION: 08/29/2021 CHIEF COMPLAINT: Hematemesis. HISTORY OF PRESENT ILLNESS: Samantha is a 76-year-old obese diabetic female, who I have known for many years. I helped her with a laparoscopic cholecystectomy many years ago, followed by repair of a periumbilical hernia. At this point, her health has continued to decline. She is now bed-bound with an indwelling urinary catheter. She has home health care nurses helping her as well as care providers. She tells me she cannot stand to transfer. She has to use a wheelchair to get around and she has a van with wheelchair access. Despite all this, she remains a full code and has discussed at length with her primary care provider. We reviewed the full code status today and she wants to maintain her full code status despite the fact she understand she is an extremely poor surgical candidate. She has been using multiple doses of aspirin each day because of various body aches and pains. She then developed hematemesis, probably two quarts according to the patient. She was brought to our local emergency room for evaluation. Hemoglobin was low at 7.5 with a mean cell volume of 87. Her BUN is up at 58. INR generally satisfactory at 1.28. Albumin is low at 2.4. Chest x-ray showed stable cardiomegaly. She is being admitted to the Internal Medicine Service for her upper GI bleed. I have been asked to see her as a general surgeon motors and controls tester for upper endoscopy. She tells me she has never had an upper endoscopy, but she has had colonoscopies in the past. Therefore, she is familiar with this process. PAST MEDICAL HISTORY: Type 2 diabetes, asthma, cellulitis, macular degeneration, hypertension, five collapsed vertebrae, and congestive heart failure. PAST SURGICAL HISTORY: Includes kidney stones, periumbilical hernia repair with mesh, laparoscopic cholecystectomy. SOCIAL HISTORY: She has smoked on and off her whole life and quit in December of 2020. She has an occasional glass of wine. Her friend is Margie Lebron at . 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 She has to use a wheelchair to get around along with her wheelchair access van. She is a full code. Dr. Erika Still is her primary care provider. FAMILY HISTORY: We talked about that and she told me nothing to her knowledge. Electronically Signed By: LYUBOV ENRIQUEZ MD 08/30/21 0635 PATIENT NAME: SAMANTHA KIM CONSULTATION DATE OF : 43 REPORT #: [id number] PHYSICIAN: LYUBOV ENRIQUEZ MD PCP: NO PRIMARY CARE PHYSICIAN REPORT IS CONFIDENTIAL AND NOT TO BE RELEASED WITHOUT AUTHORIZATION [facility] [address] [place] [id number] Signed REVIEW OF SYSTEMS: There is no metal in her body. ALLERGIES: Tetanus toxoid and codeine. MEDICATIONS: Potassium chloride, Bactrim, lovastatin, bupropion, Requip, Tylenol, Percocet, albuterol, gabapentin, polyethylene glycol, ammonium lactate for her skin, carbidopa/levodopa, spironolactone, sennosides, docusate, torsemide. PHYSICAL EXAMINATION: VITAL SIGNS: Blood pressure 126/70, heart rate is 91, respiratory rate is 18, temperature is 98.6%. She is 94% on 2 L. She is 5 feet 8 inches at 100.2 kg. GENERAL: She does not appear systemically ill or toxic. She is much older than when I saw her in the past. Her hair is not completely monsalve. She has a very full round face, very little if any neck, very heavy chest and abdomen. LUNGS: Clear to auscultation bilaterally. HEART: Regular rate and rhythm, without murmurs. ABDOMEN: Obese, but soft and nontender. GENITOURINARY: She thinks she has a recurrent paraumbilical hernia below the area of the repair. I could not palpate that today. Rectal exam is not performed currently. She has a urinary catheter in place. LABORATORY DATA: Her white blood count is 12.5, hemoglobin 7.5, mean cell volume is 87, neutrophils 73, platelets 233. BUN 50, creatinine 1.58, glucose 182. INR is 1.28. Albumin is 2.4. Liver function tests are negative. RADIOGRAPHIC STUDIES: Chest x-ray showed mild cardiomegaly. ASSESSMENT/PLAN: Samantha is a 76-year-old obese female with very poor functional status and significant past medical history. She has been using aspirin daily, now had some hematemesis. She seems to be stable in the emergency room and no further hematemesis. I reviewed with her upper endoscopy relative to her prior colonoscopies. She understands that as well. There is risk including, but not limited to gas bloating, crampy abdominal pain, bleeding, perforation requiring surgery, and missed diagnosis. She is fully aware that she is an extremely poor surgical candidate. In fact, I am not sure anyone will do any elective surgery for her. She would probably end up ventilator dependent after surgery. She is aware that if there is an ongoing bleeding ulcer, she may need transfer to a higher level of care for an angiogram with embolization. Even then, she is very high risk. We also reviewed the need for the monitored anesthesia care given her extremely Electronically Signed By: LYUBOV ENRIQUEZ MD 08/30/21 0635 PATIENT NAME: SAMANTHA KIM CONSULTATION DATE OF : 43 REPORT #: [id number] PHYSICIAN: LYUBOV ENRIQUEZ MD PCP: NO PRIMARY CARE PHYSICIAN REPORT IS CONFIDENTIAL AND NOT TO BE RELEASED WITHOUT AUTHORIZATION [facility] [address] [place], [place] [address] Signed poor functional status, as well as body habitus and medical issues. She has expressed understanding and wishes to proceed. Lyubov Enriquez MD [facility]/MODL /[id number] cc: Erika Still MD Patient Chart Lyubov Enriquez MD Copies: LYUBOV ENRIQUEZ MD ~ Electronically Signed By: LYUBOV ENRIQUEZ MD 08/30/21 0635 PATIENT NAME: SAMANTHA KIM CONSULTATION DATE OF : 43 REPORT #: [id number] PHYSICIAN: LYUBOV ENRIQUEZ MD PCP: NO PRIMARY CARE PHYSICIAN REPORT IS CONFIDENTIAL AND NOT TO BE RELEASED WITHOUT AUTHORIZATION
--- NOTE | 2021-08-30 06:35 | OR ---
[facility] [address] [place], [place] [address] Signed DATE OF OPERATION: 08/29/2021 SURGEON: Lyubov George MD PREOPERATIVE DIAGNOSES: 1. Hematemesis. 2. Daily aspirin use. 3. Anemia. POSTOPERATIVE DIAGNOSES: One-third to one-half of stomach full of maroon-colored firm clotted blood with no bright red blood or active bleeding source found. PROCEDURE: Upper endoscopy without biopsy. ESTIMATED BLOOD LOSS: None. INDICATIONS: Samantha is a 76-year-old obese diabetic female, who has been using multiple doses of aspirin each day for various body aches and pains. Her health has continued to decline and she is now bedridden at home. She has caregivers and nurses come every week. She has a chronic indwelling urinary catheter. She is not able to stand to transfer. She therefore asked to use a wheelchair and she does have a van that has wheelchair access. Despite all this, she remains a full code. She has discussed that in detail with her primary care provider and myself today. She had some nausea and vomiting and at least two quarts of hematemesis. She came to the emergency room for evaluation. She has been hemodynamically stable, but her hemoglobin is down from around 10 to about 7.5. BUN is up at 58. INR is 1.28. Albumin is a little low at 2.4. Liver function tests were fine. Chest x-ray showed her stable cardiomegaly. I have been asked to see her as a general surgeon on-call for consideration of upper endoscopy. In the meantime, she stayed in the emergency room and was receiving her 2 units of packed red blood cells. I had been performing the procedure for another patient. Once completed, I had gone down to the emergency room to visit with Samantha. I reviewed with her the above findings in detail. She maintained her desire to be a full code. She is aware that she is an extremely poor surgical candidate. In fact, she is so heavy, she tends to breathe with pursed lips. She is aware that her chance of getting off the ventilator after any surgical procedure would be extremely low. Consequently, she has an ongoing bleeding ulcer, she might be a candidate for angiogram with embolization. She has had Electronically Signed By: LYUBOV GEORGE MD 08/30/21 0635 PATIENT NAME: SAMANTHA KIM OPERATIVE REPORT DATE OF : 43 REPORT #: [id number] PHYSICIAN: LYUBOV GEORGE MD PCP: NO PRIMARY CARE PHYSICIAN REPORT IS CONFIDENTIAL AND NOT TO BE RELEASED WITHOUT AUTHORIZATION [facility] [address] [place], [place] [address] Signed colonoscopies in the past, therefore she is familiar with this process. I reviewed with her upper endoscopy in detail. She knows there is risk including, but not limited to gas bloating, crampy abdominal pain, bleeding, perforation requiring surgery, and missed diagnosis. We also reviewed the need for monitored anesthesia care, given her advanced medical issues along with her very poor functional status and her body mass index. She has a very round full face, heavy neck, chest, and abdomen. She had expressed understanding and wished to proceed. DESCRIPTION OF PROCEDURE: Samantha was taken into our endoscopy suite and placed in a supine semi-recumbent position. She was given monitored anesthesia care with propofol per our nurse forms examiner. We had to abort the upper endoscopy twice because she is very sensitive to the medications and she would stop breathing for few minutes and therefore needed airway along with a nasal trumpet. She came back quite nicely both times with mask and assistance with her breathing. Eventually, we were able to pass the scope without difficulty through her bite block all the way down into the stomach itself. She had large amounts of maroon-colored clotted blood in the fundus and antrum. It took a minute to orient ourself and we found her incisura. We did not see any bright red blood in her stomach. We tried to suction out the blood without success. We irrigated some of the blood and it made no difference whatsoever. We could not pass the blood past the antrum into the pyloric channel. We could not directly visualize the GE junction from below because of the blood in the fundus. We finally had to abandon the procedure. The scope was then withdrawn without difficulty and the gas suctioned out. Samantha was awakened from her anesthesia and taken into the ICU in stable, but very serious condition. RECOMMENDATIONS: Samantha will be in the ICU currently. I will call the Internal Medicine Service and review the above findings. Lyubov George MD [facility]/MODL /[id number] cc: Lyubov George MD Electronically Signed By: LYUBOV GEORGE MD 08/30/21 0635 PATIENT NAME: SAMANTHA KIM OPERATIVE REPORT DATE OF : 43 REPORT #: [id number] PHYSICIAN: LYUBOV GEORGE MD PCP: NO PRIMARY CARE PHYSICIAN REPORT IS CONFIDENTIAL AND NOT TO BE RELEASED WITHOUT AUTHORIZATION [facility] [address] [facility] [place], [place] [address] Signed Erika Still MD Patient Chart Copies: LYUBOV GEORGE MD ~ Electronically Signed By: LYUBOV GEORGE MD 08/30/21 0635 PATIENT NAME: SAMANTHA KIM OPERATIVE REPORT DATE OF : 43 REPORT #: [id number] PHYSICIAN: LYUBOV GEORGE MD PCP: NO PRIMARY CARE PHYSICIAN REPORT IS CONFIDENTIAL AND NOT TO BE RELEASED WITHOUT AUTHORIZATION
--- NOTE | 2021-08-30 07:30 | NUR ---
Report recieved, care of patient assumed at this time. PT resting with eyes closed, breathing even and unlabored. call light within reach. Will continue to monitor.
--- NOTE | 2021-08-30 08:31 | NUR ---
ASSESSMENT AND MEDICATION ADMINISTRATION COMPLETED. PT ALERT AND ORIENTED, ANSWERING QUESTIONS APPROPRIATELY. GIVEN ICE CHIPS AT THIS TIME. PT HAS NO COMPLAINTS OF PAIN OR NAUSEA. IV FLUIDS DECREASED TO 75 MLS/HR. FINE CRACKLES NOTED IN BILATERAL LOWER LUNG BASES. PLAN OF CARE FOR DAY ESTABLISHED. ALL QUESTIONS ANSWERED. CALL LIGHT WITHIN REACH. DENIES FURTHER NEEDS AT THIS TIME.
--- NOTE | 2021-08-30 10:07 | NUR ---
DR RAMÍREZ IN ROOM TO SEE PATIENT AT THIS TIME.
--- NOTE | 2021-08-30 11:44 | NUR ---
BED BATH AND MOORE CATHETER CARE DONE AND ASSESSMENT COMPLETED. WELL TOLERATED. IV FLUIDS INFUSING. CALL LIGHT WITHIN REACH. PT DENIES FURTHER NEEDS AT THIS TIME.
--- NOTE | 2021-08-30 13:00 | NUR ---
CONNECTED WITH FR CHAVEZ TO VISIT PT. WILL CONTINUE TO FOLLOW
--- NOTE | 2021-08-30 14:16 | NUR ---
PT AWAKE IN ROOM, SUPERVISOR LANDSCAPE IN WITH PT AT THIS TIME. PT DENIES ANY PAIN, NAUSEA, OR OTHER DISCOMFORT. CALL LIGHT WITHIN REACH. WILL CONTINUE TO MONITOR.
--- NOTE | 2021-08-30 14:20 | NUR ---
PT ALERT, ORIENTED AND SEEMED PLEASED I STOPPED BY. PT ABLE TO JOKE, THANKED ME FOR HAVING TRAFFIC LIEUTENANT COME BY. WOULD LIKE DAILY VISITS, WILL ARRANGE. PT ON FLUID RESTRICTION, WOULD LIKE SOME ICE. MENTIONED TO ZARI BRITO. HAD PRAYER WITH PT, LEFT G.POST. WILL FOLLOW NEEDED
--- NOTE | 2021-08-30 15:29 | NUR ---
ASSESSMENT COMPLETED. PT ALERT AND ORIENTED BUT REMAINS DROWSY. ORAL TEMP OF 99.2. ASSISTED PT WITH REPOSITIONING IN BED WITH PILLOWS UNDER LEFT SIDE. OTHER ASSESSMENT FINDINGS REMAIN UNCHANGED. MOORE CATHETER DRAINING LIGHT YELLOW URINE. IV FLUIDS CONTINUE TO INFUSE. CALL LIGHT WITHIN REACH. WILL CONTINUE TO MONITOR.
--- NOTE | 2021-08-30 17:02 | NUR ---
platlets hung as PER DR. MOREIRA ORDERS. IVF DC'D.
--- NOTE | 2021-08-30 17:40 | NUR ---
PLATLETS INFUSED. PATIENT HAS BEEN TAKING CLEAR LIQUIDS W/O NAUSEA. MOORE CATH EMPTIED FOR 1000 ML OF CLEAR YELLOW URINE. DENIES PAIN.
--- NOTE | 2021-08-30 19:00 | NUR ---
RESTING REPORT TO NEXT SHIFT. NO CHANGES. PATIENT RESTING.
--- NOTE | 2021-08-30 19:30 | NUR ---
REPORT RECEIVED FROM JUDITH RN, WILL CONTINUE PLAN OF CARE.
--- NOTE | 2021-08-30 20:16 | NUR ---
PT LAYING IN BED AWAKE AND ALERT AND WAS ORIENTED X 4. PT IS ON 4L O2 NC AND REPORTS NO SHORTNESS OF BREATH, SPO2 97-100%. PT REPORTS NO PAIN AT THIS TIME WELL. VITALS TAKEN AT THIS TIME (SEE CHART). SCHEDULED MEDICATIONS ADMINISTERED (SEE MAR). ASSESSMENT COMPLETED AFTERWARDS, LUNGS CLEAR/DIMINISHED IN UPPER LOBES BILATERALLY AND DIMINISHED IN THE BASES BILATERALLY. ACTIVE BOWEL TONES PRESENT, STRONG RADIAL AND PEDAL PULSES PRESENT. 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 MOORE DRAINING CLEAR YELLOW URINE. PT PROVIDED WITH ICE WATER AND REPORTS NO FURTHER NEEDS AT THIS TIME, WILL CONTINUE PLAN OF CARE. CALL LIGHT IN REACH, BED IN LOWEST POSITION.
--- NOTE | 2021-08-30 22:07 | NUR ---
CALL LIGHT USED, PT STATED SHE WANTED TO BE TURNED TO HER LEFT SIDE AT THIS TIME. ZARI SHELBY AND ZARI SALGADO IN TO ASSIST TO TURN PT. SCD'S PLACED AFTERWARDS, PT TOLERATING THEM WELL. ICE WATER PROVIDED TO PT PER HER REQUEST. AFTERWARDS PT ASKED TO BE MOVED BACK ONTO HER BACKSIDE. PT PILLOWS TAKEN OUT FROM UNDERNEATH, PT NOW LAYING ON HER BACK. PT REPORTS NO FURTHER NEEDS AT THIS TIME WHEN ASKED, WILL CONTINUE PLAN OF CARE. CALL LIGHT IN REACH, BED IN LOWEST POSITION.
--- NOTE | 2021-08-30 23:23 | NUR ---
PT INCONTINENT OF LARGE FORMED BLACK STOOL. PERICARE PROVIDED. ALLEVYN SOILED, NEW ONE PLACED TO COCCYX/SACURM. PT REQUESTS TO STAY SUPINE AT THIS TIME, BOOSTED UP IN BED. WARM BLANKETS AND FRESH WATER PROVIDED PER REQUEST. CALL LIGHT WITHIN REACH.
--- NOTE | 2021-08-30 23:52 | NUR ---
PT AGAIN INCONTINENT OF FORMED BLACK STOOL, SMALL AMOUNT THIS TIME. PERICARE AND BARRIER CREAM PROVIDED. OXYGEN SWITCHED TO OXYMASK AT 10L FOR DESATURATIONS TO LOW 80'S. SPO2 NOW 93%.
--- NOTE | 2021-08-31 01:00 | NUR ---
PT SLEEPING IN BED AT THIS TIME, PT AWOKE BRIEFLY WHILE TAKING VITALS AND ASSESSING PT. PT TITRATED DOWN TO FROM 10L O2 OXYMASK TO 6L, SPO2 MAINTAINING AT 97%. PT DENIES SHORTNESS OF BREATH WHEN ASKED AT THIS TIME. PT REPORTS NO FURTHER NEEDS AT THIS TIME AND RETURNED BACK TO SLEEP, WILL CONTINUE PLAN OF CARE. CALL LIGHT IN REACH, BED IN LOWEST POSITION, SCD'S ON AND IN PLACE.
--- NOTE | 2021-08-31 01:20 | NUR ---
PT LAYING IN BED SLEEPING AT THIS TIME, SPO2 97% ON 6L O2 OXYMASK, PT TITRATED DOWN TO 4L O2 OXYMASK. PT SPO2 NOW MAINTAINING AT 94%. WILL CONTINUE PLAN OF CARE.
--- NOTE | 2021-08-31 03:14 | NUR ---
PT INITIALLY SLEEPING ON 4L O2 OXYMASK, SPO2 92%. PT AWOKE WHEN ENTERING THE ROOM. PT DENIES SHORTNESS OF BREATH AND REPORTS LOWER BACK PAIN BUT DENIES THE NEED FOR PRN PAIN MEDICATION. PT VITALS TAKEN AT THIS TIME AND PT ASSESSED (SEE CHART). PT REPORTS NO FURTHER NEEDS WHEN ASKED AFTERWARDS AND RETURNED BACK TO SLEEP, WILL CONTINUE PLAN OF CARE. CALL LIGHT IN REACH, BED IN LOWEST POSITION, MOORE DRAINING CLEAR YELLOW URINE.
--- NOTE | 2021-08-31 04:20 | NUR ---
SPO2 NOTED TO BE 85-88%, PT LAYING IN BED AWAKE EATING ICE CHIPS, OXY MASK PULLED DOWN OFF OF FACE. OXYMASK PLACED BACK ON AT 4L O2, SPO2 NOW 91%. PT REPORTS NO FURTHER NEEDS AT THIS TIME WHEN ASKED, WILL CONTINUE PLAN OF CARE. CALL LIGHT IN REACH.
--- NOTE | 2021-08-31 05:00 | NUR ---
PT LAYING IN BED AWAKE, PT REQUESTED ICE WATER. ICE WATER PROVIDED, PT STILL ON 4L O2 OXYMASK, SPO2 95%. PT IV'S ASSESSED, LEFT WRIST IV WAS PAINFUL TO FLUSH AND WAS DC'D PER PROTOCOL, CATHETER INTACT UPON REMOVAL, GAUZE AND COBAN APPLIED. IV IN LEFT AC DC'D WELL DUE TO SWELLING ABOVE THE INSERTION SITE. CATHETER INTACT, DC WNL, PT TOLERATED WELL, GAUZE AND COBAN APPLIED. TWO IV INSERTIONS ATTEMPTED AFTERWARDS BUT WERE UNABLE TO BE PLACED. PT RIGHT AC IV STILL FLUSHING WELL, SITE WNL. PT REPORTS NO FURTHER NEEDS AT THIS TIME WHEN ASKED, WILL CONTINUE PLAN OF CARE. CALL LIGHT IN REACH, BED IN LOWEST POSITION, SCD'S ON, WILL CONTINUE PLAN OF CARE.
--- NOTE | 2021-08-31 06:20 | NUR ---
PT LAYING IN BED AWAKE AND ALERT ON 4L O2 OM, SPO2 94%. PT DENIES SHORTNESS OF BREATH WHEN ASKED. PT'S SCD'S REMOVED AT THIS TIME PER HER REQUEST AND PT PROVIDED WITH ICE WATER PER HER REQUEST. PT REPORTS NO FURTHER NEEDS WHEN ASKED AT THIS TIME, WILL CONTINUE PLAN OF CARE. CALL LIGHT IN REACH.
--- NOTE | 2021-08-31 07:10 | NUR ---
PT AWAKE AND ALERT IN BED ON 4L O2 OM, PT REPORTS HAVING A BM. ZARI SHELBY IN TO ASSSIST. PT HAD A SMALL BLACK TARRY STOOL. PERICARE DONE, NEW ATTENDS IN PLACE, ALOE CREAM APPLIED. AFTERWARDS PT REPORTED PAIN IN HER LOWER LEGS AND IRRITATION AROUND HER RECTUM. PRN OXYCODONE ADMINISTERED FOR PAIN AT THIS TIME PER HER REQUEST. PT REPORTS NO FURTHER NEEDS WHEN ASKED, WILL CONTINUE PLAN OF CARE. CALL LIGHT IN REACH.
--- NOTE | 2021-08-31 07:30 | NUR ---
REPORT RECIEVED. PATIENT C/O OF ITCHING IN RECTAL AREA. TUCKS APPLIED. MOORE CATH PATENT. O2 IN PLACE.
--- NOTE | 2021-08-31 08:05 | NUR ---
Pt is the [facility]. Lives alone with 3 cg, which live next door. They provide full care as pt is no longer able to walk or transfer. She uses a lift chair and a robert. She is hoyered into her Gazoob and electric scooter. She states she stays in her lift chair as she does not go out due to poor weather conditions. 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 She would like [facility] to return when she is discharged. Pt does not ever want to return to a SNF. [place]
--- NOTE | 2021-08-31 09:00 | NUR ---
ORDERS RECIEVED TO TRANSFER TO MED-SURG. MONITOR DC'D.
--- NOTE | 2021-08-31 09:30 | NUR ---
OOB TO CHAIR VIA OVERHEAD LIFT, TOLERATED TRANSFER WELL. CONTINUES TO C/O ITCHING, NYSTATIN POWER APPLIED TO RECTAL AREA AND PANNUS PRIOR TO TRANSFER TO CHAIR.
--- NOTE | 2021-08-31 10:45 | NUR ---
back to bed VIA OVERHEAD LIFT, CURRENT MOORE CATH DC'D HAS A CHRONIC MOORE, ORDERS RECIEVED TO REPLACE. THIS DONE.
--- NOTE | 2021-08-31 11:30 | NUR ---
Attempted to contact [facility], no answer. Offices maybe closed to poor weather.
--- NOTE | 2021-08-31 11:40 | NUR ---
TO MED-SURG VIA BED. BEDSIDE REPORT GIVEN. PATIENT TAKING MAG CITRATE ORDERED. IS W/O C/O OF NAUSEA.
--- NOTE | 2021-08-31 13:33 | NUR ---
Pt incontinent of large amount of dark/black colored gelatinous bm. skin care done, allevyn dressing to coccyx replaced. cooperative
--- NOTE | 2021-08-31 14:02 | NUR ---
PT JUST MOVED TO M/S 125. GETTING SITUATED, TOWBOAT PILOT IN WITH PT. PT REQUESTED A VISIT FROM [facility], WILL ARRANGE.
--- NOTE | 2021-08-31 14:29 | NUR ---
PT AWAKE IN BED AND HAS INCONTINANCE OF BOWELS. PT NOW AWAKE IN BED CHATTING WITH FAMILY IN THE ROOM. CALL LIGHT WITHIN REACH. FRESH ICE WATER GIVEN. NO FURTHER NEEDS AT THIS TIME
--- NOTE | 2021-08-31 14:31 | NUR ---
PATIENT HAD INC. STOOL. THIS MINK RANCHER, SHAHEED RENTERIA, AND RN GEOFF IN TO CHANGE PATIENT. GOKUL CARE, CATH CARE, SKIN CARE DONE. NEW ATTENDS IN PLACE. PATIENT REPOSITIONED IN BED. VITALS AND I&O'S CHARTED. VISITOR NOW IN ROOM. FRESH WATER GIVEN. CALL LIGHT IN REACH. NO FURTHER NEEDS AT THIS TIME.
--- NOTE | 2021-08-31 17:29 | NUR ---
Pt got transferred to room 125 from ICU mid shift. On chronic 02 3LNC, lungs dim at bases, SL RAC field start patent. no other IV sites at this time. Pt received Mag Citrate prior to trnsfer. has been very effective having multiple Large amounts of black colored semi liquid gelatinous like bms. skin care donoe. pt c/o very sensitive buttocks area due to previous multiple bm's. Tuck, barrier cream and powder applied to area. Sacral upper buttocks area slighthy scabbed over and red/tender covered with Allevyn foam dressings. f/c was changed in ICU prior to pt being transferred today. Much improved LE from previous admission, edema/elephatatis bilat LE. R more noticiable than L. SCDS on and pt is to keep SCDS as per report. Pt instructed. off at this time at her requests. on Bariatric bed. legs elevated. Pt has multiple small requests, instructed on how to manage call light, bed repositioning of head and LE, on how to turn up/down volume and channels several times. alert to self, situation and date, but short memory r/t above. Tolerating clear liquids well. no emesis this shift. Has been medicated x1 per generalized pain with good pain relief. call light at hands reach. Cont to reinforce self care, fall safety, skin care, SCDS, procedures, O2 requirements, Kassidy left for transfer, Bariatric chair in room. pt stated understanding. flat affect. cooperative
--- NOTE | 2021-08-31 18:46 | NUR ---
PATIENT IN BED RESTING AT THIS TIME. VITALS AND I&O'S CHARTED. CALL LIGHT IN REACH. NO FURTHER NEEDS AT THIS TIME.
--- NOTE | 2021-08-31 19:00 | NUR ---
pt transferred to room 114. pt on bariatric bed, O2 3LNC, f/c patent. call light at hands reach
--- NOTE | 2021-08-31 19:20 | NUR ---
REPORT RECEIVED FROM DAY SHIFT RN. PT LYING IN BED RESTING WITH EYES CLOSED. RESPIRATIONS EVEN. WHITE BOARD UPDATED. CALL LIGHT IN REACH.
--- NOTE | 2021-08-31 19:45 | NUR ---
CALL LIGHT ANSWERED. PATIENT WANTED TO HAVE SOME BLANKETS OFF. DONE.
--- NOTE | 2021-08-31 22:31 | NUR ---
EVENING ASSESSMENT COMPLETE. SCHEDULED MEDS ADMINISTERED PER EMAR. PRN FOR BLE PAIN ADMINISTERED. SKIN CARE AND GOKUL/MOORE CATH CARE COMPLETE. PRN CREAM FOR ITCHING APPLIED TO GOKUL AREA. PT DENIES SOB. 3L/NC IN PLACE. RESPIRATIONS EVEN. 3PA TO REPOSITION IN BED. SCD'S IN PLACE. BROTH AND FRESH WATER PROVIDED. PT DENIES QUESTIONS OR CONCERNS. CALL LIGHT IN REACH.
--- NOTE | 2021-09-01 00:15 | NUR ---
PT RESTING IN BED WITH EYES CLOSED. RESPIRATIONS EVEN. CALL LIGHT IN REACH.
--- NOTE | 2021-09-01 01:01 | NUR ---
CALL LIGHT ANSWERED. PT C/O RESTLESS LEGS AND REQUESTING PRN. DISCUSSED WITH PT THERE ARE NO PRN'S FOR RESTLESS LEGS ORDERED. PT DID NOT WISH TO CALL MD FOR ORDERS AT THIS TIME. SCD'S HAD BEEN TURNED OFF FOR A "BREAK" PER PT REQUEST. PT AGREEABLE TO TURN SCD'S BACK ON TO SEE IF THEY WOULD RELIEVE SX BEFORE CALLING MD FOR ORDERS. SODA PROVIDED. NO OTHER NEEDS AT THIS TIME.
--- NOTE | 2021-09-01 01:21 | NUR ---
BACK TO ROUND ON PT. PT WITH EYES CLOSED. DID NOT WAKE WHEN OPENING DOOR. WILL CONTINUE TO ROUND.
--- NOTE | 2021-09-01 02:10 | NUR ---
CALL LIGHT ANSWERED. 2PA TO REPOSITION PT IN BED WITH PILLOWS. PT CONTINUES TO COMPLAIN OF RESTLESS LEGS AND WOULD LIKE THIS RN TO CALL MD FOR ORDERS. DISCUSSED WITH PT MD IN EMERGENT SITUATION AND WILL CONTACT MD WHEN HE BECOMES AVAILABLE. PT VERBALIZES UNDERSTANDING.
--- NOTE | 2021-09-01 04:05 | NUR ---
DR. MOREIRA NOTIFIED OF PTS COMPLAINTS. NEW ORDERS RECEIVED. PRN FOR SLEEP ADMINISTERED PER EMAR. LOTION APPLIED TO LEGS PER PT REQUEST. SCD'S REMOVED PER PT REQUEST. FRESH WATER AND BROTH PROVIDED. NO ADDITIONAL NEEDS AT THIS TIME. CALL LIGHT IN REACH.
--- NOTE | 2021-09-01 04:42 | NUR ---
CALL LIGHT ANSWERED. IN TO HELP PT TURN ROOM LIGHTS OFF. VS AND I&O OBTAINED.
--- NOTE | 2021-09-01 06:38 | NUR ---
CALL LIGHT ANSWERED. PT WITH MULTIPLE REQUESTS. GOKUL AREA CLEANED AND BARRIER CREAM APPLIED. 4PA TO REPOSITION PT IN BED. BED ADJUSTED MULTIPLE TIMES PER REQUEST. SCD'S REMAIN OFF, PT REFUSES TO WEAR AT THIS TIME. NO FURTHER NEEDS AT THIS TIME. CALL LIGHT IN REACH.
--- NOTE | 2021-09-01 07:20 | NUR ---
this rn received report from phillip alfaro.
--- NOTE | 2021-09-01 09:25 | NUR ---
THIS RN IN PTS ROOM TO CHECK ON PT AND GIVE MORNING MEDS. PT HAD CALLED OUT ASKING WHERE SHE WAS AND THAT SHE WAS CONFUSED. THIS RN IN PTS ROOM. PT ONLY ORIENTED TO SELF THIS AM. PT THEN STATED THAT SHE FELT LIKE SHE HAD AN "ELEPHANT ON HER CHEST" THIS RN NOTED THAT PT DID NOT HAVE HER OXYGEN ON. THIS RN PLACED PTS 3L NC ON HER.PT SLOWLY STATING THAT HER CHEST PAIN IS RESOLVING, PT IS MORE CONCERNED ABOUT GETTING WARM BLANKETS. PTS VITALS ARE ALL WNL NOT THAT PT IS BACK ON HER CHRONIC 3L NC.
[2021-09-01] MEDS ORDERED: NICOTINE LOZENGE4 MG BUCCAL (13:03)
[2021-09-01] MEDS ORDERED: NYAMYC15 GM TOP (13:03)
[2021-09-01] MEDS ORDERED: OMEPRAZOLE40 MG PO (13:05)
[2021-09-02] MEDS ORDERED: PROTONIX40 MG PO (23:12)
[2021-09-02] MEDS ORDERED: FERROUS SULFAT325 MG PO (23:12)
[2021-09-02] MEDS ORDERED: ONDANSETRON ODT4 MG SL (23:12)
== END 2021-09-01 13:55 | disposition home or self-care (01) | DRG 378 ==
LOC: ED 07:02 → CCU 11:52 → MS 11:52
PROVIDERS: Colon & Rectal Surgery; ADMIT Internal Medicine; ATTEND Internal Medicine
PROC: 30233N1 Transfusion of Nonautologous Red Blood Cells into Peripheral Vein, Percutaneous Approach (ICD-10-PCS; 2021-08-29)
PROC: 5A09457 Assistance with Respiratory Ventilation, 24-96 Consecutive Hours, Continuous Positive Airway Pressure (ICD-10-PCS; principal; 2021-08-29 10:30)
PROC: 0DJ08ZZ Inspection of Upper Intestinal Tract, Via Natural or Artificial Opening Endoscopic (ICD-10-PCS; 2021-08-30)
DX: K29.71 Gastritis, unspecified, with bleeding (principal); D62 Acute posthemorrhagic anemia; I50.32 Chronic diastolic (congestive) heart failure; J96.11 Chronic respiratory failure with hypoxia; E66.2 Morbid (severe) obesity with alveolar hypoventilation; Z68.41 Body mass index [BMI] 40.0-44.9, adult; J96.12 Chronic respiratory failure with hypercapnia; K25.4 Chronic or unspecified gastric ulcer with hemorrhage; E78.5 Hyperlipidemia, unspecified; Z20.822 Contact with and (suspected) exposure to COVID-19; G89.4 Chronic pain syndrome; G25.81 Restless legs syndrome; T39.395A Adverse effect of other nonsteroidal anti-inflammatory drugs [NSAID], initial encounter; E11.9 Type 2 diabetes mellitus without complications; J44.9 Chronic obstructive pulmonary disease, unspecified; J45.909 Unspecified asthma, uncomplicated; H35.30 Unspecified macular degeneration; I11.0 Hypertensive heart disease with heart failure; F17.210 Nicotine dependence, cigarettes, uncomplicated; Z90.49 Acquired absence of other specified parts of digestive tract; Z98.890 Other specified postprocedural states; Z88.7 Allergy status to serum and vaccine; Z88.5 Allergy status to narcotic agent; Z88.8 Allergy status to other drugs, medicaments and biological substances; Z79.899 Other long term (current) drug therapy
CPT/HCPCS: 36430; 71045; 80048; 80053; 85014; 85018; 85025; 85610; 85730; 86850; 86900; 86901; 86922; 93005; 93010; 94660; 96374; 96375; 99285-25; C9113; J1170; J1940; J2060; J2405; J2704; J2765; J3480; J7030; J7060; J7121; P9016; P9035; U0003

== ENCOUNTER 2021-09-02 21:53 | Emergency (ER) | payer MEDICARE, OTHER ==
[~2021-09-02] VITALS: Ht 172.7 cm; Wt 186.0 kg
[~2021-09-02 21:53] MED LIST changes: +AMMONIUM LACTA226 GM TOP; +ASPIR-TRIN325 MG PO; +GABAPENTIN300 MG PO; +MELOXICAM15 MG PO; +NICOTINE LOZENGE4 MG BUCCAL; +NYAMYC15 GM TOP; +OMEPRAZOLE40 MG PO; +[UNRECOGNIZED DRUG - OTHER] TOP
--- OUTSIDE RECORDS SUMMARY | 2021-09-02 21:56 | XMS ---
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 Events No recent Security Events currently on file CRITERIA MET - [facility] - 2 Visits in 30 Days - PDMP CARE PROVIDERS ALETHA SCHWARTZ Physician Shipfitters Supervisor 08/17/2020-Current PHONE: [phone] SHRUTHI MARTINEZ Anthropology Professorneelam Wallace PHONE: [phone] FABIENNE HINTON Internal Medicine Current PHONE: Unknown QUANG RODGERS Nurse Practitioner Current PHONE: [phone] PAYAL GARCIA Nurse Practitioner: Family Current PHONE: Unknown Nurse JOVANI Practitioner Current LUISA CHRISTOPHER PHONE: [phone] SARAH [facility] Current PHONE: [phone] Nimesh has no Care Guidelines for this patient. Care History Medical/Surgical 12/13/2018 [facility] - PATIENT HAS A EDI COORDINATOR AT [facility]. - PATIENT IS NOW SET UP WITH [facility] INFECTIOUS DISEASE [facility]INIC- DR TILLMAN- [place] SET UP AN APT FOR PATIENT FOLLOW UP ON December @ 1:15PM. - PATIENT HAS 10 DAYS OF DAILY ANTIBIOTIC TREATMENTS STARTING 12/13/18. 07/18/2018 [facility] IF SEEN IN ED AND NEEDS INPATIENT ADMISSION:\T\nbsp; PATIENT NEEDS TO BE TRANSFERRED TO A FACILITY THAT HAS A BARIATRIC SPECIALTY UNIT .\T\nbsp; THIS PATIENTS WEIGHT IS NOW HIGHER THAN OUR EQUIPMENT CAN TOLERATE SAFELY. EAbraham VISIT COUNT (12 MO.) 4 [facility] TOTAL 4 NOTE: Visits indicate total known visits. ED/UCC VISIT TRACKING (12 MO.) 09/02/2021 21:53 [facility] [place] TYPE: Emergency COMPLAINT: - VOMITING 08/29/2021 07:02 [facility] [place] TYPE: Emergency COMPLAINT: - GI BLEED 01/02/2021 10:50 [facility] [place] TYPE: Emergency COMPLAINT: - SHORTNESS OF BREATH 09/03/2020 11:46 [facility] [place] TYPE: Emergency COMPLAINT: - SOB DIAGNOSES: - Allergy status to narcotic agent - Heart failure, unspecified - Other oysterman (current) drug therapy - Hypoxemia - Nicotine dependence, unspecified, uncomplicated - Unspecified asthma, uncomplicated - Shortness of breath - Type 2 diabetes mellitus without complications - Allergy status to serum and vaccine - Hypertensive heart disease with heart failure INPATIENT VISIT TRACKING (12 MO.) 08/29/2021 11:[address] [facility] [place] TYPE: Medical Surgical COMPLAINT: - GI BLEED DIAGNOSES: - Chronic diastolic (congestive) heart failure - Unspecified asthma, uncomplicated - Allergy status to other drugs, medicaments and biological substances - Chronic diastolic (congestive) heart failure - Morbid (severe) obesity with alveolar hypoventilation - Other specified postprocedural states - Gastritis, unspecified, with bleeding - Hyperlipidemia, unspecified - Morbid (severe) obesity with alveolar hypoventilation - Hypertensive heart disease with heart failure - Nicotine dependence, cigarettes, uncomplicated - Chronic or unspecified gastric ulcer with hemorrhage - Allergy status to serum and vaccine - Other specified postprocedural states - Acquired absence of other specified parts of digestive tract - Acute posthemorrhagic anemia - Other oysterman (current) drug therapy - Chronic pain syndrome - Acute posthemorrhagic anemia - Other oysterman (current) drug therapy - Gastrointestinal hemorrhage, unspecified - Allergy status to other drugs, medicaments and biological substances - Type 2 diabetes mellitus without complications - Chronic respiratory failure with hypercapnia - Chronic obstructive pulmonary disease, unspecified - Allergy status to narcotic agent - Unspecified macular degeneration - Type 2 diabetes mellitus without complications - Acquired absence of other specified parts of digestive tract - Allergy status to narcotic agent - Restless legs syndrome - Body mass index [BMI]40.0-44.9, adult - Allergy status to serum and vaccine - Chronic respiratory failure with hypoxia - Chronic respiratory failure with hypoxia - Hyperlipidemia, unspecified - Hypertensive heart disease with heart failure - Body mass index [BMI]40.0-44.9, adult - Gastritis, unspecified, with bleeding - Adverse effect of other nonsteroidal anti-inflammatory drugs [NSAID], initial encounter - Restless legs syndrome - Chronic pain syndrome - Nicotine dependence, cigarettes, uncomplicated - Unspecified macular degeneration - Unspecified asthma, uncomplicated - Chronic or unspecified gastric ulcer with hemorrhage - Chronic obstructive pulmonary disease, unspecified - Adverse effect of other nonsteroidal anti-inflammatory drugs [NSAID], initial encounter 01/02/2021 13:[address] [facility] [place] TYPE: Medical Surgical COMPLAINT: - RESPIRATORY FAILURE DIAGNOSES: - Severe sepsis with septic shock - Unspecified mood [affective] disorder - Hyperlipidemia, unspecified - Other Gram-negative sepsis - Other Gram-negative sepsis - Other alf (current) drug therapy - Chronic pain syndrome - Acute on chronic diastolic (congestive) heart failure - Morbid (severe) obesity with alveolar hypoventilation - Morbid (severe) obesity with alveolar hypoventilation - Body mass index [BMI]40.0-44.9, adult - Allergy status to narcotic agent - Chronic pain syndrome - Unspecified atrial flutter - Severe sepsis with septic shock - detention (current) use of opiate analgesic - Allergy status to serum and vaccine - Allergy status to narcotic agent - Paroxysmal atrial fibrillation - Urinary tract infection, site not specified - Restless legs syndrome - Sepsis due to Escherichia coli [E. 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
[2021-09-02] MEDS ORDERED: ONDANSETRON ODT4 MG SL (23:12)
[2021-09-02] MEDS ORDERED: PROTONIX40 MG PO (23:12)
[2021-09-02] MEDS ORDERED: FERROUS SULFAT325 MG PO (23:12)
== END 2021-09-02 23:45 | disposition home or self-care (01) ==
LOC: ED 21:53
DX: K92.2 Gastrointestinal hemorrhage, unspecified (principal); Z51.5 Encounter for palliative care; E11.9 Type 2 diabetes mellitus without complications; I11.0 Hypertensive heart disease with heart failure; I50.9 Heart failure, unspecified; F17.200 Nicotine dependence, unspecified, uncomplicated; Z88.5 Allergy status to narcotic agent; Z88.7 Allergy status to serum and vaccine; Z79.899 Other long term (current) drug therapy
CPT/HCPCS: 80048; 85025; 85610; 85730; 86850; 86900; 86901; 86922; 96374; 96375; 99285-25; A9270; C9113; J2405